=== PATIENT | male | born 1945 | race Caucasian/White ===

== ENCOUNTER 2021-09-25 10:55 | Emergency (ER) | payer MEDICARE, BC, SELFPAY ==
[2021-09-25 11:38] VITALS: BP 123/76; PULSE 94; RESP 18; TEMP 36.2; O2SAT 97; BMI 38.0
--- NOTE | 2021-09-25 12:03 | CRLHL7_ITS ---
For Patients: As a result of the Cures Act, medical imaging exams and procedure reports are released immediately into your electronic medical record. You may view this report before your referring provider. If you have questions, please contact your health care provider. INDICATION: SHORT OF BREATH, ORTHOPNEA TECHNIQUE: Chest 1 view COMPARISON: None FINDINGS: Cardiovascular and mediastinum: Aorta is tortuous. Cardiac silhouette is upper limits of normal. Lungs and pleural spaces: Lungs are clear. No sign of infiltrate or mass. No sign of pleural effusion. No pneumothorax. Bones and soft tissues: No significant findings. IMPRESSION: No acute findings. Dictated by John Ocasio MD @ 09/25/2021 12:42:49 PM (Electronically Signed)
--- NOTE | 2021-09-25 12:04 | ED_ITS ---
HPI - SOB/Dyspnea General Chief Complaint: Shortness of Breath/Dyspnea Stated Complaint: Short of breath Time Seen by Provider: 09/25/21 11:49 History of Present Illness HPI Narrative: This 76-year-old male comes in reporting increased shortness of breath over the past week or so. He states it seems to be more prevalent at night. He does uses CPAP machine. He is taking a water pill 3 times a week. He does have bilateral pedal edema. He also has a history of pulmonary embolism 5 years ago and is currently taking Xarelto 10 mg daily. He had been taking 20 mg daily up until a month ago when his doctor said he should be taking 10 mg. He is concerned about blood clot. He denies having any cough or fever. He does not report any chest pain. Related Data Home Medications Medication Instructions Recorded Confirmed chlorthalidone 25 mg tablet mg 09/25/21 dapagliflozin 10 mg tablet mg 09/25/21 (Farxiga) finasteride 5 mg tablet mg 09/25/21 insulin aspart U-100 100 unit/mL subcut 09/25/21 (3 mL) subcutaneous pen (Novolog Flexpen U-100 Insulin aspart) insulin detemir U-100 100 unit/mL unit subcut 09/25/21 (3 mL) subcutaneous pen (Levemir FlexTouch U-100 Insulin) lisinopril 10 mg tablet mg 09/25/21 potassium chloride 8 mEq meq 09/25/21 capsule,extended release rivaroxaban 10 mg tablet (Xarelto) mg 09/25/21 rosuvastatin 20 mg tablet mg 09/25/21 sitagliptin 50 mg-metformin ER 500 tab PO 09/25/21 mg tablet,extended release 24h mp (Janumet XR) Previous Rx's Medication Instructions Recorded furosemide 20 mg tablet (Lasix) 20 mg PO DAILY #10 tabs 09/25/21 Allergies Allergy/AdvReac Type Severity Reaction Status Date / Time No Known Drug Allergies Allergy Verified 09/25/21 11:47 Review of Systems Status of ROS: Reports: 10 or more systems reviewed and unremarkable except as noted in History and below Narrative: Constitutional: No fevers, no weight gain or loss. Eyes: No discharge. No vision changes. HENT: No congestion, no sore throat, no ear pain. Cardiovascular: No chest pain, no palpitations. Respiratory: No wheezes, no cough. Shortness of breath with orthopnea as described above. Gastrointestinal: No abdominal pain, no vomiting, no diarrhea. Genitourinary: No dysuria, no hematuria. Musculoskeletal: Normal range of motion. Skin: No rashes, no pruritis. Neurological: No dizziness, weakness, sensory change, speech change. Endo/Heme/Allergies: No bruising or bleeding. No polydipsia. Pysch: no suicidality, no anxiety, no insomnia. All other systems reviewed and are negative. [facility] Medical History (Updated 09/25/21 @ 14:09 by Aditya Davis MD) Anxiety Asthma Foot drop Pulmonary emboli Spinal stenosis Social History Smoking Status: Smoker, status unknown Do you use any of these nicotine containing products: None Second hand tobacco smoke exposure: No How often do you have a drink containing alcohol: monthly or less How many standard drinks containing alcohol do you have on a typical day: 1 or 2 How often do you have six or more drinks on one occasion: Never AUDIT-C Alcohol total score: 1 Non-prescribed substance use: denies use Exam Narrative: Exam Narrative: Constitutional: Well-developed, well-nourished, no acute distress. HEENT: Normocephalic, atraumatic. Neck: Normal range of motion. Nontender. Supple. Heart: Regular. No murmurs. Normal rate. Intact distal pulses. Lungs: No chest discomfort. No wheezes or rhonchi. Rales are auscultated bilaterally in the posterior lungs. Abdomen: Normal bowel sounds. Nontender. No rebound tenderness. Genitalia: Deferred. Back: No midline tenderness. Normal range of motion. Extremities: Normal range of motion. No injury. Bilateral pedal edema. Skin: Intact. No rash. Warm. No erythema or pallor. Neurologic: No altered sensation. No weakness. Alert and oriented. Psychiatric: No suicidality. No anxiety or depression. No insomnia. Nursing notes and vitals signs are reviewed. Const: Vital Signs, click to edit/add: Vital Signs - 24 hr 09/25/21 11:38 09/25/21 13:30 Temperature 97.1 F L Pulse Rate [Left P ulse Oximeter] 94 81 Respiratory Rate 18 13 Blood Pressure [Le ft Upper Arm] 123/76 121/69 Pulse Oximetry 97 94 Oxygen Delivery Me thod Room Air Room Air Course Vital Signs Vital signs: Initial Vital Signs Temperature 97.1 F L 09/25/21 11:38 Temperature Source Temporal Artery Scan 09/25/21 11:38 Pulse Rate 94 09/25/21 11:38 Pulse Rhythm 09/25/21 11:38 Respiratory Rate 18 09/25/21 11:38 Blood Pressure 123/76 09/25/21 11:38 Blood Pressure Mean 91 09/25/21 11:38 Blood Pressure Position Sitting 09/25/21 11:38 Pulse Oximetry 97 09/25/21 11:38 Oxygen Delivery Method 09/25/21 11:38 Vital Signs Temperature 97.1 F L 09/25/21 11:38 Pulse Rate 94 09/25/21 11:38 Respiratory Rate 18 09/25/21 11:38 Blood Pressure 123/76 09/25/21 11:38 Pulse Oximetry 97 09/25/21 11:38 Oxygen Delivery Method 09/25/21 11:38 Temperature 97.1 F L 09/25/21 11:38 Pulse Rate 81 09/25/21 13:30 Respiratory Rate 13 09/25/21 13:30 Blood Pressure 121/69 09/25/21 13:30 Pulse Oximetry 94 09/25/21 13:30 Oxygen Delivery Method 09/25/21 13:30 MDM - SOB/Dyspnea MDM Narrative Medical decision making narrative: This patient comes in reporting shortness of breath especially at night. He does not have any abnormal vital signs. He states that his symptoms improve if he gets up at night and walks around. I did hear bilateral rales in the dependent areas of his lungs on exam. His BNP level is in normal range. His D- dimer is 0.78 which is real close to borderline normal. He is taking Xarelto and has coverage in that regard. His symptoms arm worse at night and suspicious for some fluid overload. He is taking chlorthalidone 3 times a week. I did prescribe Lasix 20 mg daily for 7-10 days. I advised him to follow-up with his primary physician. Lab Data Labs: Lab Results 09/25/21 09/25/21 09/25/21 Range/Units 13:17 13:17 13:17 WBC 10.62 (4.50-11.00) K/uL RBC 4.41 (4.30-5.90) m/uL Hgb 12.8 L (13.5-17.5) gm/dL Hct 39.5 (37.0-53.0) % MCV 90 (80-100) fL MCH 29 (26-34) pg MCHC 32 (32-36) gm/dL RDW Coeff of Christie 13.4 (11.5-15.5) % Plt Count 245 (140-440) K/uL Neut % (Auto) 74.0 H (42.0-72.0) % Lymph % (Auto) 16.7 L (20-44) % Culberson % (Auto) 7.3 (0.0-11.0) % Eos % (Auto) 1.5 (0.0-7.0) % Baso % (Auto) 0.4 (0.0-3.0) % Neut # (Auto) 7.90 H (1.7-7.0) K/uL Lymph # (Auto) 1.80 (0.90-2.90) K/uL Culberson # (Auto) 0.80 (0.00-0.90) K/UL Eos # (Auto) 0.16 (0.00-0.50) K/uL Baso # (Auto) 0.04 (0.00-0.30) K/uL Abs Immat Gran (auto) 0.01 (0.00-0.30) K/uL D-Dimer Quant (PE/DVT) 0.78 H (0.00-0.50) ug/ml Sodium 137 (135-149) mmol/L Potassium 4.5 (3.6-5.1) mmol/L Chloride 101 (96-114) mmol/L Carbon Dioxide 22 (20-32) mmol/L BUN 33 H (7-30) mg/dL Creatinine 1.3 (0.5-1.5) mg/dL Estimated Creat Clear 50.69 Estimated GFR 57 ml/min Glucose 228 H (60-115) mg/dL Calcium 9.7 (8.4-10.6) mg/dL NT-Pro-B Natriuret Pep 72 (0-450) PG/mL POC Troponin I (0.01-0.04) ng/ml 09/25/21 Range/Units 13:30 WBC (4.50-11.00) K/uL RBC (4.30-5.90) m/uL Hgb (13.5-17.5) gm/dL Hct (37.0-53.0) % MCV (80-100) fL MCH (26-34) pg MCHC (32-36) gm/dL RDW Coeff of Christie (11.5-15.5) % Plt Count (140-440) K/uL Neut % (Auto) (42.0-72.0) % Lymph % (Auto) (20-44) % Culberson % (Auto) (0.0-11.0) % Eos % (Auto) (0.0-7.0) % Baso % (Auto) (0.0-3.0) % Neut # (Auto) (1.7-7.0) K/uL Lymph # (Auto) (0.90-2.90) K/uL Culberson # (Auto) (0.00-0.90) K/UL Eos # (Auto) (0.00-0.50) K/uL Baso # (Auto) (0.00-0.30) K/uL Abs Immat Gran (auto) (0.00-0.30) K/uL D-Dimer Quant (PE/DVT) (0.00-0.50) ug/ml Sodium (135-149) mmol/L Potassium (3.6-5.1) mmol/L Chloride (96-114) mmol/L Carbon Dioxide (20-32) mmol/L BUN (7-30) mg/dL Creatinine (0.5-1.5) mg/dL Estimated Creat Clear Estimated GFR ml/min Glucose (60-115) mg/dL Calcium (8.4-10.6) mg/dL NT-Pro-B Natriuret Pep (0-450) PG/mL POC Troponin I 0.00 L (0.01-0.04) ng/ml Imaging Data Chest x-ray: Radiologist's impression: Cardiovascular and mediastinum: Aorta is tortuous. Cardiac silhouette is upper limits of normal. Lungs and pleural spaces: Lungs are clear. No sign of infiltrate or mass. No sign of pleural effusion. No pneumothorax. Bones and soft tissues: No significant findings. ECG Data Attestation: I personally reviewed and interpreted this ECG as follows: Interpretation: Normal sinus rhythm. First degree AV block. Rate 83 beats per minute. There are no ST or T-wave abnormalities. Discharge Plan Discharge Clinical Impression: Congestive heart failure Condition: Stable Additional Instructions: Take medication as prescribed. Follow up with primary physician to review medic ations. Return if persistent or recurrent worsening symptoms happen. Prescriptions: New furosemide [Lasix] 20 mg tablet 20 mg PO DAILY Qty: 10 2RF No Action potassium chloride 8 mEq capsule, extended release Label Comments: TAKE 1 CAPSULE BY MOUTH DAILY chlorthalidone 25 mg tablet Label Comments: TAKE 1 TABLET BY MOUTH 3 TIMES A WEEK lisinopril 10 mg tablet Label Comments: TAKE 1 TABLET BY MOUTH DAILY finasteride 5 mg tablet Label Comments: TAKE 1 TABLET BY MOUTH EVERY DAY insulin aspart U-100 [Novolog Flexpen U-100 Insulin] 100 unit/mL (3 mL) insulin pen SUBCUT Label Comments: INJECT 15 UNITS UNDER THE SKIN BEFORE BREAKFAST AND DINNER rosuvastatin 20 mg tablet Label Comments: TAKE 1 TABLET BY MOUTH DAILY Levemir FlexTouch U-100 Insuln 100 unit/mL (3 mL) insulin pen SUBCUT Label Comments: INJECT 57 UNITS UNDER THE SKIN EVERY DAY Xarelto 10 mg tablet Label Comments: TAKE 1 TABLET BY MOUTH DAILY Janumet XR 50-500 mg tablet, ER multiphase 24 hr PO Farxiga 10 mg tablet Label Comments: TAKE 1 TABLET BY MOUTH EVERY DAY Follow Up/Referrals: Provider,Not a Local [Primary Care Provider] - Stand Alone Forms: MyHealth Info Instructions
[2021-09-25 13:28] LABS: Basophils Absolute Auto 0.04 K/uL (0.00-0.30); Basophils Percent Auto 0.4 % (0.0-3.0); Eosinophils Absolute Auto 0.16 K/uL (0.00-0.50); Eosinophils Percent Auto 1.5 % (0.0-7.0); Hematocrit 39.5 % (37.0-53.0); Hemoglobin* 12.8 gm/dL (13.5-17.5); Immature Granulocytes Abs Auto 0.01 K/uL (0.00-0.30); Lymphocytes Percent Auto 16.7 % (20-44); Mean Corpuscular HGB Conc 32 gm/dL (32-36); Mean Corpuscular Hemoglobin 29 pg (26-34); Mean Corpuscular Volume 90 fL (80-100); Monocytes Percent Auto 7.3 % (0.0-11.0); Platelet Count* 245 K/uL (140-440); RDW Coefficient of Variation % 13.4 % (11.5-15.5); Red Blood Count 4.41 m/uL (4.30-5.90); White Blood Count* 10.62 K/uL (4.50-11.00)
[2021-09-25 13:30] VITALS: BP 121/69; PULSE 81; RESP 13; O2SAT 94
[2021-09-25 13:39] LABS: Slide Review Reflex No
[2021-09-25 13:42] LABS: Chloride* 101 mmol/L (96-114); Potassium* 4.5 mmol/L (3.6-5.1); Sodium* 137 mmol/L (135-149)
[2021-09-25 13:44] LABS: Creatinine* 1.3 mg/dL (0.5-1.5); Est. Creatinine Clearance* 50.69; Estimated Glomerular Filt Rate 57 ml/min
[2021-09-25 13:45] LABS: Blood Urea Nitrogen* 33 mg/dL (7-30); Calcium* 9.7 mg/dL (8.4-10.6); Carbon Dioxide* 22 mmol/L (20-32); Glucose* 228 mg/dL (60-115)
[2021-09-25 13:46] LABS: D Dimer Quantitative* 0.78 ug/ml (0.00-0.50)
[2021-09-25 13:54] LABS: NT Pro B Type NatriureticPept* 72 PG/mL (0-450)
== END 2021-09-25 14:54 | disposition home or self-care (01) ==
PROVIDERS: Emergency Provider Emergency Medicine Emergency Medical Services
DX: I50.9 Heart failure, unspecified (principal)
CPT/HCPCS: 36415; 71045; 80048; 83880; 84484; 85025; 85379; 93005; 99285

== ENCOUNTER 2021-09-30 08:47 | Emergency (ER) | payer MEDICARE, BC, SELFPAY ==
[2021-09-30 09:03] VITALS: BP 106/85; PULSE 92; RESP 24; TEMP 36.8; O2SAT 98; BMI 37.5
--- NOTE | 2021-09-30 09:27 | CRLHL7_ITS ---
For Patients: As a result of the Century Cures Act, medical imaging exams and procedure reports are released immediately into your electronic medical record. You may view this report before your referring provider. If you have questions, please contact your health care provider. INDICATION: Dyspnea. History of PEs in 2017 COMPARISON: There are no prior CTs for comparison TECHNIQUE: : CT examination of the chest was performed with the uneventful intravenous administration of 95 cc of Isovue 370 while thin axial sections were obtained from above the apices of the lungs to the lung bases. Please note that all CT scans at this facility use dose modulation, iterative reconstruction, and/or weight-based dosing when appropriate to reduce radiation dose to as low as reasonably achievable. FINDINGS: : HEART and MEDIASTINUM: The heart size is normal. There is no mediastinal or hilar adenopathy or mass. There is no pericardial effusion. PULMONARY ARTERIAL CIRCULATION: There is no visible intraluminal filling defect to suggest pulmonary embolus. LUNGS: Minimal atelectasis or scarring the lung bases nausea wound in the left suprahilar mass seen on axial image 51. This measures above 6 millimeters in greatest craniocaudal length. PLEURAL SPACES: There is no pleural effusion, pneumothorax or pleural based mass. VISUALIZED UPPER ABDOMEN: Hepatic steatosis. Cholelithiasis. Limited visualized upper abdominal structures appear normal. OSSEOUS STRUCTURES: Age-appropriate appearance. No acute fracture or destructive process. TUBES and LINES: None. IMPRESSION: 1. There is no finding of pulmonary embolus. 2. Patchy basilar atelectasis. 3. 6 millimeter left suprahilar nodule. A six-month follow-up noncontrast chest CT is advised. 4. Hepatic steatosis and cholelithiasis Please note that all CT scans at this facility use dose modulation, iterative reconstruction, and/or weight-based dosing when appropriate to reduce radiation dose to as low as reasonably achievable. Dictated by Brayden Palacio MD @ 09/30/2021 12:08:03 PM (Electronically Signed)
--- NOTE | 2021-09-30 09:27 | CRLHL7_ITS ---
For Patients: As a result of the Century Cures Act, medical imaging exams and procedure reports are released immediately into your electronic medical record. You may view this report before your referring provider. If you have questions, please contact your health care provider. INDICATION: Pain and swelling both lower extremities COMPARISON: None FINDINGS: Ultrasound of the venous drainage of both lower extremities shows no evidence of deep venous thrombosis. There is normal antegrade flow from the posterior tibial and popliteal veins superiorly through the common femoral vein in both legs. There is normal augmentation and compressibility of these veins. IMPRESSION: No evidence of deep venous thrombosis in either lower extremity by ultrasound. Dictated by Brayden Palacio MD @ 09/30/2021 10:54:47 AM (Electronically Signed)
--- NOTE | 2021-09-30 09:29 | ED.NURSE ---
7979 ekg done, #20 sl placed R ac, blood drawn off iv start
--- NOTE | 2021-09-30 09:32 | ED_ITS ---
HPI - General Adult General Time Seen by Provider: 09:32 Date Seen: 09/30/21 Chief complaint: Shortness of Breath/Dyspnea Stated complaint: Shortness of breath Time Seen by Provider: 09/30/21 08:49 Source: patient Mode of arrival: ambulatory Limitations: no limitations History of Present Illness HPI narrative: Patient is a 76-year-old white male who was seen for shortness of breath recently, apparently there is a history of congestive heart failure although with his Lasix increased he notices that he has less urine output since his last visit. He has had a pulmonary embolus. He has been short of breath intermittently with activity, he denies chest pain he had a reassuring EKG and troponin last visit. Also his proBNP was not markedly elevated his chest x-ray looked unremarkable. He reports less swelling in his legs, but he is really concerned about his lungs with pulmonary emboli. The patient has been on Xarelto now 10 mg daily, diminished from 20 mg daily. The patient denies fever chills cough, he has felt more short of breath over the last few days. Related Data Home Medications Medication Instructions Recorded Confirmed chlorthalidone 25 mg tablet mg 09/25/21 dapagliflozin 10 mg tablet mg 09/25/21 (Farxiga) finasteride 5 mg tablet mg 09/25/21 insulin aspart U-100 100 unit/mL subcut 09/25/21 (3 mL) subcutaneous pen (Novolog Flexpen U-100 Insulin aspart) insulin detemir U-100 100 unit/mL unit subcut 09/25/21 (3 mL) subcutaneous pen (Levemir FlexTouch U-100 Insulin) lisinopril 10 mg tablet mg 09/25/21 potassium chloride 8 mEq meq 09/25/21 capsule,extended release rivaroxaban 10 mg tablet (Xarelto) mg 09/25/21 rosuvastatin 20 mg tablet mg 09/25/21 sitagliptin 50 mg-metformin ER 500 tab PO 09/25/21 mg tablet,extended release 24h mp (Janumet XR) Previous Rx's Medication Instructions Recorded furosemide 20 mg tablet (Lasix) 20 mg PO DAILY #10 tabs 09/25/21 azithromycin 250 mg tablet See Taper PO DAILY #6 tabs 09/30/21 (Zithromax Z-Daniel) Allergies Allergy/AdvReac Type Severity Reaction Status Date / Time No Known Drug Allergies Allergy Verified 09/30/21 11:46 Review of Systems Status of ROS: Reports: 10 or more systems reviewed and unremarkable except as noted in History and below [facility] Medical History (Updated 09/30/21 @ 09:36 by Alfonso Gan MD) Anxiety Asthma Foot drop Pulmonary emboli Spinal stenosis Surgical History (Updated 09/30/21 @ 09:43 by Karina Batista RN) H/O adenoidectomy History of hip surgery History of tonsillectomy Social History Smoking Status: Never smoker Do you use any of these nicotine containing products: None Second hand tobacco smoke exposure: No How often do you have a drink containing alcohol: never How many standard drinks containing alcohol do you have on a typical day: 1 or 2 How often do you have six or more drinks on one occasion: Never AUDIT-C Alcohol total score: 0 Non-prescribed substance use: denies use Exam Narrative: Exam Narrative: Objective: Patient is alert orient x3, noncyanotic, no increased muscles of respiration used. Respiratory rate appears normal Vital signs look unremarkable O2 sat 90% on room air HEENT is unremarkable no facial asymmetry Neck is supple Chest clear Heart rate and rhythm regular with 2/6 systolic ejection murmur abdomen benign soft extremities show 1+ edema neurologic is grossly nonfocal upper lower extremities Skin is warm and dry good peripheral perfusion Const: Vital Signs, click to edit/add: Vital Signs - 24 hr 09/30/21 09:03 09/30/21 10:50 Temperature 98.2 F Pulse Rate [Pulse Oximeter] 92 86 Respiratory Rate 24 24 Blood Pressure [Le ft Upper Arm] 106/85 123/75 Pulse Oximetry 98 97 Oxygen Delivery Me thod Room Air Room Air Course Vital Signs Vital signs: Initial Vital Signs Temperature 98.2 F 09/30/21 09:03 Temperature Source Temporal Artery Scan 09/30/21 09:03 Pulse Rate 92 09/30/21 09:03 Respiratory Rate 24 09/30/21 09:03 Blood Pressure 106/85 09/30/21 09:03 Blood Pressure Mean 92 09/30/21 09:03 Blood Pressure Position Supine 09/30/21 09:03 Pulse Oximetry 98 09/30/21 09:03 Oxygen Delivery Method 09/30/21 09:03 Vital Signs Temperature 98.2 F 09/30/21 09:03 Pulse Rate 92 09/30/21 09:03 Respiratory Rate 24 09/30/21 09:03 Blood Pressure 106/85 09/30/21 09:03 Pulse Oximetry 98 09/30/21 09:03 Oxygen Delivery Method 09/30/21 09:03 Temperature 98.2 F 09/30/21 09:03 Pulse Rate 86 09/30/21 10:50 Respiratory Rate 24 09/30/21 10:50 Blood Pressure 123/75 09/30/21 10:50 Pulse Oximetry 97 09/30/21 10:50 Oxygen Delivery Method 09/30/21 10:50 Medical Decision Making MDM Narrative Medical decision making narrative: Patient was recently here for shortness of breath, and had a reassuring BNP EKG troponin. Also his chest x-ray looks unremarkable. I think at this 0.2 exclude any clotting issue I think a CT scan of his chest would be appropriate, as well as ultrasound in his legs, will repeat EKG, troponin, labs. Disposition pending findings above please see addendum Addendum: EKG by my read shows normal sinus rhythm no acute ST T wave changes, his troponin is negative, his hemodynamics have remained stable, his CRP is ne gative proBNP is normal at 75 troponin is 0 [place] [id number] hemoglobin is 13.2 ER profile is largely unremarkable other than creatinine is elevated 1.7. CRP is less than 0.5. The patient's CT scan of the chest showed no pulmonary embolus patchy bilateral atelectasis there is a 6 month 6 mm left suprahilar nodule that should have follow-up in 6 months. Patient is also report he has been coughing last couple of days I would put him on a Z-Daniel just because of the finding on CT and his presentation with breathing issue negative COVID. Follow up with primary care in the next 2 days for reassessment recommended, will make an appointment for the patient in the clinic. Lab Data Labs: Lab Results 09/30/21 09/30/21 09/30/21 Range/Units 09:25 09:25 09:25 WBC 11.52 H (4.50-11.00) K/uL RBC 4.52 (4.30-5.90) m/uL Hgb 13.2 L (13.5-17.5) gm/dL Hct 39.9 (37.0-53.0) % MCV 88 (80-100) fL MCH 29 (26-34) pg MCHC 33 (32-36) gm/dL RDW Coeff of Christie 13.2 (11.5-15.5) % Plt Count 255 (140-440) K/uL Neut % (Auto) 73.9 H (42.0-72.0) % Lymph % (Auto) 18.3 L (20-44) % Mellette % (Auto) 5.6 (0.0-11.0) % Eos % (Auto) 1.6 (0.0-7.0) % Baso % (Auto) 0.4 (0.0-3.0) % Neut # (Auto) 8.50 H (1.7-7.0) K/uL Lymph # (Auto) 2.10 (0.90-2.90) K/uL Mellette # (Auto) 0.60 (0.00-0.90) K/UL Eos # (Auto) 0.20 (0.00-0.50) K/uL Baso # (Auto) 0.00 (0.00-0.30) K/uL Abs Immat Gran (auto) 0.02 (0.00-0.30) K/uL INR 1.22 H (0.91-1.10) Sodium 134 L (135-149) mmol/L Potassium 4.6 (3.6-5.1) mmol/L Chloride 99 (96-114) mmol/L Carbon Dioxide 21 (20-32) mmol/L BUN 47 H (7-30) mg/dL Creatinine 1.7 H (0.5-1.5) mg/dL Estimated Creat Clear 38.77 Estimated GFR 42 ml/min Glucose 226 H (60-115) mg/dL Lactate (0.5-1.9) mmol/L Calcium 9.6 (8.4-10.6) mg/dL Total Bilirubin (0.1-1.5) mg/dL Direct Bilirubin (0.0-0.5) mg/dL AST (12-35) U/L ALT (4-50) U/L Alkaline Phosphatase (40-150) U/L C-Reactive Protein < 0.5 L (0.5-1.0) mg/dL NT-Pro-B Natriuret Pep (0-450) PG/mL Total Protein (6.0-8.3) g/dL Albumin (3.3-5.0) g/dL SARS-CoV-2 (PCR) (Negative) POC Troponin I (0.01-0.04) ng/ml 09/30/21 09/30/21 09/30/21 Range/Units 09:25 09:25 09:25 WBC (4.50-11.00) K/uL RBC (4.30-5.90) m/uL Hgb (13.5-17.5) gm/dL Hct (37.0-53.0) % MCV (80-100) fL MCH (26-34) pg MCHC (32-36) gm/dL RDW Coeff of Christie (11.5-15.5) % Plt Count (140-440) K/uL Neut % (Auto) (42.0-72.0) % Lymph % (Auto) (20-44) % Mellette % (Auto) (0.0-11.0) % Eos % (Auto) (0.0-7.0) % Baso % (Auto) (0.0-3.0) % Neut # (Auto) (1.7-7.0) K/uL Lymph # (Auto) (0.90-2.90) K/uL Mellette # (Auto) (0.00-0.90) K/UL Eos # (Auto) (0.00-0.50) K/uL Baso # (Auto) (0.00-0.30) K/uL Abs Immat Gran (auto) (0.00-0.30) K/uL INR (0.91-1.10) Sodium (135-149) mmol/L Potassium (3.6-5.1) mmol/L Chloride (96-114) mmol/L Carbon Dioxide (20-32) mmol/L BUN (7-30) mg/dL Creatinine (0.5-1.5) mg/dL Estimated Creat Clear Estimated GFR ml/min Glucose (60-115) mg/dL Lactate 3.0 H (0.5-1.9) mmol/L Calcium (8.4-10.6) mg/dL Total Bilirubin 0.5 (0.1-1.5) mg/dL Direct Bilirubin 0.2 (0.0-0.5) mg/dL AST 42 H (12-35) U/L ALT 40 (4-50) U/L Alkaline Phosphatase 56 (40-150) U/L C-Reactive Protein (0.5-1.0) mg/dL NT-Pro-B Natriuret Pep 75 (0-450) PG/mL Total Protein 7.5 (6.0-8.3) g/dL Albumin 4.5 (3.3-5.0) g/dL SARS-CoV-2 (PCR) (Negative) POC Troponin I 0.00 L (0.01-0.04) ng/ml 09/30/21 Range/Units 09:28 WBC (4.50-11.00) K/uL RBC (4.30-5.90) m/uL Hgb (13.5-17.5) gm/dL Hct (37.0-53.0) % MCV (80-100) fL MCH (26-34) pg MCHC (32-36) gm/dL RDW Coeff of Christie (11.5-15.5) % Plt Count (140-440) K/uL Neut % (Auto) (42.0-72.0) % Lymph % (Auto) (20-44) % Mellette % (Auto) (0.0-11.0) % Eos % (Auto) (0.0-7.0) % Baso % (Auto) (0.0-3.0) % Neut # (Auto) (1.7-7.0) K/uL Lymph # (Auto) (0.90-2.90) K/uL Mellette # (Auto) (0.00-0.90) K/UL Eos # (Auto) (0.00-0.50) K/uL Baso # (Auto) (0.00-0.30) K/uL Abs Immat Gran (auto) (0.00-0.30) K/uL INR (0.91-1.10) Sodium (135-149) mmol/L Potassium (3.6-5.1) mmol/L Chloride (96-114) mmol/L Carbon Dioxide (20-32) mmol/L BUN (7-30) mg/dL Creatinine (0.5-1.5) mg/dL Estimated Creat Clear Estimated GFR ml/min Glucose (60-115) mg/dL Lactate (0.5-1.9) mmol/L Calcium (8.4-10.6) mg/dL Total Bilirubin (0.1-1.5) mg/dL Direct Bilirubin (0.0-0.5) mg/dL AST (12-35) U/L ALT (4-50) U/L Alkaline Phosphatase (40-150) U/L C-Reactive Protein (0.5-1.0) mg/dL NT-Pro-B Natriuret Pep (0-450) PG/mL Total Protein (6.0-8.3) g/dL Albumin (3.3-5.0) g/dL SARS-CoV-2 (PCR) Negative SARS-CoV-2 (Negative) POC Troponin I (0.01-0.04) ng/ml Discharge Plan Discharge Clinical Impression: Shortness of breath Patient Disposition: Home, Self-Care Condition: Improved Additional Instructions: Patient feels improved, he has some atelectasis that certainly could be some mild infiltrate, I think be reasonable to cover him it given he has had a cough for the last couple of days with antibiotics will give a Z-Daniel, rest light activities, will make an appointment to follow-up in the clinic in a couple of days. His EKG by my read was unremarkable and his troponin is negative. Follow up sooner problems or concerns he will finish his increased dose of Lasix over the next week. Follow up with Dr. Terrazas at [facility] october 03 at 2:30 pm. Prescriptions: New azithromycin [Zithromax Z-Daniel] 250 mg tablet See Taper PO DAILY Qty: 6 0RF Taper: Z-DANIEL 500 mg Q24H for 1 Day and 0 Hour 250 mg Q24H for 4 Days and 0 Hour Rx Instructions: For 250 mg dose pack: take 500 mg today (day 1), then 250 mg for 4 days (days 2-5) orally daily; No Action potassium chloride 8 mEq capsule, extended release Label Comments: TAKE 1 CAPSULE BY MOUTH DAILY chlorthalidone 25 mg tablet Label Comments: TAKE 1 TABLET BY MOUTH 3 TIMES A WEEK lisinopril 10 mg tablet Label Comments: TAKE 1 TABLET BY MOUTH DAILY finasteride 5 mg tablet Label Comments: TAKE 1 TABLET BY MOUTH EVERY DAY insulin aspart U-100 [Novolog Flexpen U-100 Insulin] 100 unit/mL (3 mL) insulin pen SUBCUT Label Comments: INJECT 15 UNITS UNDER THE SKIN BEFORE BREAKFAST AND DINNER rosuvastatin 20 mg tablet Label Comments: TAKE 1 TABLET BY MOUTH DAILY Levemir FlexTouch U-100 Insuln 100 unit/mL (3 mL) insulin pen SUBCUT Label Comments: INJECT 57 UNITS UNDER THE SKIN EVERY DAY Xarelto 10 mg tablet Label Comments: TAKE 1 TABLET BY MOUTH DAILY Janumet XR 50-500 mg tablet, ER multiphase 24 hr PO Farxiga 10 mg tablet Label Comments: TAKE 1 TABLET BY MOUTH EVERY DAY furosemide [Lasix] 20 mg tablet 20 mg PO DAILY Qty: 10 2RF Follow Up/Referrals: Provider,Not a Local [Primary Care Provider] - Stand Alone [facility]
[2021-09-30 09:41] LABS: Basophils Percent Auto 0.4 % (0.0-3.0); Eosinophils Percent Auto 1.6 % (0.0-7.0); Hematocrit 39.9 % (37.0-53.0); Hemoglobin* 13.2 gm/dL (13.5-17.5); Immature Granulocytes Abs Auto 0.02 K/uL (0.00-0.30); Lymphocytes Percent Auto 18.3 % (20-44); Mean Corpuscular HGB Conc 33 gm/dL (32-36); Mean Corpuscular Hemoglobin 29 pg (26-34); Mean Corpuscular Volume 88 fL (80-100); Monocytes Percent Auto 5.6 % (0.0-11.0); Neutrophils Percent Auto 73.9 % (42.0-72.0); Platelet Count* 255 K/uL (140-440); RDW Coefficient of Variation % 13.2 % (11.5-15.5); Red Blood Count 4.52 m/uL (4.30-5.90); White Blood Count* 11.52 K/uL (4.50-11.00)
[2021-09-30 09:55] LABS: INR 1.22 (0.91-1.10); Prothrombin Time 15.8 Seconds
[2021-09-30 10:04] LABS: Slide Review Reflex No
[2021-09-30 10:07] LABS: Albumin* 4.5 g/dL (3.3-5.0)
[2021-09-30 10:08] LABS: Chloride* 99 mmol/L (96-114); Potassium* 4.6 mmol/L (3.6-5.1); Sodium* 134 mmol/L (135-149)
[2021-09-30 10:10] LABS: Aspartate Amino Transferase* 42 U/L (12-35); Bilirubin Direct* 0.2 mg/dL (0.0-0.5); Bilirubin Total* 0.5 mg/dL (0.1-1.5); Total Protein* 7.5 g/dL (6.0-8.3)
[2021-09-30 10:11] LABS: Alanine Aminotransferase* 40 U/L (4-50); Alkaline Phosphatase* 56 U/L (40-150); Creatinine* 1.7 mg/dL (0.5-1.5); Est. Creatinine Clearance* 38.77; Estimated Glomerular Filt Rate 42 ml/min
[2021-09-30 10:12] LABS: Blood Urea Nitrogen* 47 mg/dL (7-30); Calcium* 9.6 mg/dL (8.4-10.6); Carbon Dioxide* 21 mmol/L (20-32); Glucose* 226 mg/dL (60-115)
[2021-09-30 10:17] LABS: C Reactive Protein* < 0.5 mg/dL (0.5-1.0)
[2021-09-30 10:20] LABS: NT Pro B Type NatriureticPept* 75 PG/mL (0-450)
[2021-09-30 10:30] LABS: SARS PCR* Negative SARS-CoV-2 (Negative)
[2021-09-30 10:50] VITALS: BP 123/75; PULSE 86; RESP 24; O2SAT 97
== END 2021-09-30 12:40 | disposition home or self-care (01) ==
PROVIDERS: Emergency Provider Family Medicine
DX: R06.02 Shortness of breath (principal)
CPT/HCPCS: 36415; 71260; 80048; 80076; 83605; 83880; 84484; 85025; 85610; 86140; 87635; 93005; 93970; 99284; 99285; Q9967

== ENCOUNTER 2021-10-02 11:28 | Emergency (ER) | payer MEDICARE, BC, SELFPAY ==
--- NOTE | 2021-10-02 11:53 | ED_ITS ---
HPI - General Adult General Time Seen by Provider: 12:40 Date Seen: 10/02/21 Chief complaint: Shortness of Breath/Dyspnea Stated complaint: Short of breath Time Seen by Provider: 10/02/21 11:38 Source: patient Mode of arrival: ambulatory Limitations: no limitations History of Present Illness HPI narrative: Patient presents back again with shortness of breath, he was able to mow his friends yd without difficulty. Today felt the felt well morning and then toward mid day had some breathing difficulties he felt like he was gasping for breath. He is on antibiotics and an increased dose of Lasix for another couple of days. He has appointment see Writes her tomorrow. The patient had a negative CT scan of the chest other than some atelectatic changes 2 days ago, normal EKG, negative troponin. He denies diaphoresis leg swelling that is different than normal. He also had lower extremity Doppler scans were unremarkable. The patient also is on Xarelto, he reports he has not missed any medications. At this time his O2 sat is 96% on room air and is vital signs unremarkable, he is afebrile, no COVID exposure, and he feels back to baseline Related Data Home Medications Medication Instructions Recorded Confirmed chlorthalidone 25 mg tablet mg 09/25/21 dapagliflozin 10 mg tablet mg 09/25/21 (Farxiga) finasteride 5 mg tablet mg 09/25/21 insulin aspart U-100 100 unit/mL subcut 09/25/21 (3 mL) subcutaneous pen (Novolog Flexpen U-100 Insulin aspart) insulin detemir U-100 100 unit/mL unit subcut 09/25/21 (3 mL) subcutaneous pen (Levemir FlexTouch U-100 Insulin) lisinopril 10 mg tablet mg 09/25/21 potassium chloride 8 mEq meq 09/25/21 capsule,extended release rivaroxaban 10 mg tablet (Xarelto) mg 09/25/21 rosuvastatin 20 mg tablet mg 09/25/21 sitagliptin 50 mg-metformin ER 500 tab PO 09/25/21 mg tablet,extended release 24h mp (Janumet XR) Previous Rx's Medication Instructions Recorded furosemide 20 mg tablet (Lasix) 20 mg PO DAILY #10 tabs 09/25/21 azithromycin 250 mg tablet See Taper PO DAILY #6 tabs 09/30/21 (Zithromax Z-Alex) lorazepam 0.5 mg tablet (Ativan) 0.5 mg PO BID PRN #14 tabs 10/02/21 Allergies Allergy/AdvReac Type Severity Reaction Status Date / Time No Known Drug Allergies Allergy Verified 09/30/21 11:46 Review of Systems Status of ROS: Reports: 6 or more systems reviewed and unremarkable except as noted in History and below PFSH PFSH Medical History Anxiety Asthma Foot drop Pulmonary emboli Spinal stenosis Surgical History H/O adenoidectomy History of hip surgery History of tonsillectomy Social History Smoking Status: Never smoker Do you use any of these nicotine containing products: None Second hand tobacco smoke exposure: No How often do you have a drink containing alcohol: never How many standard drinks containing alcohol do you have on a typical day: 1 or 2 How often do you have six or more drinks on one occasion: Never AUDIT-C Alcohol total score: 0 Non-prescribed substance use: denies use Exam Narrative: Exam Narrative: Objective: In general patient apparent distress, noncyanotic, talks in even and unlabored sentences HEENT is unremarkable Neck supple Chest is clear no rales or wheezing Heart rate and rhythm regular regular with 2/6 systolic murmur Abdomen benign Extremities show 1+ edema lower extremities that is been the same for him, he does report that it is improved Const: Vital Signs, click to edit/add: Vital Signs - 24 hr 10/02/21 12:20 Temperature 97.7 F Pulse Rate [Right Pulse Oximeter] 88 Respiratory Rate 18 Blood Pressure [Ri ght Upper Arm] 114/79 Pulse Oximetry 96 Oxygen Delivery Me thod Room Air Course Vital Signs Vital signs: Initial Vital Signs Temperature 97.7 F 10/02/21 12:20 Temperature Source Temporal Artery Scan 10/02/21 12:20 Pulse Rate 88 10/02/21 12:20 Respiratory Rate 18 10/02/21 12:20 Blood Pressure 114/79 10/02/21 12:20 Blood Pressure Mean 90 10/02/21 12:20 Blood Pressure Position Sitting 10/02/21 12:20 Pulse Oximetry 96 10/02/21 12:20 Oxygen Delivery Method 10/02/21 12:20 Vital Signs Temperature 97.7 F 10/02/21 12:20 Pulse Rate 88 10/02/21 12:20 Respiratory Rate 18 10/02/21 12:20 Blood Pressure 114/79 10/02/21 12:20 Pulse Oximetry 96 10/02/21 12:20 Oxygen Delivery Method 10/02/21 12:20 Temperature 97.7 F 10/02/21 12:20 Pulse Rate 88 10/02/21 12:20 Respiratory Rate 18 10/02/21 12:20 Blood Pressure 114/79 10/02/21 12:20 Pulse Oximetry 96 10/02/21 12:20 Oxygen Delivery Method 10/02/21 12:20 Medical Decision Making MDM Narrative Medical decision making narrative: Patient has had episodes of shortness of breath, he does have a history of anxiety, I wonder if this is related to anxiety, he does have Ativan at home that works for him he took 2 last night it is he slept well. Without any breathing difficulty. No chest pain, no leg swelling this change in fact, his leg swelling is better. At this point he has had a normal CT scan of the chest for PE normal Doppler scanning and labs were reassuring. He is not interested in repeating all these tests, what I would do is give a Holter monitor, have him complete the Lasix course Dr. Knight gave him as well as finish the antibiotic medication and then follow up with Dr. Aburto tomorrow Discharge Plan Discharge Clinical Impression: Shortness of breath Patient Disposition: Home, Self-Care Condition: Stable Additional Instructions: Light activity, continue his water pill and antibiotic, will place a Holter monitor to make sure there is no rhythm issue, follow-up with Dr. Roque her schedule tomorrow, recommend Ativan 0.5 mg today, and will call in some additional Ativan for him Activity Level: Light activity Discharge Diet: Regular Prescriptions: New lorazepam [Ativan] 0.5 mg tablet 0.5 mg PO BID PRNQty: 14 0RF No Action potassium chloride 8 mEq capsule, extended release Label Comments: TAKE 1 CAPSULE BY MOUTH DAILY chlorthalidone 25 mg tablet Label Comments: TAKE 1 TABLET BY MOUTH 3 TIMES A WEEK lisinopril 10 mg tablet Label Comments: TAKE 1 TABLET BY MOUTH DAILY finasteride 5 mg tablet Label Comments: TAKE 1 TABLET BY MOUTH EVERY DAY insulin aspart U-100 [Novolog Flexpen U-100 Insulin] 100 unit/mL (3 mL) insulin pen SUBCUT Label Comments: INJECT 15 UNITS UNDER THE SKIN BEFORE BREAKFAST AND DINNER rosuvastatin 20 mg tablet Label Comments: TAKE 1 TABLET BY MOUTH DAILY Levemir FlexTouch U-100 Insuln 100 unit/mL (3 mL) insulin pen SUBCUT Label Comments: INJECT 57 UNITS UNDER THE SKIN EVERY DAY Xarelto 10 mg tablet Label Comments: TAKE 1 TABLET BY MOUTH DAILY Janumet XR 50-500 mg tablet, ER multiphase 24 hr PO Farxiga 10 mg tablet Label Comments: TAKE 1 TABLET BY MOUTH EVERY DAY furosemide [Lasix] 20 mg tablet 20 mg PO DAILY Qty: 10 2RF azithromycin [Zithromax Z-Alex] 250 mg tablet See Taper PO DAILY Qty: 6 0RF Taper: Z-ALEX 500 mg Q24H for 1 Day and 0 Hour 250 mg Q24H for 4 Days and 0 Hour Rx Instructions: For 250 mg dose pack: take 500 mg today (day 1), then 250 mg for 4 days (days 2-5) orally daily; Follow Up/Referrals: Provider,Not a Local [Primary Care Provider] - Stand Alone Forms: [facility] Info Instructions
[2021-10-02 12:20] VITALS: BP 114/79; PULSE 88; RESP 18; TEMP 36.5; O2SAT 96; BMI 38.0
== END 2021-10-02 14:00 | disposition home or self-care (01) ==
PROVIDERS: Emergency Provider Family Medicine
DX: R06.02 Shortness of breath (principal)
CPT/HCPCS: 93225; 93226; 99283; 99284

== ENCOUNTER 2021-10-03 03:16 | Emergency (ER) | payer MEDICARE, BC, SELFPAY ==
[2021-10-03 03:18] VITALS: BP 97/65; PULSE 95; RESP 22; TEMP 35.6; O2SAT 98
[2021-10-03] MEDS: LORazepam 1 MG TABLET PO (04:00)
--- NOTE | 2021-10-03 07:47 | ED_ITS ---
HPI - SOB/Dyspnea General Chief Complaint: Shortness of Breath/Dyspnea Stated Complaint: Shortness of breath, anxiety Time Seen by Provider: 10/03/21 03:36 Source: patient, RN notes reviewed and old records reviewed Mode of arrival: ambulatory Limitations: no limitations History of Present Illness HPI Narrative: 76-year-old man who presents to the emergency department. Seen earlier today with shortness of breath. I reviewed records; has had extensive evaluation. He acknowledges this too. Says he had taken his lorazepam (old script as had not filled lorazepam from earlier in the day. This was 0.5 mg.) and sleeping pill and gone to bed and subsequently suddenly woke feeling very short of breath. Pulse was elevated. Some pressure in his chest. Went for a walk and just could not relax. Heart rate was elevated. Finally managed to put himself back to bed and then symptoms returned. Worried and so came to the emergency department Related Data Home Medications Medication Instructions Recorded Confirmed chlorthalidone 25 mg tablet mg 09/25/21 dapagliflozin 10 mg tablet mg 09/25/21 (Farxiga) finasteride 5 mg tablet mg 09/25/21 insulin aspart U-100 100 unit/mL subcut 09/25/21 (3 mL) subcutaneous pen (Novolog Flexpen U-100 Insulin aspart) insulin detemir U-100 100 unit/mL unit subcut 09/25/21 (3 mL) subcutaneous pen (Levemir FlexTouch U-100 Insulin) lisinopril 10 mg tablet mg 09/25/21 potassium chloride 8 mEq meq 09/25/21 capsule,extended release rivaroxaban 10 mg tablet (Xarelto) mg 09/25/21 rosuvastatin 20 mg tablet mg 09/25/21 sitagliptin 50 mg-metformin ER 500 tab PO 09/25/21 mg tablet,extended release 24h mp (Janumet XR) Previous Rx's Medication Instructions Recorded furosemide 20 mg tablet (Lasix) 20 mg PO DAILY #10 tabs 09/25/21 azithromycin 250 mg tablet See Taper PO DAILY #6 tabs 09/30/21 (Zithromax Z-Alex) lorazepam 0.5 mg tablet (Ativan) 0.5 mg PO BID PRN #14 tabs 10/02/21 Allergies Allergy/AdvReac Type Severity Reaction Status Date / Time No Known Drug Allergies Allergy Verified 09/30/21 11:46 Review of Systems Status of ROS: Reports: 6 or more systems reviewed and unremarkable except as noted in History and below [facility] Medical History Anxiety Asthma Foot drop History of cerebrovascular accident History of pulmonary embolism Pulmonary emboli Spinal stenosis Surgical History H/O adenoidectomy History of hip surgery History of tonsillectomy Social History Smoking Status: Never smoker Do you use any of these nicotine containing products: None Second hand tobacco smoke exposure: No How often do you have a drink containing alcohol: never How many standard drinks containing alcohol do you have on a typical day: 1 or 2 How often do you have six or more drinks on one occasion: Never AUDIT-C Alcohol total score: 0 Non-prescribed substance use: denies use service: No Exam Narrative: Exam Narrative: Large man. Broad chest. Little breathless. Jovial nonetheless. Cranial nerves 2-12 intact. GCS 15. Seems generally calm actually. No reproducible pain to palpation across the chest. Lungs are clear with equal expansion excursion. Cardiovascular is elevated rate regular rhythm Dependent edema in lower extremities. No pain. Const: Vital Signs, click to edit/add: Vital Signs - 24 hr 10/03/21 03:18 Temperature 96.1 F L Pulse Rate [Right Pulse Oximeter] 95 Respiratory Rate 22 Blood Pressure [Ri ght Upper Arm] 97/65 Pulse Oximetry 98 Oxygen Delivery Me thod Room Air Documenting provider has reviewed patient's vital signs: yes Course Course Hospital Course: Given degree of workup to date, I proposed EKG and dosing again of benzodiazepine as I do think this is exacerbation of anxiety. He agreed. Reevaluation(s) Reevaluation #1: About 30 minutes after the dosing 1 mg oral lorazepam he did feel relaxed still with a little sensation of pressure. Reevaluation #2: Re-evaluation at around an hour noted he had already fallen asleep. Markedly improved. Vital Signs Vital signs: Initial Vital Signs Temperature 96.1 F L 10/03/21 03:18 Temperature Source Temporal Artery Scan 10/03/21 03:18 Pulse Rate 95 10/03/21 03:18 Respiratory Rate 22 10/03/21 03:18 Blood Pressure 97/65 10/03/21 03:18 Blood Pressure Mean 75 10/03/21 03:18 Blood Pressure Position Sitting 10/03/21 03:18 Pulse Oximetry 98 10/03/21 03:18 Oxygen Delivery Method 10/03/21 03:18 Vital Signs Temperature 96.1 F L 10/03/21 03:18 Pulse Rate 95 10/03/21 03:18 Respiratory Rate 22 10/03/21 03:18 Blood Pressure 97/65 10/03/21 03:18 Pulse Oximetry 98 10/03/21 03:18 Oxygen Delivery Method 10/03/21 03:18 Temperature 96.1 F L 10/03/21 03:18 Pulse Rate 95 10/03/21 03:18 Respiratory Rate 22 10/03/21 03:18 Blood Pressure 97/65 10/03/21 03:18 Pulse Oximetry 98 10/03/21 03:18 Oxygen Delivery Method 10/03/21 03:18 MDM - SOB/Dyspnea MDM Narrative Medical decision making narrative: Mr. Hoff and I are in agreement that anxiety is most likely explanation for his symptoms here today. Is already anticoagulated. Medical Records Attestation: I reviewed the patient's medical records. ECG Data Attestation: I personally reviewed and interpreted this ECG as follows: (Sinus rhythm rate of 87. No ST elevation or depression no Q-waves. Similar to prior) Discharge Plan Discharge Clinical Impression: Anxiety attack, Chest pressure Patient Disposition: Home, Self-Care Condition: Improved Additional Instructions: Might be time to make a healthcare appointment with a provider to discuss anxiety and/or talk with therapist. Talk with Dr. Terrazas today at your appointment about this. Prescriptions: No Action potassium chloride 8 mEq capsule, extended release Label Comments: TAKE 1 CAPSULE BY MOUTH DAILY chlorthalidone 25 mg tablet Label Comments: TAKE 1 TABLET BY MOUTH 3 TIMES A WEEK lisinopril 10 mg tablet Label Comments: TAKE 1 TABLET BY MOUTH DAILY finasteride 5 mg tablet Label Comments: TAKE 1 TABLET BY MOUTH EVERY DAY insulin aspart U-100 [Novolog Flexpen U-100 Insulin] 100 unit/mL (3 mL) insulin pen SUBCUT Label Comments: INJECT 15 UNITS UNDER THE SKIN BEFORE BREAKFAST AND DINNER rosuvastatin 20 mg tablet Label Comments: TAKE 1 TABLET BY MOUTH DAILY Levemir FlexTouch U-100 Insuln 100 unit/mL (3 mL) insulin pen SUBCUT Label Comments: INJECT 57 UNITS UNDER THE SKIN EVERY DAY Xarelto 10 mg tablet Label Comments: TAKE 1 TABLET BY MOUTH DAILY Janumet XR 50-500 mg tablet, ER multiphase 24 hr PO Farxiga 10 mg tablet Label Comments: TAKE 1 TABLET BY MOUTH EVERY DAY furosemide [Lasix] 20 mg tablet 20 mg PO DAILY Qty: 10 2RF azithromycin [Zithromax Z-Alex] 250 mg tablet See Taper PO DAILY Qty: 6 0RF Taper: Z-ALEX 500 mg Q24H for 1 Day and 0 Hour 250 mg Q24H for 4 Days and 0 Hour Rx Instructions: For 250 mg dose pack: take 500 mg today (day 1), then 250 mg for 4 days (days 2-5) orally daily; lorazepam [Ativan] 0.5 mg tablet 0.5 mg PO BID PRNQty: 14 0RF Follow Up/Referrals: Provider,Not a Local [Primary Care Provider] - Stand Alone Forms: [email or web address] Info Instructions
== END 2021-10-03 06:01 | disposition home or self-care (01) ==
PROVIDERS: Emergency Provider Family Medicine
DX: F41.9 Anxiety disorder, unspecified (principal); R07.89 Other chest pain
CPT/HCPCS: 93005; 99283; 99284; A9270

== ENCOUNTER 2022-08-30 15:39 | Emergency (ER) | payer MEDICARE, BC, SELFPAY ==
[2022-08-30 16:07] VITALS: BP 113/95; PULSE 81; RESP 18; TEMP 36.2; O2SAT 97; BMI 40.2
--- NOTE | 2022-08-30 16:34 | ED.GENADULT ---
HPI - General Adult General Date Seen: 08/30/22 Chief complaint: Abdominal Pain Stated complaint: Constipation Time Seen by Provider: 08/30/22 15:59 Source: patient Mode of arrival: ambulatory Limitations: no limitations History of Present Illness HPI narrative: Patient is a 77-year-old male here for evaluation of constipation. He says for the past week he has not been going more than a small amount each day and he feels that there is much more that he needs to evacuate. He has some crampy lower abdominal pain, no severe localized abdominal pain. No nausea or vomiting. No fevers. No urinary symptoms. He is unsure why he is having more trouble with constipation now except that he has not been out walking as much because it is been so humid. He has tried taking Metamucil the past couple of days but has not tried other measures at home. 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 He lives part-time in [place] and part-time in [place], currently here visiting friends. He does not feel that he can manage this at home. Related Data Home Medications Medication Instructions Recorded Confirmed chlorthalidone 25 mg tablet 25 mg PO DAILY 09/25/21 08/30/22 dapagliflozin propanediol 10 mg 10 mg PO DAILY 09/25/21 08/30/22 tablet (Farxiga) finasteride 5 mg tablet 5 mg PO DAILY 09/25/21 08/30/22 insulin aspart U-100 100 unit/mL 15 unit subcut 09/25/21 (3 mL) subcutaneous pen (Novolog FlexPen U-100 Insulin aspart) insulin detemir U-100 100 unit/mL 54 unit subcut DAILY 09/25/21 08/30/22 (3 mL) subcutaneous pen (Levemir FlexTouch U-100 Insulin) lisinopril 10 mg tablet 10 mg PO DAILY 09/25/21 08/30/22 potassium chloride 8 mEq 8 meq PO DAILY 09/25/21 08/30/22 capsule,extended release rivaroxaban 10 mg tablet (Xarelto) 10 mg PO Q24H 09/25/21 08/30/22 rosuvastatin 20 mg tablet 20 mg PO DAILY 09/25/21 08/30/22 sitagliptin phos 50 mg-metformin 2 tab PO DAILY 09/25/21 08/30/22 ER 500 mg tablet,extended rel 24h mp (Janumet XR) metoprolol tartrate 25 mg tablet 12.5 mg PO BID 08/30/22 08/30/22 Previous Rx's Medication Instructions Recorded lorazepam 0.5 mg tablet (Ativan) 0.5 mg PO BID PRN #14 tabs 10/02/21 furosemide 20 mg tablet (Lasix) 20 mg PO DAILY Edema #30 tabs 10/03/21 lorazepam 1 mg tablet 1 mg PO QDAY PRN anxiety #30 tabs 10/03/21 Allergies Allergy/AdvReac Type Severity Reaction Status Date / Time No Known Drug Allergies Allergy Verified 08/30/22 16:11 Review of Systems Status of ROS: Reports: 10 or more systems reviewed and unremarkable except as noted in History and below [facility] Medical History Edema ?R60.9 - Edema, unspecified (ICD-10) History of pulmonary embolism ?Z86.711 - Personal history of pulmonary embolism (ICD-10) History of cerebrovascular accident ?Z86.73 - Personal history of transient ischemic attack (TIA), and cerebral infarction without residual deficits (ICD-10) Spinal stenosis ?M48.00 - Spinal stenosis, site unspecified (ICD-10) Pulmonary emboli ?I26.99 - Other pulmonary embolism without acute cor pulmonale (ICD-10) Foot drop ?M21.379 - Foot drop, unspecified foot (ICD-10) Anxiety ?F41.9 - Anxiety disorder, unspecified (ICD-10) Asthma ?J45.909 - Unspecified asthma, uncomplicated (ICD-10) Surgical History H/O adenoidectomy ?Z90.89 - Acquired absence of other organs (ICD-10) History of tonsillectomy ?Z90.89 - Acquired absence of other organs (ICD-10) History of hip surgery ?Z98.890 - Other specified postprocedural states (ICD-10) Social History Smoking Status: Never smoker Do you use any of these nicotine containing products: None Second hand tobacco smoke exposure: No How often do you have a drink containing alcohol: never How many standard drinks containing alcohol do you have on a typical day: 1 or 2 How often do you have six or more drinks on one occasion: Never AUDIT-C Alcohol total score: 0 Non-prescribed substance use: denies use service: No Exam Narrative: Exam Narrative: Vital signs reviewed In general, an alert, well-appearing male. Abdomen, soft, nontender to palpation. Obese. Skin: Warm dry well perfused. Const: Vital Signs, click to edit/add: Vital Signs - 24 hr 08/30/22 16:07 08/30/22 18:06 Temperature 97.2 F L 97.2 F L Pulse Rate [Left P ulse Oximeter] 81 81 Respiratory Rate 18 18 Blood Pressure [Le ft Upper Arm] 113/95 H 113/95 H Pulse Oximetry 97 Oxygen Delivery Me thod Room Air Documenting provider has reviewed patient's vital signs: yes Course Course Hospital Course: Will go ahead and try an enema and milk of magnesia and see if we can produce a bowel movement here. Symptoms at this time are strongly suggestive of constipation and my suspicion for other causes of symptoms such as obstruction, colitis, diverticulitis, etcetera are low. Workup deferred pending treatment of constipation. Patient had a large bowel movement and feels significantly better. We discussed management at home including MiraLax, fiber, fluids, OTC enemas if needed. No further workup needed today. Vital Signs Vital signs: Initial Vital Signs Temperature 97.2 F L 08/30/22 16:07 Temperature Source Temporal Artery Scan 08/30/22 16:07 Pulse Rate 81 08/30/22 16:07 Respiratory Rate 18 08/30/22 16:07 Blood Pressure 113/95 H 08/30/22 16:07 Blood Pressure Mean 101 08/30/22 16:07 Blood Pressure Position Sitting 08/30/22 16:07 Pulse Oximetry 97 08/30/22 16:07 Oxygen Delivery Method Room Air 08/30/22 16:07 Vital Signs Temperature 97.2 F L 08/30/22 16:07 Pulse Rate 81 08/30/22 16:07 Respiratory Rate 18 08/30/22 16:07 Blood Pressure 113/95 H 08/30/22 16:07 Pulse Oximetry 97 08/30/22 16:07 Oxygen Delivery Method Room Air 08/30/22 16:07 Temperature 97.2 F L 08/30/22 18:06 Pulse Rate 81 08/30/22 18:06 Respiratory Rate 18 08/30/22 18:06 Blood Pressure 113/95 H 08/30/22 18:06 Pulse Oximetry 97 08/30/22 16:07 Oxygen Delivery Method Room Air 08/30/22 16:07 Discharge Plan Discharge Clinical Impression: Constipation Patient Disposition: Home, Self-Care Condition: Improved Instructions: Constipation (DC) Additional Instructions: I would recommend addition of MiraLax, 1 capful daily. You can continue the Metamucil. Make sure you are getting plenty of dietary fiber and plenty of fluids. As you mentioned, getting out and walking is also helpful. Prescriptions: No Action furosemide [Lasix] 20 mg tablet 20 mg PO DAILY Qty: 30 2RF lorazepam 1 mg tablet 1 mg PO QDAY PRN (Reason: anxiety) Qty: 30 0RF metoprolol tartrate 25 mg tablet 12.5 mg PO BID potassium chloride 8 mEq capsule, extended release 8 meq PO DAILY Patient Comments: TAKE 1 CAPSULE BY MOUTH DAILY chlorthalidone 25 mg tablet 25 mg PO DAILY Patient Comments: TAKE 1 TABLET BY MOUTH 3 TIMES A WEEK lisinopril 10 mg tablet 10 mg PO DAILY Patient Comments: TAKE 1 TABLET BY MOUTH DAILY finasteride 5 mg tablet 5 mg PO DAILY Patient Comments: TAKE 1 TABLET BY MOUTH EVERY DAY insulin aspart U-100 [Novolog FlexPen U-100 Insulin] 100 unit/mL (3 mL) insulin pen 15 unit SUBCUT Patient Comments: INJECT 15 UNITS UNDER THE SKIN BEFORE BREAKFAST AND DINNER rosuvastatin 20 mg tablet 20 mg PO DAILY Patient Comments: TAKE 1 TABLET BY MOUTH DAILY Levemir FlexTouch U100 Insulin 100 unit/mL (3 mL) insulin pen 54 unit SUBCUT DAILY Patient Comments: INJECT 57 UNITS UNDER THE SKIN EVERY DAY Xarelto 10 mg tablet 10 mg PO Q24H Patient Comments: TAKE 1 TABLET BY MOUTH DAILY Janumet XR 50-500 mg tablet, ER multiphase 24 hr 2 tab PO DAILY Farxiga 10 mg tablet 10 mg PO DAILY Patient Comments: TAKE 1 TABLET BY MOUTH EVERY DAY lorazepam [Ativan] 0.5 mg tablet 0.5 mg PO BID PRNQty: 14 0RF Follow Up/Referrals: Provider,Not a Local [Primary Care Provider] - Stand Alone Forms: [employer] Info Instructions
--- OUTSIDE RECORDS SUMMARY | 2022-08-30 16:41 | XMS_ITS | Patient Health Record ---
Author Name Unknown Organization [facility], Address [address] [place] [address] Care Team Providers Care Clothing Presser Name Role Phone Lorenza Daughertyn Unavailable [phone] Brayden Taveras MD Unavailable Unavailable REASON FOR REFERRAL No Information MEDICATIONS Medication SIG (Take, Route, Frequency, Duration) Notes Start Date End Date Status Multi-Vitamin HP/Minerals (multivitamin,tx-minerals) 03/21/2019 A ctive Lisinopril 03/21/2019 Active Farxiga (dapagliflozin) 03/21/2019 Active Ciprodex (ciprofloxacin-dexamethason e) Apply 4 drop otic twice a day 7 otic twice a day for 7 03/21/2019 Active Fish Oil (docosahexaenoic acid-epa) 03/21/2019 Active Xarelto (rivaroxaban) 03/21/2019 Active Finasteride 5 MG Oral 03/21/2019 Ac tive Potassium Chloride 20 MEQ/15ML (10%) Oral 03/21/2019 Active Metformin 03/21/2019 Active glipiZIDE 5 MG Oral 03/21/2019 Acti ve Simvastatin 40 MG Oral 03/21/2019 A ctive SOCIAL HISTORY Sex Assigned At : Social History Observation Description Sex Assigned At Unknown PROBLEMS Problem Type ICD Code Onset Dates Problem Status W/U Status Risk SNOMED Code Notes Problem H90.J62-Chhduxboh ural hearing loss, unilateral, right ear, with restricted hearing on the contralateral side (H90.A21) 0 Active confirmed Problem H69.82-Eustachian tube dysfunction, left ear (H69.82) 0 Active confirmed Problem H66.002-Acute suppurative otitis media without spontaneous rupture of ear drum, left ear (H66.002) 0 Active confirmed Acute suppurative otitis media without spontaneous rupture of ear drum ([id number]) Problem H90.S99-Jwdvw conductive and sensorineural hearing loss, unilateral, 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 side (H90.A32) 0 Active confirmed PLAN OF TREATMENT No Information Insurance Providers Payer Name Payer Address Payer Phone Subscriber Number Group Number Insured Name Patient Relationship to Insured Coverage Start Date Coverage End Date Medicare Part B [employer] [address] [place] [address] [phone] [id number] Parvin Hoff Self - patient is the insured [facility] [address] [place] [address] [phone] [id number] Parvin Hoff Self - patient is the insured MEDICAL (GENERAL) HISTORY Surgical History Surgery Date(Month/Year) BMT Tonsillectomy and adenoidectomy
--- OUTSIDE RECORDS SUMMARY | 2022-08-30 16:41 | XMS_ITS | Continuity of Care Document ---
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) - Acute cholecystitis(Discharge Diagnosis) - 04/23/22 Calculus of gallbladder with acute cholecystitis without obstruction(Final) - Other specified diseases of gallbladder(Final) - Hypertensive chronic kidney disease with stage 1 through stage 4 chronic kidney disease, or unspecified chronic kidney disease(Final) - Chronic kidney disease, unspecified(Final) - 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) - Unspecified asthma, uncomplicated(Final) - Benign prostatic hyperplasia without lower urinary tract symptoms(Final) - Chest pain, unspecified(Final) - Atrioventricular block, first degree(Final) - Pure hypercholesterolemia, unspecified(Final) - Presence of artificial hip joint, bilateral(Final) - Diverticulosis of large intestine without perforation or abscess without bleeding(Final) - Problems related to living alone(Final) - Sleep apnea, unspecified(Final) - Obesity, unspecified(Final) - intermediate (current) use of anticoagulants(Final) - Body mass index [BMI] 39.0-39.9, adult(Final) - Personal history of pulmonary embolism(Final) - Discharge Disposition: Home or Self Care Attending Physician: Sana Cameron MD Admitting Physician: Marybel Truong Allergies, Adverse Reactions, Alerts No Known Medication Allergies Assessment and Plan Extracted from: Title:Discharge Summary Note Author:Stephane Cameron MD Date:04/25/22 1. metoprolol(metoprolol tar trate 25 mg oral tablet) 12.5 mg= 0.5 Tab By mouth Tab twice daily?? New Prescriptions ?? 2. metroNIDAZOLE(Flagyl 500 mg oral tablet) 500 mg= 1 Tab By mouth Tab every 8 hours 10 Day?? 3. ciprofloxacin(ciprofloxacin 500 mg oral tablet) 500 mg= 1 Tab By mouth Tab every 12 hours 10 Day Target Dose: ciprofloxacin 500 mg oral tablet 20 mg/kg ??06/25/18 10:03:19?? 4. lisinopril(lisinopril 2.5 mg oral tablet) 2.5 mg= 1 Tab By mouth Tab once daily?Medications to Continue?? 5. rivaroxaban(Xarelto 10 mg oral tablet) 10 mg= 1 Tab By mouth every bedtime?? 6. glipiZIDE(glipiZIDE 5 mg oral tablet, extended release) 5 mg= 1 Tab By mouth twice daily?? 7. SITagliptin(Januvia 100 mg oral tablet) 100 mg= 1 Tab By mouth once daily?? 8. cholecalciferol(Vitamin D3 25 mcg (1,000 unit) oral tablet, chewable) 25 mcg= 1 Tab Chew Tab, Chew twice daily?? 9. finasteride(finasteride 5 mg oral tablet) 5 mg= 1 Tab By mouth Tab every bedtime?? 10. dapagliflozin(Farxiga 10 mg oral tablet) 10 mg= 1 Tab By mouth Tab once daily?? 11. rosuvastatin(rosuvastatin 20 mg oral tablet) 20 mg= 1 Tab By mouth Tab every bedtime?? 12. chlorthalidone(chlorthalidone 25 mg oral tablet) 25 mg= 1 Tab By mouth Tab every Thursday, Thursday, and Thursday?? 13. omega-3 polyunsaturated fatty acids(Fish Oil 1000 mg oral capsule) 2,000 mg= 2 Cap By mouth Cap twice daily?? 14. cyanocobalamin(Vitamin B12 1000 mcg oral tablet) 1,000 mcg= 1 Tab By mouth Tab twice daily?? 15. albuterol(albuterol HFA (90 mcg/dose) MDI) 1 Puff Inhaled Aerosol four times daily as needed for wheezing?? 16. ferrous gluconate(iron gluconate) 27 mg By mouth every Thursday, Thursday, and Thursday Special Instructions: takes 3 x per week?Discontinued Meds ?? metoprolol (metoprolol succinate 25 mg oral capsule, extended release) 0.5 Tab By mouth twice daily?? insulin aspart (NovoLOG) subcutaneously three times daily before meals?? insulin detemir (Levemir 100 units/mL subcutaneous solution) subcutaneously once daily?? potassium chloride (potassium chloride 8 mEq oral tablet, extended release) 1 Tab By mouth Tab, ER once daily?? loratadine (Claritin) By mouth once daily?? Discharge ? Order Details: ?04/25/22 12:25:00 MST, Today, Home or self care?? Discharge Activity ? Order Details: ?04/25/22 12:25:00 MST, As tolerated?? Discharge Diet ? Order Details: ?04/25/22 12:25:00 MST, Consistent Carbohydrate?? Discharge Diet ? Order Details: ?04/25/22 12:25:00 MST, Heart Healthy Diet (Cardiac)?? PSO Place in Observation ? Order Details: ?Observation, Medicine, Truong, Marybel ACNP, Yes, ACUTE CHOLCYSTITIS WITH CHOLELITHIASIS, HARP REGULATOR:DR PACHECO LAMAS, 04/23/22 5:15:00 MST, 04/23/22 5:15:00 MST, 04/23/22 5:15:00 MST, pm_pso_link_preprocessing?? Discharge Diet ? Order Details: ?04/25/22 12:25:00 MST, Consistent Carbohydrate ?? Discharge Diet ? Order Details: ?04/25/22 12:25:00 MST, Heart Healthy Diet (Cardiac) ?? Discharge Activity ? Order Details: ?04/25/22 12:25:00 MST, As tolerated ?? Follow-Up Details: ?? Provider/Org Name: ??Tyler Post MD ?? Within: ??2 to 3 weeks?? Address: ?;[id number]; ? Provider/Org Name: ??Glenys Oakes MD ?? Within: ??1 week?? Address: ?[address] [facility] [address]; ; ?? Comments: ??Call for follow up appointment ? Extracted from: Title:Consult Note Author:Carole Azevedo MD ate:04/23/22 Preop evaluation History of pulmonary embolism currently on Xarelto Obesity Diabetes mellitus Hypertension Renal sufficiency Plan Preop evaluation Patient has been??seen in the emergency room for abdominal pain and it was felt that patient may have??contribution from??gallbladder therefore patient was felt to be??candidate for??cholecystectomy. ??Patient was??asked to be evaluated. ??Patient has no chest pain or shortness of breath??ejection fraction within normal limits. ??His EKG is unremarkable therefore patient is at moderate risk for surgery.?? Patient is on Xarelto therefore patient will be??advised to hold Xarelto for 72 hours??because of his??GFR??being between 30 and 59. ?? Obesity Patient has obesity and needs to lose weight Diabetes mellitus Patient followed by internal medicine Hypertension Patient is on antihypertensive medication Renal sufficiency??patient is followed by internal medicine?? history of pulmonary hypertension patient has mild pulmonary hypertension by echo Patient is advised to stop taking Xarelto for at least??3 days till decision to??proceed surgery is confirmed.?? We will see the patient ? 1.??Acute cholecystitis??K81.0 2.??Cholelithiasis??K80.20 Extracted from: Title:Gen Surg Consult Note Author:Tyler Post MD Date:04/23/22 1.??Acute cholecystitis??K81.0 possible early vs other diagnosis Ordered: ?? 2.??Cholelithiasis??K80.20 Ordered: ?? Plan- ?? Long discussion but not clearly gall bladder related though possible.?? Would be first episode. Pt. reluctant to have surgery. Will get HIDA.?? If negative can d/c home. Pt. can f/u for OPT surgery for repeat pain episodes. Pt. only wants surgery if cannot be avoided. ? Extracted from: Title:Admission H & P Author:Sana Cameron MD Date:04/23/22 #Acute??calculus cholecystit is #Elevated lipase??with no hyperbilirubinemia??and normal pancreas on CT? likely secondary to above #Abdominal pain secondary to above #Chest pain??described as elephant sitting on the chest -this may be secondary to above but in light of typical description, ACS??still has to be ruled out #Hypertension #Diabetes type 2 #CKD??with possible??NEHEMIAS #Obesity #Hypercholesterolemia #Asthma #BPH ?? - Abx:??Ceftriaxone, Flagyl - CV: VS per protocol ? *Echocardiogram ?? *Cardiology consult ?? *Medications: Metoprolol - Electrolytes: Monitor - Endocrinology: ISS - GI: Bowel care, Pepcid? *General surgeon consult - : Finasteride - MSK: Ambulate & OOB as tolerated - Pain: Meds per MAR - Renal:??Maintenance IVF, Avoid nephrotoxins (NSAIDs, ACEi/ARBs, Contrast, Fleets enema),??Pharmacy to renally dose medications, Strict I/O ?? Supportive Care # VTE PPx: SCD, heparin # GI PPx:??Pepcid ?? Disposition #??Outpatient status for Observation??requiring <2 midnight of medical management as above # Total time with patient??evaluation, counseling and coordinating care >60 ??mins # Discussed plan with pt & nurse in depth # Thank you for allowing me to participate in your care ? Sana Cameron MD Internal Medicine [facility] ? Medications albuterol HFA (90 mcg/dose) MDI 1 Puff Aerosol, INH, QID, PRN, as needed for wheezing, Qty: 18 gm, Refills: 0, Maintenance Start Date: 05/22/21 Status: Ordered chlorthalidone 25 mg oral tablet 1 Tab Tab, PO, qMWF, Qty: 30 Tab, Refills: 0, Maintenance Start Date: 05/22/21 Status: Ordered ciprofloxacin 500 mg oral tablet 1 Tab, PO, every 12 hours, 10 Day, Qty: 20 Tab, Refills: 0, 05/05/22 12:27:00 MST, Acute, Route to Pharmacy Electronically, [facility] #[id number], Tab Start Date: 04/25/22 Stop Date: 05/05/22 Status: Ordered Farxiga 10 mg oral tablet 1 Tab Tab, PO, qDay, Refills: 0, Maintenance Start Date: 05/22/21 Status: Ordered finasteride 5 mg oral tablet 1 Tab Tab, PO, qHS - at bedtime, Refills: 0, Maintenance Start Date: 05/22/21 Status: Ordered Fish Oil 1000 mg oral capsule 2 Cap Cap, PO, BID, Qty: 60 Cap, Refills: 0, Maintenance Start Date: 05/22/21 Status: Ordered Flagyl 500 mg oral tablet 1 Tab Tab, PO, every 8 hours, 10 Day, Qty: 30 Tab, Refills: 0, 05/05/22 12:27:00 [facility], Acute, Route to Pharmacy Electronically, [facility] #[id number] Start Date: 04/25/22 Stop Date: 05/05/22 Status: Ordered glipiZIDE 5 mg oral tablet, extended release 1 Tab, PO, BID, Refills: 0, Maintenance Start Date: 04/23/22 Status: Ordered HumaLOG correctional 0-8 units, SUBCUT, INJ, SENSITIVE, Start: 04/25/22 7:30:00 [facility] Start Date: 04/25/22 Stop Date: 04/25/22 Status: Completed HumaLOG correctional 0 - 8 Unit, SUBCUT, INJ, SENSITIVE, Start: 04/23/22 22:00:00 [facility] Start Date: 04/23/22 Stop Date: 04/23/22 Status: Completed HumaLOG correctional 0 - 8 Unit, SUBCUT, INJ, SENSITIVE, Start: 04/24/22 14:00:00 [facility] Start Date: 04/24/22 Stop Date: 04/24/22 Status: Completed iron gluconate 27 mg, PO, qMWF, Refills: 0, takes 3 x per week, Maintenance Start Date: 05/22/21 Status: Ordered Januvia 100 mg oral tablet 1 Tab, PO, Daily, Refills: 0, Maintenance Start Date: 04/23/22 Status: Ordered lisinopril 2.5 mg oral tablet 1 Tab Tab, PO, qDay, Qty: 30 Tab, Refills: 0, Maintenance, Route to Pharmacy Electronically, [facility] #[id number] Start Date: 04/25/22 Status: Ordered metoprolol 12.5 mg, PO, Tab, hold for HR <50 or SBP <110, Start: 04/23/22 21:00:00 [facility] Start Date: 04/23/22 Stop Date: 04/23/22 Status: Completed metoprolol tartrate 25 mg oral tablet 0.5 Tab Tab, PO, BID, Qty: 30 Tab, Refills: 0, Maintenance, Route to Pharmacy Electronically, [facility] #[id number] Start Date: 04/25/22 Status: Ordered OxyIR 5 mg, PO, Tab, IR, q4hr Priority: Routine PRN Pain Moderate (4-6), for 30 Day, Start: 04/23/22 8:52:00 [facility], Stop: 05/23/22 8:51:00 [facility] Notes: C: Narcotic Pain Medication; I: Pain; SE: constipation; dizziness, drowsiness, nausea Start Date: 04/23/22 Stop Date: 04/26/22 Status: Discontinued rosuvastatin 20 mg oral tablet 1 Tab Tab, PO, qHS - at bedtime, Refills: 0, Maintenance Start Date: 05/22/21 Status: Ordered Vitamin B12 1000 mcg oral tablet 1 Tab Tab, PO, BID, Qty: 30 Tab, Refills: 0, Maintenance Start Date: 05/22/21 Status: Ordered Vitamin D3 25 mcg (1,000 unit) oral tablet, chewable 1 Tab Tab, Chew, Chew, BID, Qty: 50 Tab, Refills: 0, Maintenance Start Date: 05/22/21 Status: Ordered Xarelto 10 mg oral tablet 1 Tab, PO, qHS - at bedtime, Refills: 0, Maintenance Start Date: 04/23/22 Status: Ordered Problem List Condition Confirmation Course Effective Dates Status H ealth Status Informant Anemia Confirmed Active Asthma Confirmed Active Diabetes mellitus Confirmed Active Foot drop, left Confirmed Active Hypercholesterolemia Confirmed Active Hypertension Confirmed Active Pulmonary embolism Confirmed Active Sleep apnea Confirmed Active Spinal stenosis Confirmed Active Procedures Procedure Date Related Diagnosis Body Site Status Cataract surgery 2021 Comple birdie Adenoidectomy Completed Hydrocele Completed THR - Total prosthetic repla cement of hip joint using cement 2 Completed Tonsillectomy Completed 1with lenses 2bilateral Results Laboratory List Name Date Amylase Level 04/25/22 CBC w/o Diff 04/25/22 Comprehensive Metabolic Pane l (CMP (BMP + ALB, Tot Prot, Bili, CA, Alk Phos, ALT, AST)) 04/25/22 Lipase Level 04/25/22 Magnesium (Mg) Level 04/25/22 Amylase Level 04/24/22 CBC w/o Diff 04/24/22 Comprehensive Metabolic Pane l (CMP (BMP + ALB, Tot Prot, Bili, CA, Alk Phos, ALT, AST)) 04/24/22 Hemoglobin A1c (HgbA1c) 04/24/22 Lipase Level 04/24/22 Magnesium (Mg) Level 04/24/22 Troponin-I (Trop-I) 04/23/22 BNP (B-Type Natriuretic Peptide) 04/23/22 Ethanol Level (Alcohol Level) 04/23/22 Thyroid Stimulating Hormone (TSH) 04/23/22 Troponin-I (Trop-I) 04/23/22 Blood Glucose Monitoring POC 04/23/22 CBC w/Diff* (man diff if indicated) Comprehensive Metabolic Pane l (CMP (BMP + ALB, Tot Prot, Bili, CA, Alk Phos, ALT, AST)) 04/23/22 Lactic Acid 04/23/22 Lipase Level 04/23/22 Troponin-I (Trop-I) 04/23/22 Most recent to oldest [Reference Range]: 1 2 3 4 B-Natriuretic Peptide [<=100.0 pg/mL] 20.6 pg/mL (04/23/22 8:38 AM) CBC Scan Auto Diff (04/23/22 2:19 AM) Lymphs [10.0-55.0 %] 19.8 % (04/23/22 2:19 AM) Monos. [0.0-15.0 %] 6.1 % (04/23/22 2:19 AM) Baso. [0.0-3.0 %] 0.6 % (04/23/22 2:19 AM) Neuts [35.0-80.0 %] 70.9 % (04/23/22 2:19 AM) Eos. [0.0-9.0 %] 2.6 % (04/23/22 2:19 AM) Glucose Level [83-110 mg/dL] 199 mg/dL *H* (04/25/22 3:45 AM) 211 mg/dL *H* (04/24/22 4:33 AM) 177 mg/dL *H* (04/23/22 2:19 AM) Estimated Average Glucose 166 *NA* (04/24/22 4:33 AM) AST [5-34 Units/L] 78 Units/L *H* (04/25/22 3:45 AM) 291 Units/L *H* (04/24/22 4:33 AM) 69 Units/L *H* (04/23/22 2:19 AM) ABS Neut [1.7-8.6 thousand/uL] 7.9 thousand/uL (04/23/22 2:19 AM) nRBC Auto 0 *NA* (04/23/22 2:19 AM) TSH [0.35-4.94 mcIU/mL] 1.00 mcIU/mL (04/23/22 8:38 AM) Corrected Calcium [8.4-10.5 mg/dL] 9.4 mg/dL (04/25/22 3:45 AM) 9.0 mg/dL (04/24/22 4:33 AM) 9.4 mg/dL (04/23/22 2:19 AM) eGFRcr [>=90 mL/min/1.73m2] 79 mL/min/1.73m2 *L* (04/25/22 3:45 AM) 67 mL/min/1.73m2 *L* (04/24/22 4:33 AM) 41 mL/min/1.73m2 *L* (04/23/22 2:19 AM) A/G Ratio 1 *NA* (04/25/22 3:45 AM) 2 *NA* (04/24/22 4:33 AM) 1 *NA* (04/23/22 2:19 AM) ABS Baso [0.0-0.3 thousand/uL] 0.1 thousand/uL (04/23/22 2:19 AM) ABS Eos [0.0-1.2 thousand/uL] 0.3 thousand/uL (04/23/22 2:19 AM) ABS Lymph [0.5-5.9 thousand/uL] 2.2 thousand/uL (04/23/22 2:19 AM) ABS [place] [0.0-2.0 thousand/uL] 0.7 thousand/uL (04/23/22 2:19 AM) Albumin [3.5-5.0 gm/dL] 3.5 gm/dL (04/25/22 3:45 AM) 3.5 gm/dL (04/24/22 4:33 AM) 4.2 gm/dL (04/23/22 2:19 AM) Alkphos [40-150 Units/L] 82 Units/L (04/25/22 3:45 AM) 89 Units/L (04/24/22 4:33 AM) 51 Units/L (04/23/22 2:19 AM) ALT [6-55 Units/L] 217 Units/L *H* (04/25/22 3:45 AM) 337 Units/L *H* (04/24/22 4:33 AM) 42 Units/L (04/23/22 2:19 AM) Amylase [20-160 Units/L] 40 Units/L (04/25/22 3:45 AM) 133 Units/L (04/24/22 4:33 AM) Anion Gap [6-17 mmol/L] 8 mmol/L (04/25/22 3:45 AM) 8 mmol/L (04/24/22 4:33 AM) 12 mmol/L (04/23/22 2:19 AM) Bili Total [0.2-1.2 mg/dL] 0.5 mg/dL (04/25/22 3:45 AM) 0.6 mg/dL (04/24/22 4:33 AM) 0.8 mg/dL (04/23/22 2:19 AM) BUN [8-26 mg/dL] 13 mg/dL (04/25/22 3:45 AM) 20 mg/dL (04/24/22 4:33 AM) 27 mg/dL *H* (04/23/22 2:19 AM) BUN/Convalescent Sitter Ratio [8.0-24.0] 13.1 (04/25/22 3:45 AM) 17.5 (04/24/22 4:33 AM) 15.8 (04/23/22 2:19 AM) Chloride [98-107 mmol/L] 111 mmol/L *H* (04/25/22 3:45 AM) 109 mmol/L *H* (04/24/22 4:33 AM) 104 mmol/L (04/23/22 2:19 AM) CO2 [23-31 mmol/L] 18 mmol/L *L* (04/25/22 3:45 AM) 18 mmol/L *L* (04/24/22 4:33 AM) 20 mmol/L *L* (04/23/22 2:19 AM) Creatinine [0.57-1.25 mg/dL] 0.99 mg/dL (04/25/22 3:45 AM) 1.14 mg/dL (04/24/22 4:33 AM) 1.71 mg/dL *H* (04/23/22 2:19 AM) Ethanol [<=5 mg/dL] <10 mg/dL *H* (04/23/22 8:38 AM) Globulin 3 gm/dL *NA* (04/25/22 3:45 AM) 2 gm/dL *NA* (04/24/22 4:33 AM) 3 gm/dL *NA* (04/23/22 2:19 AM) Hct [40.0-52.0 %] 36.5 % *L* (04/25/22 3:45 AM) 36.4 % *L* (04/24/22 4:33 AM) 38.9 % *L* (04/23/22 2:19 AM) Hgb [13.5-18.0 gm/dL] 12.1 gm/dL *L* (04/25/22 3:45 AM) 12.2 gm/dL *L* (04/24/22 4:33 AM) 12.8 gm/dL *L* (04/23/22 2:19 AM) HgbA1C [<=5.6 %] 7.4 % *H* (04/24/22 4:33 AM) Lactic Acid [0.5-1.9 mmol/L] 1.2 mmol/L (04/23/22 2:19 AM) Lipase [8.0-78.0 Units/L] 53.0 Units/L (04/25/22 3:45 AM) 473.0 Units/L *H* (04/24/22 4:33 AM) 108.0 Units/L *H* (04/23/22 2:19 AM) MCH [27.0-34.0 pg] 28.6 pg (04/25/22 3:45 AM) 28.9 pg (04/24/22 4:33 AM) 28.4 pg (04/23/22 2:19 AM) MCHC [32.0-37.0 gm/dL] 33.3 gm/dL (04/25/22 3:45 AM) 33.4 gm/dL (04/24/22 4:33 AM) 33.0 gm/dL (04/23/22 2:19 AM) MCV [80.0-100.0 fL] 86.1 fL (04/25/22 3:45 AM) 86.7 fL (04/24/22 4:33 AM) 86.0 fL (04/23/22 2:19 AM) Mg [1.6-2.6 mg/dL] 1.5 mg/dL *L* (04/25/22 3:45 AM) 1.6 mg/dL (04/24/22 4:33 AM) MPV 8 fL *NA* (04/25/22 3:45 AM) 8 fL *NA* (04/24/22 4:33 AM) 8 fL *NA* (04/23/22 2:19 AM) Plt [130-400 thousand/uL] 243 thousand/uL (04/25/22 3:45 AM) 230 thousand/uL (04/24/22 4:33 AM) 267 thousand/uL (04/23/22 2:19 AM) Protein, Total [6.0-8.3 gm/dL] 6.2 gm/dL (04/25/22 3:45 AM) 6.0 gm/dL (04/24/22 4:33 AM) 7.3 gm/dL (04/23/22 2:19 AM) RBC [4.70-6.10 million/uL] 4.24 million/uL *L* (04/25/22 3:45 AM) 4.20 million/uL *L* (04/24/22 4:33 AM) 4.52 million/uL *L* (04/23/22 2:19 AM) RDW [11.5-16.0 %] 15.0 % (04/25/22 3:45 AM) 14.9 % (04/24/22 4:33 AM) 15.2 % (04/23/22 2:19 AM) Sodium [136-145 mmol/L] 137 mmol/L (04/25/22 3:45 AM) 135 mmol/L *L* (04/24/22 4:33 AM) 136 mmol/L (04/23/22 2:19 AM) Troponin I [<=0.30 ng/mL] 0.01 ng/mL (04/23/22 2:00 PM) <0.01 ng/mL (04/23/22 8:38 AM) <0.01 ng/mL (04/23/22 2:19 AM) WBC [4.8-10.8 thousand/uL] 8.4 thousand/uL (04/25/22 3:45 AM) 6.9 thousand/uL (04/24/22 4:33 AM) 11.2 thousand/uL *H* (04/23/22 2:19 AM) Blood Glucose, Point of Care [70-130 mg/dL] 190 mg/dL *H* (04/25/22 8:17 AM) 175 mg/dL *H* (04/24/22 2:06 PM) 193 mg/dL *H* (04/24/22 5:00 AM) 161 mg/dL *H* (04/23/22 10:33 PM) Potassium [3.5-5.1 mmol/L] 4.2 mmol/L (04/25/22 3:45 AM) 4.2 mmol/L (04/24/22 4:33 AM) 4.3 mmol/L (04/23/22 2:19 AM) Calcium [8.4-10.2 mg/dL] 9.0 mg/dL (04/25/22 3:45 AM) 8.6 mg/dL (04/24/22 4:33 AM) 9.6 mg/dL (04/23/22 2:19 AM) Radiology Reports * Exam Date Time Procedure Performing Provider Status 04/24/22 1:15 PM MR MRCP wo Con Contributor_system, AZGR AD; Auth (Verified) Notes: (MR MRCP wo Con) Reason For Exam: GB stones, elevates lipase, gallstone pancreatitis RADRPT PROCEDURE INFORMATION: Exam: MR Abdomen Without Contrast Exam date and time: 04/24/2022 12:43 PM Age: 76 years old Clinical indication: Gb stones, elevates lipase, gallstone pancreatitis TECHNIQUE: Imaging protocol: Magnetic resonance imaging of the abdomen without contrast. COMPARISON: CT Abdomen+Pelvis wo IV Con 04/23/2022 2:48 AM FINDINGS: Liver: No mass. Gallbladder and bile ducts: Gallbladder shows dependent sludge or small cholelithiasis. No ductal dilation. Common bile duct shows normal caliber up to 5.5 mm diameter without appreciable filling defect. Nonspecific mid common bile duct minimal signal loss may represent crossing hepatic artery artifact. Pancreas: Unremarkable. Peripancreatic fat planes do not show appreciable stranding. No ductal dilation. Spleen: Unremarkable. No splenomegaly. Adrenal glands: Unremarkable. No mass. Kidneys and ureters: Normal right kidney. Left kidney T2 hyperintense cortical lesions are incompletely characterized without intravenous contrast. No hydronephrosis. Stomach and bowel: Visualized stomach and intestines are unremarkable. Intraperitoneal space: No free fluid. Vasculature: No abdominal aortic aneurysm. Bones/joints: Bilateral hip arthroplasties cause susceptibility artifact. Soft tissues: Unremarkable. IMPRESSION: Dependent gallbladder sludge or small cholelithiasis. Normal caliber common bile duct without appreciable filling defect to suggest choledocholithiasis * * * F I N A L * * * Dictated by: Avel Muir MD Electronically signed by: Avel Muir MD Transcribed by:AV , , , S: 04/24/2022 14:13 * * * F I N A L * * * * Exam Date Time Procedure Performing Provider Status 04/23/22 2:[address] Abdomen+Pelvis wo IV Con Contributor _system, AZGRAD; Auth (Verified) Notes: (CT Abdomen+Pelvis wo IV Con) Reason For Exam: abdominal pain RADRPT Radiation Dose CTDIVOL = 0 (mGy): DLP = 832.19 (mGy-cm) PROCEDURE INFORMATION: Exam: CT Abdomen And Pelvis Without Contrast Exam date and time: 04/23/2022 2:48 AM Age: 76 years old Clinical indication: Pain and abdominal pain; Localized; Upper; Prior surgery; Surgery date: 6+ months; Surgery type: Left hip replacement, right hip replacement; Patient HX: None TECHNIQUE: Imaging protocol: Computed tomography of the abdomen and pelvis without contrast. Radiation optimization: All CT scans at this facility use at least one of these dose optimization techniques: automated exposure control; mA and/or kV adjustment per patient size (includes targeted exams where dose is matched to clinical indication); or iterative reconstruction. REPORTING DATA: Count of CT and Cardiac NM exams in prior 12 months: This patient has received 0 known CTs and 0 known cardiac nuclear medicine studies in the 12 months prior to the current study. COMPARISON: SC XR CHEST 1 VIEW 04/28/2021 5:33 AM RADIATION DOSE METRICS: Total DLP (mGy-cm): 832.19 FINDINGS: Liver: Normal. No mass. Gallbladder and bile ducts: Multiple calcified gallstones are present. Pancreas: Normal. No ductal dilation. Spleen: Normal. No splenomegaly. Adrenal glands: Normal. No mass. Kidneys and ureters: There is no evidence of renal or ureteral calcifications. Stomach and bowel: Mild diverticulosis is present in the distal colon. There is no evidence of intestinal perforation or obstruction. Appendix: No evidence of appendicitis. Intraperitoneal space: Unremarkable. No free air. No significant fluid collection. Vasculature: Unremarkable. No abdominal aortic aneurysm. Lymph nodes: Unremarkable. No enlarged lymph nodes. Urinary bladder: Unremarkable as visualized. Reproductive: Unremarkable as visualized. 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 Osteopenia. Marked multilevel lumbar spondylosis. Soft tissues: Soft tissue contusions in the anterior abdominal wall likely related to injection medications. There is a small fat containing paraumbilical hernia. IMPRESSION: 1. Cholelithiasis. No radiographic evidence of acute cholecystitis. [place] distended gallbladder consistent with hydrops. 2. Mild diverticulosis of the distal colon. No bowel perferation or obstruction. 3. No renal, ureteral, or bladder calculi. No hydroureteronephrosis. * * * F I N A L * * * Dictated by: Reinaldo Zavaleta MD Electronically signed by: Reinaldo Zavaleta MD Transcribed by:LEO , , , S: 04/23/2022 03:10 * * * F I N A L * * * * Exam Date Time Procedure Performing Provider Status 04/23/22 4:30 AM US Abdomen Limited Contributor_system, AZGRAD; Auth (Verified) Notes: (US Abdomen Limited) Reason For Exam: Abdomen Pain RUQ RADRPT PROCEDURE INFORMATION: Exam: US Abdomen, Limited; Right Upper Quadrant Exam date and time: 04/23/2022 1:41 AM Age: 76 years old Clinical indication: Abdomen pain ruq TECHNIQUE: Imaging protocol: Real time ultrasound of the abdomen with image documentation. Limited exam focused on the right upper quadrant. COMPARISON: No relevant prior studies available. FINDINGS: Liver: Normal. No masses. Gallbladder: [employer] notes positive Youngblood's sign. The gallbladder demonstrates layering density consistent with noncalcified stones or sludge. No gallbladder wall thickening. Biliary ducts: Normal. No stones. No dilation. Pancreas: Visualized pancreas is unremarkable. Right kidney: Normal. No mass. No hydronephrosis. Other findings: [employer] notes technically difficult exam secondary to patient body habitus and overlying bowel gas. IMPRESSION: Cholelithiasis. Positive automobile brake bonder's Youngblood's sign consistent with acute cholecystitis. * * * F I N A L * * * Dictated by: Reinaldo Zavaleta MD Electronically signed by: Reinaldo Zavaleta MD Transcribed by:AV , , , S: 04/23/2022 04:36 * * * F I N A L * * * Vital Signs Most recent to oldest [Reference Range]: 1 2 3 4 5 6 7 8 9 10 Temperature PO [36-37.5 deg C] 36.5 deg C (04/25/22 7:08 AM) 36.5 deg C (04/25/22 7:08 AM) 36.5 deg C ( 3 3:46 AM) 36.5 deg C ( 3:46 AM) 36.7 deg C ( 3 4:59 PM) 36.8 deg C (04/24/22 7:59 AM) 36.4 deg C (04/23/22 11:14 PM) 36.7 deg C (04/23/22 8:55 PM) 37.1 deg C ( 3 9:03 AM) Temperature Axillary [36.2-38.1 deg C] 36.8 deg C (04/24/22 8:05 PM) 36.5 deg C (04/24/22 3:47 AM) Temperature Temporal Artery [36.4-37.5 deg C] 36.7 deg C (04/23/22 7:00 PM) 36.4 deg C (04/23/22 1:40 AM) Heart Rate [51-119 bpm] 84 bpm (04/25/22 7:09 AM) 84 bpm (04/25/22 7:09 AM) 100 bpm ( 3:46 AM) 100 bpm ( 3:46 AM) 67 bpm ( 8:05 PM) 72 bpm (04/24/22 4:59 PM) 66 bpm (04/24/22 7:59 AM) 74 bpm (04/24/22 3:48 AM) 133 bpm *H* ( 11:25 PM) 74 bpm ( 11:22 PM) Blood Pressure [91-139/51-89 mm Hg] 127/77mm Hg (04/25/22 7:08 AM) 127/77mm Hg (04/25/22 7:08 AM) 128/81m m Hg ( 3:45 AM) 128/81 mm Hg ( 3:45 AM) 135/81 mm Hg ( 8:05 PM) 132/77m m Hg (04/24/22 4:59 PM) 112/67m m Hg (04/24/22 7:59 AM) 96/57mm Hg (04/24/22 3:47 AM) 115/67 mm Hg ( 11:22 PM) 115/67 mm Hg ( 11:14 PM) NIBP Mean 94 mm Hg (04/25/22 7:08 AM) 94 mm Hg (04/25/22 7:08 AM) 97 mm Hg ( 3:45 AM) 97 mm Hg ( 3:45 AM) 99 mm Hg ( 8:05 PM) 95 mm Hg (04/24/22 4:59 PM) 82 mm Hg (04/24/22 7:59 AM) 70 mm Hg (04/24/22 3:47 AM) 82 mm Hg ( 4:00 PM) Resp Rate (Monitor) [13-20 Breaths/Min] 18 Breaths/M in (04/25/22 7:08 AM) 18 Breaths/M in (04/25/22 7:08 AM) 20 Breaths /Min ( 3:46 AM) 20 Breath s/Min ( 3:46 AM) 15 Breath s/Min ( 11:15 PM) 18 Breaths /Min (04/24/22 8:05 PM) 18 Breaths /Min (04/24/22 4:00 PM) 18 Breaths /Min (04/24/22 7:00 AM) 18 Breath s/Min ( 6:56 AM) 18 Breath s/Min ( 3:47 AM) SPO2 [92 %] 97 % (04/25/22 7:09 AM) 97 % (04/25/22 7:09 AM) 97 % ( 3:46 AM) 97 % ( 3:46 AM) 98 % ( 11:15 PM) 99 % (04/24/22 8:05 PM) 98 % (04/24/22 4:59 PM) 98 % (04/24/22 7:59 AM) 95 % ( 6:56 AM) 97 % ( 3:48 AM) Oxygen Method Room air (04/25/22 7:00 AM) Room air (04/25/22 6:00 AM) Room air ( 3:46 AM) CPAP/B IPAP/S iPAP ( 3:00 AM) CPAP/B IPAP/S iPAP ( 11:15 PM) Room air (04/24/22 8:00 PM) Room air (04/24/22 4:00 PM) Room air (04/24/22 7:00 AM) Room air ( 6:56 AM) Room air ( 11:14 PM) FIO2 - pt care 21 % (04/24/22 11:15 PM) Blood Glucose, Point of Care [70-130 mg/dL] 190 mg/dL *H* (04/25/22 8:17 AM) 175 mg/dL *H* (04/24/22 2:06 PM) 193 mg/dL *H* (04/24/22 5:00 AM) 161 mg/dL *H* ( 3 10:33 PM) Glucose Level [83-110 mg/dL] 199 mg/dL *H* (04/25/22 3:45 AM) 211 mg/dL *H* (04/24/22 4:33 AM) 177 mg/dL *H* (04/23/22 2:19 AM) Glucose (POCT) Automated [70-99 mg/dL] 223 mg/dL *H* (04/25/22 11:04 AM) 190 mg/dL *H* (04/25/22 7:10 AM) 152 mg/dL *H* (04/24/22 8:07 PM) 154 mg/dL *H* ( 4:58 PM) 175 mg/dL *H* ( 2:01 PM) 189 mg/dL *H* (04/24/22 11:08 AM) 193 mg/dL *H* (04/24/22 5:52 AM) 224 mg/dL *H* (04/24/22 2:10 AM) 161 mg/dL *H* ( 3 9:05 PM) 194 mg/dL *H* ( 7:04 PM) Height 177.8 cm (04/23/22 9:10 PM) 177.8 cm (04/23/22 1:40 AM) Drug Calc Weight (kg) 130.8 kg (04/23/22 9:10 PM) 124.717 kg (04/23/22 1:40 AM) Weight Method Actual (04/23/22 9:10 PM) Stated (04/23/22 1:40 AM) BMI 41.38 kg/m2 (04/23/22 9:10 PM) 39.45 kg/m2 (04/23/22 1:40 AM) Living Situation Lives alone (04/23/22 9:10 PM) Lives alone (04/23/22 1:40 AM) Sensory Deficits None (04/23/22 9:10 PM) None (04/23/22 1:40 AM) Eating Self (04/23/22 9:10 PM) Bathing Self (04/23/22 9:10 PM) Dressing Self (04/23/22 9:10 PM) Transferring Self (04/23/22 9:10 PM) Toileting Self (04/23/22 9:10 PM) Walking With 1 person assist/as sistive device (04/23/22 9:10 PM) Balancing Self (04/23/22 9:10 PM) Bed alarm on No (04/25/22 8:00 AM) No (04/24/22 8:00 PM) No (04/24/22 4:00 PM) Social History Social History Type Response Smoking Status Never (less than 100 in lifetime) entered on: 04/23/22 Sex Male Hospital Discharge Instructions Patient Education 04/25/2022 08:47:04 Gallbladder Eating Plan Gallbladder Eating Plan If you have a gallbladder condition, you may have trouble digesting fats. Eating a low-fat diet canhelp reduce your symptoms, and may be helpful before and after having surgery to remove your gallbladder (cholecystectomy). Your health care provider may recommend that you work with a diet and medication specialist (dietitian) to help you reduce the amount of fat in your diet. What are tips for following this plan? General guidelines ??? Limit your fat intake to less than 30% of your total daily calories. If you eat around 1,800 calories each day, this is less than 60 grams (g) of fat per day. ??? Fat is an important part of a healthy diet. Eating a low-fat diet can make it hard to maintain a healthy body weight. Ask your dietitian how much fat, calories, and other nutrients you need each day. ??? Eat small, frequent meals throughout the day instead of three large meals. ??? Drink at least 8???10 cups of fluid a day. Drink enough fluid to keep your urine clear or pale yellow. ??? Limit alcohol intake to no more than 1 drink a day for non women and 2 drinks a day formen. One drink equals 12 oz of beer, 5 oz of wine, or 1?? oz of hard liquor. Reading food labels ??? Check Nutrition Facts on food labels for the amount of fat per serving. Choose foods with less than 3 grams of fat per serving. Shopping ??? Choose nonfat and low-fat healthy foods. Look for the words nonfat, low fat, or fat free. ??? Avoid buying processed or prepackaged foods. Cooking ??? Cook using low-fat methods, such as baking, broiling, grilling, or boiling. ??? Cook with small amounts of healthy fats, such as olive oil, grapeseed oil, canola oil, or sunflower oil. What foods are recommended? All fresh, frozen, or canned fruits and vegetables. ??? Whole grains. ??? Low-fat or non-fat (skim) milk and yogurt. ??? Lean meat, skinless poultry, fish, eggs, and beans. ??? Low-fat protein supplement powders or drinks. ??? Spices and herbs. What foods are not recommended? High-fat foods. These include baked goods, fast food, fatty cuts of meat, ice cream, macedonian toast, sweet rolls, pizza, cheese bread, foods covered with butter, creamy sauces, or cheese. ??? Fried foods. These include macedonian fries, tempura, battered fish, breaded chicken, fried breads,and sweets. ??? Foods with strong odors. ??? Foods that cause bloating and gas. Summary ??? A low-fat diet can be helpful if you have a gallbladder condition, or before and after gallbladder surgery. ??? Limit your fat intake to less than 30% of your total daily calories. This is about 60 g of fat if you eat 1,800 calories each day. ??? Eat small, frequent meals throughout the day instead of three large meals. This information is not intended to replace advice given to you by your health care provider. Make sure you discuss any questions you have with your health care provider. Document Revised: 09/14/2020 Document Reviewed: 09/20/2020 [employer] Patient Education ?? 2021 [employer] 04/24/2022 01:27:21 Cholecystitis, Taun-do-Pwyj Cholecystitis Cholecystitis is irritation and swelling (inflammation) of the gallbladder. The gallbladder: ??? Is an organ that is shaped like a pear. ??? Is under the liver on the right side of the body. ??? Stores bile. Bile helps the body break down (digest) the fats in food. This condition can occur all of a sudden. It needs to be treated. What are the causes? This condition may be caused by stones or lumps that form in the gallbladder (gallstones). Gallstones can block the tube (duct) that carries bile out of your gallbladder. Other causes include: ??? Damage to the gallbladder due to less blood flow. ??? Germs in the bile ducts. ??? Scars, kinks, or adhesions in the bile ducts. ??? Abnormal growths (tumors) in the liver, pancreas, or gallbladder. What increases the risk? You are more likely to develop this condition if: ??? You are female and between the ages of 55???62. ??? You take control pills. ??? You use estrogen. ??? You take certain medicines that make you more likely to develop gallstones. ??? You are overweight (obese). ??? You have a very bad reaction to an infection (sepsis). ??? You have been hospitalized due to a serious condition, such as a burn or illness. ??? You have not eaten or drank for a long time. What are the signs or symptoms? Symptoms of this condition include: ??? Pain in the upper right part of the belly (abdomen). ??? A lump over the gallbladder. ??? Bloating in the belly. ??? Feeling sick to your stomach (nauseous). ??? Vomiting. ??? Fever. ??? Chills. How is this treated? This condition may be treated with: ??? Medicines to treat pain. ??? Giving fluids through an IV tube. ??? Not eating or drinking (fasting). ??? Antibiotic medicines. ??? Surgery to take out your gallbladder. ??? Gallbladder drainage. Follow these instructions at home: Medicines ??? Take [id number] and prescription medicines only as told by your doctor. ??? If you were prescribed an antibiotic medicine, take it as told by your doctor. Do not stop taking it even if you start to feel better. General instructions ??? Follow instructions from your doctor about what to eat or drink. Do not eat or drink anything that makes you sick again. ??? Do not smoke or use any products that contain nicotine or tobacco. If you need help quitting, ask your doctor. ??? Keep all follow-up visits. Contact a doctor if: ??? You have pain and your medicine does not help. ??? You have a fever. Get help right away if: ??? Your pain moves to: ??? Another part of your belly. ??? Your back. ??? Your symptoms do not go away. ??? You have new symptoms. These symptoms may be an emergency. Get help right away. Call 911. ??? Do not wait to see if the symptoms will go away. ??? Do not drive yourself to the hospital. Summary ??? This condition may be caused by stones or lumps that form in the gallbladder (gallstones). ??? A common symptom is pain in your belly. ??? This condition may be treated with surgery to take out your gallbladder. ??? Follow instructions from your doctor about what to eat or drink. This information is not intended to replace advice given to you by your health care provider. Make sure you discuss any questions you have with your health care provider. Document Revised: 08/06/2021 Document Reviewed: 08/06/2021 [employer] Patient Education ?? 2021 [employer] Follow Up Care 04/23/2022 01:18:04 With:Glenys Oakes MD Address: [address] [address]- When:1 week Comments:Call for follow up appointment With:Tyler Post MD Address: [id number] When:2 to 3 weeks only if needed Consult note * Carole Azevedo MD: PERFORM Event Display: Consultation Authored Date: Patient: ??APOLINARJOSE ANTONIOEN ? Age: ??76 years ?Sex: ??M ?: ??1945 ?Active Insurance: ??MEDICARE A Admitting MD: ??Marybel Truong ?Location: ??[facility] 3A: 311: 01 ?PCP: ??Glenys Oakes MD Author: ??Carole Azevedo MD Reason for Consultation Preop evaluation?? Chief Complaint c/o pressure in the abdomen since last night. History of Present Illness ? Patient denies any chest pain PND orthopnea or ankle edema.This is a??76-year-old gentleman who??lives in [place]. ??Patient??has been wintering in??[place]. ??Patient??was seen in the emergency roomfor abdominal??pressure. ??Patient stated that he noted that there is a huge amount of pressure in his abdomen. ??Patient was seen by??surgery and it was felt that patient may benefit from cholecystectomy.?? Therefore cardiology consultation was obtained. ?? His past medical history patient has a significant past medical history of diabetes mellitus hypertension??renal sufficiency??and history of??pulmonary embolism??in 2017??and history of??hip surgery. ??Patient stated that he has seen a fertilizer loader and has undergone a stress test??to 3 years ago. ??Patient walks about 3-4000??steps every day. ??Patient??uses a cane to move around. ??Patient williams Xarelto 10 mg chronically??after his pulmonary embolism. Objective Vitals & Measurements T:??36.4?C ??(Oral)?? TMIN:??36.4?C ??(Oral)?? TMAX:??37.1?C ??(Oral)?? HR:??74?? RR:??18?? BP:??115/67?? SpO2:??98%?? Oxygen Method:??Room air?? WT:??130.8??kg?? Physical Exam GEN: No acute distress, alert and oriented x 3 HEENT: oropharynx clear, mucous membranes moist NECK: supple, no jugular venous distention CV: regular rate and rhythm, no rubs or gallops PULM: clear to auscultation bilaterally, normal respiratory excursion ABD: soft, nontender, nondistended, normoactive bowel sounds, no guarding or rebound. EXTR: no cyanosis, clubbing or edema NEURO: Non-focal, moves all extremities Lab Results Common Labs - This Encounter, Most Recent, Lab 24 hrs Last 24 Hours?Hematology-CBC ?04/23/22 General Chemistry ?04/23/22 POC Glucose ?04/23/22 WBC:11.2 (H) ?? Sodium:??136 Glucose (POCT) Automated:161 (H) ?RBC:4.52 (L) ?? Potassium:??4.3 ?Hgb:12.8 (L) ?? Chloride:??104 ?Hct:38.9 (L) ?? CO2:20 (L) ?MCV:??86.0 Anion Gap:??12 ?MCH:??28.4 Glucose Level:177 (H) ?MCHC:??33.0 BUN:27 (H) ?RDW:??15.2 Creatinine:1.71 (H) ?Plt:??267 BUN/Convalescent Sitter Ratio:??15.8 ?MPV:??8 eGFRcr:41 (L) ?Neuts:??70.9 Calcium:??9.6 ?Lymphs:??19.8 Corrected Calcium:??9.4 ?Monos.:??6.1 Protein, Total:??7.3 ?Eos.:??2.6 Albumin:??4.2 ?Baso.:??0.6 Globulin:??3 ?ABS Neut:??7.9 A/G Ratio:??1 ?ABS Lymph:??2.2 Bili Total:??0.8 ?ABS [place]:??0.7 ALT:??42 ?ABS Eos:??0.3 AST:69 (H) ?ABS Baso:??0.1 Alkphos:??51 ?CBC Scan:??Auto Diff Lipase:108.0 (H) ?nRBC Auto:??0 Lactic Acid:??1.2 ? Blood Glucose, Point of Care:161 mg/dL (H) ?Cardiac ?04/23/22 Lipid Tests ?04/23/22 Special Chemistry ?04/23/22 B-Natriuretic Peptide:??20.6 Cholesterol:??137 TSH:??1.00 ??Troponin I:??0.01 Triglycerides:362 (H) ? HDL:18 (L) ? LDL Direct:??68 ? VLDL:??72 ? LDL/HDL:??3 ? Chol/Trig:??0 ? %HDL:??13 ? Cholesterol/HDL:8 (L) ?Toxicology ?04/23/22 ? Ethanol:<10 (H) ? Additional? Antibiotics Ordered ? cefTRIAXone: ?2,000 mg, ??IV Push, ??q24hr ??04/23/22 08:22 - Active ? ( 2 ?days )? metroNIDAZOLE: ?500 mg, ?IV, ??q8hr ?04/23/22 08:22 - Active ? ( 2 ?days )? Completed ? ampicillin-sulbactam: ?3 gm, ?IV, ??x1 ?04/23/22 04:40 - Active ? ( 1 ?days )? Diagnostic Results Twelve-lead EKG shows right bundle branch block Assessment/Plan Preop evaluation History of pulmonary embolism currently on Xarelto Obesity Diabetes mellitus Hypertension Renal sufficiency Plan Preop evaluation Patient has been??seen in the emergency room for abdominal pain and it was felt that patient may have??contribution from??gallbladder therefore patient was felt to be??candidate for??cholecystectomy.??Patient was??asked to be evaluated. ??Patient has no chest pain or shortness of breath??ejection fraction within normal limits. ??His EKG is unremarkable therefore patient is at moderate risk for surgery.?? Patient is on Xarelto therefore patient will be??advised to hold Xarelto for 72 hours??because of his??GFR??being between 30 and 59. ?? Obesity Patient has obesity and needs to lose weight Diabetes mellitus Patient followed by internal medicine Hypertension Patient is on antihypertensive medication Renal sufficiency??patient is followed by internal medicine?? history of pulmonary hypertension patient has mild pulmonary hypertension by echo Patient is advised to stop taking Xarelto for at least??3 days till decision to??proceed surgery isconfirmed.?? 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???Tonsillectomy Medications Inpatient cefTRIAXone (Rocephin) for IV Push, 2000 mg, IV Push, q24hr dextrose 50% (25gm) syringe, 25 gm= 50 mL, IV Push, q15min, PRN dextrose 50% (25gm) syringe, 12.5 gm= 25 mL, IV Push, q15min, PRN docusate sodium, 100 mg= 1 Cap, PO, BID Dulcolax, 10 mg= 1 Supp, TX, Daily, PRN DuoNeb, 3 mL, NEB - inhalation, q2hr(interval), PRN famotidine, 20 mg= 1 Tab, PO, Daily finasteride, 5 mg= 1 Tab, PO, qDay Flagyl I.V., 500 mg= 100 mL, IV, q8hr glucagon, 1 mg, IM, Per Parameter, PRN glucose oral tablet, chewable, 16 gm= 4 Tab, PO, q15min, PRN heparin, 5000 Unit= 1 mL, SUBCUT, q8hr HumaLOG correctional, 0 - 8 Unit, SUBCUT, q4hr hydrALAZINE, 5 mg= 0.25 mL, IV Push, q4hr, PRN labetalol, 5 mg= 1 mL, IV Push, q4hr(interval), PRN melatonin, 3 mg= 1 Tab, PO, qHS - at bedtime, PRN metoprolol, 12.5 mg= 0.5 Tab, PO, BID MiraLax, 17 gm= 1 Pkt, PO, Daily, PRN morphine INJ, 2 mg= 1 mL, IV Push, q4hr(interval), PRN morphine INJ, 2 mg= 1 mL, IV Push, q4hr(interval), PRN Mylanta, 30 mL, PO, q4hr, PRN nalOXone, 0.2 mg= 0.5 mL, IV Push, q2min, PRN NS 1,000 mL, 1000 mL, IV ondansetron INJ, 4 mg= 2 mL, IV Push, q4hr, PRN OxyIR, 10 mg= 2 Tab, PO, q4hr, PRN OxyIR, 5 mg= 1 Tab, PO, q4hr, PRN Reglan, 5 mg= 1 mL, IV Push, q6hr, PRN Renal dosing adjustment, 1 Each, N/A, oncall, PRN senna, 17.2 mg= 2 Tab, PO, qDay Senokot, 8.6 mg= 1 Tab, PO, qHS - at bedtime, PRN Senokot S (50/8.6), 2 Tab, PO, BID, PRN Tylenol oral TABLET, 650 mg= 2 Tab, PO, q4hr, PRN Home albuterol HFA (90 mcg/dose) MDI, 1 Puff, INH, QID, PRN chlorthalidone 25 mg oral tablet, 25 mg= 1 Tab, PO, qMWF Claritin, 10 mg, PO, Daily,?Still taking, not as prescribed: OTC Farxiga 10 mg oral tablet, 10 mg= 1 Tab, PO, qDay finasteride 5 mg oral tablet, 5 mg= 1 Tab, PO, qHS - at bedtime Fish Oil 1000 mg oral capsule, 2000 mg= 2 Cap, PO, BID glipiZIDE 5 mg oral tablet, extended release, 5 mg= 1 Tab, PO, BID iron gluconate, 27 mg, PO, qMWF, takes 3 x per week Januvia 100 mg oral tablet, 100 mg= 1 Tab, PO, Daily Levemir 100 units/mL subcutaneous solution, 60 units, SUBCUT, Daily lisinopril, 10 mg, PO, qDay metoprolol succinate 25 mg oral capsule, extended release, 0.5 Tab, PO, BID,?Not taking: 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 NovoLOG, 10 Unit, SUBCUT, TID before meals potassium chloride 8 mEq oral tablet, extended release, 8 mEq= 1 Tab, PO, qDay rosuvastatin 20 mg oral tablet, 20 mg= 1 Tab, PO, qHS - at bedtime Vitamin B12 1000 mcg oral tablet, 1000 mcg= 1 Tab, PO, BID Vitamin D3 25 mcg (1,000 unit) oral tablet, chewable, 25 mcg= 1 Tab, Chew, BID Xarelto 10 mg oral tablet, 10 mg= 1 Tab, PO, qHS - at bedtime Xarelto 20 mg oral tablet, 20 mg= 1 Tab, PO, qPM Allergies No Known Medication Allergies ?Reaction: None Documented Social History Alcohol Denies, 04/23/2022 Denies, 04/23/2022 Home/Environment Amish restrictions/concerns: None. Lives with Alone. Living situation: Home/Independent. Home equipment: CPAP/BiPAP, Monitoring. Alcohol abuse in household: No. Substance abuse in household: No. Smoker in household: No. Injuries/Abuse/Neglect in household: No. Feels unsafe at home: No. Safe place to go: Yes. Family/Friends available for support: Yes. Concern for family members at home: No. Major illness in household: No. Financial concerns: No. TV/Computer concerns: No., 04/23/2022 Amish restrictions/concerns: None., 04/23/2022 Nutrition/Health Diet: Diabetic., 04/23/2022 Substance Abuse Denies, 04/23/2022 Denies, 04/23/2022 Tobacco Never (less than 100 in lifetime), 04/23/2022 Never (less than 100 in lifetime), 04/23/2022 Electronically Signed By: Carole Azevedo MD On 03/09/23 00:02 Co Signature By: Modify Signature By: * Tyler Post MD: PERFORM, MODIFY, MODIFY Event Display: Consultation Authored Date: Patient: ??JUAN JIANG ? Age: ??76 years ?Sex: ??M ?: ??1945 ?Active Insurance: ??MEDICARE A Admitting MD: ??Marybel Truong ACNJuan ?Location: ??[facility] EDIP: ED08: 01 ?PCP: ??Glenys Oakes MD Author: ??Tyler Post MD Referring Physician Fili Cameron MD Reason for Consultation acute cholecystitis Chief Complaint RUQ pain History of Present Illness 76-year-old gentleman with past medical history of diabetes, asthma,??hypertension, PE??who came toED due to??upper abdominal pressure. ?? Per patient,??patient was ambulating at night??with some chest pressure??as if an elephant was sitting on his upper abdomen.. Pain was mostly in the lower sternum and epigastrium area.?? He denies chest pain to me but described more typical chest pain to Dr. Cameron.?? He denied any fever or chills or any shortness of breath.?? He denied any radiating pain into the left side of his chest or jaw orback.?? He denied any nausea or vomiting.?? Pain is not associated to food intake.?? Pain persistedwas prompted ED visit.?? Vital signs in ED showed elevated blood pressure but otherwise no fever and was breathing fine in room air.?? Labs showed elevated WBC at 11.2 and creatinine at 1.71.?? AST slightly elevated at 69 and lipase at 108.?? CT abdomen and pelvis was done which showed cholelithiasis with no radiologic evidence of acute cholecystitis but showed overly distended gallbladder consistent with hydrops.?? Ultrasound of the abdomen was done which showed cholelithiasis and positive Youngblood sign consistent with acute cholecystitis.?? EKG was done which showed sinus rhythm with first-degree AV block.?? Empiric IV antibiotics started.?? Cardiology consult for preop clearance.?? Surgeryconsulted for possible acute cholecystitis.?? Patient admitted for further evaluation and management. ?? At the time of my consult patient is up in chair and denies any abdominal pain.?? He denies any prior hx of biliary colic.?? He does not want surgery unless mandatory. Review of Systems 14 point ROS completed and negative except as noted in HPI above. Objective Vitals & Measurements T:??37.1?C ??(Oral)?? TMIN:??36.4?C ??(Temporal Artery)?? TMAX:??37.1?C ??(Oral)?? HR:??77?? RR:??18?? BP:??129/70?? SpO2:??98%?? Oxygen Method:??Room air?? WT:??124.717??kg?? WT:??275??lbs?? Physical Exam GENERAL: Nontoxic, no acute distress, alert, oriented x 3 HEENT: Normocephalic, atraumatic, no scleral icterus or conjunctival injection, MMM OP clear w/o erythema or exudate NECK: supple, no rigidity. No lymphadenopathy, bruits, or thyromegaly LUNGS: Clear to auscultation bilaterally. No crackles or wheezes. CV: RRR, normal S1/S2, no gallops. PMI not displaced. No jugular venous distention. ?? GI: obese, soft, normoactive bowel sounds, no rebound, guarding or masses, no hepatomegaly or splenomegaly, no pulsatile mass or bruit. NO tenderness in epigastric region and RUQ.? : no suprapubic or flank tenderness. BACK: no spinal or paraspinal tenderness. EXT: No cyanosis, clubbing or distal pitting edema, well perfused. SKIN: warm and dry, no ulcerations. NEURO: Cranial nerves 2-12 grossly intact, no gross motor deficits, strength 5/5 bilateral upper and lower extremity large muscle groups, sensation grossly intact throughout to light touch. DTRs 2+ symmetric at biceps/triceps/knee/ankle. Toes downgoing bilaterally. Cerebellar: no dysmetria, gait not tested. Lab Results Common Labs - This Encounter, Most Recent, Lab 24 hrs Last 24 Hours?Hematology-CBC ?04/23/22 General Chemistry ?04/23/22 POC Glucose ?04/23/22 WBC:11.2 (H) ?? Sodium:??136 Glucose (POCT) Automated:161 (H) ?RBC:4.52 (L) ?? Potassium:??4.3 ??Hgb:12.8 (L) ?? Chloride:??104 ??Hct:38.9 (L) ?? CO2:20 (L) ?MCV:??86.0 Anion Gap:??12 ??MCH:??28.4 Glucose Level:177 (H) ?MCHC:??33.0 BUN:27 (H) ?RDW:??15.2 Creatinine:1.71 (H) ?Plt:??267 BUN/Convalescent Sitter Ratio:??15.8 ??MPV:??8 eGFRcr:41 (L) ?Neuts:??70.9 Calcium:??9.6 ??Lymphs:??19.8 Corrected Calcium:??9.4 ??Monos.:??6.1 Protein, Total:??7.3 ??Eos.:??2.6 Albumin:??4.2 ??Baso.:??0.6 Globulin:??3 ??ABS Neut:??7.9 A/G Ratio:??1 ??ABS Lymph:??2.2 Bili Total:??0.8 ??ABS [place]:??0.7 ALT:??42 ??ABS Eos:??0.3 AST:69 (H) ?ABS Baso:??0.1 Alkphos:??51 ??CBC Scan:??Auto Diff Lipase:108.0 (H) ?nRBC Auto:??0 Lactic Acid:??1.2 ??Cardiac ?04/23/22 Lipid Tests ?04/23/22 Special Chemistry ?04/23/22 B-Natriuretic Peptide:??20.6 Cholesterol:??137 TSH:??1.00 ??Troponin I:??<0.01 Triglycerides:362 (H) ?? HDL:18 (L) ?? LDL Direct:??68 VLDL:??72 LDL/HDL:??3 Chol/Trig:??0 %HDL:??13 Cholesterol/HDL:8 (L) ?Toxicology ?04/23/22 ? Ethanol:<10 (H) ?? Additional? Antibiotics Ordered ? cefTRIAXone: ?2,000 mg, ??IV Push, ??q24hr ??04/23/22 08:22 - Active ? ( 1 ?days )? metroNIDAZOLE: ?500 mg, ?IV, ??q8hr ?04/23/22 08:22 - Active ? ( 1 ?days )? Completed ? ampicillin-sulbactam: ?3 gm, ?IV, ??x1 ?04/23/22 04:40 - Active ? ( 1 ?days )? Diagnostic Results Ultrasound - All Encounters, Most Recent, Last 2 weeks US Abdomen Limited ?? 04/23/22 01:41:14 PROCEDURE INFORMATION: Exam: US Abdomen, Limited; Right Upper Quadrant Exam date and time: 04/23/2022 1:41 AM Age: 76 years old Clinical indication: Abdomen pain ruq ?? TECHNIQUE: Imaging protocol: Real time ultrasound of the abdomen with image documentation. Limited exam focused on the right upper quadrant. ?? COMPARISON: No relevant prior studies available. ?? FINDINGS: Liver: Normal. No masses. Gallbladder: Tungsten Refiner notes positive Youngblood???s sign. The gallbladder demonstrates layering density consistent with noncalcified stones or sludge. No gallbladder wall thickening. Biliary ducts: Normal. No stones. No dilation. Pancreas: Visualized pancreas is unremarkable. Right kidney: Normal. No mass. No hydronephrosis. ?? Other findings: Tung[employer] Refiner notes technically difficult exam secondary to patient body habitus and overlying bowel gas. ?? IMPRESSION: Cholelithiasis. Positive automobile brake bonder???s Youngblood???s sign consistent with acute cholecystitis. ?? Signed By: Reinaldo Zavaltea MD Assessment/Plan 1.??Acute cholecystitis??K81.0 possible early vs other diagnosis Ordered: ?? 2.??Cholelithiasis??K80.20 Ordered: ?? Plan- Long discussion but not clearly gall bladder related though possible.?? Would be first episode. Pt. reluctant to have surgery. Will get HIDA.?? If negative can d/c home. Pt. can f/u for OPT surgery for repeat pain episodes. Pt. only wants surgery if cannot be avoided. Problem List/Past Medical History Ongoing Anemia Asthma Diabetes mellitus Foot drop, left Hypercholesterolemia Hypertension Pulmonary embolism Spinal stenosis Historical No qualifying data Procedure/Surgical History ???Adenoidectomy???Hydrocele???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???Tonsillectomy Medications Inpatient cefTRIAXone (Rocephin) for IV Push, 2000 mg, IV Push, q24hr dextrose 50% (25gm) syringe, 25 gm= 50 mL, IV Push, q15min, PRN dextrose 50% (25gm) syringe, 12.5 gm= 25 mL, IV Push, q15min, PRN Dulcolax, 10 mg= 1 Supp, TX, Daily, PRN DuoNeb, 3 mL, NEB - inhalation, q2hr(interval), PRN famotidine, 20 mg= 1 Tab, PO, Daily finasteride, 5 mg= 1 Tab, PO, qDay Flagyl I.V., 500 mg= 100 mL, IV, q8hr glucagon, 1 mg, IM, Per Parameter, PRN glucose oral tablet, chewable, 16 gm= 4 Tab, PO, q15min, PRN HumaLOG correctional, 0 - 8 Unit, SUBCUT, q4hr hydrALAZINE, 5 mg= 0.25 mL, IV Push, q4hr, PRN labetalol, 5 mg= 1 mL, IV Push, q4hr(interval), PRN metoprolol, 12.5 mg= 0.5 Tab, PO, BID MiraLax, 17 gm= 1 Pkt, PO, Daily, PRN morphine INJ, 2 mg= 1 mL, IV Push, q4hr(interval), PRN morphine INJ, 2 mg= 1 mL, IV Push, q4hr(interval), PRN NS 1,000 mL, 1000 mL, IV OxyIR, 10 mg= 2 Tab, PO, q4hr, PRN OxyIR, 5 mg= 1 Tab, PO, q4hr, PRN Reglan, 5 mg= 1 mL, IV Push, q6hr, PRN Renal dosing adjustment, 1 Each, N/A, oncall, PRN See comments, 1 Each, N/A, oncall, PRN See comments, 1 Each, N/A, oncall, PRN senna, 17.2 mg= 2 Tab, PO, qDay Senokot S (50/8.6), 2 Tab, PO, BID, PRN Zofran INJ, 4 mg= 2 mL, IV Push, q4hr, PRN Home albuterol HFA (90 mcg/dose) MDI, 1 Puff, INH, QID, PRN chlorthalidone 25 mg oral tablet, 25 mg= 1 Tab, PO, qDay Claritin 10 mg oral tablet, 10 mg= 1 Tab, PO, qDay Farxiga 10 mg oral tablet, 10 mg= 1 Tab, PO, qDay finasteride 5 mg oral tablet, 5 mg= 1 Tab, PO, qDay Fish Oil 1000 mg oral capsule, 1000 mg= 1 Cap, PO, BID iron gluconate, 27 mg, PO, Daily, takes 3 x per week Janumet XR 50 mg-500 mg oral tablet, extended release, 2 Tab, PO, qPM Levemir 100 units/mL subcutaneous solution, 57 units, SUBCUT, Daily lisinopril 20 mg oral tablet, 20 mg= 1 Tab, PO, qDay metoprolol succinate 25 mg oral capsule, extended release, 0.5 Tab, PO, BID NovoLOG, 10 Unit, SUBCUT, TID before meals potassium chloride 8 mEq oral tablet, extended release, 8 mEq= 1 Tab, PO, qDay rosuvastatin 20 mg oral tablet, 20 mg= 1 Tab, PO, qDay Vitamin B12 1000 mcg oral tablet, 1000 mcg= 1 Tab, PO, qDay Vitamin D3 25 mcg (1,000 unit) oral tablet, chewable, 25 mcg= 1 Tab, Chew, qDay Xarelto 20 mg oral tablet, 20 mg= 1 Tab, PO, qPM Allergies No Known Medication Allergies ?Reaction: None Documented Social History Alcohol Denies, 04/23/2022 Denies, 05/22/2021 Home/Environment Amish restrictions/concerns: None., 04/23/2022 Amish restrictions/concerns: None., 05/22/2021 Substance Abuse Denies, 04/23/2022 Denies, 05/22/2021 Tobacco Never (less than 100 in lifetime), 04/23/2022 Never (less than 100 in lifetime), 05/22/2021 Family History Reviewed and noncontributory. Electronically Signed By: Tyler Post MD On 04/24/22 13:31 Co Signature By: Modify Signature By: Tyler Post MD On 04/23/22 16:51 Physician Note * Carole Azevedo MD: PERFORM Event Display: Physician Note Authored Date: Patient: ??JUAN JIANG ? Age: ??76 years ?Sex: ??M ?: ??1945 ?Active Insurance: ??MEDICARE A Admitting MD: ??Marybel Truong ?Location: ??[facility] 3A: 311: 01 ?PCP: ??Glenys Oakes MD Author: ??Carole Azevedo MD Objective Vitals & Measurements T:??36.8?C ??(Axillary)?? TMIN:??36.4?C ??(Oral)?? TMAX:??36.8?C ??(Oral)?? HR:??67?? RR:??18?? BP:??135/81?? SpO2:??99%?? Oxygen Method:??Room air?? Physical Exam GEN: No acute distress, alert and oriented x 3 HEENT: oropharynx clear, mucous membranes moist NECK: supple, no jugular venous distention CV: regular rate and rhythm, no rubs or gallops PULM: clear to auscultation bilaterally, normal respiratory excursion ABD: soft, nontender, nondistended, normoactive bowel sounds, no guarding or rebound. EXTR: no Common Labs - This Encounter, Most Recent, Lab 24 hrs Last 24 Hours?Hematology-CBC ?04/24/22 General Chemistry ?04/24/22 POC Glucose ?04/24/22 WBC:??6.9 Sodium:135 (L) ?? Glucose (POCT) Automated:152 (H) ?RBC:4.20 (L) ?? Potassium:??4.2 ?Hgb:12.2 (L) ?? Chloride:109 (H) ?Hct:36.4 (L) ?? CO2:18 (L) ?MCV:??86.7 Anion Gap:??8 ?MCH:??28.9 Glucose Level:211 (H) ?MCHC:??33.4 BUN:??20 ?RDW:??14.9 Creatinine:??1.14 ?Plt:??230 BUN/Convalescent Sitter Ratio:??17.5 ?MPV:??8 eGFRcr:67 (L) ? Calcium:??8.6 ? Corrected Calcium:??9.0 ? Mg:??1.6 ? Protein, Total:??6.0 ? Albumin:??3.5 ? Globulin:??2 ? A/G Ratio:??2 ? Bili Total:??0.6 ? ALT:337 (H) ? AST:291 (H) ? Alkphos:??89 ? Amylase:??133 ? Lipase:473.0 (H) ? Blood Glucose, Point of Care:175 mg/dL (H) ?Special Chemistry ?04/24/22 ? HgbA1C:7.4 (H) ?Estimated Average Glucose:??166 ? Additional? , clubbing or edema NEURO: Non-focal, moves all extremities Lab Results .la Antibiotics Ordered ? cefTRIAXone: ?2,000 mg, ??IV Push, ??q24hr ??04/23/22 08:22 - Active ? ( 3 ?days )? metroNIDAZOLE: ?500 mg, ?IV, ??q8hr ?04/23/22 08:22 - Active ? ( 3 ?days )? Completed ? ampicillin-sulbactam: ?3 gm, ?IV, ??x1 ?04/23/22 04:40 - Active ? ( 1 ?days )? Diagnostic Results NSR Assessment/Plan Preop evaluation History of pulmonary embolism currently on Xarelto Obesity Diabetes mellitus Hypertension Renal sufficiency Plan Preop evaluation Patient has been??seen in the emergency room for abdominal pain and it was felt that patient may have??contribution from??gallbladder therefore patient was felt to be??candidate for??cholecystectomy.??Patient was??asked to be evaluated. ??Patient has no chest pain or shortness of breath??ejection fraction within normal limits. ??His EKG is unremarkable therefore patient is at moderate risk for surgery.?? Patient is on Xarelto therefore patient will be??advised to hold Xarelto for 72 hours??because of his??GFR??being between 30 and 59. ?? Pulmonary embolism Patient history of pulmonary embolism??and has been on Xarelto 10 mg once a day ?? Obesity Patient is to lose weight Diabetes mellitus Patient had elevated hemoglobin A1c of 7.2??patient advised to follow internal medicine Hypertension Patient advised to follow-up with??internal medicine Electronically Signed By: Carole Azevedo MD On 04/24/22 21:56 Co Signature By: Modify Signature By: * Tyler Post MD: PERFORM, MODIFY, MODIFY Event Display: Physician Note Authored Date: Patient: ??JUAN JIANG ? Age: ??76 years ?Sex: ??M ?: ??1945 ?Active Insurance: ??MEDICARE A Admitting MD: ??Marybel Truong ACNP ?Location: ??[facility] 3A: 311: 01 ?PCP: ??Glenys Oakes MD Author: ??Tyler Post MD Subjective Pt states he has no pain.?? Wants to go home. Objective Vitals & Measurements T:??36.8?C ??(Oral)?? TMIN:??36.4?C ??(Oral)?? TMAX:??36.8?C ??(Oral)?? HR:??66?? RR:??18?? BP:??112/67?? SpO2:??98%?? Oxygen Method:??Room air?? WT:??130.8??kg?? Physical Exam GEN: No acute distress, alert and oriented x 3 HEENT: oropharynx clear, mucous membranes moist NECK: supple, no jugular venous distention CV: regular rate and rhythm, no rubs or gallops PULM: clear to auscultation bilaterally, normal respiratory excursion ABD: soft, nontender, nondistended, normoactive bowel sounds, no guarding or rebound. EXTR: no cyanosis, clubbing or edema NEURO: Non-focal, moves all extremities Lab Results Common Labs - This Encounter, Most Recent, Lab 24 hrs Last 24 Hours?Hematology-CBC ?04/24/22 General Chemistry ?04/24/22 POC Glucose ?04/24/22 WBC:??6.9 Sodium:135 (L) ?? Glucose (POCT) Automated:189 (H) ?RBC:4.20 (L) ?? Potassium:??4.2 ??Hgb:12.2 (L) ?? Chloride:109 (H) ?Hct:36.4 (L) ?? CO2:18 (L) ?MCV:??86.7 Anion Gap:??8 ??MCH:??28.9 Glucose Level:211 (H) ?MCHC:??33.4 BUN:??20 ??RDW:??14.9 Creatinine:??1.14 ??Plt:??230 BUN/Convalescent Sitter Ratio:??17.5 ??MPV:??8 eGFRcr:67 (L) ?? Calcium:??8.6 Corrected Calcium:??9.0 Mg:??1.6 Protein, Total:??6.0 Albumin:??3.5 Globulin:??2 A/G Ratio:??2 Bili Total:??0.6 ALT:337 (H) ?? AST:291 (H) ?? Alkphos:??89 Lipase:473.0 (H) ?? Blood Glucose, Point of Care:193 mg/dL (H) ?Cardiac ?04/24/22 Special Chemistry ?04/24/22 ?? Troponin I:??0.01 HgbA1C:7.4 (H) ?? Estimated Average Glucose:??166 Additional? Antibiotics Ordered ? cefTRIAXone: ?2,000 mg, ??IV Push, ??q24hr ??04/23/22 08:22 - Active ? ( 2 ?days )? metroNIDAZOLE: ?500 mg, ?IV, ??q8hr ?04/23/22 08:22 - Active ? ( 2 ?days )? Completed ? ampicillin-sulbactam: ?3 gm, ?IV, ??x1 ?04/23/22 04:40 - Active ? ( 1 ?days )? Diagnostic Results MRI - All Encounters, Most Recent, Last 24 hrs MR MRCP wo Con ?? 04/24/22 12:43:38 IMPRESSION: Dependent gallbladder sludge or small cholelithiasis. Normal caliber common bile duct without appreciable filling defect to suggest choledocholithiasis ?? Signed By: Avel Muir MD Assessment/Plan 1.??Acute cholecystitis??K81.0 unlikely as per MRCP.?? no inflammation noted, nontender Ordered: NM Hepatobiliary System - XFR ?? 2.??Cholelithiasis??K80.20 Ordered: NM Hepatobiliary System - XFR ?? Long discussion again with patient about the options.?? This could definitely be gall bladder related Would be first episode. Could be very mild pancreatitis, possibly gallstone related but never had elevated bili and no CBD stones on MRCP.?? Pt. reluctant to have surgery. Will cancel HIDA Pt. can f/u for OPT surgery for repeat pain episodes. Pt. only wants surgery if cannot be avoided. Trend lipase and LFTs If improved can d/c home on 04/25.?? He can f/u in my office for OPT lap emilia anytime if he has pain. Electronically Signed By: Tyler Post MD On 04/24/22 15:31 Co Signature By: Tyler Psot MD On 04/24/22 15:32 Modify Signature By: Tyler Post MD On 04/24/22 15:31 * Sana Cameron MD: PERFORM, MODIFY, MODIFY Event Display: Physician Note Authored Date: Patient: ??JUAN JIANG ? Age: ??76 years ?Sex: ??M ?: ??1945 ?Active Insurance: ??MEDICARE A Admitting MD: ??Marybel Truong ?Location: ??[facility] 3A: 311: 01 ?PCP: ??Glenys Oakes MD Author: ??Sana Cameron MD ?? [facility] ?? Assessment/Plan #Acute??calculus cholecystitis #Elevated lipase??with no hyperbilirubinemia??and normal pancreas on CT???likely secondary to above #Abdominal pain secondary to above #Chest pain??described as elephant sitting on the chest -this may be secondary to above but in light of typical description, ACS??still has to be ruled out #Hypertension #Diabetes type 2 #CKD??with possible??NEHEMIAS #Obesity #Hypercholesterolemia #Asthma #BPH ?? - Abx:??Ceftriaxone, Flagyl - CV: VS per protocol ?? *Echocardiogram ?? *Cardiology consulted & discussed moderate risk for surgery ?? *Medications: Metoprolol??12.5 mg twice daily - Electrolytes: Monitor - Endocrinology: ISS - GI: Bowel care, Pepcid? *General surgeon consult ?? *MRCP due to uptrending??lipase and??LFTs ?? *Surgeon also wants to do HIDA??to evaluate gallbladder - : Finasteride - HEENT: Latanoprost - MSK: Ambulate & OOB as tolerated - Pain: Meds per MAR - Renal:??Maintenance IVF, Avoid nephrotoxins (NSAIDs, ACEi/ARBs, Contrast, Fleets enema),??Pharmacy to renally dose medications, Strict I/O ?? Supportive Care # VTE PPx: SCD, heparin # GI PPx:??Pepcid ?? Disposition #?? # Discussed plan with pt & nurse in depth # Thank you for allowing me to participate in your care ? Sana Cameron MD Internal Medicine [facility] ?? Subjective On 04/24/2022.?? Patient overall feeling well and??denied any pain.?? Patient??does not want to pursue surgery??if possible??depending on??imaging report. ??MRCP and HIDA scan ordered.?? MRCP ordered due to uptrending lipase??and LFTs.?HIDA scan??will have to be done??at outside facility??which schedule is pending.?? Troponin trends were overall negative. Per cardiology patient is at moderate risk for surgery.? Review of??Systems Constitutional: No fevers, chills, sweats Eye: No recent visual problems ENMT: No ear pain, nasal congestion, sore throat Respiratory: No shortness of breath, cough Cardiovascular: No Chest pain, palpitations Gastrointestinal: No nausea, vomiting, diarrhea, abdominal pain Genitourinary: No hematuria Musculoskeletal: No back pain, neck pain, joint pain Integumentary: No rash, pruritus, abrasions Neurologic: No headache Psychiatric: No anxiety, depression ?? Physical Examination General: No acute distress. Eye: Extraocular movements are intact, Normal conjunctiva. HENT: Normocephalic, Normal hearing, Oral mucosa is moist. Neck: No jugular venous distention. Respiratory: Lungs are clear to auscultation, Respirations are non-labored. Cardiovascular: Normal rate, Regular rhythm, Good pulses. Gastrointestinal: Soft, Non-tender, Non-distended, Normal bowel sounds. Musculoskeletal: No tenderness, No swelling. Integumentary: Warm, Dry, Normal turgor texture. Neurologic: Alert, No focal defects Psychiatric: Cooperative, Appropriate mood & affect. ?? Vital Signs ?? Vitals Signs (Most Recent) ?? Non Invasive BP: ??96 / 57 ?? Heart Rate: ??74 ?? Respiratory Rate: ??18 Breaths/Min?? Temperature ??PO: ??36.4 ?? Temperature Temporal Artery: ??36.7 ? Laboratory & Diagnostic Tests Results ?? Last 24 Hours?Hematology-CBC ?04/24/22 General Chemistry ?04/24/22 POC Glucose ?04/24/22 WBC:??6.9 Sodium:135 (L) ?? Glucose (POCT) Automated:224 (H) ?RBC:4.20 (L) ?? Potassium:??4.2 ??Hgb:12.2 (L) ?? Chloride:109 (H) ?Hct:36.4 (L) ?? CO2:18 (L) ?MCV:??86.7 Anion Gap:??8 ??MCH:??28.9 Glucose Level:211 (H) ?MCHC:??33.4 BUN:??20 ??RDW:??14.9 Creatinine:??1.14 ??Plt:??230 BUN/Convalescent Sitter Ratio:??17.5 ??MPV:??8 eGFRcr:67 (L) ?? Calcium:??8.6 Corrected Calcium:??9.0 Mg:??1.6 Protein, Total:??6.0 Albumin:??3.5 Globulin:??2 A/G Ratio:??2 Bili Total:??0.6 ALT:337 (H) ?? AST:291 (H) ?? Alkphos:??89 Lipase:473.0 (H) ?? Blood Glucose, Point of Care:161 mg/dL (H) ?Cardiac ?04/24/22 Lipid Tests ?04/24/22 Special Chemistry ?04/24/22 B-Natriuretic Peptide:??20.6 Cholesterol:??137 TSH:??1.00 ??Troponin I:??0.01 Triglycerides:362 (H) ?? HDL:18 (L) ?? LDL Direct:??68 VLDL:??72 LDL/HDL:??3 Chol/Trig:??0 %HDL:??13 Cholesterol/HDL:8 (L) ?Toxicology ?04/24/22 ? Ethanol:<10 (H) ?? Additional?Microbiology Studies Recently Resulted ? CT Abdomen+Pelvis wo IV Con ?? 04/23/22 02:48:15 Radiation Dose CTDIVOL = 0 (mGy): DLP = 832.19 (mGy-cm) ?? PROCEDURE INFORMATION: Exam: CT Abdomen And Pelvis Without Contrast Exam date and time: 04/23/2022 2:48 AM Age: 76 years old Clinical indication: Pain and abdominal pain; Localized; Upper; Prior surgery; Surgery date: 6+ months; Surgery type: Left hip replacement, right hip replacement; Patient HX: None ?? TECHNIQUE: Imaging protocol: Computed tomography of the abdomen and pelvis without contrast. Radiation optimization: All CT scans at this facility use at least one of these dose optimization techniques: automated exposure control; mA and/or kV adjustment per patient size (includes targeted exams where dose is matched to clinical indication); or iterative reconstruction. ?? REPORTING DATA: Count of CT and Cardiac NM exams in prior 12 months: This patient has received 0 known CTs and 0 known cardiac nuclear medicine studies in the 12 months prior to the current study. ?? COMPARISON: SC XR CHEST 1 VIEW 04/28/2021 5:33 AM ?? RADIATION DOSE METRICS: Total DLP (mGy-cm): 832.19 ?? FINDINGS: Liver: Normal. No mass. Gallbladder and bile ducts: Multiple calcified gallstones are present. Pancreas: Normal. No ductal dilation. Spleen: Normal. No splenomegaly. Adrenal glands: Normal. No mass. Kidneys and ureters: There is no evidence of renal or ureteral calcifications. Stomach and bowel: Mild diverticulosis is present in the distal colon. There is no evidence of intestinal perforation or obstruction. Appendix: No evidence of appendicitis. ?? Intraperitoneal space: Unremarkable. No free air. No significant fluid collection. Vasculature: Unremarkable. No abdominal aortic aneurysm. Lymph nodes: Unremarkable. No enlarged lymph nodes. Urinary bladder: Unremarkable as visualized. Reproductive: Unremarkable as visualized. 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 Osteopenia. Marked multilevel lumbar spondylosis. Soft tissues: Soft tissue contusions in the anterior abdominal wall likely related to injection medications. There is a small fat containing paraumbilical hernia. ?? IMPRESSION: 1. Cholelithiasis. No radiographic evidence of acute cholecystitis. [place] distended gallbladder consistent with hydrops. 2. Mild diverticulosis of the distal colon. No bowel perferation or obstruction. 3. No renal, ureteral, or bladder calculi. No hydroureteronephrosis. ?? US Abdomen Limited ?? 04/23/22 01:41:14 PROCEDURE INFORMATION: Exam: US Abdomen, Limited; Right Upper Quadrant Exam date and time: 04/23/2022 1:41 AM Age: 76 years old Clinical indication: Abdomen pain ruq ?? TECHNIQUE: Imaging protocol: Real time ultrasound of the abdomen with image documentation. Limited exam focused on the right upper quadrant. ?? COMPARISON: No relevant prior studies available. ?? FINDINGS: Liver: Normal. No masses. Gallbladder: Tungsten Refiner notes positive Youngblood???s sign. The gallbladder demonstrates layering density consistent with noncalcified stones or sludge. No gallbladder wall thickening. Biliary ducts: Normal. No stones. No dilation. Pancreas: Visualized pancreas is unremarkable. Right kidney: Normal. No mass. No hydronephrosis. ?? Other findings: Tungsten Refiner notes technically difficult exam secondary to patient body habitus and overlying bowel gas. ?? IMPRESSION: Cholelithiasis. Positive automobile brake bonder???s Youngblood???s sign consistent with acute cholecystitis. ?? Medications ?? Scheduled ?? cefTRIAXone 2,000 mg Inj: 2,000 mg, IV Push, q24hr ?? docusate sodium 100 mg Cap: 100 mg, PO, BID ?? famotidine 20 mg Tab: 20 mg, PO, Daily ?? finasteride 5 mg Tab: 5 mg, PO, qDay ?? heparin 5,000 Unit/mL Inj; 1mL 5,000 Unit, Subcut, q8hr ?? insulin LISPRO syringe (10 Uni 0 - 8 Unit, SUBCUT, q4hr ?? metoprolol 25 mg IMMediate Rel 12.5 mg, PO, BID ?? metroNIDAZOLE: 500 mg, 100 mL, 100 mL/hr, IV, q8hr ?? senna 8.6 mg Tab: 17.2 mg, PO, qDay ?IV ?? NaCl 0.9%: 125 mL/hr, IV, Stop: 05/23/22 8:51:00 MST ?? DVT prophylaxis ?Pharmacological Prophylaxis?? heparin 5,000 Unit/mL Inj; 1mL ??5,000 Unit, Subcut, q8hr ? Mechanical Prophylaxis?SCD Order: ??, Compression devices to be worn while in bed. SCD???s to be removed?? a minimum of 30 minutes every shift and while ambulating.?? Electronically Signed By: Sana Cameron MD On 04/24/22 19:25 Co Signature By: Modify Signature By: Sana Cameron MD On 04/24/22 15:18 Physician Emergency department Note * Eliza Dasilva MD: PERFORM Event Display: ED Physician Notes Authored Date: Patient: ??JUAN JIANG ? Age: ??76 years ?Sex: ??M ?: ??1945 ?Active Insurance: ??MEDICARE A Admitting MD: ??Marybel Truong ?Location: ??[facility] EDIP: ED08: 01 ?PCP: ??Glenys Oakes MD Author: ??Eliza Dasilva MD Date/Time ??Admit Date: ?? 04/23/22 01:17 Provider Contact Time: 04/23/2022 01:39 Mode of Arrival Mode of Arrival: ??Ambulatory ?? Chief Complaint Chief Complaint ED:??Abdominal heaviness started at 2345 last night at home. ? 04/23/22 01:40 No results found. History of Present Illness 76-year-old female who presented emergency room complaining of waking up tonight with severe heaviness in the epigastrium and periumbilical region.?? No nausea no vomiting.?? No fever no chills.?? Pain persisted hence patient decided to come to the ER Review of Systems Constitutional: No fevers, chills, sweats Eye: No recent visual problems ENMT: No ear pain, nasal congestion, sore throat Respiratory: No shortness of breath, cough Cardiovascular: No Chest pain, palpitations, syncope Gastrointestinal: Abdominal pain but no diarrhea no nausea vomiting Genitourinary: No hematuria Alex/Lymph: Negative for bruising tendency, swollen lymph glands Endocrine: Negative for excessive thirst, excessive hunger Musculoskeletal: No back pain, neck pain, joint pain, muscle pain, decreased range of motion Integumentary: No rash, pruritus, abrasions Neurologic: Alert & oriented X 4 Psychiatric: No anxiety, depression Physical Exam GENERAL: Nontoxic, no acute distress, alert, oriented x 3 HEENT: Normocephalic, atraumatic, no scleral icterus or conjunctival injection, MMM OP clear w/o erythema or exudate NECK: supple, no rigidity. No lymphadenopathy, bruits, or thyromegaly LUNGS: Clear to auscultation bilaterally. No crackles or wheezes. CV: RRR, normal S1/S2, no gallops. PMI not displaced. No jugular venous distention. GI: soft, nontender, normoactive bowel sounds, no rebound, guarding or masses, no hepatomegaly or splenomegaly, no pulsatile mass or bruit. : no suprapubic or flank tenderness. BACK: no spinal or paraspinal tenderness. EXT: No cyanosis, pedal edema, well perfused. SKIN: warm and dry, no ulcerations. NEURO: Cranial nerves 2-12 grossly intact, no gross motor deficits, strength 5/5 bilateral upper and lower extremity large muscle groups, sensation grossly intact throughout to light touch. DTRs 2+ symmetric at biceps/triceps/knee/ankle. Toes downgoing bilaterally. Cerebellar: no dysmetria, gait not tested. Most Recent Vitals T:??36.4?C ??(Temporal Artery)?? HR:??77?? RR:??17?? BP:??151/70?? SpO2:??100%?? Oxygen Method:??Room air?? WT:??124.717??kg?? WT:??275??lbs?? Emergency Department Orders ?Laboratory & Blood:?Troponin-I (Trop-I)?CBC w/Diff* (man diff if indicated) (CBC w/Diff* (man diff if indicated))?Comprehensive Metabolic Panel (CMP (BMP + ALB, Tot Prot, Bili, CA, Alk Phos, ALT, AST))?Lipase Level (Lipase Level)?Lactic Acid (Lactic Acid)?Medications & IV's:?Sodium Chloride 0.9% (Sodium Chloride 0.9% (Bolus)) 1,000 mL, 923.08 mL/hr, IV, x1 ?ampicillin-sulbactam (Unasyn) 3 gm, 200 mL/hr, IV, x1 ?Radiology:?CT Abdomen+Pelvis wo IV Con (CT Abdomen+Pelvis wo IV Con)?US Abdomen Limited (US Abdomen Limited)?Diagnostic Tests:?Electrocardiogram (EKG)?? Laboratory Results ED Labs ??(last two resulted values within 24 hours) ?? Hematology WBC: ??11.2 (H) Hemoglobin: ??12.8 (L) Hematocrit: ??38.9 (L) Platelets: ?267 Neutrophils: ?70.9 MCV: ?86.0 Lymph%: ?19.8 ?? Chemistry Sodium: ?136 Potassium: ?4.3 Chloride: ?104 CO2: ??20 (L) Anion Gap: ?12 Glucose: ??177 (H) BUN: ??27 (H) Creatinine: ??1.71 (H) Calcium: ?9.6 Total Bilirubin: ?0.8 ALT: ?42 AST: ??69 (H) Alk Phos: ?51 Lipase Level: ??108.0 (H) Lactic Acid: ?1.2 ?? Cardiac Troponin I: ?<0.01 ?? Diagnostic Results/Interpretation Radiology Result Date: ??04/23/22 04:30 ?? Verified By: ??Reinaldo Zavaleta MD at 04/23/22 04:36 ? Report : ??US Abdomen Limited?? IMPRESSION: Cholelithiasis. Positive automobile brake bonder's Youngblood's sign consistent with acute cholecystitis. 04/23/22 01:41 ?? +++++++++++++++++++++++++++++++++++++++++++++++++++++++? Result Date: ??04/23/22 02:57 ?? Verified By: ??Reinaldo Zavaleta MD at 04/23/22 03:10 ? Report : ??CT Abdomen+Pelvis wo IV Con?? IMPRESSION: 1. ?? Cholelithiasis. No radiographic evidence of acute cholecystitis. [place] distendedgallbladder consistent with hydrops. 2. ?? Mild diverticulosis of the distal colon. No bowel perferation or obstruction. 3. ?? No renal, ureteral, or bladder calculi. No hydroureteronephrosis. 04/23/22 02:48 ?? +++++++++++++++++++++++++++++++++++++++++++++++++++++++? Medical Decision Making Differential Diagnoses (considered and possible or likely): [Acute gastritis, peptic ulcer disease,pancreatitis,??acute coronary syndrome] ?? Differential Diagnoses (considered and unlikely, not requiring evaluation currently): Aortic dissection,??aneurysm??bowel obstruction ?? Stable Chronic Conditions: Pulmonary embolism??and diabetes mellitus ?? Unstable Chronic Conditions: [N/A] ?? Comorbid Condition Impacting Present Evaluation/Treatment: [N/A] ?? ECG/Rhythm Strip/Patrol Lady Rhythm Interpretation by Provider (rhythm, rate, axis, QRS/T waves, acute/chronic changes, comparisons, clinical findings/diagnosis): [Twelve-lead EKG??seen and reviewed by me done at 18??has a rate of 76 sinus with first-degree AV block??interventricular conducti on delay otherwise no acute ST-T wave changes] ?? Imaging Studies: CT scan abdomen and pelvis??[] ?? Tests Ordered: CBC, CMP,??lipase??uric acid ?? Tests Considered: [] ?? Independent Historian: [none] ?? External Records Review: [N/A] ?? Shared Decision Making: [N/A] ?? ED Treatments and Course: [CT scan??as well as a??gallbladder ultrasound??suggest??cholelithiasis with cholecystitis.?? We will restart??him on empiric antibiotic??and obtain a surgical consult??as well as admit to medicine.] ?? Social Determinants of Health: [N/A] ?? Consideration for Hospitalization: [YES] ?? Peanut Sheller Discussion(s): [] ?? Need to Initiate or Forego Further Testing: [N/A] ?? Need to Monitor for Drug Toxicities: [N/A] ?? Out-Patient Prescriptions Affecting Other Chronic Conditions: [] Final Diagnosis Diagnosis this visit:?? Acute cholecystitis (K81.0) 04/23/2022 04:49 ?Discharge ? Cholelithiasis (K80.20) 04/23/2022 04:49 ?Discharge ? Disposition [facility] Place in Observation ? Order Details: ?Observation, Medicine, Marybel Truong ACNP, Yes, ACUTE CHOLCYSTITIS WITH CHOLELITHIASIS, HARP REGULATOR:DR PACHECO LAMAS, 04/23/22 5:15:00 [facility], 04/23/22 5:15:00 [facility], 04/23/22 5:15:00 [facility], [email or web address]?? 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???Tonsillectomy Allergies No Known Medication Allergies Social History Alcohol Denies, 04/23/2022 Denies, 05/22/2021 Home/Environment Amish restrictions/concerns: None., 04/23/2022 Amish restrictions/concerns: None., 05/22/2021 Substance Abuse Denies, 04/23/2022 Denies, 05/22/2021 Tobacco Never (less than 100 in lifetime), 04/23/2022 Never (less than 100 in lifetime), 05/22/2021 Home Medications albuterol HFA (90 mcg/dose) MDI, 1 Puff, INH, QID, PRN chlorthalidone 25 mg oral tablet, 25 mg= 1 Tab, PO, qDay Claritin 10 mg oral tablet, 10 mg= 1 Tab, PO, qDay Farxiga 10 mg oral tablet, 10 mg= 1 Tab, PO, qDay finasteride 5 mg oral tablet, 5 mg= 1 Tab, PO, qDay Fish Oil 1000 mg oral capsule, 1000 mg= 1 Cap, PO, BID iron gluconate, 27 mg, PO, Daily, takes 3 x per week Janumet XR 50 mg-500 mg oral tablet, extended release, 2 Tab, PO, qPM Levemir 100 units/mL subcutaneous solution, 57 units, SUBCUT, Daily lisinopril 20 mg oral tablet, 20 mg= 1 Tab, PO, qDay metoprolol succinate 25 mg oral capsule, extended release, 0.5 Tab, PO, BID NovoLOG, 10 Unit, SUBCUT, TID before meals potassium chloride 8 mEq oral tablet, extended release, 8 mEq= 1 Tab, PO, qDay rosuvastatin 20 mg oral tablet, 20 mg= 1 Tab, PO, qDay Vitamin B12 1000 mcg oral tablet, 1000 mcg= 1 Tab, PO, qDay Vitamin D3 25 mcg (1,000 unit) oral tablet, chewable, 25 mcg= 1 Tab, Chew, qDay Xarelto 20 mg oral tablet, 20 mg= 1 Tab, PO, qPM Electronically Signed By: Eliza Dasilva MD On 04/23/22 05:18 Co Signature By: Modify Signature By: History and physical note * Sana Cameron MD: PERFORM, MODIFY Event Display: History and Physical Authored Date: Patient: ??JUAN JIANG ? Age: ??76 years ?Sex: ??M ?: ??1945 ?Active Insurance: ??MEDICARE A Admitting MD: ??Marybel Truong ?Location: ??[facility] EDIP: ED08: 01 ?PCP: ??Glenys Oakes MD Author: ??Sana Cameron MD ?? [facility] Chief Complaint Elephant sitting on my chest History of Present Illness Mr Jiang is a 76-year-old gentleman with past medical history of diabetes, asthma,??hypertension,PE??who came to ED due to??chest pain ?? Per patient,??patient was ambulating at night??with some chest pressure??as if an elephant was sitting on his chest. Pain was mostly in the lower sternum and epigastrium area.?? But most pressure-like in character as if an elephant was sitting on his chest.?? He denied any fever or chills or anyshortness of breath.?? He denied any radiating pain into the left side of his chest or jaw or back.?? He denied any nausea or vomiting.?? Pain is not associated to food intake.?? Pain persisted was prompted ED visit.?? Vital signs in ED showed elevated blood pressure but otherwise no fever and was breathing fine in room air.?? Labs showed elevated WBC at 11.2 and creatinine at 1.71.?? AST slightly elevated at 69 and lipase at 108.?? CT abdomen and pelvis was done which showed cholelithiasis with no radiologic evidence of acute cholecystitis but showed overly distended gallbladder consistent with hydrops.?? Ultrasound of the abdomen was done which showed cholelithiasis and positive Youngblood sign consistent with acute cholecystitis.?? EKG was done which showed sinus rhythm with first- degree AV block.?? Empiric IV antibiotics started.?? Cardiology consult for preop clearance.?? Surgery consulted for acute cholecystitis.?? Patient admitted for further evaluation and management. Review of Systems Constitutional: No fevers, chills, sweats Eye: No recent visual problems ENMT: No ear pain, nasal congestion, sore throat Respiratory: No shortness of breath, cough Cardiovascular:??(+) Chest pain, palpitations Gastrointestinal: No nausea, vomiting, diarrhea, abdominal pain Genitourinary: No hematuria Musculoskeletal: No back pain, neck pain, joint pain Integumentary: No rash, pruritus, abrasions Neurologic: Alert & oriented X 4 Psychiatric: No anxiety, depression Objective Vitals & Measurements T:??36.4?C ??(Temporal Artery)?? HR:??77?? RR:??17?? BP:??151/70?? SpO2:??100%?? Oxygen Method:??Room air?? WT:??124.717??kg?? WT:??275??lbs?? Physical Exam General: No acute distress. Eye: Extraocular movements are intact, Normal conjunctiva. HENT: Normocephalic, Normal hearing, Oral mucosa is moist. Neck: No jugular venous distention. Respiratory: Lungs are clear to auscultation, Respirations are non-labored. Cardiovascular: Normal rate, Regular rhythm, Good pulses. Gastrointestinal: Soft, Non-tender, Non-distended, Normal bowel sounds. Musculoskeletal: No tenderness, No swelling. Integumentary: Warm, Dry, Normal turgor texture. Neurologic: Alert, No focal defects, Cranial Nerves. Psychiatric: Cooperative, Appropriate mood & affect. Lab Results Common Labs - This Encounter, Most Recent, Lab 24 hrs Last 24 Hours?Hematology-CBC ?04/23/22 General Chemistry ?04/23/22 Cardiac ?04/23/22 WBC:11.2 (H) ?? Sodium:??136 Troponin I:??<0.01 ??RBC:4.52 (L) ?? Potassium:??4.3 ??Hgb:12.8 (L) ?? Chloride:??104 ??Hct:38.9 (L) ?? CO2:20 (L) ?MCV:??86.0 Anion Gap:??12 ??MCH:??28.4 Glucose Level:177 (H) ?MCHC:??33.0 BUN:27 (H) ?RDW:??15.2 Creatinine:1.71 (H) ?Plt:??267 BUN/Convalescent Sitter Ratio:??15.8 ??MPV:??8 eGFRcr:41 (L) ?Neuts:??70.9 Calcium:??9.6 ??Lymphs:??19.8 Corrected Calcium:??9.4 ??Monos.:??6.1 Protein, Total:??7.3 ??Eos.:??2.6 Albumin:??4.2 ??Baso.:??0.6 Globulin:??3 ??ABS Neut:??7.9 A/G Ratio:??1 ??ABS Lymph:??2.2 Bili Total:??0.8 ??ABS [place]:??0.7 ALT:??42 ??ABS Eos:??0.3 AST:69 (H) ?ABS Baso:??0.1 Alkphos:??51 ??CBC Scan:??Auto Diff Lipase:108.0 (H) ?nRBC Auto:??0 Lactic Acid:??1.2 Additional? Diagnostic Results Radiology - Full Interpretation, This Encounter Name:??JUAN JIANG?? Account:??[id number]?? :??1945 ? Result Date:??04/23/22 04:30?? Verified By:??Reinaldo Zavaleta MD at 04/23/22 04:36? Report :??US Abdomen Limited?? PROCEDURE INFORMATION: ?? Exam: US Abdomen, Limited; Right Upper Quadrant ?? Exam date and time: 04/23/2022 1:41 AM ?? Age: 76 years old ?? Clinical indication: Abdomen pain ruq ? TECHNIQUE: ?? Imaging protocol: Real time ultrasound of the abdomen with image documentation. ?? Limited exam focused on the right upper quadrant. ? COMPARISON: ?? No relevant prior studies available. ? FINDINGS: ?? Liver: Normal. No masses. ?? Gallbladder: Tungsten Refiner notes positive Youngblood's sign. The gallbladder ?? demonstrates layering density consistent with noncalcified stones or sludge. No ?? gallbladder wall thickening. ?? Biliary ducts: Normal. No stones. No dilation. ?? Pancreas: Visualized pancreas is unremarkable. ?? Right kidney: Normal. No mass. No hydronephrosis. ? Other findings: Tungsten Refiner notes technically difficult exam secondary to ?? patient body habitus and overlying bowel gas. ? IMPRESSION: ?? Cholelithiasis. Positive automobile brake bonder's Youngblood's sign consistent with acute ?? cholecystitis. 04/23/22 01:41?? +++++++++++++++++++++++++++++++++++++++++++++++++++++++? Result Date:??04/23/22 02:57?? Verified By:??Reinaldo Zavaleta MD at 04/23/22 03:10? Report :??CT Abdomen+Pelvis wo IV Con?? Radiation Dose CTDIVOL = 0 (mGy): DLP = 832.19 (mGy-cm)? PROCEDURE INFORMATION: ?? Exam: CT Abdomen And Pelvis Without Contrast ?? Exam date and time: 04/23/2022 2:48 AM ?? Age: 76 years old ?? Clinical indication: Pain and abdominal pain; Localized; Upper; Prior surgery; ?? Surgery date: 6+ months; Surgery type: Left hip replacement, right hip ?? replacement; Patient HX: None ? TECHNIQUE: ?? Imaging protocol: Computed tomography of the abdomen and pelvis without ?? contrast. ?? Radiation optimization: All CT scans at this facility use at least one of these ?? dose optimization techniques: automated exposure control; mA and/or kV ?? adjustment per patient size (includes targeted exams where dose is matched to ?? clinical indication); or iterative reconstruction. ? REPORTING DATA: ?? Count of CT and Cardiac NM exams in prior 12 months: This patient has received ?? 0 known CTs and 0 known cardiac nuclear medicine studies in the 12 months prior ?? to the current study. ? COMPARISON: ?? SC XR CHEST 1 VIEW 04/28/2021 5:33 AM ? RADIATION DOSE METRICS: ?? Total DLP (mGy-cm): 832.19 ? FINDINGS: ?? Liver: Normal. No mass. ?? Gallbladder and bile ducts: Multiple calcified gallstones are present. ?? Pancreas: Normal. No ductal dilation. ?? Spleen: Normal. No splenomegaly. ?? Adrenal glands: Normal. No mass. ?? Kidneys and ureters: There is no evidence of renal or ureteral calcifications. ?? Stomach and bowel: Mild diverticulosis is present in the distal colon. There is ?? no evidence of intestinal perforation or obstruction. ?? Appendix: No evidence of appendicitis. ? Intraperitoneal space: Unremarkable. No free air. No significant fluid ?? collection. ?? Vasculature: Unremarkable. No abdominal aortic aneurysm. ?? Lymph nodes: Unremarkable. No enlarged lymph nodes. ?? Urinary bladder: Unremarkable as visualized. ?? Reproductive: Unremarkable as visualized. ?? 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 ?? Osteopenia. Marked multilevel lumbar spondylosis. ?? Soft tissues: Soft tissue contusions in the anterior abdominal wall likely ?? related to injection medications. There is a small fat containing paraumbilical ?? hernia. ? IMPRESSION: ?? 1. ?? Cholelithiasis. No radiographic evidence of acute cholecystitis. [place] ?? distended gallbladder consistent with hydrops. ?? 2. ?? Mild diverticulosis of the distal colon. No bowel perferation or ?? obstruction. ?? 3. ?? No renal, ureteral, or bladder calculi. No hydroureteronephrosis. 04/23/22 02:48?? +++++++++++++++++++++++++++++++++++++++++++++++++++++++? Medications - This Encounter, All Results, Last 6 months Scheduled ?? cefTRIAXone 2,000 mg Inj: 2,000 mg, IV Push, q24hr ?? famotidine 20 mg Tab: 20 mg, PO, Daily ?? finasteride 5 mg Tab: 5 mg, PO, qDay ?? insulin LISPRO syringe (10 Uni 0-8 units, SUBCUT, With meals & HS ?? metoprolol 25 mg IMMediate Rel 12.5 mg, PO, BID ?? metroNIDAZOLE: 500 mg, 100 mL, 100 mL/hr, IV, q8hr ?? senna 8.6 mg Tab: 17.2 mg, PO, qDay ?PRN ?? albuterol/iprat (2.5-0.5mg/3mL 3 mL, NEB - inhalation, q2hr, PRN: Shortness of breath or wheezing ?? bisacodyl 10 mg Supp: 10 mg, TX, Daily, PRN: Constipation ?? Dextrose 50% (25gm) PF 50 mL S 25 gm, IV Push, q15min, PRN: Hypoglycemia ?? Dextrose 50% (25gm) PF 50 mL S 12.5 gm, IV Push, q15min, PRN: Hypoglycemia ?? docusate/senna (50/8.6) mg Tab 2 Tab, PO, BID, PRN: Constipation ?? glucagon: 1 mg, IM, Per Parameter, PRN: Hypoglycemia ?? glucose 4gm Chew Tab: 16 gm, PO, q15min, PRN: Hypoglycemia ?? hydrALAZINE 20 mg/mL 1mL Inj: 5 mg, IV Push, q4hr, PRN: Other (see Comments) ?? labetalol 5 mg/mL 4mL Inj: 5 mg, IV Push, q4hr(interval), PRN: Hypertension ?? metoclopramide 5 mg/mL 2mL Inj 5 mg, IV Push, q6hr, PRN: Nausea / Vomiting 2nd Choice ?? morphine 2 mg/mL 1mL Inj: 2 mg, IV Push, q4hr(interval), PRN: Pain Moderate (4- 6) ?? morphine 2 mg/mL 1mL Inj: 2 mg, IV Push, q4hr(interval), PRN: Pain Severe (7-10) ?? ondansetron 2 mg/mL Inj 2mL: 4 mg, IV Push, q4hr, PRN: Nausea / Vomiting 1st Choice ?? oxyCODONE 5 mg Tab Immediate R 10 mg, PO, q4hr, PRN: Pain ?? oxyCODONE 5 mg Tab Immediate R 5 mg, PO, q4hr, PRN: Pain ?? Pharmacy Communication: 1 Each, N/A, oncall, PRN: Other (see Comments) ?? Pharmacy Communication: 1 Each, N/A, oncall, PRN: Other (see Comments) ?? Pharmacy Communication: 1 Each, N/A, oncall, PRN: Other (see Comments) ?? polyethylene glycol 3350 17gm 17 gm, PO, Daily, PRN: Constipation ?IV ?? NaCl 0.9%: 125 mL/hr, IV, Stop: 05/23/22 8:51:00 MST? Assessment/Plan #Acute??calculus cholecystitis #Elevated lipase??with no hyperbilirubinemia??and normal pancreas on CT???likely secondary to above #Abdominal pain secondary to above #Chest pain??described as elephant sitting on the chest -this may be secondary to above but in light of typical description, ACS??still has to be ruled out #Hypertension #Diabetes type 2 #CKD??with possible??NEHEMIAS #Obesity #Hypercholesterolemia #Asthma #BPH ?? - Abx:??Ceftriaxone, Flagyl - CV: VS per protocol ?? *Echocardiogram ?? *Cardiology consult ?? *Medications: Metoprolol - Electrolytes: Monitor - Endocrinology: ISS - GI: Bowel care, Pepcid? *General surgeon consult - : Finasteride - MSK: Ambulate & OOB as tolerated - Pain: Meds per MAR - Renal:??Maintenance IVF, Avoid nephrotoxins (NSAIDs, ACEi/ARBs, Contrast, Fleets enema),??Pharmacy to renally dose medications, Strict I/O ?? Supportive Care # VTE PPx: SCD, heparin # GI PPx:??Pepcid ?? Disposition #??Outpatient status for Observation??requiring <2 midnight of medical management as above # Total time with patient??evaluation, counseling and coordinating care >60 ??mins # Discussed plan with pt & nurse in depth # Thank you for allowing me to participate in your care ?? Sana Cameron MD Internal Medicine [facility] Problem List/Past Medical History Ongoing Anemia Asthma Diabetes mellitus Foot drop, left Hypercholesterolemia Hypertension Pulmonary embolism Spinal stenosis Historical No qualifying data Procedure/Surgical History ???Adenoidectomy???Hydrocele???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???Tonsillectomy Home Medications albuterol HFA (90 mcg/dose) MDI, 1 Puff, INH, QID, PRN chlorthalidone 25 mg oral tablet, 25 mg= 1 Tab, PO, qDay Claritin 10 mg oral tablet, 10 mg= 1 Tab, PO, qDay Farxiga 10 mg oral tablet, 10 mg= 1 Tab, PO, qDay finasteride 5 mg oral tablet, 5 mg= 1 Tab, PO, qDay Fish Oil 1000 mg oral capsule, 1000 mg= 1 Cap, PO, BID iron gluconate, 27 mg, PO, Daily, takes 3 x per week Janumet XR 50 mg-500 mg oral tablet, extended release, 2 Tab, PO, qPM Levemir 100 units/mL subcutaneous solution, 57 units, SUBCUT, Daily lisinopril 20 mg oral tablet, 20 mg= 1 Tab, PO, qDay metoprolol succinate 25 mg oral capsule, extended release, 0.5 Tab, PO, BID NovoLOG, 10 Unit, SUBCUT, TID before meals potassium chloride 8 mEq oral tablet, extended release, 8 mEq= 1 Tab, PO, qDay rosuvastatin 20 mg oral tablet, 20 mg= 1 Tab, PO, qDay Vitamin B12 1000 mcg oral tablet, 1000 mcg= 1 Tab, PO, qDay Vitamin D3 25 mcg (1,000 unit) oral tablet, chewable, 25 mcg= 1 Tab, Chew, qDay Xarelto 20 mg oral tablet, 20 mg= 1 Tab, PO, qPM Allergies No Known Medication Allergies ?Reaction: None Documented Social History Alcohol Denies, 04/23/2022 Denies, 05/22/2021 Home/Environment Amish restrictions/concerns: None., 04/23/2022 Amish restrictions/concerns: None., 05/22/2021 Substance Abuse Denies, 04/23/2022 Denies, 05/22/2021 Tobacco Never (less than 100 in lifetime), 04/23/2022 Never (less than 100 in lifetime), 05/22/2021 Family History Family history of diabetes Electronically Signed By: Sana Cameron MD On 04/23/22 20:51 Co Signature By: Modify Signature By: Sana Cameron MD On 04/23/22 20:51 Discharge summary * Sana Cameron MD: PERFORM, MODIFY Event Display: Discharge Summary Authored Date: Patient: ??JUAN JIANG ? Age: ??76 years ?Sex: ??M ?: ??1945 ?Active Insurance: ??MEDICARE A Admitting MD: ??Marybel Truong ?Location: ??[facility]: 311: 01 ?PCP: ??Glenys Oakes MD Author: ??Sana Cameron MD ?? [facility] Admission Information ??Admit Date: ?? 04/23/22 01:17 ??Discharge/Transfer Date: ?? 04/25/22 14:10 Discharge Diagnosis Diagnosis this visit:?? Acute cholecystitis (K81.0) 04/23/2022 04:49 ?Discharge ? Cholelithiasis (K80.20) 04/23/2022 04:49 ?Discharge ? Diabetes mellitus (E11.9) 04/25/2022 12:25 ?Discharge ? Hypertension (I10) 04/25/2022 12:25 ?Discharge ? Hypercholesterolemia (E78.00) 04/25/2022 12:25 ?Discharge ? Sleep apnea (G47.30) 04/25/2022 12:25 ?Discharge ? #Acute??calculus cholecystitis #Elevated lipase??with no hyperbilirubinemia??and normal pancreas on CT???likely secondary to above #Abdominal pain secondary to above #Chest pain??described as elephant sitting on the chest -this may be secondary to above but in light of typical description, ACS??still has to be ruled out #Hypertension #Diabetes type 2 #CKD??with possible??NEHEMIAS #Obesity #Hypercholesterolemia #Asthma #[facility] GEN surgery Reason for Admission Abdominal pain Hospital Course Mr Jiang is a 76-year-old gentleman with past medical history of diabetes, asthma,??hypertension,PE??who came to ED due to??chest pain ?? Per patient,??patient was ambulating at night??with some chest pressure??as if an elephant was sitting on his chest. Pain was mostly in the lower sternum and epigastrium area.?? But most pressure-like in character as if an elephant was sitting on his chest.?? He denied any fever or chills or any shortness of breath.?? He denied any radiating pain into the left side of his chest or jaw or back.?? He denied any nausea or vomiting.?? Pain is not associated to food intake.?? Pain persisted was prompted ED visit.?? Vital signs in ED showed elevated blood pressure but otherwise no fever and was breathing fine in room air.?? Labs showed elevated WBC at 11.2 and creatinine at 1.71.?? AST slightly elevated at 69 and lipase at 108.?? CT abdomen and pelvis was done which showed cholelithiasis with no radiologic evidence of acute cholecystitis but showed overly distended gallbladder consistent withhydrops.?? Ultrasound of the abdomen was done which showed cholelithiasis and positive Youngblood sign consistent with acute cholecystitis.?? EKG was done which showed sinus rhythm with first-degree AV block.?? Empiric IV antibiotics started.?? Cardiology consult for preop clearance.?? Surgery consulted for acute cholecystitis.?? Patient admitted for further evaluation and management. ?? On 04/24/2022.?? Patient overall feeling well and??denied any pain.?? Patient??does not want to pursue surgery??if possible??depending on??imaging report. ??MRCP and HIDA scan ordered.?? MRCP ordered due to uptrending lipase??and LFTs.?HIDA scan??will have to be done??at outside facility??which schedule is pending.?? Troponin trends were overall negative. Per cardiology patient is at moderate risk for surgery.? On 04/25/2022. MRCP reviewed which showed dependent gallbladder sludge or small cholelithiasis.?? Normal caliber common bile duct without appreciable filling defect to suggest choledocholithiasis.?? Surgeon reviewed imaging and no longer requested HIDA scan.?? Surgeon did not recommend urgent surgical intervention at this time since patient would prefer no surgical intervention as well.?? Patient advised to follow-up with surgeon on the event that he becomes symptomatic.?? Patient is otherwise asymptomatic now and doing well.?? He is tolerating diet and overall responded well with antibiotics.?? Patient stabilized and cleared for discharge. Plan was discussed in depth with strong emphasis onmedication compliance & close follow up with his primary doctor & surgeon. All questions were answered to the best of my knowledge. Pt verbalized understanding & was agreeable to plan. ?? Objective Vitals & Measurements T:??36.5?C ??(Oral)?? TMIN:??36.5?C ??(Oral)?? TMAX:??36.8?C ??(Axillary)?? HR:??84?? RR:??18?? BP:??127/77?? SpO2:??97%?? Oxygen Method:??Room air?? Physical Exam General: No acute distress. Eye: Extraocular movements are intact, Normal conjunctiva. HENT: Normocephalic, Normal hearing, Oral mucosa is moist. Neck: No jugular venous distention. Respiratory: Lungs are clear to auscultation, Respirations are non-labored. Cardiovascular: Normal rate, Regular rhythm, Good pulses. Gastrointestinal: Soft, Non-tender, Non-distended, Normal bowel sounds. Musculoskeletal: No tenderness, No swelling. Integumentary: Warm, Dry, Normal turgor texture. Neurologic: Alert, No focal defects Psychiatric: Cooperative, Appropriate mood & affect. Lab Results Common Labs - All Encounters, All Results, Last 1 month Last Month?Hematology-CBC General Chemistry POC Glucose ?04/25/22 ?04/25/22 ?04/25/22 ??WBC:??8.4 thousand/uL Blood Glucose, Point of Care:190 mg/dL (H) ?? Glucose (POCT) Automated:223 mg/dL (H) ?RBC:4.24 million/uL (L) ?04/25/22 ?Hgb:12.1 gm/dL (L) ?? Sodium:??137 mmol/L ?Hct:36.5 % (L) ?? Potassium:??4.2 mmol/L ?MCV:??86.1 fL Chloride:111 mmol/L (H) ?MCH:??28.6 pg CO2:18 mmol/L (L) ?MCHC:??33.3 gm/dL Anion Gap:??8 mmol/L ?RDW:??15.0 % Glucose Level:199 mg/dL (H) ?Plt:??243 thousand/uL BUN:??13 mg/dL ?MPV:??8 fL Creatinine:??0.99 mg/dL ?04/23/22 BUN/Convalescent Sitter Ratio:??13.1 ?Neuts:??70.9 % eGFRcr:79 mL/min/1.73m2 (L) ?Lymphs:??19.8 % Calcium:??9.0 mg/dL ?Monos.:??6.1 % Corrected Calcium:??9.4 mg/dL ?Eos.:??2.6 % M.5 mg/dL (L) ?Baso.:??0.6 % Protein, Total:??6.2 gm/dL ?ABS Neut:??7.9 thousand/uL Albumin:??3.5 gm/dL ?ABS Lymph:??2.2 thousand/uL Globulin:??3 gm/dL ?ABS [place]:??0.7 thousand/uL A/G Ratio:??1 ?ABS Eos:??0.3 thousand/uL Bili Total:??0.5 mg/dL ?ABS Baso:??0.1 thousand/uL ALT:217 Units/L (H) ?CBC Scan:??Auto Diff AST:78 Units/L (H) ?nRBC Auto:??0 Alkphos:??82 Units/L ? Amylase:??40 Units/L ? Lipase:??53.0 Units/L ?04/23/22 ? Lactic Acid:??1.2 mmol/L ?Cardiac Lipid Tests Special Chemistry ?04/23/22 ?04/23/22 ?04/24/22 ??Troponin I:??0.01 ng/mL Cholesterol:??137 mg/dL HgbA1C:7.4 % (H) ?04/23/22 Triglycerides:362 mg/dL (H) ?? Estimated Average Glucose:??166 ??B-Natriuretic Peptide:??20.6 pg/mL HDL:18 mg/dL (L) ?04/23/22 ?? LDL Direct:??68 mg/dL TSH:??1.00 mcIU/mL ?? VLDL:??72 mg/dL ? LDL/HDL:??3 ratio ? Chol/Trig:??0 ? %HDL:??13 % ? Cholesterol/HDL:8 mg/dL (L) ?Toxicology ?04/23/22 ?Ethanol:<10 mg/dL (H) ? Additional?04/25/22 ?Heme Index:??Negative ?Icteric Index:??Negative ?Lab Add On*:??Yes ?Lipemia Index:??Negative ? Diagnostic Results Radiology - Full Interpretation, This Encounter Name:??JUAN JIANG?? Account:??[id number]?? :??1945 ? Result Date:??04/24/22 13:15?? Verified By:??Avel Muir MD at 04/24/22 14:13? Report :??MR MRCP wo Con?? PROCEDURE INFORMATION: ?? Exam: MR Abdomen Without Contrast ?? Exam date and time: 04/24/2022 12:43 PM ?? Age: 76 years old ?? Clinical indication: Gb stones, elevates lipase, gallstone pancreatitis ? TECHNIQUE: ?? Imaging protocol: Magnetic resonance imaging of the abdomen without contrast. ? COMPARISON: ?? CT Abdomen+Pelvis wo IV Con 04/23/2022 2:48 AM ? FINDINGS: ?? Liver: No mass. ?? Gallbladder and bile ducts: ??Gallbladder shows dependent sludge or small ?? cholelithiasis. No ductal dilation. ??Common bile duct shows normal caliber up ?? to 5.5 mm diameter without appreciable filling defect. Nonspecific mid common ?? bile duct minimal signal loss may represent crossing hepatic artery artifact.?? Pancreas: Unremarkable. ??Peripancreatic fat planes do not show appreciable ?? stranding. ??No ductal dilation. ?? Spleen: Unremarkable. No splenomegaly. ?? Adrenal glands: Unremarkable. No mass. ?? Kidneys and ureters: ??Normal right kidney. ??Left kidney T2 hyperintense ?? cortical lesions are incompletely characterized without intravenous contrast. ?? No hydronephrosis. ?? Stomach and bowel: Visualized stomach and intestines are unremarkable. ?? Intraperitoneal space: No free fluid. ?? Vasculature: No abdominal aortic aneurysm. ?? Bones/joints: ??Bilateral hip arthroplasties cause susceptibility artifact. ? Soft tissues: Unremarkable. ? IMPRESSION: ?? Dependent gallbladder sludge or small cholelithiasis. ?? Normal caliber common bile duct without appreciable filling defect to suggest ?? choledocholithiasis 04/24/22 12:43?? +++++++++++++++++++++++++++++++++++++++++++++++++++++++? Result Date:??04/23/22 04:30?? Verified By:??Reinaldo Zavaleta MD at 04/23/22 04:36? Report :??US Abdomen Limited?? PROCEDURE INFORMATION: ?? Exam: US Abdomen, Limited; Right Upper Quadrant ?? Exam date and time: 04/23/2022 1:41 AM ?? Age: 76 years old ?? Clinical indication: Abdomen pain ruq ? TECHNIQUE: ?? Imaging protocol: Real time ultrasound of the abdomen with image documentation. ?? Limited exam focused on the right upper quadrant. ? COMPARISON: ?? No relevant prior studies available. ? FINDINGS: ?? Liver: Normal. No masses. ?? Gallbladder: Tungsten [employer]iner notes positive Youngblood's sign. The gallbladder ?? demonstrates layering density consistent with noncalcified stones or sludge. No ?? gallbladder wall thickening. ?? Biliary ducts: Normal. No stones. No dilation. ?? Pancreas: Visualized pancreas is unremarkable. ?? Right kidney: Normal. No mass. No hydronephrosis. ? Other findings: Tungsten [employer]iner notes technically difficult exam secondary to ?? patient body habitus and overlying bowel gas. ? IMPRESSION: ?? Cholelithiasis. Positive automobile brake bonder's Youngblood's sign consistent with acute ?? cholecystitis. 04/23/22 01:41?? +++++++++++++++++++++++++++++++++++++++++++++++++++++++? Result Date:??04/23/22 02:57?? Verified By:??Reinaldo Zavaleta MD at 04/23/22 03:10? Report :??CT Abdomen+Pelvis wo IV Con?? Radiation Dose CTDIVOL = 0 (mGy): DLP = 832.19 (mGy-cm)? PROCEDURE INFORMATION: ?? Exam: CT Abdomen And Pelvis Without Contrast ?? Exam date and time: 04/23/2022 2:48 AM ?? Age: 76 years old ?? Clinical indication: Pain and abdominal pain; Localized; Upper; Prior surgery; ?? Surgery date: 6+ months; Surgery type: Left hip replacement, right hip ?? replacement; Patient HX: None ? TECHNIQUE: ?? Imaging protocol: Computed tomography of the abdomen and pelvis without ?? contrast. ?? Radiation optimization: All CT scans at this facility use at least one of these ?? dose optimization techniques: automated exposure control; mA and/or kV ?? adjustment per patient size (includes targeted exams where dose is matched to ?? clinical indication); or iterative reconstruction. ? REPORTING DATA: ?? Count of CT and Cardiac NM exams in prior 12 months: This patient has received ?? 0 known CTs and 0 known cardiac nuclear medicine studies in the 12 months prior ?? to the current study. ? COMPARISON: ?? SC XR CHEST 1 VIEW 04/28/2021 5:33 AM ? RADIATION DOSE METRICS: ?? Total DLP (mGy-cm): 832.19 ? FINDINGS: ?? Liver: Normal. No mass. ?? Gallbladder and bile ducts: Multiple calcified gallstones are present. ?? Pancreas: Normal. No ductal dilation. ?? Spleen: Normal. No splenomegaly. ?? Adrenal glands: Normal. No mass. ?? Kidneys and ureters: There is no evidence of renal or ureteral calcifications. ?? Stomach and bowel: Mild diverticulosis is present in the distal colon. There is ?? no evidence of intestinal perforation or obstruction. ?? Appendix: No evidence of appendicitis. ? Intraperitoneal space: Unremarkable. No free air. No significant fluid ?? collection. ?? Vasculature: Unremarkable. No abdominal aortic aneurysm. ?? Lymph nodes: Unremarkable. No enlarged lymph nodes. ?? Urinary bladder: Unremarkable as visualized. ?? Reproductive: Unremarkable as visualized. ?? 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 ?? Osteopenia. Marked multilevel lumbar spondylosis. ?? Soft tissues: Soft tissue contusions in the anterior abdominal wall likely ?? related to injection medications. There is a small fat containing paraumbilical ?? hernia. ? IMPRESSION: ?? 1. ?? Cholelithiasis. No radiographic evidence of acute cholecystitis. [place] ?? distended gallbladder consistent with hydrops. ?? 2. ?? Mild diverticulosis of the distal colon. No bowel perferation or ?? obstruction. ?? 3. ?? No renal, ureteral, or bladder calculi. No hydroureteronephrosis. 04/23/22 02:48?? +++++++++++++++++++++++++++++++++++++++++++++++++++++++? ECHO Admission - Current Encounter, Most Recent Echocardiogram Transthoracic ?? 04/23/22 10:26:01 Conclusions ?? 1. Left ventricle: The cavity size is normal. Systolic function was normal. The estimated ejection fraction was in the range of 50% to 55%. 2. Aortic valve: Sclerosis without stenosis. 3. Mitral valve: There is mild regurgitation. 4. Left atrium: The atrium is normal in size. 5. Right ventricle: The cavity size is normal. 6. Right atrium: The atrium is normal in size. 7. Atrial septum: The septum was normal. 8. Tricuspid valve: There is moderate regurgitation. 9. Pulmonary arteries: Systolic pressure is estimated to be 45mm Hg. 10. Inferior vena cava: The vessel was normal in size. The respirophasic diameter changes were in the normal range (>= 50%), consistent with normal central venous pressure. 11. Pericardium, extracardiac: There is no pericardial effusion. No evidence of pleural fluid accumulation. _ Indications: Presyncope. Screening pre operative. _ Study data: Study status: Routine. Patient status: Inpatient. Location: Bedside. Procedure: Transthoracic echocardiography. Image quality was poor. The study was technically limited due to poor acoustic window availability, restricted patient mobility, and body habitus. Study completion: The patient tolerated the procedure well. There were no complications. Body surface area: BSA: 2.39m^2. Body mass index: BMI: 39.5kg/m^2. _ Cardiac Anatomy ?? Left ventricle: The cavity size is normal. Systolic function was normal. The estimated ejection fraction was in the range of 50% to 55%. Right ventricle: The cavity size is normal. Left atrium: The atrium is normal in size. Right atrium: The atrium is normal in size. Atrial septum: The septum was normal. Mitral valve: Doppler: There is mild regurgitation. Tricuspid valve: Doppler: There is moderate regurgitation. Aortic valve: Sclerosis without stenosis. Pulmonary arteries: Systolic pressure is estimated to be 45mm Hg. Systemic veins: Inferior vena cava: The vessel was normal in size. The respirophasic diameter changes were in the normal range (>= 50%), consistent with normal central venous pressure. Pericardium: There is no pericardial effusion. Pleura: No evidence of pleural fluid accumulation. _ Measurements ?? Left ventricle Value Ref LV ID, ED, PLAX 5.3 cm 4.2 - 5.8 LV ID, ES, PLAX 3.7 cm 2.5 - 4.0 LV ID/bsa, ED, PLAX 2.2 cm/m^2 2.2 - 3.0 LV ID/bsa, ES, PLAX 1.5 cm/m^2 1.3 - 2.1 LV fx shortening, PLAX 30 % 25 - 43 LV PW thickness, ED (H) 1.1 cm 0.6 - 1.0 IVS/LV PW ratio, ED 0.64 --------- LV ejection fraction 57 % 52 - 72 LV end-diastolic 135 ml 67 - 155 volume, Teichholz MM LV end-diastolic 56 ml/m^2 35 - 75 volume/bsa, Teichholz MM LV e? , lateral (L) 8.9 cm/sec >=10.0 LV E/e???, lateral 7 --------- LV e? , medial (L) 6.0 cm/sec >=7.0 LV E/e???, medial 10 --------- LV e???, average 7.5 cm/sec --------- LV E/e? , average 8 <=14 ?? LVOT Value Ref LVOT ID, S 2.2 cm --------- LVOT area 3.8 cm^2 --------- LVOT peak velocity, S 0.98 m/sec --------- LVOT mean velocity, S 0.56 m/sec --------- LVOT VTI, S 15.8 cm --------- LVOT peak gradient, S 4 mm Hg --------- LVOT mean gradient, S 1 mm Hg --------- ?? Ventricular septum Value Ref IVS thickness, ED, PLAX 0.7 cm 0.6 - 1.0 IVS thickness, ED 0.7 cm 0.6 - 1.0 ?? Right ventricle Value Ref RV ID, ED, PLAX 4.3 cm --------- RV ID, ED 4.3 cm --------- TAPSE, 2D 2.1 cm 1.7 - 3.1 TAPSE, MM 2.1 cm 1.7 - 3.1 ?? Left atrium Value Ref LA ID, A-P, ES 3.5 cm 3.0 - 4.0 LA ID/bsa, A-P 1.5 cm/m^2 1.5 - 2.3 LA area, ES, A4C (H) 24 cm^2 <=20 LA volume, ES, 1-p A4C (H) 66 ml 18 - 58 LA volume/bsa, ES, 1-p 28 ml/m^2 12 - 37 A4C LA/aortic root ratio 1.17 --------- ?? Right atrium Value Ref RA ID, M-L, ES 3.6 cm 2.6 - 4.4 RA ID/bsa, M-L, ES 1.5 cm/m^2 1.3 - 2.5 RA ID, S-I, ES 3.6 cm 3.4 - 5.3 RA ID/bsa, S-I, ES (L) 1.5 cm/m^2 1.8 - 3.0 RA ID, M-L, ES, A4C 3.6 cm 2.6 - 4.4 RA ID/bsa, M-L, ES, A4C 1.5 cm/m^2 1.3 - 2.5 RA ID, S-I, ES, A4C 3.6 cm 3.4 - 5.3 RA ID/bsa, S-I, ES, A4C (L) 1.5 cm/m^2 1.8 - 3.0 ?? Aortic valve Value Ref Aortic valve peak 1 m/sec --------- velocity, S Aortic valve mean 0.7 m/sec --------- velocity, S Aortic valve VTI, S 21.0 cm --------- Aortic mean gradient, S 2 mm Hg --------- Aortic peak gradient, S 4 mm Hg --------- VTI ratio, LVOT/AV 0.75 --------- Aortic valve area, VTI 2.9 cm^2 --------- Aortic valve area/bsa, 1.2 cm^2/m^2 --------- VTI Velocity ratio, peak, 0.95 --------- LVOT/AV Aortic valve area, peak 3.6 cm^2 --------- velocity Aortic valve area/bsa, 1.51 cm^2/m^2 --------- peak velocity Velocity ratio, mean, 0.8 --------- LVOT/AV Aortic valve area, mean 3.0 cm^2 --------- velocity Aortic valve area/bsa, 1.27 cm^2/m^2 --------- mean velocity ?? Mitral valve Value Ref Mitral E-wave peak 0.61 m/sec --------- velocity Mitral A-wave peak 0.92 m/sec --------- velocity Mitral mean velocity, D 0.49 m/sec --------- Mitral deceleration 287 cm/s^2 --------- slope Mitral deceleration 211 ms --------- time Mitral pressure 105 ms --------- half-time Mitral mean gradient, D 1 mm Hg --------- Mitral peak gradient, D 2 mm Hg --------- Mitral E/A ratio, peak 0.7 --------- Mitral valve area, PHT, 2.1 cm^2 --------- DP Mitral valve area/bsa, 0.88 cm^2/m^2 --------- PHT, DP Mitral valve area, LVOT 2.7 cm^2 --------- continuity Mitral valve area/bsa, 1.11 cm^2/m^2 --------- LVOT continuity ?? Pulmonic valve Value Ref Pulmonic valve peak 0.8 m/sec --------- velocity, S Pulmonic peak gradient, 2 mm Hg --------- S Pulmonic regurg 0.35 m/sec --------- velocity, ED ?? Tricuspid valve Value Ref Tricuspid regurg peak (H) 3.3 m/sec <=2.8 velocity Tricuspid peak RV-RA 43 mm Hg --------- gradient ?? Aortic root Value Ref Aortic root ID 3.0 cm <4.4 ?? Ascending aorta Value Ref Ascending aorta ID, 3.0 cm --------- A-P, S Ascending aorta ID/bsa, 1.3 cm/m^2 --------- A-P, S ?? Pulmonary artery Value Ref PA pressure, S, DP 45 mm Hg --------- ?? Pulmonary veins Value Ref Pulmonary vein peak 0.39 m/sec --------- velocity, S Pulmonary vein peak 0.24 m/sec --------- velocity, D Pulmonary vein velocity 1.6 --------- ratio, peak, S/D Pulmonary vein A-wave 0.35 m/sec --------- reversal peak velocity Legend: (L) and (H) bianka values outside specified reference range. ?? Carole Azevedo MD [id number] Condition on Discharge Stable Discharge Plan Discharge Medications 1. metoprolol(metoprolol tartrate 25 mg oral tablet) 12.5 mg= 0.5 Tab By mouth Tab twice daily?? New Prescriptions ?? 2. metroNIDAZOLE(Flagyl 500 mg oral tablet) 500 mg= 1 Tab By mouth Tab every 8 hours 10 Day?? 3. ciprofloxacin(ciprofloxacin 500 mg oral tablet) 500 mg= 1 Tab By mouth Tab every 12 hours 10 DayTarget Dose: ciprofloxacin 500 mg oral tablet 20 mg/kg ??06/25/18 10:03:19?? 4. lisinopril(lisinopril 2.5 mg oral tablet) 2.5 mg= 1 Tab By mouth Tab once daily?Medications to Continue?? 5. rivaroxaban(Xarelto 10 mg oral tablet) 10 mg= 1 Tab By mouth every bedtime?? 6. glipiZIDE(glipiZIDE 5 mg oral tablet, extended release) 5 mg= 1 Tab By mouth twice daily?? 7. SITagliptin(Januvia 100 mg oral tablet) 100 mg= 1 Tab By mouth once daily?? 8. cholecalciferol(Vitamin D3 25 mcg (1,000 unit) oral tablet, chewable) 25 mcg= 1 Tab Chew Tab, Chew twice daily?? 9. finasteride(finasteride 5 mg oral tablet) 5 mg= 1 Tab By mouth Tab every bedtime?? 10. dapagliflozin(Farxiga 10 mg oral tablet) 10 mg= 1 Tab By mouth Tab once daily?? 11. rosuvastatin(rosuvastatin 20 mg oral tablet) 20 mg= 1 Tab By mouth Tab every bedtime?? 12. chlorthalidone(chlorthalidone 25 mg oral tablet) 25 mg= 1 Tab By mouth Tab every Thursday, Thursday, and Thursday?? 13. omega-3 polyunsaturated fatty acids(Fish Oil 1000 mg oral capsule) 2,000 mg= 2 Cap By mouth Captwice daily?? 14. cyanocobalamin(Vitamin B12 1000 mcg oral tablet) 1,000 mcg= 1 Tab By mouth Tab twice daily?? 15. albuterol(albuterol HFA (90 mcg/dose) MDI) 1 Puff Inhaled Aerosol four times daily as needed for wheezing?? 16. ferrous gluconate(iron gluconate) 27 mg By mouth every Thursday, Thursday, and Thursday Special Instructions: takes 3 x per week?Discontinued Meds ?? metoprolol (metoprolol succinate 25 mg oral capsule, extended release) 0.5 Tab By mouth twice daily?? insulin aspart (NovoLOG) subcutaneously three times daily before meals?? insulin detemir (Levemir 100 units/mL subcutaneous solution) subcutaneously once daily?? potassium chloride (potassium chloride 8 mEq oral tablet, extended release) 1 Tab By mouth Tab, ER once daily?? loratadine (Claritin) By mouth once daily?? Discharge Disposition Discharge ? Order Details: ?04/25/22 12:25:00 MST, Today, Home or self care?? Discharge Activity ? Order Details: ?04/25/22 12:25:00 MST, As tolerated?? Discharge Diet ? Order Details: ?04/25/22 12:25:00 MST, Consistent Carbohydrate?? Discharge Diet ? Order Details: ?04/25/22 12:25:00 MST, Heart Healthy Diet (Cardiac)?? PSO Place in Observation ? Order Details: ?Observation, Medicine, Marybel Truong, Yes, ACUTE CHOLCYSTITIS WITH CHOLELITHIASIS, HARP REGULATOR:DR PACHECO LAMAS, 04/23/22 5:15:00 MST, 04/23/22 5:15:00 MST, 04/23/22 5:15:00 MST, [email or web address]?? Discharge Diet Discharge Diet ? Order Details: ?04/25/22 12:25:00 MST, Consistent Carbohydrate ?? Discharge Diet ? Order Details: ?04/25/22 12:25:00 MST, Heart Healthy Diet (Cardiac) ?? Discharge Activity Discharge Activity ? Order Details: ?04/25/22 12:25:00 MST, As tolerated ?? Discharge Follow-up Instructions Follow-Up Details: ?? Provider/Org Name: ??Tyler Post MD ?? Within: ??2 to 3 weeks?? Address: ?;[id number]; ? Provider/Org Name: ??Glenys Oakes MD ?? Within: ??1 week?? Address: ?[address] [facility] [address] [facility] [address]; ; ?? Comments: ??Call for follow up appointment ? Time spent with Patient - Total face to face time with patient ??>30 ??mins, ??Greater than 50% face to face time spent counseling/coordinating care. - Thank you for allowing me to participate in your care. Electronically Signed By: Sana Cameron MD On 04/25/22 20:50 Co Signature By: Modify Signature By: Sana Cameron MD On 04/25/22 20:50 Note * Avel Muir MD: PERFORM, VERIFY, VERIFY VRad, AZG: TRANSCRIBE Event Display: Report Authored Date: [id number] PROCEDURE INFORMATION: Exam: MR Abdomen Without Contrast Exam date and time: 04/24/2022 12:43 PM Age: 76 years old Clinical indication: Gb stones, elevates lipase, gallstone pancreatitis TECHNIQUE: Imaging protocol: Magnetic resonance imaging of the abdomen without contrast. COMPARISON: CT Abdomen+Pelvis wo IV Con 04/23/2022 2:48 AM FINDINGS: Liver: No mass. Gallbladder and bile ducts: Gallbladder shows dependent sludge or small cholelithiasis. No ductal dilation. Common bile duct shows normal caliber up to 5.5 mm diameter without appreciable filling defect. Nonspecific mid common bile duct minimal signal loss may represent crossing hepatic artery artifact. Pancreas: Unremarkable. Peripancreatic fat planes do not show appreciable stranding. No ductal dilation. Spleen: Unremarkable. No splenomegaly. Adrenal glands: Unremarkable. No mass. Kidneys and ureters: Normal right kidney. Left kidney T2 hyperintense cortical lesions are incompletely characterized without intravenous contrast. No hydronephrosis. Stomach and bowel: Visualized stomach and intestines are unremarkable. Intraperitoneal space: No free fluid. Vasculature: No abdominal aortic aneurysm. Bones/joints: Bilateral hip arthroplasties cause susceptibility artifact. Soft tissues: Unremarkable. IMPRESSION: Dependent gallbladder sludge or small cholelithiasis. Normal caliber common bile duct without appreciable filling defect to suggest choledocholithiasis * * * F I N A L * * * Dictated by: Avel Muir MD Electronically signed by: Avel Muir MD Transcribed by:AV , , , S: 04/24/2022 14:13 * * * F I N A L * * * CT Abdomen and Pelvis WO contrast * Reinaldo Zavaleta MD: VERIFY, PERFORM, VERIFY Reinaldo Zavaleta MD: VERIFY VRad, AZG: TRANSCRIBE Event Display: Report Authored Date: [id number] Radiation Dose CTDIVOL = 0 (mGy): DLP = 832.19 (mGy-cm) PROCEDURE INFORMATION: Exam: CT Abdomen And Pelvis Without Contrast Exam date and time: 04/23/2022 2:48 AM Age: 76 years old Clinical indication: Pain and abdominal pain; Localized; Upper; Prior surgery; Surgery date: 6+ months; Surgery type: Left hip replacement, right hip replacement; Patient HX: None TECHNIQUE: Imaging protocol: Computed tomography of the abdomen and pelvis without contrast. Radiation optimization: All CT scans at this facility use at least one of these dose optimization techniques: automated exposure control; mA and/or kV adjustment per patient size (includes targeted exams where dose is matched to clinical indication); or iterative reconstruction. REPORTING DATA: Count of CT and Cardiac NM exams in prior 12 months: This patient has received 0 known CTs and 0 known cardiac nuclear medicine studies in the 12 months prior to the current study. COMPARISON: SC XR CHEST 1 VIEW 04/28/2021 5:33 AM RADIATION DOSE METRICS: Total DLP (mGy-cm): 832.19 FINDINGS: Liver: Normal. No mass. Gallbladder and bile ducts: Multiple calcified gallstones are present. Pancreas: Normal. No ductal dilation. Spleen: Normal. No splenomegaly. Adrenal glands: Normal. No mass. Kidneys and ureters: There is no evidence of renal or ureteral calcifications. Stomach and bowel: Mild diverticulosis is present in the distal colon. There is no evidence of intestinal perforation or obstruction. Appendix: No evidence of appendicitis. Intraperitoneal space: Unremarkable. No free air. No significant fluid collection. Vasculature: Unremarkable. No abdominal aortic aneurysm. Lymph nodes: Unremarkable. No enlarged lymph nodes. Urinary bladder: Unremarkable as visualized. Reproductive: Unremarkable as visualized. 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 Osteopenia. Marked multilevel lumbar spondylosis. Soft tissues: Soft tissue contusions in the anterior abdominal wall likely related to injection medications. There is a small fat containing paraumbilical hernia. IMPRESSION: 1. Cholelithiasis. No radiographic evidence of acute cholecystitis. [place] distended gallbladder consistent with hydrops. 2. Mild diverticulosis of the distal colon. No bowel perferation or obstruction. 3. No renal, ureteral, or bladder calculi. No hydroureteronephrosis. * * * F I N A L * * * Dictated by: Reinaldo Zavaleta MD Electronically signed by: Reinaldo Zavaleta MD Transcribed by:AV , , , S: 04/23/2022 03:10 * * * F I N A L * * * US Abdomen limited * Reinaldo Zavaleta MD: PERFORM, VERIFY Reinaldo Zavaleta MD: VERIFY, VERIFY Reinaldo Zavaleta MD: VERIFY VRad, AZG: TRANSCRIBE Event Display: Report Authored Date: [id number] PROCEDURE INFORMATION: Exam: US Abdomen, Limited; Right Upper Quadrant Exam date and time: 04/23/2022 1:41 AM Age: 76 years old Clinical indication: Abdomen pain ruq TECHNIQUE: Imaging protocol: Real time ultrasound of the abdomen with image documentation. Limited exam focused on the right upper quadrant. COMPARISON: No relevant prior studies available. FINDINGS: Liver: Normal. No masses. Gallbladder: Tungsten Refiner notes positive Youngblood's sign. The gallbladder demonstrates layering density consistent with noncalcified stones or sludge. No gallbladder wall thickening. Biliary ducts: Normal. No stones. No dilation. Pancreas: Visualized pancreas is unremarkable. Right kidney: Normal. No mass. No hydronephrosis. Other findings: Tungsten Refiner notes technically difficult exam secondary to patient body habitus and overlying bowel gas. IMPRESSION: Cholelithiasis. Positive automobile brake bonder's Youngblood's sign consistent with acute cholecystitis. * * * F I N A L * * * Dictated by: Reinaldo Zavaleta MD Electronically signed by: Reinaldo Zavaleta MD Transcribed by:LEO , , , S: 04/23/2022 04:36 * * * F I N A L * * * Patient Care team information Care Team Personnel Name: Glenys Oakes MD Position: Physician - Family Medicine Member Role: Lifetime Physician(PCP) Address: Address: [address] [place] [address]- Name: Eliza Dasilva MD Position: Physician - Emergency Medicine Member Role: ER Physician Address: Address: [address] [place] [address]- Name: Nida Richards RN Position: NURSE: ED Member Role: ED Nurse Care Team Related Persons Name: KIRIT ARNOLD Address: [place] [address]
--- OUTSIDE RECORDS SUMMARY | 2022-08-30 16:41 | XMS_ITS | Continuity of Care Document ---
Author Name Unknown Organization [facility] Address [address] [place] [address] [place] [address]- Care Team Providers Care Field Radio Operator Name Role Phone Glenys Oakes MD Primary Care Physician Encounter [facility]SA_FIN [phone] Date(s): 04/25/22 - 07/24/22 [facility] [address] [facility] [address] [place], [place] [address] Discharge Disposition: [employer] Discharge Attending Physician: Tyler Post MD Allergies, Adverse Reactions, Alerts No Known Medication Allergies Medications albuterol HFA (90 mcg/dose) MDI 1 Puff Aerosol, INH, QID, PRN, as needed for wheezing, Qty: 18 gm, Refills: 0, Maintenance Start Date: 05/22/21 Status: Ordered chlorthalidone 25 mg oral tablet 1 Tab Tab, PO, qMWF, Qty: 30 Tab, Refills: 0, Maintenance Start Date: 05/22/21 Status: Ordered Farxiga 10 mg oral tablet 1 Tab Tab, PO, qDay, Refills: 0, Maintenance Start Date: 05/22/21 Status: Ordered finasteride 5 mg oral tablet 1 Tab Tab, PO, qHS - at bedtime, Refills: 0, Maintenance Start Date: 05/22/21 Status: Ordered Fish Oil 1000 mg oral capsule 2 Cap Cap, PO, BID, Qty: 60 Cap, Refills: 0, Maintenance Start Date: 05/22/21 Status: Ordered glipiZIDE 5 mg oral tablet, extended release 1 Tab, PO, BID, Refills: 0, Maintenance Start Date: 04/23/22 Status: Ordered iron gluconate 27 mg, PO, qMWF, Refills: 0, takes 3 x per week, Maintenance Start Date: 05/22/21 Status: Ordered Januvia 100 mg oral tablet 1 Tab, PO, Daily, Refills: 0, Maintenance Start Date: 04/23/22 Status: Ordered lisinopril 2.5 mg oral tablet 1 Tab Tab, PO, qDay, Qty: 30 Tab, Refills: 0, Maintenance, Route to Pharmacy Electronically, [facility] #[id number] Start Date: 04/25/22 Status: Ordered metoprolol tartrate 25 mg oral tablet 0.5 Tab Tab, PO, BID, Qty: 30 Tab, Refills: 0, Maintenance, Route to Pharmacy Electronically, [facility] #[id number] Start Date: 04/25/22 Status: Ordered rosuvastatin 20 mg oral tablet 1 Tab [...] 2 Completed Tonsillectomy Completed 1with lenses 2bilateral Social History Social History Type Response Smoking Status Never (less than 100 in lifetime) entered on: 04/23/22 Sex Male Patient Care team information Care Team Personnel Name: Glenys Oakes MD Position: Physician - Family Medicine Member Role: Lifetime Physician(PCP) Address: Address: [address] [place] [id number]- Care Team Related Persons Name: KIRIT ARNOLD Address: [place] [address]
--- OUTSIDE RECORDS SUMMARY | 2022-08-30 16:41 | XMS_ITS | Continuity of Care Document ---
Author Name Unknown Organization [facility] Address [address] [place] [address] [place] [address]- Care Team Providers Care Financial Institution Branch Manager Name Role Phone Glenys Oakes MD Primary Care Physician Encounter EVSA_FIN [phone] Date(s): 04/25/22 - 07/24/22 [facility] [address] [facility] [address] [place], [place] [address] Discharge Disposition: [employer] Discharge Attending Physician: [...] Refills: 0, Maintenance, Route to Pharmacy Electronically, [facility] #[id number] Start Date: 04/25/22 Status: Ordered metoprolol tartrate 25 mg oral tablet 0.5 Tab Tab, PO, BID, Qty: 30 Tab, Refills: 0, Maintenance, Route to Pharmacy Electronically, [facility] #[id number] Start Date: 04/25/22 Status: Ordered rosuvastatin 20 [...] Medicine Member Role: Lifetime Physician(PCP) Address: Address: [address] [place] [id number]- Care Team Related Persons Name: KIRIT ARNOLD Address: [place] [address]
--- OUTSIDE RECORDS SUMMARY | 2022-08-30 16:42 | XMS_ITS | Continuity of Care Document ---
Author Name The [facility] The [facility] Care Team Providers Care Paint Stripper Name Role Phone [facility] Unavailable Unavailable Problems Problem Status Onset Date Classification Date Reported Comments Source Anemia (disorder) Active 08/01/2022 [facility] [facility] Asthma (disorder) Active 08/01/2022 [facility] [facility] Diabetes mellitus (disorder) Active 08/01/2022 [facility] [facility] Foot-drop (finding) Active 08/01/2022 [facility] [facility] Hypercholesterolemia (disorder) Active 08/01/2022 [facility] [facility] Hypertensive disorder, systemic arterial (disorder) Active 08/01/2022 [facility] [facility] [facility] Pulmonary embolism (disorder) Active 08/01/2022 [facility] [facility] Sleep apnea (finding) Active 08/01/2022 [facility] Spinal stenosis (disorder) Active 08/01/2022 [facility] [facility] Disorder of ear (disorder) 05/23/2021 [facility] Eustachian tube disorder (disorder) 05/23/2021 [facility] Acute upper respiratory infection (disorder) 05/23/2021 [facility] Type II diabetes mellitus without complication (disorder) 05/03/2022 A [facility] Essential hypertension (disorder) 05/03/2022 [facility] Pure hypercholesterolemia (disorder) 05/03/2022 [facility] Cholelithiasis without obstruction (disorder) 05/03/2022 [facility] Long-term current use of insulin (situation) 05/03/2022 [facility] Acute cholecystitis (disorder) 05/03/2022 [facility] Gallbladder calculus with acute cholecystitis and no obstruction (disorder) 05/03/2022 [facility] Disease of gallbladder (disorder) 05/03/2022 [facility] Chronic kidney disease due to hypertension (disorder) 05/03/2022 [facility] Chronic kidney disease (disorder) 05/03/2022 [facility] Chronic renal impairment associated with type II diabetes mellitus (disorder) 05/03/2022 [facility] Benign prostatic hypertroph without outflow obstruction (disorder) 05/03/2022 [facility] Chest pain (finding) 05/03/2022 [facility] First degree atrioventricular block (disorder) 05/03/2022 [facility] History of prosthetic arthroplasty of bilateral hips (situation) 05/03/2022 [facility] Diverticula of intestine (disorder) 05/03/2022 [facility] Problems related to living alone 05/03/2022 [facility] Obesity (disorder) 05/03/2022 [facility] Long-term current use of anticoagulant (situation) 05/03/2022 [facility] Obese class II (finding) 05/03/2022 [facility] History of - pulmonary embolus (context-dependent category) 05/03/2022 [facility] Medications Medication Details Route Status Patient Instructions Ordering Provider Order Date Source Flagyl 500 mg oral tablet 1 Tab Tab, PO, every 8 hours, 10 Day, Qty: 30 Tab, Refills: 0, 05/05/22 12:27:00 [facility], Acute, Route to Pharmacy [email or web address][id number] Inactive 023 [facility] ciprofloxacin 500 mg oral tablet 1 Tab, PO, every 12 hours, 10 Day, Qty: 20 Tab, Refills: 0, 05/05/22 12:27:00 [facility], Acute, Route to Pharmacy [email or web address][id number], Tab Inactive 023 [facility] metoprolol tartrate 25 mg oral tablet 0.5 Tab Tab, PO, BID, Qty: 30 Tab, Refills: 0, Maintenance, Route to Pharmacy [facility] #[id number] Active 023 [facility] lisinopril 2.5 mg oral tablet 1 Tab Tab, PO, qDay, Qty: 30 Tab, Refills: 0, Maintenance, Route to Pharmacy [facility] #[id number] Active 023 [facility] Huma[employer] correctional 0-8 units, SUBCUT, INJ, SENSITIVE , Start: 04/25/22 7:30:00 MST Inactive 023 [facility] [employer] correctional 0 - 8 Unit, SUBCUT, INJ, SENSITIVE , Start: 04/24/22 14:00:00 MST Inactive 023 [facility] Xarelto 10 mg oral tablet 1 Tab, PO, qHS - at bedtime, Refills: 0, Maintenance Active 023 [facility] Januvia 100 mg oral tablet 1 Tab, PO, Daily, Refills: 0, Maintenance Active 023 [facility] glipiZIDE 5 mg oral tablet, extended release 1 Tab, PO, BID, Refills: 0, Maintenance Active 023 [facility] [employer] correctional 0 - 8 Unit, SUBCUT, INJ, SENSITIVE , Start: 04/23/22 22:00:00 MST Inactive 023 [facility] metoprolol 12.5 mg, PO, Tab, hold for HR <50 or SBP <110, Start: 04/23/22 21:00:00 MST Inactive 023 [facility] OxyIR 5 mg, PO, Tab, IR, q4hr Priority: Routine PRN Pain Moderate (4-6), for 30 Day, Start: 04/23/22 8:52:00 MST, Stop: 05/23/22 8:51:00 MSTNotes: C: Narcotic Pain Medication; I: Pain; SE: constipation; dizziness, drowsiness, nausea Inactive [facility] iron gluconate 27 mg, PO, qMWF, Refills: 0, takes 3 x per week, Maintenance Active [facility] albuterol HFA (90 mcg/dose) MDI 1 Puff Aerosol, INH, QID, PRN, as needed for wheezing, Qty: 18 gm, Refills: 0, Maintenance Active [facility] Albuterol 1 Puff Aerosol, INH, QID, PRN, as needed for wheezing, Qty: 18 gm, Refills: 0, Maintenance Active [facility] Vitamin D3 25 mcg (1,000 unit) oral tablet, chewable 1 Tab Tab, Chew, Chew, BID, Qty: 50 Tab, Refills: 0, Maintenance Active [facility] 24 HR Metformin hydrochloride 500 MG / sitagliptin 50 MG Extended Release Tablet [Janumet 50/500] 2 Tab Tab, ER, PO, qPM, Qty: 60 Tab, Refills: 0, Maintenance Active [facility] Fish Oil 1000 mg oral capsule 2 Cap Cap, PO, BID, Qty: 60 Cap, Refills: 0, Maintenance Active [facility] Vitamin B12 1000 mcg oral tablet 1 Tab Tab, PO, BID, Qty: 30 Tab, Refills: 0, Maintenance Active [facility] Vitamin B12 1000 mcg oral tablet 1 Tab Tab, PO, qDay, Qty: 30 Tab, Refills: 0, Maintenance Active [facility] rivaroxaban 20 MG Oral Tablet [Xarelto] 1 Tab Tab, PO, qPM, Qty: 30 Tab, Refills: 0, Maintenance Active [facility] chlorthalidone 25 mg oral tablet 1 Tab Tab, PO, qMWF, Qty: 30 Tab, Refills: 0, Maintenance Active [facility] potassium chloride 8 mEq oral tablet, extended release 1 Tab Tab, ER, PO, qDay, Qty: 270 Tab, Refills: 0, Maintenance Active [facility] insulin detemir 100 UNT/ML Injectable Solution [Levemir] 57 units, SUBCUT, Daily, Refills: 0, Maintenance Active [facility] Loratadine 10 MG Oral Tablet [Claritin] 1 Tab Tab, PO, qDay, Qty: 10 Tab, Refills: 0, Maintenance Inactive [facility] NovoLog 10 Unit, SUBCUT, TID before meals, Refills: 0, Maintenance Active [facility] finasteride 5 mg oral tablet 1 Tab Tab, PO, qHS - at bedtime, Refills: 0, Maintenance Active [facility] 24 HR metoprolol succinate 25 MG Extended Release Oral Capsule 0.5 Tab, PO, BID, Refills: 0, Maintenance Active [facility] lisinopril 20 mg oral tablet 1 Tab Tab, PO, qDay, Qty: 30 Tab, Refills: 0, Maintenance Active [facility] Farxiga 10 mg oral tablet 1 Tab Tab, PO, qDay, Refills: 0, Maintenance Active [facility] rosuvastatin 20 mg oral tablet 1 Tab Tab, PO, qHS - at bedtime, Refills: 0, Maintenance Active [facility] dapagliflozin propanediol 10 MG Oral Tablet [Farxiga] 1 Tab Tab, PO, qDay, Qty: 30 Tab, Refills: 0, Maintenance Active [facility] Allergies, Adverse Reactions, Alerts Substance Category Reaction Severity Reaction type Status Date Reported Comments Source No Known Drug Allergies MA Moderate Active 04/28/2021 [facility] No Known Medication Allergies Drug Allergy Active 04/25/2022 [facility] Results Order Name Results Value Reference Range Date Interpretation Comments Source Gluc (POCT) Glucose (POCT) Automated 223 70 - 99 04/25 H [facility] Gluc (POCT) Glucose (POCT) Automated 190 70 - 99 04/25 H [facility] General Chemistry Blood Glucose, Point of Care 190 70 - 130 04/25 [facility] Lipase Lipase 53.0 8.0 - 78.0 04/25 [facility] Lipase Icteric Index Negative 04/25 [facility] Lab Add On* Add on Test serum lipase 04/25 [facility] Lab Add On* Lab Add On* Yes 04/25 [facility] Amylase Amylase 40 20 - 160 04/25 [facility] Amylase Heme Index Negative 04/25 [facility] Amylase Icteric Index Negative 04/25 [facility] CMP Sodium 137 136 - 145 04/25 [facility] CMP Potassium 4.2 3.5 - 5.1 04/25 [facility] CMP Chloride 111 98 - 107 04/25 H [facility] CMP CO2 18 23 - 31 04/25 L [facility] CMP Glucose Level 199 83 - 110 04/25 H [facility] CMP BUN 13 8 - 26 04/25 [facility] CMP Creatinine 0.99 0.57 - 1.25 04/25 [facility] BUN/Ripsaw Operator Ratio 13.1 8.0 - 24.0 04/25 [facility] CMP Anion Gap 8 6 - 17 04/25 [facility] CMP Calcium 9.0 8.4 - 10.2 04/25 [facility] CMP Corrected Calcium 9.4 8.4 - 10.5 04/25 [facility] CMP Protein, Total 6.2 6.0 - 8.3 04/25 [facility] CMP Albumin 3.5 3.5 - 5.0 04/25 [facility] CMP Alkphos 82 40 - 150 04/25 [facility] CMP ALT 217 6 - 55 04/25 H [facility] CMP AST 78 5 - 34 04/25 H [facility] CMP Bili Total 0.5 0.2 - 1.2 04/25 [facility] eGFRcr 79 >=90 04/25 L As of 09-10-2021, reported eGFR is based on the CKD-EPI 2020 equation that does not use a race coefficient. For eGFR of 45-59 mL/min/1.73m2 NKF, KDOQI, and KDIGO guidelines recommend confirming current results with new values based on eGFR calculated using both creatinine and cystatin C. Cystatin C is recommended in the outpatient patient setting for purposes of confirming chronic kidney disease, rather than in the acute setting for acute kidney injury or failure. The eGFRcr equation has not been validated on patients <18 years and will not be performed. [facility] CMP Globulin 3 04/25 [facility] CMP A/G Ratio 1 04/25 [facility] CMP Heme Index Negative 04/25 [facility] CMP Icteric Index Negative 04/25 [facility] CMP Lipemia Index Negative 04/25 [facility] Mg Mg 1.5 1.6 - 2.6 04/25 L [facility] Mg Heme Index Negative 04/25 [facility] Hemogram WBC 8.4 4.8 - 10.8 04/25 [facility] Hemogram RBC 4.24 4.70 - 6.10 04/25 L [facility] Hemogram Hgb 12.1 13.5 - 18.0 04/25 L [facility] Hemogram Hct 36.5 40.0 - 52.0 04/25 L [facility] Hemogram MCV 86.1 80.0 - 100.0 04/25 [facility] Hemogram MCH 28.6 27.0 - 34.0 04/25 [facility] Hemogram MCHC 33.3 32.0 - 37.0 04/25 [facility] Hemogram RDW 15.0 11.5 - 16.0 04/25 [facility] Hemogram Plt 243 130 - 400 04/25 [facility] Hemogram MPV 8 04/25 [facility] CBC WBC 8.4 4.8 - 10.8 04/25 [facility] CBC RBC 4.24 4.70 - 6.10 04/25 [facility] CBC Hgb 12.1 13.5 - 18.0 04/25 [facility] CBC Hct 36.5 40.0 - 52.0 04/25 [facility] CBC MCV 86.1 80.0 - 100.0 04/25 [facility] CBC MCH 28.6 27.0 - 34.0 04/25 [facility] CBC MCHC 33.3 32.0 - 37.0 04/25 [facility] CBC RDW 15.0 11.5 - 16.0 04/25 [facility] CBC Plt 243 130 - 400 04/25 [facility] CBC MPV 8 04/25 [facility] General Chemistry Lipase Level 53.0 8.0 - 78.0 04/25 [facility] General Chemistry Amylase Level 40 20 - 160 04/25 [facility] General Chemistry Sodium 137 136 - 145 04/25 [facility] General Chemistry Potassium 4.2 3.5 - 5.1 04/25 [facility] General Chemistry Chloride 111 98 - 107 04/25 [facility] General Chemistry CO2 18 23 - 31 04/25 [facility] General Chemistry Anion Gap 8 6 - 17 04/25 [facility] General Chemistry Glucose Level 199 83 - 110 04/25 [facility] General Chemistry BUN 13 8 - 26 04/25 [facility] General Chemistry Creatinine 0.99 0.57 - 1.25 04/25 [facility] General Chemistry Protein, Total 6.2 6.0 - 8.3 04/25 [facility] General Chemistry Albumin 3.5 3.5 - 5.0 04/25 [facility] General Chemistry Calcium 9.0 8.4 - 10.2 04/25 [facility] General Chemistry Bili Total 0.5 0.2 - 1.2 04/25 [facility] General Chemistry Alkphos 82 40 - 150 04/25 [facility] General Chemistry AST 78 5 - 34 04/25 [facility] General Chemistry ALT 217 6 - 55 04/25 [facility] General Chemistry BUN/Ripsaw Operator Ratio 13.1 8.0 - 24.0 04/25 [facility] General Chemistry Corrected Calcium 9.4 8.4 - 10.5 04/25 [facility] General Chemistry Globulin 3 04/25 [facility] General Chemistry A/G Ratio 1 04/25 [facility] General Chemistry eGFRcr 79 04/25 [facility] General Chemistry Mg 1.5 1.6 - 2.6 04/25 [facility] Gluc (POCT) Glucose (POCT) Automated 152 70 - 99 04/25 H [facility] Gluc (POCT) Glucose (POCT) Automated 154 70 - 99 04/25 H [facility] Gluc (POCT) Glucose (POCT) Automated 175 70 - 99 04/25 H [facility] Amylase Amylase 133 20 - 160 04/24 [facility] Amylase Heme Index Negative 04/24 [facility] Amylase Icteric Index Negative 04/24 [facility] General Chemistry Blood Glucose, Point of Care 175 70 - 130 04/24 [facility] Gluc (POCT) Glucose (POCT) Automated 189 70 - 99 04/24 H [facility] HgbA1C HgbA1C 7.4 - <=5.6 04/24 H The [place] [employer] (ADA) recommendatio ns are summarized in the following table. Value Glycemic Goal < 8% HbA1c Less stringent <7% HbA1c General (non- adults) <6.5% HbA1c More stringent As recommended by the ADA, patients in the range of 5.7 to 6.4% HbA1c would be in the category of increased risk for diabetes and result > or = 6.5% HbA1c may aid in the diagnosis of diabetes. [facility] HgbA1C Estimated Average Glucose 166 04/24 [facility] Gluc (POCT) Glucose (POCT) Automated 193 70 - 99 04/24 H [facility] Lipase Lipase 473.0 8.0 - 78.0 04/24 H [facility] Lipase Icteric Index Negative 04/24 [facility] Mg Mg 1.6 1.6 - 2.6 04/24 [facility] Mg Heme Index Negative 04/24 [facility] CMP Sodium 135 136 - 145 04/24 L [facility] CMP Potassium 4.2 3.5 - 5.1 04/24 [facility] CMP Chloride 109 98 - 107 04/24 H [facility] CMP CO2 18 23 - 31 04/24 L [facility] CMP Glucose Level 211 83 - 110 04/24 H [facility] CMP BUN 20 8 - 26 04/24 [facility] CMP Creatinine 1.14 0.57 - 1.25 04/24 [facility] CMP BUN/Ripsaw Operator Ratio 17.5 8.0 - 24.0 04/24 [facility] CMP Anion Gap 8 6 - 17 04/24 [facility] CMP Calcium 8.6 8.4 - 10.2 04/24 [facility] CMP Corrected Calcium 9.0 8.4 - 10.5 04/24 [facility] CMP Protein, Total 6.0 6.0 - 8.3 04/24 [facility] CMP Albumin 3.5 3.5 - 5.0 04/24 [facility] CMP Alkphos 89 40 - 150 04/24 [facility] CMP ALT 337 6 - 55 04/24 H [facility] CMP AST 291 5 - 34 04/24 H [facility] CMP Bili Total 0.6 0.2 - 1.2 04/24 [facility] CMP eGFRcr 67 >=90 04/24 L As of 09-10-2021, reported eGFR is based on the CKD-EPI 2020 equation that does not use a race coefficient. For eGFR of 45-59 mL/min/1.73m2 NKF, KDOQI, and KDIGO guidelines recommend confirming current results with new values based on eGFR calculated using both creatinine and cystatin C. Cystatin C is recommended in the outpatient patient setting for purposes of confirming chronic kidney disease, rather than in the acute setting for acute kidney injury or failure. The eGFRcr equation has not been validated on patients <18 years and will not be performed. [facility] CMP Globulin 2 04/24 [facility] CMP A/G Ratio 2 04/24 [facility] CMP Heme Index Negative 04/24 [facility] CMP Icteric Index Negative 04/24 [facility] CMP Lipemia Index Negative 04/24 [facility] Hemogram WBC 6.9 4.8 - 10.8 04/24 [facility] Hemogram RBC 4.20 4.70 - 6.10 04/24 L [facility] Hemogram Hgb 12.2 13.5 - 18.0 04/24 L [facility] Hemogram Hct 36.4 40.0 - 52.0 04/24 L [facility] Hemogram MCV 86.7 80.0 - 100.0 04/24 [facility] Hemogram MCH 28.9 27.0 - 34.0 04/24 [facility] Hemogram MCHC 33.4 32.0 - 37.0 04/24 [facility] Hemogram RDW 14.9 11.5 - 16.0 04/24 [facility] Hemogram Plt 230 130 - 400 04/24 [facility] Hemogram MPV 8 04/24 [facility] General Chemistry Blood Glucose, Point of Care 193 70 - 130 04/24 [facility] CBC WBC 6.9 4.8 - 10.8 04/24 [facility] CBC RBC 4.20 4.70 - 6.10 04/24 [facility] CBC Hgb 12.2 13.5 - 18.0 04/24 [facility] CBC Hct 36.4 40.0 - 52.0 04/24 [facility] CBC MCV 86.7 80.0 - 100.0 04/24 [facility] CBC MCH 28.9 27.0 - 34.0 04/24 [facility] CBC MCHC 33.4 32.0 - 37.0 04/24 [facility] CBC RDW 14.9 11.5 - 16.0 04/24 [facility] CBC Plt 230 130 - 400 04/24 [facility] CBC MPV 8 04/24 [facility] General Chemistry Amylase Level 133 20 - 160 04/24 [facility] General Chemistry Lipase Level 473.0 8.0 - 78.0 04/24 [facility] General Chemistry eGFRcr 67 04/24 [facility] General Chemistry Sodium 135 136 - 145 04/24 [facility] General Chemistry Potassium 4.2 3.5 - 5.1 04/24 [facility] General Chemistry Chloride 109 98 - 107 04/24 [facility] General Chemistry CO2 18 23 - 31 04/24 [facility] General Chemistry Anion Gap 8 6 - 17 04/24 [facility] General Chemistry Glucose Level 211 83 - 110 04/24 [facility] General Chemistry BUN 20 8 - 26 04/24 [facility] General Chemistry Creatinine 1.14 0.57 - 1.25 04/24 [facility] General Chemistry Protein, Total 6.0 6.0 - 8.3 04/24 [facility] General Chemistry Albumin 3.5 3.5 - 5.0 04/24 [facility] General Chemistry Calcium 8.6 8.4 - 10.2 04/24 [facility] General Chemistry Bili Total 0.6 0.2 - 1.2 04/24 [facility] General Chemistry Alkphos 89 40 - 150 04/24 [facility] General Chemistry AST 291 5 - 34 04/24 [facility] General Chemistry ALT 337 6 - 55 04/24 [facility] General Chemistry BUN/Ripsaw Operator Ratio 17.5 8.0 - 24.0 04/24 [facility] General Chemistry Corrected Calcium 9.0 8.4 - 10.5 04/24 [facility] General Chemistry Globulin 2 04/24 [facility] General Chemistry A/G Ratio 2 04/24 [facility] General Chemistry Mg 1.6 1.6 - 2.6 04/24 [facility] Special Chemistry HgbA1C 7.4 04/24 [facility] Special Chemistry Estimated Average Glucose 166 04/24 [facility] Gluc (POCT) Glucose (POCT) Automated 224 70 - 99 04/24 H [facility] General Chemistry Blood Glucose, Point of Care 161 70 - 130 04/24 [facility] Gluc (POCT) Glucose (POCT) Automated 161 70 - 99 04/24 H [facility] Gluc (POCT) Glucose (POCT) Automated 194 70 - 99 04/24 H [facility] Troponin-I Troponin I 0.01 - <=0.30 04/23 [facility] Gluc (POCT) Glucose (POCT) Automated 144 70 - 99 04/23 H [facility] Cardiac Troponin I 0.01 04/23 [facility] BNP B-Natriureti c Peptide 20.6 - <=100.0 04/23 [facility] Ethanol Ethanol <10 - <=5 04/23 H [facility] Lipid Panel w[employer] LDL Cholesterol 137 100 - 200 04/23 [facility] Lipid Panel [employer] LDL Triglyceride s 362 0 - 150 04/23 H [facility] Lipid Panel [employer] LDL HDL 18 >=40 04/23 L HDL levels are inversely related to the incidence of Coronary Heart Disease (CHD). HDL <35 mg/dL Major risk factor for CHD HDL > 60 mg/dL Negative risk for CHD. [facility] Lipid Panel [employer] LDL LDL Direct 68 04/23 [facility] Lipid Panel [employer] LDL VLDL 72 04/23 [facility] Lipid Panel [employer] LDL LDL/HDL 3 04/23 [facility] Lipid Panel [employer] LDL Chol/Trig 0 04/23 [facility] Lipid Panel [employer] LDL Cholesterol/ HDL 8 >=40 04/23 L [facility] Panel [employer] LDL %HDL 13 04/23 [facility] [employer] LDL Heme Index Negative 04/23 [facility] [employer] LDL Icteric Index Negative 04/23 [facility] Lipid Panel [employer] LDL Lipemia Index Negative 04/23 [facility] Troponin-I Troponin I <0.01 - <=0.30 04/23 [facility] TSH TSH 1.00 0.35 - 4.94 04/23 [facility] Gluc (POCT) Glucose (POCT) Automated 161 70 - 99 04/23 H [facility] Cardiac B-Natriureti c Peptide 20.6 04/23 [facility] [facility] Cardiac Troponin I <0.01 04/23 [facility] Special Chemistry TSH 1.00 0.35 - 4.94 04/23 [facility] Toxicology Ethanol Level <10 04/23 [facility] Lactic Acid Lactic Acid 1.2 0.5 - 1.9 04/23 [facility] Lactic Acid Heme Index Negative 04/23 [facility] Lactic Acid Icteric Index Negative 04/23 [facility] Lactic Acid Lipemia Index Negative 04/23 [facility] Troponin-I Troponin I <0.01 - <=0.30 04/23 [facility] Sodium 136 136 - 145 04/23 [facility] Potassium 4.3 3.5 - 5.1 04/23 [facility] Chloride 104 98 - 107 04/23 [facility] CO2 20 23 - 31 04/23 L [facility] Glucose Level 177 83 - 110 04/23 H [facility] BUN 27 8 - 26 04/23 H [facility] Creatinine 1.71 0.57 - 1.25 04/23 H [facility] BUN/Ripsaw Operator Ratio 15.8 8.0 - 24.0 04/23 [facility] Anion Gap 12 6 - 17 04/23 [facility] Calcium 9.6 8.4 - 10.2 04/23 [facility] Corrected Calcium 9.4 8.4 - 10.5 04/23 [facility] Protein, Total 7.3 6.0 - 8.3 04/23 [facility] Albumin 4.2 3.5 - 5.0 04/23 [facility] Alkphos 51 40 - 150 04/23 [facility] ALT 42 6 - 55 04/23 [facility] AST 69 5 - 34 04/23 H [facility] Bili Total 0.8 0.2 - 1.2 04/23 [facility] eGFRcr 41 >=90 04/23 L As of 09-10-2021, reported eGFR is based on the CKD-EPI 2020 equation that does not use a race coefficient. For eGFR of 45-59 mL/min/1.73m2 NKF, KDOQI, and KDIGO guidelines recommend confirming current results with new values based on eGFR calculated using both creatinine and cystatin C. Cystatin C is recommended in the outpatient patient setting for purposes of confirming chronic kidney disease, rather than in the acute setting for acute kidney injury or failure. The eGFRcr equation has not been validated on patients <18 years and will not be performed. [facility] CMP Globulin 3 04/23 [facility] CMP A/G Ratio 1 04/23 [facility] CMP Heme Index Negative 04/23 [facility] CMP Icteric Index Negative 04/23 [facility] CMP Lipemia Index Negative 04/23 [facility] Lipase Lipase 108.0 8.0 - 78.0 04/23 H [facility] Lipase Icteric Index Negative 04/23 [facility] CBC w/Diff WBC 11.2 4.8 - 10.8 04/23 H [facility] CBC w/Diff RBC 4.52 4.70 - 6.10 04/23 L [facility] CBC w/Diff Hgb 12.8 13.5 - 18.0 04/23 L [facility] CBC w/Diff Hct 38.9 40.0 - 52.0 04/23 L [facility] CBC w/Diff MCV 86.0 80.0 - 100.0 04/23 [facility] CBC w/Diff MCH 28.4 27.0 - 34.0 04/23 [facility] CBC w/Diff MCHC 33.0 32.0 - 37.0 04/23 [facility] CBC w/Diff RDW 15.2 11.5 - 16.0 04/23 [facility] CBC w/Diff Plt 267 130 - 400 04/23 [facility] CBC w/Diff Neuts 70.9 35.0 - 80.0 04/23 [facility] CBC w/Diff Lymphs 19.8 10.0 - 55.0 04/23 [facility] CBC w/Diff Monos. 6.1 0.0 - 15.0 04/23 [facility] CBC w/Diff Eos. 2.6 0.0 - 9.0 04/23 [facility]Diff Baso. 0.6 0.0 - 3.0 04/23 [facility]Diff ABS Neut 7.9 1.7 - 8.6 04/23 [facility] CBC w/Diff ABS Lymph 2.2 0.5 - 5.9 04/23 [facility]/Diff ABS [place] 0.7 0.0 - 2.0 04/23 [facility] CBC w/Diff ABS Eos 0.3 0.0 - 1.2 04/23 [facility] CBC w/Diff ABS Baso 0.1 0.0 - 0.3 04/23 [facility] CBC w/Diff CBC Scan Auto Diff 04/23 [facility] CBC w/Diff nRBC Auto 0 04/23 [facility] CBC w/Diff MPV 8 04/23 [facility] Cardiac Troponin I <0.01 04/23 [facility] CBC CBC Scan Auto Diff (04/23/22 2:19 AM) 04/23 [facility] CBC WBC 11.2 4.8 - 10.8 04/23 [facility] CBC RBC 4.52 4.70 - 6.10 04/23 [facility] CBC Hgb 12.8 13.5 - 18.0 04/23 [facility] CBC Hct 38.9 40.0 - 52.0 04/23 [facility] MCV 86.0 80.0 - 100.0 04/23 [facility] CBC MCH 28.4 27.0 - 34.0 04/23 [facility] CBC MCHC 33.0 32.0 - 37.0 04/23 [facility] CBC RDW 15.2 11.5 - 16.0 04/23 [facility] CBC Plt 267 130 - 400 04/23 [facility] CBC MPV 8 04/23 [facility] CBC Neuts 70.9 35.0 - 80.0 04/23 [facility] CBC Lymphs 19.8 10.0 - 55.0 04/23 [facility] CBC Monos. 6.1 0.0 - 15.0 04/23 [facility] CBC Eos. 2.6 0.0 - 9.0 04/23 [facility] CBC Baso. 0.6 0.0 - 3.0 04/23 [facility] CBC ABS Neut 7.9 1.7 - 8.6 04/23 [facility] CBC ABS Lymph 2.2 0.5 - 5.9 04/23 [facility] CBC ABS [place] 0.7 0.0 - 2.0 04/23 [facility] CBC ABS Eos 0.3 0.0 - 1.2 04/23 [facility] CBC ABS Baso 0.1 0.0 - 0.3 04/23 [facility] CBC nRBC Auto 0 04/23 [facility] General Chemistry eGFRcr 41 04/23 [facility] General Chemistry Sodium 136 136 - 145 04/23 [facility] General Chemistry Potassium 4.3 3.5 - 5.1 04/23 [facility] General Chemistry Chloride 104 98 - 107 04/23 [facility] General Chemistry CO2 20 23 - 31 04/23 [facility] General Chemistry Anion Gap 12 6 - 17 04/23 [facility] General Chemistry Glucose Level 177 83 - 110 04/23 [facility] General Chemistry BUN 27 8 - 26 04/23 [facility] General Chemistry Creatinine 1.71 0.57 - 1.25 04/23 [facility] General Chemistry Protein, Total 7.3 6.0 - 8.3 04/23 [facility] General Chemistry Albumin 4.2 3.5 - 5.0 04/23 [facility] General Chemistry Calcium 9.6 8.4 - 10.2 04/23 [facility] General Chemistry Bili Total 0.8 0.2 - 1.2 04/23 [facility] General Chemistry Alkphos 51 40 - 150 04/23 [facility] General Chemistry AST 69 5 - 34 04/23 [facility] General Chemistry ALT 42 6 - 55 04/23 [facility] General Chemistry BUN/Ripsaw Operator Ratio 15.8 8.0 - 24.0 04/23 [facility] General Chemistry Corrected Calcium 9.4 8.4 - 10.5 04/23 [facility] General Chemistry Globulin 3 04/23 [facility] General Chemistry A/G Ratio 1 04/23 [facility] General Chemistry Lipase Level 108.0 8.0 - 78.0 04/23 [facility] General Chemistry Lactic Acid 1.2 0.5 - 1.9 04/23 [facility] NATRIURETIC PEPTIDE BNP BNP 20 0 - 100 04/28 B-TYPE NATRIURETIC PEPTIDE INTERPRETATIO N The BNP test is used as an aid in the diagnosis and assessment of severity of congestive heart failure. The test is also used for the risk stratificatio n of patients with acute coronary syndromes. [facility] D-DIMER D-DIMER QUANT 0.91 0.00 - 0.59 04/28 H \BLDo\D-DIMER INTERPRETATIO N\BLDx\\ Negative Cutoff Value: <0.59 mg/L FEU Reference Interval: </=0.59 mg/L FEU [facility] COMPREHENSI VE METABOLIC PANEL COMPREHENSIV E METABOLIC PANEL LAB 04/28 COMPREHENSIVE METABOLIC PANEL [facility] COMPREHENSI VE METABOLIC PANEL SODIUM 139 134 - 144 04/28 [facility] COMPREHENSI VE METABOLIC PANEL POTASSIUM 4.1 3.5 - 5.1 04/28 [facility] COMPREHENSI VE METABOLIC PANEL CHLORIDE 105 98 - 107 04/28 [facility] COMPREHENSI VE METABOLIC PANEL CO2 19 23 - 31 04/28 L [facility] COMPREHENSI VE METABOLIC PANEL ANION GAP 19 10 - 20 04/28 [facility] COMPREHENSI VE METABOLIC PANEL GLUCOSE 190 70 - 99 04/28 H [facility] COMPREHENSI VE METABOLIC PANEL BUN 38 8 - 26 04/28 H [facility] COMPREHENSI VE METABOLIC PANEL CREATININE 1.86 0.72 - 1.25 04/28 H [facility] COMPREHENSI VE METABOLIC PANEL TOTAL PROTEIN 7.2 6.4 - 8.3 04/28 [facility] COMPREHENSI VE METABOLIC PANEL ALBUMIN 4.2 3.2 - 4.6 04/28 [facility] COMPREHENSI VE METABOLIC PANEL CALCIUM 9.5 8.4 - 10.2 04/28 [facility] COMPREHENSI VE METABOLIC PANEL TOTAL BILI 0.5 0.2 - 1.2 04/28 [facility] COMPREHENSI VE METABOLIC PANEL ALKALINE PHOS 35 40 - 150 04/28 L [facility] COMPREHENSI VE METABOLIC PANEL SGOT/AST 20 5 - 34 04/28 [facility] COMPREHENSI VE METABOLIC PANEL SGPT/ALT 25 0 - 55 04/28 [facility] COMPREHENSI VE METABOLIC PANEL AGE 75 04/28 [facility] COMPREHENSI VE METABOLIC PANEL NON-AA GFR 38 04/28 [facility] COMPREHENSI VE METABOLIC PANEL AFR AMER GFR 46 04/28 [facility] TROPONIN QT TROPONIN I 0.01 0.00 - 0.30 04/28 [facility] CBC W/DIFF CBC W/DIFF LAB 04/28 CBC W/DIFF [facility] CBC W/DIFF WBC 12.1 4.8 - 10.8 04/28 H [facility] CBC W/DIFF RBC 4.09 4.70 - 6.10 04/28 L [facility] CBC W/DIFF HEMOGLOBIN 12.1 13.5 - 18.0 04/28 L [facility] CBC W/DIFF HEMATOCRIT 36.2 40.0 - 52.0 04/28 L [facility] CBC W/DIFF MCV 88 80 - 100 04/28 [facility] CBC W/DIFF MCH 29.5 27.0 - 34.0 04/28 [facility] CBC W/DIFF MCHC 33 32 - 37 04/28 [facility] CBC W/DIFF RDW 14.6 11.5 - 16.0 04/28 [facility] CBC W/DIFF PLATELETS 252 130 - 400 04/28 [facility] CBC W/DIFF MPV 7.5 6.8 - 10.2 04/28 [facility] CBC W/DIFF %NEUT 72 04/28 [facility] CBC W/DIFF %LYMPH 20 04/28 [facility] CBC W/DIFF %MONO 6 04/28 [facility] CBC W/DIFF %EOS 2 04/28 [facility] CBC W/DIFF %BASO 0 04/28 [facility] CBC W/DIFF #NEUT 8.7 1.7 - 8.6 04/28 H [facility] CBC W/DIFF #LYMPH 2.5 0.5 - 5.9 04/28 [facility] CBC W/DIFF #MONO 0.7 0.0 - 1.6 04/28 [facility] CBC W/DIFF #EOS 0.2 0.0 - 1.0 04/28 [facility] CBC W/DIFF #BASO 0.0 0.0 - 0.3 04/28 [facility] CBC W/DIFF MANUAL DIFF NOT INDICATED 04/28 [facility] CBC W/DIFF RBC MORPH NOT INDICATED 04/28 [facility] FINGERSTICK GLUCOSE GLUCOMETER 153 70 - 100 01/25 H [facility] LEGIONELLA PNEUMOPHILI A AG, URINE LEGIONELLA PNEUMOPHILIA AG, URINE LAB 01/24 _MLT LEGION AG URINE QL/SQ_ SEE SEPARATE REFERENCE LAB REPORT [facility] STREP PNEUMO ANTIGEN- URINE STREP PNEUMO ANTIGEN- URINE LAB 01/24 _STREP PNEUMO ANTIGEN- URINE_ SEE SEPARATE REFERENCE LAB REPORT [facility] COCCI ANTIBODY SCREEN (IGG/IGM) COCCI ANTIBODY SCREEN (IGG/IGM) LAB 01/24 _COCCIDIOIDES ANTIBODY SCREEN_ SEE SEPARATE REFERENCE LAB REPORT [facility] Cocci IgM/IgG w/rflx Cocci IgG Neg Negative 01/23 [facility] Cocci IgM/IgG w/rflx Cocci IgM Neg Negative 01/23 [facility] HEMOGLOBIN GLYCOSYLATE D (A1C) HGB A1C 10.2 4.5 - 6.2 01/23 H [employer] [place] [employer] (ADA) recommendatio ns are summarized in the following table. Value Glycemic Goal <8% HbA1c Less stringent <7% HbA1c General (non- adults) <6.5% HbA1c More stringent As recommended by the ADA, patients in the range of 5.7 to 6.4% HbA1c would be in the category of increased risk for diabetes and result > or = 6.5% HbA1c may aid in the diagnosis of diabetes. [facility] C-REACTIVE PROTEIN CRP 4.13 0.10 - 0.90 01/23 H CRP INTERPRETATIO N: Healthy : 0.01 - 0.6 mg/dL Septic : 0.1 - 7.7 mg/dL CRP HS C-reactive protein values should be interpreted in the context of serial measurements. CORONARY RISK INTERPRETATIO N QUINTILE I : Lowest Risk < 0.07 mg/dL This result is associated with the lowest risk of coronary heart disease. QUINTILE II : Low Risk Range 0.07 - 0.11 mg/dL This result is associated with a low risk of coronary heart disease. QUINTILE III: Moderate Risk Range 0.12 - 0.19 mg/dL This result is associated with moderate risk of coronary heart disease. QUINTILE IV : High Risk Range 0.20 - 0.38 mg/dL This result is associated with a high risk of coronary heart disease. QUINTILE V : Highest Risk Range 0.39 - 1.50 mg/dL This result is associated with the highest risk of coronary heart disease. Coronary Risk: When the CRP-High Sensitivity result is greater than 1.50 mg/ risk analysis may be confounded by recent or acute inflammatory disease. Therefore, the risk for coronary heart disease cannot be provided for this patient. A repeat specimen taken 2 weeks after resolution of any acute inflammatory condition may allow provision of coronary risk information. CRP Inflammatory INFLAMMATION / INFECTION INTERPRETATIO N: >28 days of age: 0.10 - 0.90 mg/dL C-reactive protein values should be interpreted in the context of serial measurements. [facility] COMPREHENSI VE METABOLIC PANEL COMPREHENSIV E METABOLIC PANEL LAB 01/23 COMPREHENSIVE METABOLIC PANEL [facility] COMPREHENSI VE METABOLIC PANEL SODIUM 136 134 - 144 01/23 [facility] COMPREHENSI VE METABOLIC PANEL POTASSIUM 3.5 3.5 - 5.1 01/23 [facility] COMPREHENSI VE METABOLIC PANEL CHLORIDE 103 98 - 107 01/23 [facility] COMPREHENSI VE METABOLIC PANEL CO2 19 23 - 31 01/23 L [facility] COMPREHENSI VE METABOLIC PANEL ANION GAP 18 10 - 20 01/23 [facility] COMPREHENSI VE METABOLIC PANEL GLUCOSE 99 70 - 99 01/23 [facility] COMPREHENSI VE METABOLIC PANEL BUN 32 8 - 26 01/23 H [facility] COMPREHENSI VE METABOLIC PANEL CREATININE 1.18 0.72 - 1.25 01/23 [facility] COMPREHENSI VE METABOLIC PANEL TOTAL PROTEIN 5.7 6.4 - 8.3 01/23 L [facility] COMPREHENSI VE METABOLIC PANEL ALBUMIN 3.2 3.2 - 4.6 01/23 [facility] COMPREHENSI VE METABOLIC PANEL CALCIUM 8.0 8.4 - 10.2 01/23 L [facility] COMPREHENSI VE METABOLIC PANEL TOTAL BILI 0.6 0.2 - 1.2 01/23 [facility] COMPREHENSI VE METABOLIC PANEL ALKALINE PHOS 36 40 - 150 01/23 L [facility] COMPREHENSI VE METABOLIC PANEL SGOT/AST 22 5 - 34 01/23 [facility] COMPREHENSI VE METABOLIC PANEL SGPT/ALT 21 0 - 55 01/23 [facility] COMPREHENSI VE METABOLIC PANEL AGE 75 01/23 [facility] COMPREHENSI VE METABOLIC PANEL NON-AA GFR 64 01/23 [facility] COMPREHENSI VE METABOLIC PANEL AFR AMER GFR 78 01/23 [facility] FERRITIN FERRITIN 491.06 10.00 - 204 01/23 H [facility] CBC W/DIFF CBC W/DIFF LAB 01/23 CBC W/DIFF [facility] CBC W/DIFF WBC 9.5 4.8 - 10.8 01/23 [facility] CBC W/DIFF RBC 3.84 4.70 - 6.10 01/23 L [facility] CBC W/DIFF HEMOGLOBIN 11.0 13.5 - 18.0 01/23 L [facility] CBC W/DIFF HEMATOCRIT 33.3 40.0 - 52.0 01/23 L [facility] CBC W/DIFF MCV 87 80 - 100 01/23 [facility] CBC W/DIFF MCH 28.6 27.0 - 34.0 01/23 [facility] CBC W/DIFF MCHC 33 32 - 37 01/23 [facility] CBC W/DIFF RDW 14.8 11.5 - 16.0 01/23 [facility] CBC W/DIFF PLATELETS 298 130 - 400 01/23 [facility] CBC W/DIFF MPV 7.5 6.8 - 10.2 01/23 [facility] CBC W/DIFF %NEUT 79 01/23 [facility] CBC W/DIFF %LYMPH 12 01/23 [facility] CBC W/DIFF %MONO 8 01/23 [facility] CBC W/DIFF %EOS 0 01/23 [facility] CBC W/DIFF %BASO 0 01/23 [facility] CBC W/DIFF #NEUT 7.6 1.7 - 8.6 01/23 [facility] CBC W/DIFF #LYMPH 1.1 0.5 - 5.9 01/23 [facility] CBC W/DIFF #MONO 0.8 0.0 - 1.6 01/23 [facility] CBC W/DIFF #EOS 0.0 0.0 - 1.0 01/23 [facility] CBC W/DIFF #BASO 0.0 0.0 - 0.3 01/23 {CD] [facility] CBC W/DIFF MANUAL DIFF NOT INDICATED 01/23 [facility] CBC W/DIFF RBC MORPH NOT INDICATED 01/23 [facility] U Strep/Legio n Ag Strep pnemoniae Ag Ur Negative Negative 01/22 A negative result does not exclude the possibility of a Legionella or S. pneumoniae infection. Results should be interpreted in conjunction with the patient's clinical evaluation. [facility] U Strep/Legio n Ag Legionella pneumophila Ag Ur Negative Negative 01/22 [facility] FINGERSTICK GLUCOSE GLUCOMETER 394 70 - 100 01/22 H [facility] COMPREHENSI VE METABOLIC PANEL COMPREHENSIV E METABOLIC PANEL LAB 01/22 COMPREHENSIVE METABOLIC PANEL [facility] COMPREHENSI VE METABOLIC PANEL SODIUM 134 134 - 144 01/22 [facility] COMPREHENSI VE METABOLIC PANEL POTASSIUM 4.4 3.5 - 5.1 01/22 [facility] COMPREHENSI VE METABOLIC PANEL CHLORIDE 104 98 - 107 01/22 [facility] COMPREHENSI VE METABOLIC PANEL CO2 13 23 - 31 01/22 L [facility] COMPREHENSI VE METABOLIC PANEL ANION GAP 21 10 - 20 01/22 H [facility] COMPREHENSI VE METABOLIC PANEL GLUCOSE 443 70 - 99 01/22 H [facility] COMPREHENSI VE METABOLIC PANEL BUN 24 8 - 26 01/22 [facility] COMPREHENSI VE METABOLIC PANEL CREATININE 1.32 0.72 - 1.25 01/22 H [facility] COMPREHENSI VE METABOLIC PANEL TOTAL PROTEIN 6.5 6.4 - 8.3 01/22 [facility] COMPREHENSI VE METABOLIC PANEL ALBUMIN 3.7 3.2 - 4.6 01/22 [facility] COMPREHENSI VE METABOLIC PANEL CALCIUM 8.3 8.4 - 10.2 01/22 L [facility] COMPREHENSI VE METABOLIC PANEL TOTAL BILI 0.6 0.2 - 1.2 01/22 [facility] COMPREHENSI VE METABOLIC PANEL ALKALINE PHOS 44 40 - 150 01/22 [facility] COMPREHENSI VE METABOLIC PANEL SGOT/AST 20 5 - 34 01/22 [facility] COMPREHENSI VE METABOLIC PANEL SGPT/ALT 23 0 - 55 01/22 [facility] COMPREHENSI VE METABOLIC PANEL AGE 75 01/22 [facility] COMPREHENSI VE METABOLIC PANEL NON-AA GFR 56 01/22 [facility] COMPREHENSI VE METABOLIC PANEL AFR AMER GFR 68 01/22 [facility] FERRITIN FERRITIN 636.27 10.00 - 204 01/22 H [facility] CBC W/DIFF CBC W/DIFF LAB 01/22 CBC W/DIFF [facility] CBC W/DIFF WBC 4.5 4.8 - 10.8 01/22 L [facility] CBC W/DIFF RBC 4.15 4.70 - 6.10 01/22 L [facility] CBC W/DIFF HEMOGLOBIN 12.0 13.5 - 18.0 01/22 L [facility] CBC W/DIFF HEMATOCRIT 36.7 40.0 - 52.0 01/22 L [facility] CBC W/DIFF MCV 88 80 - 100 01/22 [facility] CBC W/DIFF MCH 29.0 27.0 - 34.0 01/22 [facility] CBC W/DIFF MCHC 33 32 - 37 01/22 [facility] CBC W/DIFF RDW 14.7 11.5 - 16.0 01/22 [facility] CBC W/DIFF PLATELETS 240 130 - 400 01/22 [facility] CBC W/DIFF MPV 8.2 6.8 - 10.2 01/22 [facility] CBC W/DIFF %NEUT 75 01/22 [facility] CBC W/DIFF %LYMPH 17 01/22 [facility] CBC W/DIFF %MONO 9 01/22 [facility] CBC W/DIFF %EOS 0 01/22 [facility] CBC W/DIFF %BASO 0 01/22 [facility] CBC W/DIFF #NEUT 3.4 1.7 - 8.6 01/22 [facility] CBC W/DIFF #LYMPH 0.7 0.5 - 5.9 01/22 [facility] CBC W/DIFF #MONO 0.4 0.0 - 1.6 01/22 [facility] CBC W/DIFF #EOS 0.0 0.0 - 1.0 01/22 [facility] CBC W/DIFF #BASO 0.0 0.0 - 0.3 01/22 {CD] [facility] CBC W/DIFF MANUAL DIFF NOT INDICATED 01/22 [facility] CBC W/DIFF RBC MORPH NOT INDICATED 01/22 [facility] COVID19 PUI, FLU A/B, RSV RAPID PANEL COVID POSITIVE NORMAL: NEGATIVE 01/21 [facility] COVID19 PUI, FLU A/B, RSV RAPID PANEL CALLED TO: JD Nguyen RN [phone] 01/21 { DATE: 01.21.21 { TIME: 1152 [facility] COVID19 PUI, FLU A/B, RSV RAPID PANEL READ BACK: YES 01/21 [facility] COVID19 PUI, FLU A/B, RSV RAPID PANEL INFLUENZA A NEGATIVE NORMAL: NEGATIVE 01/21 [facility] COVID19 PUI, FLU A/B, RSV RAPID PANEL INFLUENZA B NEGATIVE NORMAL: NEGATIVE 01/21 [facility] COVID19 PUI, FLU A/B, RSV RAPID PANEL RSV NEGATIVE NORMAL: NEGATIVE 01/21 The Xpert Xpress SARS-CoV-2/Fl u/RSV test is a rapid, multiplexed real-time RT-PCR test intended for the simultaneous qualitative detection and differentiati on of SARS-CoV-2, influenza A, influenza B, and respiratory syncytial virus (RSV) viral RNA in upper respiratory specimens collected from individuals suspected of respiratory viral infection consistent with COVID-19 by their healthcare provider. Approved for use under an Emergency Use Authorization (EUA) only. SARS-CoV-2, influenza A, influenza B and RSV RNA identified by this test are generally detectable in upper respiratory specimens during the acute phase of infection. Positive results are indicative of the presence of the identified virus, but do not rule out bacterial infection or co-infection with other pathogens not detected by the test. Clinical correlation with patient history and other diagnostic information is necessary to determine patient infection status. Negative results do not preclude SARS-CoV-2, influenza A virus, influenza B virus and/or RSV infection and should not be used as the sole basis for treatment or other patient management decisions. Negative results must be combined with clinical observations, patient history, and/or epidemiologic al information. [facility] NATRIURETIC PEPTIDE BNP BNP 61 0 - 100 01/21 B-TYPE NATRIURETIC PEPTIDE INTERPRETATIO N The BNP test is used as an aid in the diagnosis and assessment of severity of congestive heart failure. The test is also used for the risk stratificatio n of patients with acute coronary syndromes. [facility] COMPREHENS VE METABOLIC PANEL COMPREHENSIV E METABOLIC PANEL LAB 01/21 COMPREHENSIVE METABOLIC PANEL [facility] COMPREHENSI VE METABOLIC PANEL SODIUM 132 134 - 144 01/21 L [facility] COMPREHENSI VE METABOLIC PANEL POTASSIUM 4.7 3.5 - 5.1 01/21 [facility] COMPREHENS VE METABOLIC PANEL CHLORIDE 99 98 - 107 01/21 [facility] COMPREHENSI VE METABOLIC PANEL CO2 15 23 - 31 01/21 L [facility] COMPREHENSI VE METABOLIC PANEL ANION GAP 23 10 - 20 01/21 H [facility] COMPREHENSI VE METABOLIC PANEL GLUCOSE 434 70 - 99 01/21 H [facility] COMPREHENSI VE METABOLIC PANEL BUN 23 8 - 26 01/21 [facility] COMPREHENSI VE METABOLIC PANEL CREATININE 1.52 0.72 - 1.25 01/21 H [facility] COMPREHENSI VE METABOLIC PANEL TOTAL PROTEIN 7.1 6.4 - 8.3 01/21 [facility] COMPREHENSI VE METABOLIC PANEL ALBUMIN 4.1 3.2 - 4.6 01/21 [facility] COMPREHENSI VE METABOLIC PANEL CALCIUM 8.7 8.4 - 10.2 01/21 [facility] COMPREHENSI VE METABOLIC PANEL TOTAL BILI 0.8 0.2 - 1.2 01/21 [facility] COMPREHENSI VE METABOLIC PANEL ALKALINE PHOS 48 40 - 150 01/21 [facility] COMPREHENSI VE METABOLIC PANEL SGOT/AST 24 5 - 34 01/21 [facility] COMPREHENSI VE METABOLIC PANEL SGPT/ALT 25 0 - 55 01/21 [facility] [place] COMPREHENSI VE METABOLIC PANEL AGE 75 01/21 [facility] [place] COMPREHENSI VE METABOLIC PANEL NON-AA GFR 48 01/21 [facility] [place] COMPREHENSI VE METABOLIC PANEL AFR AMER GFR 58 01/21 [facility] [place] TROPONIN QT TROPONIN I 0.01 0.00 - 0.30 01/21 [facility] [place] D-DIMER D-DIMER QUANT <0.19 0.00 - 0.59 01/21 \BLDo\D-DIMER INTERPRETATIO N\BLDx\\ Negative Cutoff Value: <0.59 mg/L FEU Reference Interval: </=0.59 mg/L FEU [facility] [place] CBC W/DIFF CBC W/DIFF LAB 01/21 CBC W/DIFF [facility] [place] CBC W/DIFF WBC 6.0 4.8 - 10.8 01/21 [facility] [place] CBC W/DIFF RBC 4.42 4.70 - 6.10 01/21 L [facility] [place] CBC W/DIFF HEMOGLOBIN 12.8 13.5 - 18.0 01/21 L [facility] [place] CBC W/DIFF HEMATOCRIT 39.0 40.0 - 52.0 01/21 L [facility] [place] CBC W/DIFF MCV 88 80 - 100 01/21 [facility] [place] CBC W/DIFF MCH 29.0 27.0 - 34.0 01/21 [facility] [place] CBC W/DIFF MCHC 33 32 - 37 01/21 [facility] [place] CBC W/DIFF RDW 14.8 11.5 - 16.0 01/21 [facility] [place] CBC W/DIFF PLATELETS 223 130 - 400 01/21 [facility] [place] CBC W/DIFF MPV 7.9 6.8 - 10.2 01/21 [facility] [place] CBC W/DIFF %NEUT 83 01/21 [facility] [place] CBC W/DIFF %LYMPH 10 01/21 [facility] [place] CBC W/DIFF %MONO 7 01/21 [facility] [place] CBC W/DIFF %EOS 0 01/21 [facility] [place] CBC W/DIFF %BASO 0 01/21 [facility] [place] CBC W/DIFF #NEUT 4.9 1.7 - 8.6 01/21 [facility] [place] CBC W/DIFF #LYMPH 0.6 0.5 - 5.9 01/21 [facility] [place] CBC W/DIFF #MONO 0.4 0.0 - 1.6 01/21 [facility] [place] CBC W/DIFF #EOS 0.0 0.0 - 1.0 01/21 [facility] [place] CBC W/DIFF #BASO 0.0 0.0 - 0.3 01/21 {CD] [facility] [place] CBC W/DIFF MANUAL DIFF NOT INDICATED 01/21 [facility] [place] CBC W/DIFF RBC MORPH NOT INDICATED 01/21 [facility] [place] Blood Cult Blood Cult Final: No growth at 5 days. 01/21 When performed, RACHNA values are reported in mcg/ml. [facility] Diagnostic Reports Report Value Date Source MR MRCP wo Con Reason For Exam GB stones, elevates lipase, gallstone pancreatitis 04/24/2022 09:49:34 MST pt couldn't tolerate scan due to claustrophobia, does not want medication. AMADEO Win . PROCEDURE INFORMATION: Exam: MR Abdomen Without Contrast [...] I N A L * * * 04/24/2022 [facility] RADRPT
PROCEDURE INFORM ATION: Exam: MR Abdomen Without Contrast Exam date [...] without appreciable filling defect to suggest choledocholithiasis
Exam Date Time Procedure Performing Provider Status 04/24/22 1:15 PM MR MRCP wo Con Contributor_system, [place]GRAD; Auth (Verified) Notes:(MR MRCP wo Con) Reason For Exam: GB stones, elevates lipase, gallstone pancreatitisRADRPT PROCEDURE INFORMATION: Exam: MR Abdomen Without Contrast [...] I N A L * * *
04/24/2022 [facility] RADRPT
PROCEDURE INFORM ATION: Exam: MR Abdomen Without Contrast Exam date [...] without appreciable filling defect to suggest choledocholithiasis
Exam Date Time Procedure Performing Provider Status 04/24/22 1:15 PM MR MRCP wo Con Contributor_system, [employer]GRAD; Auth (Verified) Notes:(MR MRCP wo Con) Reason For Exam: GB stones, elevates lipase, gallstone pancreatitisRADRPT PROCEDURE INFORMATION: Exam: MR Abdomen Without Contrast [...] I N A L * * *
04/24/2022 [facility] US Abdomen Limited Reason For Exam Abdomen Pain RUQ PROCEDURE INFORMATION: Exam: US Abdomen, Limited; Right Upper Quadrant Exam date and time: 04/23/2022 1:41 AM Age: 76 years old Clinical indication: Abdomen pain ruq TECHNIQUE: Imaging protocol: Real time ultrasound of the abdomen with image documentation. Limited exam focused on the right upper quadrant. COMPARISON: No relevant prior studies available. FINDINGS: Liver: Normal. No masses. Gallbladder: Tank Inspector notes positive Youngblood's sign. The gallbladder demonstrates layering density consistent with noncalcified stones or sludge. No gallbladder wall thickening. Biliary ducts: Normal. No stones. No dilation. Pancreas: Visualized pancreas is unremarkable. Right kidney: Normal. No mass. No hydronephrosis. Other findings: Tank Inspector notes technically difficult exam secondary to patient body habitus and overlying bowel gas. IMPRESSION: Cholelithiasis. 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 * * * F I N A L * * * Dictated by: Reinaldo Zavaleta MD Electronically signed by: Reinaldo Zavaleta MD Transcribed by:LEO , , , S: 04/23/2022 04:36 * * * F I N A L * * * 04/23/2022 [facility] US Abdomen limited PROCEDURE INFORMATIO N: Exam: US Abdomen, Limited; Right Upper Quadrant Exam date and time: 04/23/2022 1:41 AM Age: 76 years old Clinical indication: Abdomen pain ruq TECHNIQUE: Imaging protocol: Real time ultrasound of the abdomen with image documentation. Limited exam focused on the right upper quadrant. COMPARISON: No relevant prior studies available. FINDINGS: Liver: Normal. No masses. Gallbladder: Tank Inspector notes positive Youngblood's sign. The gallbladder demonstrates layering density consistent with noncalcified stones or sludge. No gallbladder wall thickening. Biliary ducts: Normal. No stones. No dilation. Pancreas: Visualized pancreas is unremarkable. Right kidney: Normal. No mass. No hydronephrosis. Other findings: Tank Inspector notes technically difficult exam secondary to patient body habitus and overlying bowel gas. IMPRESSION: Cholelithiasis. 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 * * * F I N A L * * * Dictated by: Reinaldo Zavaleta MD Electronically signed by: Reinaldo Zavaleta MD Transcribed by:LEO , , , S: 04/23/2022 04:36 * * * F I N A L * * * 04/23/2022 [facility] CT Abdomen+Pelvis wo IV Con Reason For E xam abdominal pain Radiation Dose CTDIVOL = 0 (mGy): DLP [...] Cholelithiasis. No radiographic evidence of acute cholecystitis. [place] distended gallbladder consistent with hydrops. 2. Mild [...] I N A L * * * 04/23/2022 [facility] Electrocardiogram Stationary ECG Study [facility] [address] 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 CT Abdomen and Pelvis WO contrast Radiation Dose CTDIVOL = 0 (mGy): DLP [...] Cholelithiasis. No radiographic evidence of acute cholecystitis. [place] distended gallbladder consistent with hydrops. 2. Mild [...] I N A L * * * 04/23/2022 [facility] RADRPT
Radiation Dose C TDIVOL = 0 (mGy): DLP = 832.19 (mGy-cm) [...] Cholelithiasis. No radiographic evidence of acute cholecystitis. [place] distended gallbladder consistent with hydrops. 2. Mild diverticulosis of the distal colon. No bowel perferation or obstruction. 3. No renal, ureteral, or bladder calculi. No hydroureteronephrosis.
Ex am Date Time Procedure Performing Provider Status 04/23/22 2:[address] Abdomen+Pelvis wo IV Con Contributor_system, [employer]GRAD; Auth (Verified) Notes:(CT Abdomen+Pelvis wo IV Con) Reason For Exam: abdominal painRADRPT Radiation Dose CTDIVOL = 0 (mGy): DLP [...] Cholelithiasis. No radiographic evidence of acute cholecystitis. [place] distended gallbladder consistent with hydrops. 2. Mild diverticulosis of the distal colon. No bowel perferation or obstruction. 3. No renal, ureteral, or bladder calculi. No hydroureteronephrosis. * * * F I N A L * * * Dictated by: Reinaldo Zavaleta MD Electronically signed by: Reinaldo Zavaleta MD Transcribed by:LEO , , S: 04/23/2022 03:10 * * * F I N A L * * *
04/23/2022 [facility] RADRPT
Radiation Dose C TDIVOL = 0 (mGy): DLP = 832.19 (mGy-cm) [...] Cholelithiasis. No radiographic evidence of acute cholecystitis. [place] distended gallbladder consistent with hydrops. 2. Mild diverticulosis of the distal colon. No bowel perferation or obstruction. 3. No renal, ureteral, or bladder calculi. No hydroureteronephrosis.
Ex am Date Time Procedure Performing Provider Status 04/23/22 2:[address] Abdomen+Pelvis wo IV Con Contributor_system, [employer]GRAD; Auth (Verified) Notes:(CT Abdomen+Pelvis wo IV Con) Reason For Exam: abdominal painRADRPT Radiation Dose CTDIVOL = 0 (mGy): DLP [...] Cholelithiasis. No radiographic evidence of acute cholecystitis. [place] distended gallbladder consistent with hydrops. 2. Mild [...] I N A L * * *
04/23/2022 [facility] RAD[facility]
PROCEDURE INFORM ATION: Exam: US Abdomen, Limited; Right Upper Quadrant Exam date and time: 04/23/2022 1:41 AM Age: 76 years old Clinical indication: Abdomen pain ruq TECHNIQUE: Imaging protocol: Real time ultrasound of the abdomen with image documentation. Limited exam focused on the right upper quadrant. COMPARISON: No relevant prior studies available. FINDINGS: Liver: Normal. No masses. Gallbladder: Tank Inspector notes positive Youngblood's sign. The gallbladder demonstrates layering density consistent with noncalcified stones or sludge. No gallbladder wall thickening. Biliary ducts: Normal. No stones. No dilation. Pancreas: Visualized pancreas is unremarkable. Right kidney: Normal. No mass. No hydronephrosis. Other findings: Tank Inspector notes technically difficult exam secondary to patient body habitus and overlying bowel gas. IMPRESSION: Cholelithiasis. 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
Exam Date Time Procedure Performing Provider Status 04/23/22 4:30 AM US Abdomen Limited Contributor_system, [facility]GRAD; Auth (Verified) Notes:(US Abdomen Limited) Reason For Exam: Abdomen Pain RUQRADRPT PROCEDURE INFORMATION: Exam: US Abdomen, Limited; Right Upper Quadrant Exam date and time: 04/23/2022 1:41 AM Age: 76 years old Clinical indication: Abdomen pain ruq TECHNIQUE: Imaging protocol: Real time ultrasound of the abdomen with image documentation. Limited exam focused on the right upper quadrant. COMPARISON: No relevant prior studies available. FINDINGS: Liver: Normal. No masses. Gallbladder: Tank Inspector notes positive Youngblood's sign. The gallbladder demonstrates layering density consistent with noncalcified stones or sludge. No gallbladder wall thickening. Biliary ducts: Normal. No stones. No dilation. Pancreas: Visualized pancreas is unremarkable. Right kidney: Normal. No mass. No hydronephrosis. Other findings: Tank Inspector notes technically difficult exam secondary to patient body habitus and overlying bowel gas. IMPRESSION: Cholelithiasis. 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 * * * F I N A L * * * Dictated by: Reinaldo Zavaleta MD Electronically signed by: Reinaldo Zavaleta MD Transcribed by:AV , , , S: 04/23/2022 04:36 * * * F I N A L * * *
04/23/2022 [facility] RAD[facility]
PROCEDURE INFORM ATION: Exam: US Abdomen, Limited; Right Upper Quadrant Exam date and time: 04/23/2022 1:41 AM Age: 76 years old Clinical indication: Abdomen pain ruq TECHNIQUE: Imaging protocol: Real time ultrasound of the abdomen with image documentation. Limited exam focused on the right upper quadrant. COMPARISON: No relevant prior studies available. FINDINGS: Liver: Normal. No masses. Gallbladder: Tank Inspector notes positive Youngblood's sign. The gallbladder demonstrates layering density consistent with noncalcified stones or sludge. No gallbladder wall thickening. Biliary ducts: Normal. No stones. No dilation. Pancreas: Visualized pancreas is unremarkable. Right kidney: Normal. No mass. No hydronephrosis. Other findings: Tank Inspector notes technically difficult exam secondary to patient body habitus and overlying bowel gas. IMPRESSION: Cholelithiasis. 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
Exam Date Time Procedure Performing Provider Status 04/23/22 4:30 AM US Abdomen Limited Contributor_system, [employer]GRAD; Auth (Verified) Notes:(US Abdomen Limited) Reason For Exam: Abdomen Pain RUQRADRPT PROCEDURE INFORMATION: Exam: US Abdomen, Limited; Right Upper Quadrant Exam date and time: 04/23/2022 1:41 AM Age: 76 years old Clinical indication: Abdomen pain ruq TECHNIQUE: Imaging protocol: Real time ultrasound of the abdomen with image documentation. Limited exam focused on the right upper quadrant. COMPARISON: No relevant prior studies available. FINDINGS: Liver: Normal. No masses. Gallbladder: Tank Inspector notes positive Youngblood's sign. The gallbladder demonstrates layering density consistent with noncalcified stones or sludge. No gallbladder wall thickening. Biliary ducts: Normal. No stones. No dilation. Pancreas: Visualized pancreas is unremarkable. Right kidney: Normal. No mass. No hydronephrosis. Other findings: Tank Inspector notes technically difficult exam secondary to patient body habitus and overlying bowel gas. IMPRESSION: Cholelithiasis. 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 * * * F I N A L * * * Dictated by: Reinaldo Zavaleta MD Electronically signed by: Reinaldo Zavaleta MD Transcribed by:AV , , , S: 04/23/2022 04:36 * * * F I N A L * * *
04/23/2022 [facility] XR CHEST 1V [facility] [address] [place] [address] ---------NAME--------- NUMBER SEX AGE ADMIT DISC. XRAY# F/C TYPE APOLINAR [place] [id number] M 75 04/28/21 [id number] E/R DATE OF : 1945 M/R# [id number] #: [id number] LOCATION: TRANSCRIBED: 04/28/21 5:57 XR CHEST 1V [place] [id number] COMPLETED:04/28/21 5:56 [place] [address] Shortness of Breath PHYSICIAN: YANDY VALADEZ RADIOLOGY REPORT ORDER DATE and TIME: 04/28/2021 0527 PROCEDURE INFORMATION: Exam: XR Chest Exam date and time: 04/28/2021 5:33 AM Age: 75 years old Clinical indication: Shortness of breath TECHNIQUE: Imaging protocol: XR of the chest. Views: 1 view. COMPARISON: SC XR CHEST 1V PORT 01/21/2021 9:21 AM FINDINGS: Lungs: No consolidation. Pleural spaces: Unremarkable. No pleural effusion. No pneumothorax. Heart/Mediastinum: Heart size is within normal limits. Vasculature is unremarkable. Bones/joints: No acute osseous findings. IMPRESSION: No acute cardiopulmonary findings. THIS DOCUMENT HAS BEEN ELECTRONICALLY SIGNED BY DANNI IBANEZ MD on 04/28/2021 05:57:18; [id number] Electronically Signed By: NASRA GARCIA Date/Time: SIGNDATE 04/28/2021 [facility] [place] XR CHEST 1V PORT [facility] [address] [place] [address] ---------NAME--------- NUMBER SEX AGE ADMIT DISC. XRAY# F/C TYPE APOLINAR MARTINEZ L[place] [id number] M 75 01/21/21 [id number] E/R DATE OF : 1945 M/R# [id number] PH#: [id number] LOCATION: TRANSCRIBED: 01/21/21 9:58 XR CHEST 1V PORT [id number] COMPLETED: [id number] Cough PHYSICIAN: KELLY MOREJON RADIOLOGY REPORT ORDER DATE and TIME: 01/21/2021 0930 PROCEDURE INFORMATION: Exam: XR Chest Exam date and time: 01/21/2021 9:21 AM Age: 75 years old Clinical indication: Cough TECHNIQUE: Imaging protocol: XR of the chest. Views: 1 view. COMPARISON: No relevant prior studies available. FINDINGS: Lungs: Mild coalescent reticular and ground-glass opacities in both lungs concerning for interstitial pneumonia. Lung volumes are mildly diminished. Pleural spaces: No pleural effusion. No pneumothorax. Heart/Mediastinum: Within normal limits. Bones/joints: Unremarkable as visualized. IMPRESSION: Mild coalescent reticular and ground-glass opacities in both lungs concerning for interstitial pneumonia. Findings would be consistent with Covid-19 pneumonia. THIS DOCUMENT HAS BEEN ELECTRONICALLY SIGNED BY NARA SUNG DO on 01/21/2021 09:57:43; [id number] Electronically Signed By: DCTNAME, RADCRED Date/Time: SIGNDATE 01/21/2021 [facility] [place] Consultation Notes Results Value Date Source Discharge Phone Call - Text Discharge Phone Call Entered On: 04/29/2022 10:33 MST Performed On: 04/29/2022 10:33 MST by Karina Bill RN Patient Information DPC Diagnosis Only : Diagnosis this visit: Acute cholecystitis (K81.0) 04/23/2022 04:49 Discharge Cholelithiasis (K80.20) 04/23/2022 04:49 Discharge Diabetes mellitus (E11.9) 04/25/2022 12:25 Discharge Hypertension (I10) 04/25/2022 12:25 Discharge Hypercholesterolemia (E78.00) 04/25/2022 12:25 Discharge Sleep apnea (G47.30) 04/25/2022 12:25 Discharge DPC Physician/Surgeon : Physicians: Admitting Physician Marybel Truong Attending Physician Sana Cameron MD Consulting Physician Tyler Post MD Proxy: Alyson Lorenz MA to: 03/29 Physician Call Center Dispatcher Shreya Prince Nurse Practitioner Tyler Parker Disposition : Home/Self care Equipment : None DPC Date/Time Pt Called 1 : 04/28/2022 12:53 MST DPC Phone Call Result 1 : No answer, Patient unavailable DPC Date/Time Pt Called 2 : 04/29/2022 10:33 MST DPC Phone Call Result 2 : No answer, Patient unavailable Karina Bill RN - 04/29/2022 10:33 MST 04/29/2022 [facility] Discharge Phone Call - Text Discharge Phone Call Entered On: 04/28/2022 12:53 MST Performed On: 04/28/2022 12:53 MST by Shannan Fox RN Patient Information DPC Diagnosis Only : Diagnosis this visit: Acute cholecystitis (K81.0) 04/23/2022 04:49 Discharge Cholelithiasis (K80.20) 04/23/2022 04:49 Discharge Diabetes mellitus (E11.9) 04/25/2022 12:25 Discharge Hypertension (I10) 04/25/2022 12:25 Discharge Hypercholesterolemia (E78.00) 04/25/2022 12:25 Discharge Sleep apnea (G47.30) 04/25/2022 12:25 Discharge DPC Physician/Surgeon : Physicians: Admitting Physician Marybel Truong Attending Physician Sana Cameron MD Consulting Physician Tyler Post MD Proxy: Alyson Lorenz MA to: 03/29 Physician Call Center Dispatcher Shreya Prince Nurse Practitioner Tyler Parker Disposition : Home/Self care Equipment : None DPC Date/Time Pt Called 1 : 04/28/2022 12:53 MST DPC Phone Call Result 1 : No answer, Patient unavailable Shannan Fox RN - 04/28/2022 12:53 MST 04/28/2022 [facility] Consultation Note Carole Azevedo MD : PERFORMEvent Display: ConsultationAuthored Date: Patient: ?JUAN JIANG ? ? ?MRN: ?[id number] ? ? ?FIN: ?[id number] Age: ?76 years ? ? ?Sex: ?M ? ? ?: ?1945 ? ? ?Active Insurance: ?MEDICARE A Admitting MD: ?Truong, Marybel ACNP ? ? ?Location: ?[facility] 3A: 311: 01 ? ? ?PCP: ?Glenys Oakes MD Author: ?Carole Azevedo MD Reason for Consultation Preop evaluation? Chief Complaint c/o pressure in the abdomen since last night. History of Present Illness ? ? Patient denies any chest pain PND orthopnea or ankle edema.This is a?76-year-old gentleman who?lives in [place]. ?Patient?has been wintering in?[place]. ?Patient?was seen in the emergency room for abdominal?pressure. ?Patient stated that he noted that there is a huge amount of pressure in his abdomen. ?Patient was seen by?surgery and it was felt that patient may benefit from cholecystectomy.? Therefore cardiology consultation was obtained. ? His past medical history patient has a significant past medical history of diabetes mellitus hypertension?renal sufficiency?and history of?pulmonary embolism?in 2017?and history of hip surgery. ?Patient stated that he has seen a inventory transcriber and has undergone a stress test?to 3 years ago. ?Patient walks about 3-4000?steps every day. ?Patient?uses a cane to move around. ?Patient is on Xarelto 10 mg chronically?after his pulmonary embolism. Objective Vitals and Measurements T:?36.4? ?C ?(Oral)? TMIN:?36.4? ?C ?(Oral)? TMAX:?37.1? ?C ?(Oral)? HR:?74 RR:?18? BP:?115/67? SpO2:?98%? Oxygen Method:?Room air? WT:?130.8?kg? Physical Exam GEN: No acute distress, alert [...] Most Recent, Lab 24 hrs Last 24 Hours? ?Hematology-CBC ? ?04/23/22General Chemistry ? ?04/23/22POC Glucose ? ?04/23/22WBC:11.2 (H) ? Sodium:?136Glucose (POCT) Automated:161 (H) ??RBC:4.52 (L) ? Potassium:?4.3 ??Hgb:12.8 (L) ? Chloride:?104 ??Hct:38.9 (L) ?CO2:20 (L) ? ??MCV:?86.0 Anion Gap:?12 ??MCH:?28.4Glucose Level:177 (H) ? ??MCHC:?33.0BUN:27 (H) ? ??RDW:?15.2Creatinine:1.71 (H) ? ??Plt:?267 BUN/Ripsaw Operator Ratio:?15.8 ??MPV:?8eGFRcr:41 (L) ? ??Neuts:?70.9 Calcium:?9.6 ??Lymphs:?19.8 Corrected Calcium:?9.4 ??Monos.:?6.1 Protein, Total:?7.3 ??Eos.:?2.6 Albumin:?4.2 ??Baso.: 0.6 Globulin:?3 ??ABS Neut:?7.9 A/G Ratio:?1 ??ABS Lymph:?2.2 Bili Total:?0.8 ??ABS [place]:?0.7 ALT:?42 ??ABS Eos:?0.3AST:69 (H) ? ??ABS Baso:?0.1 Alkphos:?51 ??CBC Scan:?Auto DiffLipase:108.0 (H) ? ??nRBC Auto:?0 Lactic Acid:?1.2 ??Blood Glucose, Point of Care:161 mg/dL (H) ?Cardiac ? ?04/23/22Lipid Tests ? ?04/23/22Special Chemistry ? ?04/23/22B-Natriuretic Peptide:?20.6 Cholesterol:?137 TSH:?1.00?Troponin I:?0.01Triglycerides:362 (H) ? ? HDL:18 (L) ? ?? LDL Direct:?68 ?? VLDL:?72 ?? LDL/HDL:?3 ?? Chol/Trig:?0 ?? %HDL:?13 ??Cholesterol/HDL:8 (L) ?Toxicology ? ?04/23/22??Ethanol: ? ?Additional? Antibiotics Ordered ? cefTRIAXone: ? ?2,000 mg, ?IV Push, ?q24hr ?04/23/22 08:22 - Active ? ( 2 ? ?days )? metroNIDAZOLE: ? ?500 mg, ? ?IV, ?q8hr ?04/23/22 08:22 - Active ? ( 2 ? ?days )? ? Completed ? ampicillin-sulbactam: ? ?3 gm, ? ? ?IV, ?x1 ?04/23/22 04:40 - Active ? ( 1 ? ?days )? ? Diagnostic Results Twelve-lead EKG shows right bundle branch block Assessment/Plan Preop evaluation History of pulmonary embolism currently on Xarelto Obesity Diabetes mellitus Hypertension Renal sufficiency Plan Preop evaluation Patient has been?seen in the emergency room for abdominal pain and it was felt that patient may have?contribution from?gallbladder therefore patient was felt to be?candidate for?cholecystectomy. ?Patient was?asked to be evaluated. ?Patient has no chest pain or shortness of breath?ejection fraction within normal limits. ?His EKG is unremarkable therefore patient is at moderate risk for surgery.? Patient is on Xarelto therefore patient will be?advised to hold Xarelto for 72 hours?because of his?GFR?being between 30 and 59. ? Obesity Patient has obesity and needs to lose weight Diabetes mellitus Patient followed by internal medicine Hypertension Patient is on antihypertensive medication Renal sufficiency?patient is followed by internal medicine? history of pulmonary hypertension patient has mild pulmonary hypertension by echo Patient is advised to stop taking Xarelto for at least?3 days till decision to?proceed surgery is confirmed.? We will see the patient 1.?Acute cholecystitis?K81.0 2.?Cholelithiasis?K80.20 Problem List/Past Medical History Ongoing Anemia Asthma Diabetes mellitus Foot drop, left Hypercholesterolemia Hypertension Pulmonary embolism Sleep apnea Spinal stenosis Historical No qualifying data Procedure/Surgical History A denoidectomy H ydrocele T HR - 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 T onsillectomy Medications Inpatient cefTRIAXone (Rocephin) for IV Push, 2000 mg, IV Push, q24hr dextrose 50% (25gm) syringe, 25 gm= 50 mL, IV Push, q15min, PRN dextrose 50% (25gm) syringe, 12.5 gm= 25 mL, IV Push, q15min, PRN docusate sodium, 100 mg= 1 Cap, PO, BID Dulcolax, 10 mg= 1 Supp, VT, Daily, PRN DuoNeb, 3 mL, NEB - [...] Tab, PO, qMWF Claritin, 10 mg, PO, Daily,? ?Still taking, not as prescribed: OTC Farxiga 10 [...] oral capsule, extended release, 0.5 Tab, PO, BID,? 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 last Jun, 2021. NovoLOG, 10 Unit, SUBCUT, [...] PO, qPM Allergies No Known Medication Allergies ???Reaction: None Documented Social History Alcohol Denies, 04/23/2022 Denies, 04/23/2022 Home/Environment [employer] restrictions/concerns: None. Lives with Alone. Living situation: [...] Financial concerns: No. TV/Computer concerns: No., 04/23/2022 [employer] restrictions/concerns: None., 04/23/2022 Nutrition/Health Diet: Diabetic., 04/23/2022 Substance Abuse Denies, 04/23/2022 Denies, 04/23/2022 Tobacco Never (less than 100 in lifetime), 04/23/2022 Never (less than 100 in lifetime), 04/23/2022 Electronically Signed By:Carole Azevedo 04/24/22 00:02Co Signature By: Modify Signature By: 04/25/2022 [facility] Consultation Note Tyler Post MD: PERFORM, MODIFY, MODIFYEvent Display: ConsultationAuthored Date: Patient: ?JUAN JIANG ? ? ?MRN: ?[id number] ? ? ?FIN: ?[id number] Age: ?76 years ? ? ?Sex: ?M ? ? ?: 1945 ? ? ?Active Insurance: ?MEDICARE A Admitting MD: ?Marybel Truong ? ? ?Location: ?[facility] EDIP: ED08: 01 ? ? ?PCP: ?Glenys Oakes MD Author: ?Tyler Post MD Referring Physician Fili Cameron MD Reason for Consultation acute cholecystitis Chief Complaint RUQ pain History of Present Illness 76-year-old gentleman with past medical history of diabetes, asthma,?hypertension, PE?who came to ED due to?upper abdominal pressure. ? Per patient,?patient was ambulating at night?with some chest pressure?as if an elephant was sitting on his upper abdomen.. Pain was mostly in the lower sternum and epigastrium area.? He denies chest pain to me but described more typical chest pain to Dr. Cameron.? He denied any fever or chills or any shortness of breath.? He denied any radiating pain into the left side of his chest or jaw or back.? He denied any nausea or vomiting.? Pain is not associated to food intake.? Pain persisted was prompted ED visit.? Vital signs in ED showed elevated blood pressure but otherwise no fever and was breathing fine in room air.? Labs showed elevated WBC at 11.2 and creatinine at 1.71.? AST slightly elevated at 69 and lipase at 108.? CT abdomen and pelvis was done which showed cholelithiasis with no radiologic evidence of acute cholecystitis but showed overly distended gallbladder consistent with hydrops.? Ultrasound of the abdomen was done which showed cholelithiasis and positive Youngblood sign consistent with acute cholecystitis.? EKG was done which showed sinus rhythm with first-degree AV block.? Empiric IV antibiotics started.? Cardiology consult for preop clearance.? Surgery consulted for possible acute cholecystitis.? Patient admitted for further evaluation and management. ? At the time of my consult patient is up in chair and denies any abdominal pain.? He denies any prior hx of biliary colic.? He does not want surgery unless mandatory. Review of Systems 14 point ROS completed and negative except as noted in HPI above. Objective Vitals and Measurements T:?37.1? ?C ?(Oral)? TMIN:?36.4? ?C ?(Temporal Artery)? TMAX:?37.1? ?C ?(Oral)? HR:?77? RR:?18? BP:?129/70? SpO2:?98%? Oxygen Method:?Room air? WT:?124.717?kg? WT:?275?lbs? Physical Exam GENERAL: Nontoxic, no acute distress, alert, oriented x 3 HEENT: Normocephalic, atraumatic, no scleral icterus or conjunctival injection, MMM OP clear w/o erythema or exudate NECK: supple, no rigidity. No lymphadenopathy, bruits, or thyromegaly LUNGS: Clear to auscultation bilaterally. No crackles or wheezes. CV: RRR, normal S1/S2, no gallops. PMI not displaced. No jugular venous distention. ? GI: obese, soft, normoactive bowel sounds, no rebound, guarding or masses, no hepatomegaly or splenomegaly, no pulsatile mass or bruit. NO tenderness in epigastric region and RUQ.? ? : no suprapubic or flank tenderness. BACK: [...] Most Recent, Lab 24 hrs Last 24 Hours? ?Hematology-CBC ? ?04/23/22General Chemistry ? ?04/23/22POC Glucose ? ?04/23/22WBC:11.2 (H) ? Sodium:?136Glucose (POCT) Automated:161 (H) ??RBC:4.52 (L) ? Potassium:?4.3 ?Hgb:12.8 (L) ? Chloride:?104 ?Hct:38.9 (L) ?CO2:20 (L) ? ?MCV:?86.0 Anion Gap:?12 ?MCH:?28.4Glucose Level:177 (H) ? ?MCHC:?33.0BUN:27 (H) ? ?RDW:?15.2Creatinine:1.71 (H) ? ?Plt:?267 BUN/Ripsaw Operator Ratio:?15.8 ?MPV:?8eGFRcr:41 (L) ? ?Neuts:?70.9 Calcium:?9.6 ?Lymphs:?19.8 Corrected Calcium:?9.4 ?Monos.:?6.1 Protein, Total:?7.3 ?Eos.:?2.6 Albumin:?4.2 ?Baso.:?0.6 Globulin:?3 ?ABS Neut:?7.9 A/G Ratio:?1 ?ABS Lymph: 2.2 Bili Total:?0.8 ?ABS [place]:?0.7 ALT:?42 ?ABS Eos:?0.3AST:69 (H) ? ?ABS Baso:?0.1 Alkphos:?51 ?CBC Scan:?Auto DiffLipase:108.0 (H) ? ?nRBC Auto:?0 Lactic Acid:?1.2 ?Cardiac ? ?04/23/22Lipid Tests ?04/23/22Special Chemistry ? ?04/23/22B-Natriuretic Peptide:?20.6 Cholesterol:?137 TSH:?1.00?Troponin I:?Triglycerides:362 (H) ? HDL:18 (L) ? LDL Direct:?68 VLDL:?72 LDL/HDL:?3 Chol/Trig:?0 %HDL:?13 Cholesterol/HDL:8 (L) ? ?Toxicology ? ?04/23/22??Ethanol: Additional? ? ? Antibiotics Ordered ? cefTRIAXone: ? ?2,000 mg, ?IV Push, ?q24hr ?04/23/22 08:22 - Active ? ( 1 ? ?days )? metroNIDAZOLE: ? ?500 mg, ? ?IV, ?q8hr ?04/23/22 08:22 - Active ? ( 1 ? ?days )? ? Completed ? ampicillin-sulbactam: ? ?3 gm, ? ? ?IV, ?x1 ?04/23/22 04:40 - Active ? ( 1 ? ?days )? ? Diagnostic Results Ultrasound - All Encounters, Most Recent, Last 2 weeks US Abdomen Limited ? 04/23/22 01:41:14 PROCEDURE INFORMATION: Exam: US Abdomen, Limited; Right Upper Quadrant Exam date and time: 04/23/2022 1:41 AM Age: 76 years old Clinical indication: Abdomen pain ruq ? TECHNIQUE: Imaging protocol: Real time ultrasound of the abdomen with image documentation. Limited exam focused on the right upper quadrant. ? COMPARISON: No relevant prior studies available. ? FINDINGS: Liver: Normal. No masses. Gallbladder: Tank Inspector notes positive Youngblood s sign. The gallbladder demonstrates layering density consistent with noncalcified stones or sludge. No gallbladder wall thickening. Biliary ducts: Normal. No stones. No dilation. Pancreas: Visualized pancreas is unremarkable. Right kidney: Normal. No mass. No hydronephrosis. ? Other findings: Tank Inspector notes technically difficult exam secondary to patient body habitus and overlying bowel gas. ? IMPRESSION: Cholelithiasis. Positive business computers teacher s Youngblood s sign consistent with acute cholecystitis. ? Signed By: Reinaldo Zavaleta MD Assessment/Plan 1.?Acute cholecystitis?K81.0 possible early vs other diagnosis Ordered: ? 2.?Cholelithiasis?K80.20 Ordered: ? Plan- Long discussion but not clearly gall bladder related though possible.? Would be first episode. Pt. reluctant to have surgery. Will get HIDA.? If negative can d/c home. Pt. can f/u for OPT surgery for repeat pain episodes. Pt. only wants surgery if cannot be avoided. Problem List/Past Medical History Ongoing Anemia Asthma Diabetes mellitus Foot drop, left Hypercholesterolemia Hypertension Pulmonary embolism Spinal stenosis Historical No qualifying data Procedure/Surgical History A denoidectomy H ydrocele T HR - 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 T onsillectomy Medications Inpatient cefTRIAXone (Rocephin) for IV Push, 2000 mg, IV Push, q24hr dextrose 50% (25gm) syringe, 25 gm= 50 mL, IV Push, q15min, PRN dextrose 50% (25gm) syringe, 12.5 gm= 25 mL, IV Push, q15min, PRN Dulcolax, 10 mg= 1 Supp, VT, Daily, PRN DuoNeb, 3 mL, NEB - [...] PO, qPM Allergies No Known Medication Allergies ???Reaction: None Documented Social History Alcohol Denies, 04/23/2022 Denies, 05/22/2021 Home/Environment [employer] restrictions/concerns: None., 04/23/2022 [employer] restrictions/concerns: None., 05/22/2021 Substance Abuse Denies, 04/23/2022 Denies, 05/22/2021 Tobacco Never (less than 100 in lifetime), 04/23/2022 Never (less than 100 in lifetime), 05/22/2021 Family History Reviewed and noncontributory. Electronically Signed By:Tyler Post 04/24/22 13:31Co Signature By: Modify Signature By:Tyler Post 04/23/22 16:51 04/25/2022 [facility] Discharge Instructions Document [facility] [address] [place] [address] APOLINAR JUAN :1945 (AG) Visit Date:04/23/2022 Inpatient Discharge Instructions Your Care Team Admitting Physician - Marybel Truong Attending Physician - Sana Cameron MD Consulting Physician - Tyler Post MD, Ahtisham MD Lifetime Physician(PCP) - Glenys Oakes MD Your Diagnosis Acute cholecystitis Cholelithiasis Diabetes mellitus Hypertension Hypercholesterolemia Sleep apnea Discharge Vitals Temperature 36.5 ?C (Oral) TMIN 36.5 ?C (Oral) TMAX 36.8 ?C (Axillary) Heart Rate 84 Respiratory Rate 18 Blood Pressure 127/77 What to do next You May Need to Schedule the Following Appointments Follow Up with Glenys Oakes MD When Within 1 week Why: Call for follow up appointment Where: [address] [facility] [address] [place] [address]- Follow Up with Tyler Post MD When Within 2 to 3 weeks, only if needed Where: [phone] We encourage you to sign up for My Portal, where you can easily access your medical records and test results from all [facility]. Please sign up in one of the following ways: 1. Email invitation. You may have a message in your inbox. Please click the link provided to create an account. OR 2. Request an invitation at your next clinic or hospital visit. Please ask a staff member and they will be happy to assist you. Medications What How Much When Instructions Next Dose New ciprofloxacin (ciprofloxacin 500 mg oral tablet) 1 tab(s) By mouth Every 12 hours Duration: 10 Days Pickup at [facility][id number] New metroNIDAZOLE (Flagyl 500 mg oral tablet) 1 tab(s) By mouth Every 8 hours Duration: 10 Days Pickup at [facility] #[id number] Changed chlorthalidone (chlorthalidone 25 mg oral tablet) 1 tab(s) By mouth Every Thursday, Thursday, and Thursday Changed cholecalciferol (Vitamin D3 25 mcg (1,000 unit) oral tablet, chewable) 1 tab(s) Chew Twice daily Changed cyanocobalamin (Vitamin B12 1000 mcg oral tablet) 1 tab(s) By mouth Twice daily Changed ferrous gluconate (iron gluconate) 27 Milligram By mouth Every Thursday, Thursday, and Thursday takes 3 x per week Changed finasteride (finasteride 5 mg oral tablet) 1 tab(s) By mouth Every bedtime Changed lisinopril (lisinopril 2.5 mg oral tablet) 1 tab(s) By mouth Once daily Pickup at [facility] #[id number] Changed metoprolol (metoprolol tartrate 25 mg oral tablet) 0.5 tab(s) By mouth Twice daily Pickup at [facility] #[id number] Changed omega-3 polyunsaturated fatty acids (Fish Oil 1000 mg oral capsule) 2 cap By mouth Twice daily Changed rivaroxaban (Xarelto 10 mg oral tablet) 1 tab(s) By mouth Every bedtime Changed rosuvastatin (rosuvastatin 20 mg oral tablet) 1 tab(s) By mouth Every bedtime Unchanged albuterol (albuterol HFA (90 mcg/ dose) MDI) 1 puff(s) Inhaled Four times daily as needed for as needed for wheezing Unchanged dapagliflozin (Farxiga 10 mg oral tablet) 1 tab(s) By mouth Once daily Unchanged glipiZIDE (glipiZIDE 5 mg oral tablet, extended release) 1 tab(s) By mouth Twice daily Unchanged SITagliptin (Januvia 100 mg oral tablet) 1 tab(s) By mouth Once daily Pharmacy Information [id number]: [address] [facility] [place] [phone] What How Much When Comments Stop Taking insulin aspart (NovoLOG) 10 unit(s) subcutaneously Three times daily before meals Stop Taking insulin detemir (Levemir 100 units/ mL subcutaneous solution) 60 units subcutaneously Once daily Stop Taking loratadine (Claritin) 1 tab(s) By mouth Once daily Stop Taking potassium chloride (potassium chloride 8 mEq oral tablet, extended release) 1 tab(s) By mouth Once daily Discharge Orders Discharge Orders: Discharge Today, Home or self care Discharge Activity As tolerated Discharge Diet Consistent Carbohydrate Education Materials Gallbladder Eating Plan If you have a gallbladder condition, you may have trouble digesting fats. Eating a low-fat diet can help reduce your symptoms, and may be helpful before and after having surgery to remove your gallbladder (cholecystectomy). Your health care provider may recommend that you work with a diet and livestock nutrition territory manager (dietitian) to help you reduce the amount of fat in your diet. What are tips for following this plan General guidelines Limit your fat intake to less than 30% of your total daily calories. If you eat around 1,800 calories each day, this is less than 60 grams (g) of fat per day. Fat is an important part of a healthy diet. Eating a low-fat diet can make it hard to maintain a healthy body weight. Ask your dietitian how much fat, calories, and other nutrients you need each day. Eat small, frequent meals throughout the day instead of three large meals. Drink at least 8 1 0 cups of fluid a day. Drink enough fluid to keep your urine clear or pale yellow. Limit alcohol intake to no more than 1 drink a day for non women and 2 drinks a day for men. One drink equals 12 oz of beer, 5 oz of wine, or 1 oz of hard liquor. Reading food labels Check Nutrition Facts on food labels for the amount of fat per serving. Choose foods with less than 3 grams of fat per serving. Shopping Choose nonfat and low-fat healthy foods. Look for the words 'nonfat,' 'low fat,' or 'fat free.' Avoid buying processed or prepackaged foods. Cooking Cook using low-fat methods, such as baking, broiling, grilling, or boiling. Cook with small amounts of healthy fats, such as olive oil, grapeseed oil, canola oil, or sunflower oil. What foods are recommended All fresh, frozen, or canned fruits and vegetables. Whole grains. Low-fat or non-fat (skim) milk and yogurt. Lean meat, skinless poultry, fish, eggs, and beans. Low-fat protein supplement powders or drinks. Spices and herbs. What foods are not recommended High-fat foods. These include baked goods, fast food, fatty cuts of meat, ice cream, slovenian toast, sweet rolls, pizza, cheese bread, foods covered with butter, creamy sauces, or cheese. Fried foods. These include slovenian fries, tempura, battered fish, breaded chicken, fried breads, and sweets. Foods with strong odors. Foods that cause bloating and gas. Summary A low-fat diet can be helpful if you have a gallbladder condition, or before and after gallbladder surgery. Limit your fat intake to less than 30% of your total daily calories. This is about 60 g of fat if you eat 1,800 calories each day. Eat small, frequent meals throughout the day instead of three large meals. This information is not intended to replace advice given to you by your health care provider. Make sure you discuss any questions you have with your health care provider. Document Revised: 09/14/2020 Document Reviewed: 09/20/2020 [employer] Patient Education ? 2021 [employer]. Cholecystitis Cholecystitis is irritation and swelling (inflammation) of the gallbladder. The gallbladder: Is an organ that is shaped like a pear. Is under the liver on the right side of the body. Stores bile. Bile helps the body break down (digest) the fats in food. This condition can occur all of a sudden. It needs to be treated. What are the causes This condition may be caused by stones or lumps that form in the gallbladder (gallstones). Gallstones can block the tube (duct) that carries bile out of your gallbladder. Other causes include: Damage to the gallbladder due to less blood flow. Germs in the bile ducts. Scars, kinks, or adhesions in the bile ducts. Abnormal growths (tumors) in the liver, pancreas, or gallbladder. What increases the risk You are more likely to develop this condition if: You are female and between the ages of 55 6 2. You take control pills. You use estrogen. You take certain medicines that make you more likely to develop gallstones. You are overweight (obese). You have a very bad reaction to an infection (sepsis). You have been hospitalized due to a serious condition, such as a burn or illness. You have not eaten or drank for a long time. What are the signs or symptoms Symptoms of this condition include: Pain in the upper right part of the belly (abdomen). A lump over the gallbladder. Bloating in the belly. Feeling sick to your stomach (nauseous). Vomiting. Fever. Chills. How is this treated This condition may be treated with: Medicines to treat pain. Giving fluids through an IV tube. Not eating or drinking (fasting). Antibiotic medicines. Surgery to take out your gallbladder. Gallbladder drainage. Follow these instructions at home: Medicines Take ancg-luf-sdwimxz and prescription medicines only as told by your doctor. If you were prescribed an antibiotic medicine, take it as told by your doctor. Do not stop taking it even if you start to feel better. General instructions Follow instructions from your doctor about what to eat or drink. Do not eat or drink anything that makes you sick again. Do not smoke or use any products that contain nicotine or tobacco. If you need help quitting, ask your doctor. Keep all follow-up visits. Contact a doctor if: You have pain and your medicine does not help. You have a fever. Get help right away if: Your pain moves to: Another part of your belly. Your back. Your symptoms do not go away. You have new symptoms. These symptoms may be an emergency. Get help right away. Call 911. Do not wait to see if the symptoms will go away. Do not drive yourself to the hospital. Summary This condition may be caused by stones or lumps that form in the gallbladder (gallstones). A common symptom is pain in your belly. This condition may be treated with surgery to take out your gallbladder. Follow instructions from your doctor about what to eat or drink. This information is not intended to replace advice given to you by your health care provider. Make sure you discuss any questions you have with your health care provider. Document Revised: 08/06/2021 Document Reviewed: 08/06/2021 [employer] Patient Education ? 2021 [employer] Clothes at Bedside: Pants, Shirt, Shoes Clothes Sent Home: Pants, Shirt, Shoes Electronics at Bedside: Cell phone Jewelry at Bedside: Watch Miscellaneous Items at Bedside: Other: Cane Miscellaneous Items Sent Home: Other: Cane Personal Devices at Bedside: Glasses I understand that [facility] is not responsible for any personal belongings/effects or valuables that have not been identified on the valuables and belongings list. Any personal effects brought into the facility and not recorded on the valuables and belongings form are the responsibility of the patient/family/significant other.I have received the indicated patient education materials/instructions and medication list and have verbalized understanding. Patient Name: JUAN JIANG Patient/Recovery Auditor Signature: Relationship to Patient: Witness Signature: Date/Time: 04/25/2022 [facility] Nursing Discharge Summary - Text Nursing Discharge Summary Entered On: 04/25/2022 13:05 MST Performed On: 04/25/2022 13:05 MST by Audelia Schmidt DC Information Disposition : Home/Self care Accompanied By : Patient Mode of Discharge : Crutches/cane/walker Equipment : None Community Resource Information : None Discharge / Transfer Checklist : IV / Lines / Devices discontinued, Medications / Prescriptions, Valuables / Belongings Form Reviewed and Signed Right Click on Box to View Reference Text. : No Audelia Schmidt - 04/25/2022 13:05 MST 04/25/2022 [facility] Discharge summary Patient: JUAN JIANG Age: 76 years Sex: M : 1945 Active Insurance: MEDICARE A Admitting MD: Marybel Truong Location: [facility] 3A: 311: 01 PCP: Glenys Oakes MD Author: Sana Cameron MD [facility] Admission Information Admit Date: 04/23/22 01:17 Discharge/Transfer Date: 04/25/22 14:10 Discharge Diagnosis Diagnosis this visit: Acute cholecystitis (K81.0) 04/23/2022 04:49 Discharge Cholelithiasis (K80.20) 04/23/2022 04:49 Discharge Diabetes mellitus (E11.9) 04/25/2022 12:25 Discharge Hypertension (I10) 04/25/2022 12:25 Discharge Hypercholesterolemia (E78.00) 04/25/2022 12:25 Discharge Sleep apnea (G47.30) 04/25/2022 12:25 Discharge #Acutecalculus cholecystitis #Elevated lipasewith no hyperbilirubinemiaand normal pancreas on CT l ikely secondary to above #Abdominal pain secondary to above #Chest paindescribed as elephant sitting on the chest -this may be secondary to above but in light of typical description, ACSstill has to be ruled out #Hypertension #Diabetes type 2 #CKDwith possibleAKI #Obesity #Hypercholesterolemia #Asthma #[facility] surgery Reason for Admission Abdominal pain Hospital Course Mr Jiang is a 76-year-old gentleman with past medical history of diabetes, asthma,hypertension, PEwho came to ED due tochest pain Per patient,patient was ambulating at nightwith some chest pressureas if an elephant was sitting on his chest. Pain was mostly in the lower sternum and epigastrium area. But most pressure-like in character as if an elephant was sitting on his chest. He denied any fever or chills or any shortness of breath. He denied any radiating pain into the left side of his chest or jaw or back. He denied any nausea or vomiting. Pain is not associated to food intake. Pain persisted was prompted ED visit. Vital signs in ED showed elevated blood pressure but otherwise no fever and was breathing fine in room air. Labs showed elevated WBC at 11.2 and creatinine at 1.71. AST slightly elevated at 69 and lipase at 108. CT abdomen and pelvis was done which showed cholelithiasis with no radiologic evidence of acute cholecystitis but showed overly distended gallbladder consistent with hydrops. Ultrasound of the abdomen was done which showed cholelithiasis and positive Youngblood sign consistent with acute cholecystitis. EKG was done which showed sinus rhythm with first-degree AV block. Empiric IV antibiotics started. Cardiology consult for preop clearance. Surgery consulted for acute cholecystitis. Patient admitted for further evaluation and management. On 04/24/2022. Patient overall feeling well anddenied any pain. Patientdoes not want to pursue surgeryif possibledepending onimaging report. MRCP and HIDA scan ordered. MRCP ordered due to uptrending lipaseand LFTs.HIDA scanwill have to be doneat outside facilitywhich schedule is pending. Troponin trends were overall negative. Per cardiology patient is at moderate risk for surgery. On 04/25/2022. MRCP reviewed which showed dependent gallbladder sludge or small cholelithiasis. Normal caliber common bile duct without appreciable filling defect to suggest choledocholithiasis. Surgeon reviewed imaging and no longer requested HIDA scan. Surgeon did not recommend urgent surgical intervention at this time since patient would prefer no surgical intervention as well. Patient advised to follow-up with surgeon on the event that he becomes symptomatic. Patient is otherwise asymptomatic now and doing well. He is tolerating diet and overall responded well with antibiotics. Patient stabilized and cleared for discharge. Plan was discussed in depth with strong emphasis on medication compliance and close follow up with his primary doctor and surgeon. All questions were answered to the best of my knowledge. Pt verbalized understanding and was agreeable to plan. Objective Vitals and Measurements T:36.5 ?C (Oral) TMIN:36.5 ?C (Oral) TMAX:36.8 ?C (Axillary) HR:84 RR:18 BP:127/77 SpO2:97% Oxygen Method:Room air Physical Exam General: No acute distress. Eye: [...] No focal defects Psychiatric: Cooperative, Appropriate mood and affect. Lab Results Common Labs - All Encounters, All Results, Last 1 month Last Month Hematology-CBC General Chemistry POC Glucose 04/25/22 04/25/22 04/25/22 WBC:8.4 thousand/uL Blood Glucose, Point of Care:190 mg/dL (H) Glucose (POCT) Automated:223 mg/dL (H) RBC:4.24 million/uL (L) 04/25/22 Hgb:12.1 gm/dL (L) Sodium:137 mmol/L Hct:36.5 % (L) Potassium:4.2 mmol/L MCV:86.1 fL Chloride:111 mmol/L (H) MCH:28.6 pg CO2:18 mmol/L (L) MCHC:33.3 gm/dL Anion Gap:8 mmol/L RDW:15.0 % Glucose Level:199 mg/dL (H) Plt:243 thousand/uL BUN:13 mg/dL MPV:8 fL Creatinine:0.99 mg/dL 04/23/22 BUN/Ripsaw Operator Ratio:13.1 Neuts:70.9 % eGFRcr:79 mL/min/1.73m2 (L) Lymphs:19.8 % Calcium:9.0 mg/dL Monos.:6.1 % Corrected Calcium:9.4 mg/dL Eos.:2.6 % M.5 mg/dL (L) Baso.:0.6 % Protein, Total:6.2 gm/dL ABS Neut:7.9 thousand/uL Albumin:3.5 gm/dL ABS Lymph:2.2 thousand/uL Globulin:3 gm/dL ABS [place]:0.7 thousand/uL A/G Ratio:1 ABS Eos:0.3 thousand/uL Bili Total:0.5 mg/dL ABS Baso:0.1 thousand/uL ALT:217 Units/L (H) CBC Scan:Auto Diff AST:78 Units/L (H) nRBC Auto:0 Alkphos:82 Units/L Amylase:40 Units/L Lipase:53.0 Units/L 04/23/22 Lactic Acid:1.2 mmol/L Cardiac Lipid Tests Special Chemistry 04/23/22 04/23/22 04/24/22 Troponin I:0.01 ng/mL Cholesterol:137 mg/dL HgbA1C:7.4 % (H) 04/23/22 Triglycerides:362 mg/dL (H) Estimated Average Glucose:166 B-Natriuretic Peptide:20.6 pg/mL HDL:18 mg/dL (L) 04/23/22 LDL Direct:68 mg/dL TSH:1.00 mcIU/mL VLDL:72 mg/dL LDL/HDL:3 ratio Chol/Tri %HDL:13 % Cholesterol/HDL:8 mg/dL (L) Toxicology 04/23/22 Ethanol:<10 mg/dL (H) Additional 04/25/22 Heme Index:Negative Icteric Index:Negative Lab Add On*:Yes Lipemia Index:Negative Diagnostic Results Radiology - Full Interpretation, This Encounter Name:JUAN JIANG Account:[id number] :1945 Result Date:04/24/22 13:15 Verified By:Avel Muir MD at 04/24/22 14:13 Report :MR MRCP wo Con PROCEDURE INFORMATION: Exam: MR Abdomen Without Contrast [...] without appreciable filling defect to suggest choledocholithiasis 04/24/22 12:43 ++++++++++++++++++++++++++++++++++++++ +++++++++++++++++ Result Date:04/23/22 04:30 Verified By:Reinaldo Zavaleta MD at 04/23/22 04:36 Report :US Abdomen Limited PROCEDURE INFORMATION: Exam: US Abdomen, Limited; Right Upper Quadrant Exam date and time: 04/23/2022 1:41 AM Age: 76 years old Clinical indication: Abdomen pain ruq TECHNIQUE: Imaging protocol: Real time ultrasound of the abdomen with image documentation. Limited exam focused on the right upper quadrant. COMPARISON: No relevant prior studies available. FINDINGS: Liver: Normal. No masses. Gallbladder: Tank Inspector notes positive Youngblood's sign. The gallbladder demonstrates layering density consistent with noncalcified stones or sludge. No gallbladder wall thickening. Biliary ducts: Normal. No stones. No dilation. Pancreas: Visualized pancreas is unremarkable. Right kidney: Normal. No mass. No hydronephrosis. Other findings: Tank Inspector notes technically difficult exam secondary to patient body habitus and overlying bowel gas. IMPRESSION: Cholelithiasis. 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 04/23/22 01:41 ++++++++++++++++++++++++++++++++++++++ +++++++++++++++++ Result Date:04/23/22 02:57 Verified By:Reinaldo Zavaleta MD at 04/23/22 03:10 Report :CT Abdomen+Pelvis wo IV Con Radiation Dose CTDIVOL = 0 (mGy): DLP [...] Cholelithiasis. No radiographic evidence of acute cholecystitis. [place] distended gallbladder consistent with hydrops. 2. Mild diverticulosis of the distal colon. No bowel perferation or obstruction. 3. No renal, ureteral, or bladder calculi. No hydroureteronephrosis. 04/23/22 02:48 ++++++++++++++++++++++++++++++++++++++ +++++++++++++++++ ECHO Admission - Current Encounter, Most Recent Echocardiogram Transthoracic 04/23/22 10:26:01 Conclusions 1. Left ventricle: The cavity size is [...] mass index: BMI: 39.5kg/m^2. _ Cardiac Anatomy Left ventricle: The cavity size is normal. [...] evidence of pleural fluid accumulation. _ Measurements Left ventricle Value Ref LV ID, ED, [...] 35 - 75 volume/bsa, Teichholz MM LV e , lateral (L) 8.9 cm/sec >=10.0 LV E/e , lateral 7 --------- LV e , medial (L) 6.0 cm/sec >=7.0 LV E/e , medial 10 --------- LV e , average 7.5 cm/sec --------- LV E/e , average 8 <=14 LVOT Value Ref LVOT ID, S 2.2 cm --------- LVOT area 3.8 cm^2 --------- LVOT peak velocity, S 0.98 m/sec --------- LVOT mean velocity, S 0.56 m/sec --------- LVOT VTI, S 15.8 cm --------- LVOT peak gradient, S 4 mm Hg --------- LVOT mean gradient, S 1 mm Hg --------- Ventricular septum Value Ref IVS thickness, ED, PLAX 0.7 cm 0.6 - 1.0 IVS thickness, ED 0.7 cm 0.6 - 1.0 Right ventricle Value Ref RV ID, ED, PLAX 4.3 cm --------- RV ID, ED 4.3 cm --------- TAPSE, 2D 2.1 cm 1.7 - 3.1 TAPSE, MM 2.1 cm 1.7 - 3.1 Left atrium Value Ref LA ID, A-P, ES 3.5 cm 3.0 - 4.0 LA ID/bsa, A-P 1.5 cm/m^2 1.5 - 2.3 LA area, ES, A4C (H) 24 cm^2 <=20 LA volume, ES, 1-p A4C (H) 66 ml 18 - 58 LA volume/bsa, ES, 1-p 28 ml/m^2 12 - 37 A4C LA/aortic root ratio 1.17 --------- Right atrium Value Ref RA ID, M-L, [...] A4C (L) 1.5 cm/m^2 1.8 - 3.0 Aortic valve Value Ref Aortic valve peak [...] valve area/bsa, 1.27 cm^2/m^2 --------- mean velocity Mitral valve Value Ref Mitral E-wave peak [...] valve area/bsa, 1.11 cm^2/m^2 --------- LVOT continuity Pulmonic valve Value Ref Pulmonic valve peak 0.8 m/sec --------- velocity, S Pulmonic peak gradient, 2 mm Hg --------- S Pulmonic regurg 0.35 m/sec --------- velocity, ED Tricuspid valve Value Ref Tricuspid regurg peak (H) 3.3 m/sec <=2.8 velocity Tricuspid peak RV-RA 43 mm Hg --------- gradient Aortic root Value Ref Aortic root ID 3.0 cm <4.4 Ascending aorta Value Ref Ascending aorta ID, 3.0 cm --------- A-P, S Ascending aorta ID/bsa, 1.3 cm/m^2 --------- A-P, S Pulmonary artery Value Ref PA pressure, S, DP 45 mm Hg --------- Pulmonary veins Value Ref Pulmonary vein peak 0.39 m/sec --------- velocity, S Pulmonary vein peak 0.24 m/sec --------- velocity, D Pulmonary vein velocity 1.6 --------- ratio, peak, S/D Pulmonary vein A-wave 0.35 m/sec --------- reversal peak velocity Legend: (L) and (H) bianka values outside specified reference range. Carole Azevedo MD [id number]:57 Condition on Discharge Stable Discharge Plan Discharge Medications 1. metoprolol(metoprolol tartrate 25 mg oral tablet) 12.5 mg= 0.5 Tab By mouth Tab twice daily New Prescriptions 2. metroNIDAZOLE(Flagyl 500 mg oral tablet) 500 mg= 1 Tab By mouth Tab every 8 hours 10 Day 3. ciprofloxacin(ciprofloxacin 500 mg oral tablet) 500 mg= 1 Tab By mouth Tab every 12 hours 10 Day Target Dose: ciprofloxacin 500 mg oral tablet 20 mg/kg 06/25/18 10:03:19 4. lisinopril(lisinopril 2.5 mg oral tablet) 2.5 mg= 1 Tab By mouth Tab once daily Medications to Continue 5. rivaroxaban(Xarelto 10 mg oral tablet) 10 mg= 1 Tab By mouth every bedtime 6. glipiZIDE(glipiZIDE 5 mg oral tablet, extended release) 5 mg= 1 Tab By mouth twice daily 7. SITagliptin(Januvia 100 mg oral tablet) 100 mg= 1 Tab By mouth once daily 8. cholecalciferol(Vitamin D3 25 mcg (1,000 unit) oral tablet, chewable) 25 mcg= 1 Tab Chew Tab, Chew twice daily 9. finasteride(finasteride 5 mg oral tablet) 5 mg= 1 Tab By mouth Tab every bedtime 10. dapagliflozin(Farxiga 10 mg oral tablet) 10 mg= 1 Tab By mouth Tab once daily 11. rosuvastatin(rosuvastatin 20 mg oral tablet) 20 mg= 1 Tab By mouth Tab every bedtime 12. chlorthalidone(chlorthalidone 25 mg oral tablet) 25 mg= 1 Tab By mouth Tab every Thursday, Thursday, and Thursday 13. omega-3 polyunsaturated fatty acids(Fish Oil 1000 mg oral capsule) 2,000 mg= 2 Cap By mouth Cap twice daily 14. cyanocobalamin(Vitamin B12 1000 mcg oral tablet) 1,000 mcg= 1 Tab By mouth Tab twice daily 15. albuterol(albuterol HFA (90 mcg/dose) MDI) 1 Puff Inhaled Aerosol four times daily as needed for wheezing 16. ferrous gluconate(iron gluconate) 27 mg By mouth every Thursday, Thursday, and Thursday Special Instructions: takes 3 x per week Discontinued Meds metoprolol (metoprolol succinate 25 mg oral capsule, extended release) 0.5 Tab By mouth twice daily insulin aspart (NovoLOG) subcutaneously three times daily before meals insulin detemir (Levemir 100 units/mL subcutaneous solution) subcutaneously once daily potassium chloride (potassium chloride 8 mEq oral tablet, extended release) 1 Tab By mouth Tab, ER once daily loratadine (Claritin) By mouth once daily Discharge Disposition Discharge Order Details: 04/25/22 12:25:00 MST, Today, Home or self care Discharge Activity Order Details: 04/25/22 12:25:00 MST, As tolerated Discharge Diet Order Details: 04/25/22 12:25:00 MST, Consistent Carbohydrate Discharge Diet Order Details: 04/25/22 12:25:00 MST, Heart Healthy Diet (Cardiac) PSO Place in Observation Order Details: Observation, Medicine, Truong, Marybel ACNP, Yes, ACUTE CHOLCYSTITIS WITH CHOLELITHIASIS, PATTERN FILER:DR PACHECO LAMAS, 04/23/22 5:15:00 MST, 04/23/22 5:15:00 MST, 04/23/22 5:15:00 MST, [email or web address]_[email or web address] Discharge Diet Discharge Diet Order Details: 04/25/22 12:25:00 MST, Consistent Carbohydrate Discharge Diet Order Details: 04/25/22 12:25:00 MST, Heart Healthy Diet (Cardiac) Discharge Activity Discharge Activity Order Details: 04/25/22 12:25:00 MST, As tolerated Discharge Follow-up Instructions Follow-Up Details: Provider/Org Name: Tyler Post MD Within: 2 to 3 weeks Address: ;[id number]; Provider/Org Name: Glenys Oakes MD Within: 1 week Address: [address] [place] [id number]; ; Comments: Call for follow up appointment Time spent with Patient - Total face to face time with patient >30 mins, Greater than 50% face to face time spent counseling/coordinating care. - Thank you for allowing me to participate in your care. Electronically Signed By: Sana Cameron MD On 04/25/22 20:50 Co Signature By: Modify Signature By: Sana Cameron MD On 04/25/22 20:50 04/25/2022 [facility] [place] Shift Screening - Text Shift Screening Entered On: 04/25/2022 10:04 MST Performed On: 04/25/2022 10:02 [facility] by Audelia Schmidt Adult Sepsis Screening Tool - Inpatient SIRS Infection : Antibiotic therapy Audelia Schmidt - 04/25/2022 10:02 [facility] Pablo Skin Risk Sensory Perception : (4) No impairment Moisture : (3) Occasionally moist Activity Pablo : (3) Walks occasionally Mobility : (3) Slightly limited Nutrition : (3) Adequate Friction and Shear : (3) No apparent problem Pablo Tissue Perfusion and Oxygenation : N/A Pablo Score : 19 Audelia Schmidt - 04/25/2022 10:02 [facility] Fall Risk Assessment Known Fall Risk : Assess Fall Risk Fall Risk Temp : Yes Fall Risk Calc Administrative : 2 Fall Risk Score : 7 Audelia Schmidt 04/25/2022 10:02 [facility] Fall Risk Score Calculation Fall Risk Factors-Age : 70-79 years (2 points) Fall History last 6 months () : None Fall Risk Factors-Elimination : None Fall Risk Factors-Medications : On 2 or more high fall risk drugs (5 points) Fall Risk Factors-Patient Care Equipment : None Fall Risk-Mobility, transfer, ambulation : None of the above Fall Risk Factors-Cognition : None of the above Fall Risk Score Calc : 7 Audelia Schmidt - 04/25/2022 10:02 [facility] Fall Risk Interventions Fall Safety Interventions Implemented : Yes Fall Safety Interventions : [place] patient to surroundings, Maintain safe environment, Provide fall prevention education to patient and family, Assess patients understanding of fall precautions and reinforce, Provide non-skid footwear especially when ambulating, Hourly rounding, Use ambulatory aids if appropriate Audelia Schmidt - 04/25/2022 10:02 [facility] Fall Injury Screen Injury Risk Criteria : None Audelia Schmidt 04/25/2022 10:02 [facility] Bedside Mobility Assessment Tool v2 Right Click for 'Fails Physiologic Stability Readiness' Reference Text : None of the above Trunk Strength and Seated Balance : Pass = Go to Assessment Level 2 Lower Extremity Strength and Stability : Pass = Go to Assessment Level 3 Stand (BMAT) : Stands with assistive device (Level 3) BMAT Score Calc : 3 Audelia Schmidt 04/25/2022 10:02 [facility] Interdisciplinary Education (v2) Preferences to Learning : Any/all Preferred Language for Healthcare Discussions : [place] Assistive Device for Communication : No Infection Control/Safety Education Topics : Hand hygiene POC Reviewed w Pt and or Rep : Yes Individuals Taught : Patient Readiness to Learn : Accepting Barriers to Learning : None evident Teaching Method : Explanation Response to Teaching : Needs reinforcement Teach Back : No Audelia Schmidt - 04/25/2022 10:02 [facility] 04/25/2022 [facility] [place] Shift Screening - Text Shift Screening Entered On: 04/25/2022 3:30 MST Performed On: 04/25/2022 3:28 MST by Marlee Valencia Adult Sepsis Screening Tool - Inpatient SIRS Infection : Antibiotic therapy General Variable Criteria : None SIRS Adult Organ Dysfunction S/S : None Marlee Valencia 04/25/2022 3:28 [facility] Pablo Skin Risk Sensory Perception : (3) Slightly limited Moisture : (4) Rarely moist Activity Pablo : (3) Walks occasionally Mobility : (3) Slightly limited Nutrition : (3) Adequate Friction and Shear : (3) No apparent problem Pablo Tissue Perfusion and Oxygenation : N/A Pablo Score : 19 Marlee Valencia 04/25/2022 3:28 [facility] Fall Risk Assessment Known Fall Risk : Assess Fall Risk Fall Risk Temp : Yes Fall Risk Calc Administrative : 2 Fall Risk Score : 5 Marlee Valencia 04/25/2022 3:28 [facility] Fall Risk Score Calculation Fall Risk Factors-Age : 70-79 years (2 points) Fall History last 6 months () : None Fall Risk Factors-Elimination : None Fall Risk Factors-Medications : None Fall Risk Factors-Patient Care Equipment : One present (1 point) Fall Risk-Mobility, transfer, ambulation : Requires assistance or supervision for mobility, transfer, or ambulation (2 points) Fall Risk Factors-Cognition : None of the above Fall Risk Score Calc : 5 Marlee Valencia 04/25/2022 3:28 [facility] Fall Risk Interventions Fall Safety Interventions Implemented : Yes Fall Safety Interventions : [place] patient to surroundings, Maintain safe environment, Provide fall prevention education to patient and family, Assess patients understanding of fall precautions and reinforce, Provide non-skid footwear especially when ambulating, Hourly rounding, Use ambulatory aids if appropriate Marlee Valencia 04/25/2022 3:28 [facility] Fall Injury Screen Injury Risk Criteria : None Marlee Valencia 04/25/2022 3:28 [facility] Bedside Mobility Assessment Tool v2 Right Click for 'Fails Physiologic Stability Readiness' Reference Text : None of the above Trunk Strength and Seated Balance : Pass = Go to Assessment Level 2 Lower Extremity Strength and Stability : Pass = Go to Assessment Level 3 Stand (BMAT) : Stands with assistive device (Level 3) BMAT Score Calc : 3 Marlee Valencia - 04/25/2022 3:28 [facility] Interdisciplinary Education (v2) Preferred Language for Healthcare Discussions : [place] Assistive Device for Communication : No POC Reviewed w Pt and or Rep : N/A Teaching Method : Explanation Teach Back : Yes Marlee Valencia - 04/25/2022 3:28 [facility] 04/25/2022 [facility] Physician Note Patient: JUAN JIANG Age: 76 years Sex: M : 1945 Active Insurance: MEDICARE A Admitting MD: Marybel Truong Location: [facility] 3A: 311: 01 PCP: Glenys Oakes MD Author: Carole Azevedo MD Objective Vitals and Measurements T:36.8 ?C (Axillary) TMIN:36.4 ?C (Oral) TMAX:36.8 ?C (Oral) HR:67 RR:18 BP:135/81 SpO2:99% Oxygen Method:Room air Physical Exam GEN: No acute distress, alert [...] Most Recent, Lab 24 hrs Last 24 Hours Hematology-CBC 04/24/22 General Chemistry 04/24/22 POC Glucose 04/24/22 WBC:6.9 Sodium:135 (L) Glucose (POCT) Automated:152 (H) RBC:4.20 (L) Potassium:4.2 Hgb:12.2 (L) Chloride:109 (H) Hct:36.4 (L) CO2:18 (L) MCV:86.7 Anion Gap:8 MCH:28.9 Glucose Level:211 (H) MCHC:33.4 BUN:20 RDW:14.9 Creatinine:1.14 Plt:230 BUN/Ripsaw Operator Ratio:17.5 MPV:8 eGFRcr:67 (L) Calcium:8.6 Corrected Calcium:9.0 M.6 Protein, Total:6.0 Albumin:3.5 Globulin:2 A/G Ratio:2 Bili Total:0.6 ALT:337 (H) AST:291 (H) Alkphos:89 Amylase:133 Lipase:473.0 (H) Blood Glucose, Point of Care:175 mg/dL (H) Special Chemistry 04/24/22 HgbA1C:7.4 (H) Estimated Average Glucose:166 Additional , clubbing or edema NEURO: Non-focal, moves all extremities Lab Results .la Antibiotics Ordered cefTRIAXone: 2,000 mg, IV Push, q24hr 04/23/22 08:22 - Active ( 3 days ) metroNIDAZOLE: 500 mg, IV, q8hr 04/23/22 08:22 - Active ( 3 days ) Completed ampicillin-sulbactam: 3 gm, IV, x1 04/23/22 04:40 - Active ( 1 days ) Diagnostic Results NSR Assessment/Plan Preop evaluation History of pulmonary embolism currently on Xarelto Obesity Diabetes mellitus Hypertension Renal sufficiency Plan Preop evaluation Patient has beenseen in the emergency room for abdominal pain and it was felt that patient may havecontribution fromgallbladder therefore patient was felt to becandidate forcholecystectomy. Patient wasasked to be evaluated. Patient has no chest pain or shortness of breathejection fraction within normal limits. His EKG is unremarkable therefore patient is at moderate risk for surgery. Patient is on Xarelto therefore patient will beadvised to hold Xarelto for 72 hoursbecause of hisGFRbeing between 30 and 59. Pulmonary embolism Patient history of pulmonary embolismand has been on Xarelto 10 mg once a day Obesity Patient is to lose weight Diabetes mellitus Patient had elevated hemoglobin A1c of 7.2patient advised to follow internal medicine Hypertension Patient advised to follow-up withinternal medicine Electronically Signed By: Carole Azevedo MD On 04/24/22 21:56 Co Signature By: Modify Signature By: 04/25/2022 [facility] Note PROCEDURE INFORMATIO N: Exam: MR Abdomen Without Contrast Exam date [...] I N A L * * * 04/24/2022 [facility] Physician Note Patient: JUAN JIANG Age: 76 years Sex: M : 1945 Active Insurance: MEDICARE A Admitting MD: Marybel Truong Location: [facility] 3A: 311: 01 PCP: Glensy Oakes MD Author: Tyler Post MD Subjective Pt states he has no pain. Wants to go home. Objective Vitals and Measurements T:36.8 ?C (Oral) TMIN:36.4 ?C (Oral) TMAX:36.8 ?C (Oral) HR:66 RR:18 BP:112/67 SpO2:98% Oxygen Method:Room air WT:130.8kg Physical Exam GEN: No acute distress, alert [...] Most Recent, Lab 24 hrs Last 24 Hours Hematology-CBC 04/24/22 General Chemistry 04/24/22 POC Glucose 04/24/22 WBC:6.9 Sodium:135 (L) Glucose (POCT) Automated:189 (H) RBC:4.20 (L) Potassium:4.2 Hgb:12.2 (L) Chloride:109 (H) Hct:36.4 (L) CO2:18 (L) MCV:86.7 Anion Gap:8 MCH:28.9 Glucose Level:211 (H) MCHC:33.4 BUN:20 RDW:14.9 Creatinine:1.14 Plt:230 BUN/Ripsaw Operator Ratio:17.5 MPV:8 eGFRcr:67 (L) Calcium:8.6 Corrected Calcium:9.0 M.6 Protein, Total:6.0 Albumin:3.5 Globulin:2 A/G Ratio:2 Bili Total:0.6 ALT:337 (H) AST:291 (H) Alkphos:89 Lipase:473.0 (H) Blood Glucose, Point of Care:193 mg/dL (H) Cardiac 04/24/22 Special Chemistry 04/24/22 Troponin I:0.01 HgbA1C:7.4 (H) Estimated Average Glucose:166 Additional Antibiotics Ordered cefTRIAXone: 2,000 mg, IV Push, q24hr 04/23/22 08:22 - Active ( 2 days ) metroNIDAZOLE: 500 mg, IV, q8hr 04/23/22 08:22 - Active ( 2 days ) Completed ampicillin-sulbactam: 3 gm, IV, x1 04/23/22 04:40 - Active ( 1 days ) Diagnostic Results MRI - All Encounters, Most Recent, Last 24 hrs MR MRCP wo Con 04/24/22 12:43:38 IMPRESSION: Dependent gallbladder sludge or small cholelithiasis. Normal caliber common bile duct without appreciable filling defect to suggest choledocholithiasis Signed By: Avel Muir MD Assessment/Plan 1.Acute [id number] unlikely as per MRCP. no inflammation noted, nontender Ordered: NM Hepatobiliary System - XFR [id number] Ordered: NM Hepatobiliary System - XFR Long discussion again with patient about the options. This could definitely be gall bladder related Would be first episode. Could be very mild pancreatitis, possibly gallstone related but never had elevated bili and no CBD stones on MRCP. Pt. reluctant to have surgery. Will cancel HIDA Pt. can f/u for OPT surgery for repeat pain episodes. Pt. only wants surgery if cannot be avoided. Trend lipase and LFTs If improved can d/c home on 04/25. He can f/u in my office for OPT lap emilia anytime if he has pain. Electronically Signed By: Tyler Post MD On 04/24/22 15:31 Co Signature By: Tyler Post MD On 04/24/22 15:32 Modify Signature By: Tyler Post MD On 04/24/22 15:31 04/24/2022 [facility] Physician Note Patient: JUAN JIANG Age: 76 years Sex: M : 1945 Active Insurance: MEDICARE A Admitting MD: Marybel Truong [facility] Location: [facility] 3A: 311: 01 PCP: Glenys Oakes MD Author: Sana Cameron MD [facility] Assessment/Plan #Acutecalculus cholecystitis #Elevated lipasewith no hyperbilirubinemiaand normal pancreas on CT l ikely secondary to above #Abdominal pain secondary to above #Chest paindescribed as elephant sitting on the chest -this may be secondary to above but in light of typical description, ACSstill has to be ruled out #Hypertension #Diabetes type 2 #CKDwith possibleAKI #Obesity #Hypercholesterolemia #Asthma #BPH - Abx:Ceftriaxone, Flagyl - CV: VS per protocol *Echocardiogram *Cardiology consulted and discussed moderate risk for surgery *Medications: Noikasjaxb31.5 mg twice daily - Electrolytes: Monitor - Endocrinology: ISS - GI: Bowel care, Pepcid *General surgeon consult *MRCP due to uptrendinglipase andLFTs *Surgeon also wants to do HIDAto evaluate gallbladder - : Finasteride - HEENT: Latanoprost - MSK: Ambulate and OOB as tolerated - Pain: Meds per MAR - Renal:Maintenance IVF, Avoid nephrotoxins (NSAIDs, ACEi/ARBs, Contrast, Fleets enema),Pharmacy to renally dose medications, Strict I/O Supportive Care # VTE PPx: SCD, heparin # GI PPx:Pepcid Disposition # # Discussed plan with pt and nurse in depth # Thank you for allowing me to participate in your care Sana Cameron MD [facility] Subjective On 04/24/2022. Patient overall feeling well anddenied any pain. Patientdoes not want to pursue surgeryif possibledepending onimaging report. MRCP and HIDA scan ordered. MRCP ordered due to uptrending lipaseand LFTs.HIDA scanwill have to be doneat outside facilitywhich schedule is pending. Troponin trends were overall negative. Per cardiology patient is at moderate risk for surgery. Review ofSystems Constitutional: No fevers, chills, sweats Eye: No recent visual problems ENMT: No ear pain, nasal congestion, sore throat Respiratory: No shortness of breath, cough Cardiovascular: No Chest pain, palpitations Gastrointestinal: No nausea, vomiting, diarrhea, abdominal pain Genitourinary: No hematuria Musculoskeletal: No back pain, neck pain, joint pain Integumentary: No rash, pruritus, abrasions Neurologic: No headache Psychiatric: No anxiety, depression Physical Examination General: No acute distress. Eye: [...] No focal defects Psychiatric: Cooperative, Appropriate mood and affect. Vital Signs Vitals Signs (Most Recent) Non Invasive BP: 96 / 57 Heart Rate: 74 Respiratory Rate: 18 Breaths/Min Temperature PO: 36.4 Temperature Temporal Artery: 36.7 Laboratory and Diagnostic Tests Results Last 24 Hours Hematology-CBC 04/24/22 General Chemistry 04/24/22 POC Glucose 04/24/22 WBC:6.9 Sodium:135 (L) Glucose (POCT) Automated:224 (H) RBC:4.20 (L) Potassium:4.2 Hgb:12.2 (L) Chloride:109 (H) Hct:36.4 (L) CO2:18 (L) MCV:86.7 Anion Gap:8 MCH:28.9 Glucose Level:211 (H) MCHC:33.4 BUN:20 RDW:14.9 Creatinine:1.14 Plt:230 BUN/Ripsaw Operator Ratio:17.5 MPV:8 eGFRcr:67 (L) Calcium:8.6 Corrected Calcium:9.0 M.6 Protein, Total:6.0 Albumin:3.5 Globulin:2 A/G Ratio:2 Bili Total:0.6 ALT:337 (H) AST:291 (H) Alkphos:89 Lipase:473.0 (H) Blood Glucose, Point of Care:161 mg/dL (H) Cardiac 04/24/22 Lipid Tests 04/24/22 Special Chemistry 04/24/22 B-Natriuretic Peptide:20.6 Cholesterol:137 TSH:1.00 Troponin I:0.01 Triglycerides:362 (H) HDL:18 (L) LDL Direct:68 VLDL:72 LDL/HDL:3 Chol/Tri %HDL:13 Cholesterol/HDL:8 (L) Toxicology 04/24/22 Ethanol:<10 (H) Additional Microbiology Studies Recently Resulted CT Abdomen+Pelvis wo IV Con 04/23/22 02:48:15 Radiation Dose CTDIVOL = 0 [...] Cholelithiasis. No radiographic evidence of acute cholecystitis. [place] distended gallbladder consistent with hydrops. 2. Mild diverticulosis of the distal colon. No bowel perferation or obstruction. 3. No renal, ureteral, or bladder calculi. No hydroureteronephrosis. US Abdomen Limited 04/23/22 01:41:14 PROCEDURE INFORMATION: Exam: US Abdomen, Limited; Right Upper Quadrant Exam date and time: 04/23/2022 1:41 AM Age: 76 years old Clinical indication: Abdomen pain ruq TECHNIQUE: Imaging protocol: Real time ultrasound of the abdomen with image documentation. Limited exam focused on the right upper quadrant. COMPARISON: No relevant prior studies available. FINDINGS: Liver: Normal. No masses. Gallbladder: Tank Inspector notes positive Youngblood s sign. The gallbladder demonstrates layering density consistent with noncalcified stones or sludge. No gallbladder wall thickening. Biliary ducts: Normal. No stones. No dilation. Pancreas: Visualized pancreas is unremarkable. Right kidney: Normal. No mass. No hydronephrosis. Other findings: Tank Inspector notes technically difficult exam secondary to patient body habitus and overlying bowel gas. IMPRESSION: Cholelithiasis. Positive business computers teacher s Youngblood s sign consistent with acute cholecystitis. Medications Scheduled cefTRIAXone 2,000 mg Inj: 2,000 mg, IV Push, q24hr docusate sodium 100 mg Cap: 100 mg, PO, BID famotidine 20 mg Tab: 20 mg, PO, Daily finasteride 5 mg Tab: 5 mg, PO, qDay heparin 5,000 Unit/mL Inj; 1mL 5,000 Unit, Subcut, q8hr insulin LISPRO syringe (10 Uni 0 - 8 Unit, SUBCUT, q4hr metoprolol 25 mg IMMediate Rel 12.5 mg, PO, BID metroNIDAZOLE: 500 mg, 100 mL, 100 mL/hr, IV, q8hr senna 8.6 mg Tab: 17.2 mg, PO, qDay IV NaCl 0.9%: 125 mL/hr, IV, Stop: 05/23/22 8:51:00 [facility] DVT prophylaxis Pharmacological Prophylaxis heparin 5,000 Unit/mL Inj; 1mL 5,000 Unit, Subcut, q8hr Mechanical Prophylaxis SCD Order: , Compression devices to be worn while in bed. SCD s to be removed a minimum of 30 minutes every shift and while ambulating. Electronically Signed By: Sana Cameron MD On 04/24/22 19:25 Co Signature By: Modify Signature By: Sana Cameron MD On 04/24/22 15:18 04/24/2022 [facility] Consultation Patient: SHOBHA JIANG Age: 76 years Sex: M : 1945 Active Insurance: MEDICARE A Admitting MD: Marybel Truong Location: [facility] 3A: 311: 01 PCP: Glenys Oakes MD Author: Carole Azevedo MD Reason for Consultation Preop evaluation Chief Complaint c/o pressure in the abdomen since last night. History of Present Illness Patient denies any chest pain PND orthopnea or ankle edema.This is a 76-year-old gentleman who lives in [place]. Patient has been wintering in [place]. Patient was seen in the emergency room for abdominal pressure. Patient stated that he noted that there is a huge amount of pressure in his abdomen. Patient was seen by surgery and it was felt that patient may benefit from cholecystectomy. Therefore cardiology consultation was obtained. His past medical history patient has a significant past medical history of diabetes mellitus hypertension renal sufficiency and history of pulmonary embolism in 2017 and history of hip surgery. Patient stated that he has seen a inventory transcriber and has undergone a stress test to 3 years ago. Patient walks about 3-4000 steps every day. Patient uses a cane to move around. Patient is on Xarelto 10 mg chronically after his pulmonary embolism. Objective Vitals and Measurements T: 36.4 ?C (Oral) TMIN: 36.4 ?C (Oral) TMAX: 37.1 ?C (Oral) HR: 74 RR: 18 BP: 115/67 SpO2: 98% Oxygen Method: Room air WT: 130.8 kg Physical Exam GEN: No acute distress, alert [...] Most Recent, Lab 24 hrs Last 24 Hours Hematology-CBC 04/23/22 General Chemistry 04/23/22 POC Glucose 04/23/22 WBC:11.2 (H) Sodium: 136 Glucose (POCT) Automated:161 (H) RBC:4.52 (L) Potassium: 4.3 Hgb:12.8 (L) Chloride: 104 Hct:38.9 (L) CO2:20 (L) MCV: 86.0 Anion Gap: 12 MCH: 28.4 Glucose Level:177 (H) MCHC: 33.0 BUN:27 (H) RDW: 15.2 Creatinine:1.71 (H) Plt: 267 BUN/Ripsaw Operator Ratio: 15.8 MPV: 8 eGFRcr:41 (L) Neuts: 70.9 Calcium: 9.6 Lymphs: 19.8 Corrected Calcium: 9.4 Monos.: 6.1 Protein, Total: 7.3 Eos.: 2.6 Albumin: 4.2 Baso.: 0.6 Globulin: 3 ABS Neut: 7.9 A/G Ratio: 1 ABS Lymph: 2.2 Bili Total: 0.8 ABS [place]: 0.7 ALT: 42 ABS Eos: 0.3 AST:69 (H) ABS Baso: 0.1 Alkphos: 51 CBC Scan: Auto Diff Lipase:108.0 (H) nRBC Auto: 0 Lactic Acid: 1.2 Blood Glucose, Point of Care:161 mg/dL (H) Cardiac 04/23/22 Lipid Tests 04/23/22 Special Chemistry 04/23/22 B-Natriuretic Peptide: 20.6 Cholesterol: 137 TSH: 1.00 Troponin I: 0.01 Triglycerides:362 (H) HDL:18 (L) LDL Direct: 68 VLDL: 72 LDL/HDL: 3 Chol/Tri %HDL: 13 Cholesterol/HDL:8 (L) Toxicology 04/23/22 Ethanol:<10 (H) Additional Antibiotics Ordered cefTRIAXone: 2,000 mg, IV Push, q24hr 04/23/22 08:22 - Active ( 2 days ) metroNIDAZOLE: 500 mg, IV, q8hr 04/23/22 08:22 - Active ( 2 days ) Completed ampicillin-sulbactam: 3 gm, IV, x1 04/23/22 04:40 - Active ( 1 days ) Diagnostic Results Twelve-lead EKG shows right bundle branch block Assessment/Plan Preop evaluation History of pulmonary embolism currently on Xarelto Obesity Diabetes mellitus Hypertension Renal sufficiency Plan Preop evaluation Patient has been seen in the emergency room for abdominal pain and it was felt that patient may have contribution from gallbladder therefore patient was felt to be candidate for cholecystectomy. Patient was asked to be evaluated. Patient has no chest pain or shortness of breath ejection fraction within normal limits. His EKG is unremarkable therefore patient is at moderate risk for surgery. Patient is on Xarelto therefore patient will be advised to hold Xarelto for 72 hours because of his GFR being between 30 and 59. Obesity Patient has obesity and needs to lose weight Diabetes mellitus Patient followed by internal medicine Hypertension Patient is on antihypertensive medication Renal sufficiency patient is followed by internal medicine history of pulmonary hypertension patient has mild pulmonary hypertension by echo Patient is advised to stop taking Xarelto for at least 3 days till decision to proceed surgery is confirmed. We will see the patient 1. Acute cholecystitis K81.0 2. Cholelithiasis K80.20 Problem List/Past Medical History Ongoing Anemia Asthma Diabetes mellitus Foot drop, left Hypercholesterolemia Hypertension Pulmonary embolism Sleep apnea Spinal stenosis Historical No qualifying data Procedure/Surgical History Adenoidectomy Hydrocele 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 Tonsillectomy Medications Inpatient cefTRIAXone (Rocephin) for IV Push, 2000 mg, IV Push, q24hr dextrose 50% (25gm) syringe, 25 gm= 50 mL, IV Push, q15min, PRN dextrose 50% (25gm) syringe, 12.5 gm= 25 mL, IV Push, q15min, PRN docusate sodium, 100 mg= 1 Cap, PO, BID Dulcolax, 10 mg= 1 Supp, VT, Daily, PRN DuoNeb, 3 mL, NEB - [...] Tab, PO, qMWF Claritin, 10 mg, PO, Daily, Still taking, not as prescribed: OTC Farxiga 10 [...] oral capsule, extended release, 0.5 Tab, PO, BID, Not taking: 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 last Jun, 2021. NovoLOG, 10 Unit, SUBCUT, [...] PO, qPM Allergies No Known Medication Allergies Reaction: None Documented Social History Alcohol Denies, 04/23/2022 Denies, 04/23/2022 Home/Environment Oriental Orthodox restrictions/concerns: None. Lives with Alone. Living situation: [...] Financial concerns: No. TV/Computer concerns: No., 04/23/2022 [employer] restrictions/concerns: None., 04/23/2022 Nutrition/Health Diet: Diabetic., 04/23/2022 Substance Abuse Denies, 04/23/2022 Denies, 04/23/2022 Tobacco Never (less than 100 in lifetime), 04/23/2022 Never (less than 100 in lifetime), 04/23/2022 Electronically Signed By: Carole Azevedo MD On 04/24/22 00:02 Co Signature By: Modify Signature By: 04/24/2022 [facility] Shift Screening - Text Shift Screening Entered On: 04/23/2022 22:57 MST Performed On: 04/23/2022 22:52 MST by Yenifer Amezcua RN Adult Sepsis Screening Tool - Inpatient SIRS Infection : Antibiotic therapy General Variable Criteria : None SIRS Adult Organ Dysfunction S/S : None Yenifer Amezcua RN - 04/23/2022 22:52 MST Pablo Skin Risk Sensory Perception : (4) No impairment Moisture : (4) Rarely moist Activity Pablo : (3) Walks occasionally Mobility : (3) Slightly limited Nutrition : (3) Adequate Friction and Shear : (3) No apparent problem Pablo Tissue Perfusion and Oxygenation : N/A Pablo Score : 20 Yenifer Amezcua RN - 04/23/2022 22:52 [facility] Fall Risk Assessment Known Fall Risk : Assess Fall Risk Fall Risk Temp : Yes Fall Risk Calc Administrative : 2 Fall Risk Score : 8 Yenifer Amezcua RN - 04/23/2022 22:52 [facility] Fall Risk Score Calculation Fall Risk Factors-Age : 70-79 years (2 points) Fall History last 6 months (JH) : None Fall Risk Factors-Elimination : None Fall Risk Factors-Medications : On 1 high fall risk drug (3 points) Fall Risk Factors-Patient Care Equipment : One present (1 point) Fall Risk-Mobility, transfer, ambulation : Requires assistance or supervision for mobility, transfer, or ambulation (2 points) Fall Risk Factors-Cognition : None of the above Fall Risk Score Calc : 8 Yenifer Amezcua RN - 04/23/2022 22:52 [facility] Fall Risk Interventions Fall Safety Interventions Implemented : Yes Fall Safety Interventions : [place] patient to surroundings, Maintain safe environment, Provide fall prevention education to patient and family, Assess patients understanding of fall precautions and reinforce, Provide non-skid footwear especially when ambulating, Hourly rounding, Use ambulatory aids if appropriate Yenifer Amezcua RN - 04/23/2022 22:52 [facility] Fall Injury Screen Injury Risk Criteria : Coagulopathies/risk for bleed Fall Injury Prevention : Other: call light within reach, bed in low position, bed brakes locked and siderails upx2. Yenifer Amezcua RN - 04/23/2022 22:52 [facility] Bedside Mobility Assessment Tool v2 Right Click for 'Fails Physiologic Stability Readiness' Reference Text : None of the above Trunk Strength and Seated Balance : Pass = Go to Assessment Level 2 Lower Extremity Strength and Stability : Pass = Go to Assessment Level 3 Stand (BMAT) : Stands with assistive device (Level 3) BMAT Score Calc : 3 Yenifer Amezcua RN - 04/23/2022 22:52 [facility] Interdisciplinary Education (v2) Preferences to Learning : Any/all Preferred Language for Healthcare Discussions : [place]alander Assistive Device for Communication : No Infection Control/Safety Education Topics : Hand hygiene, Respiratory hygiene, How to report safety concerns, Fall prevention, Oral Care POC Reviewed w Pt and or Rep : Yes General Education : General Individuals Taught : Patient Teaching Method : Demonstration, Explanation Response to Teaching : Communicated understanding Teach Back : Yes Yenifer Amezcua RN - 04/23/2022 22:52 MST General/Medical Education General Education Topics : Cane/Walker, Equipment use, Hygiene, Injury/Fall Prevention, Lab tests, Medications, Nutrition, Oral Care, Pain management, Turn/Cough/Deep breathing Yenifer Amezcua RN - 04/23/2022 22:52 MST 04/24/2022 [facility] Secondary Review Correspondence Please review account for medical necessity and provide recommendation. Patient Name: JUAN JIANG () Gender: M : 1945 Age: 76 Years Message Text: please review for medical necessity Day Reviewed: 04/23/2022 21:31:00 MST Review Type: Level of Service Sub Type: LOC:Acute Adult Cholecystitis Episode Day: Day1 Review Outcome: Criteria Not Met Reviewer: Sammi Britton RN System: InterQual Connect Other: Select Day, One: Episode Day 1, One: OBSERVATION, One: [X] Acute cholecystitis and, All: [X] Confirmed by imaging, One: Reviewer Comment: Sammi Britton on 04-23-2022 08:[address] and US 04/23 [X] Ultrasound (US) [X] CT [X] Antiinfective Reviewer Comment: Sammi Britton on 04-23-2022 08:35 PM PST IV rocephin Secondary Review: Reason for Referral: Does Not Meet Obs Criteria External Reviewer: Yes 04/24/2022 [facility] Orders-Status Verification Form - Text Orders-Status Verification Form Entered On: 04/23/2022 21:39 MST Performed On: 04/23/2022 21:39 MST by Sammi Britton RN Orders-Status Verification Medicare / Non-Medicare : Medicare Is the Payer Medicare : Medicare Sammi Britton RN - 04/23/2022 21:39 MST Medicare Orders What is the Current Status Order on the Chart : Observation Did Admitting [place] the Patient in the Ordered Status : Yes 3a) Is an observation status order written : Yes 3b) Does the patient meet observation criteria : No 3c) If Pt Does Not Meet Obs Does Pt Meet Inpatient : No Order/Status Verification Comments : referred to Sammi Henry RN - 04/23/2022 21:39 MST 04/24/2022 [facility] Adult Admission History (v2) - Text Adult Admission History (v2) Entered On: 04/23/2022 21:26 MST Performed On: 04/23/2022 21:10 MST by Yenifer Amezcua RN General Information New 04/04 Admitted From : ED D/C from acute care within 30 days : No Repeat hospitalizations/ED Visits : Has NOT been treated in ED/Hosp 1 or more times in last 3 months Chief Complaint : c/o pressure in the abdomen since last night. End Stage Condition : No Information Given by : Self Preferred Language for Healthcare Discussions : [place] Contact Information : Yes Health Literacy Deficit : No Sensory Deficits : None Assistive Aids for Communication Offered : No Status : N/A Status : N/A Todays Date : 04/23/2022 Yenifer Connor RN - 04/23/2022 21:10 MST Drug/Clinical Calc Ht/Wt S[place]er Height Measurement Used : centimeters Height cm (metric) : 177.8 cm Height (cm) : 177.8 cm Weight Method : Actual Weight Measurement Used : kilograms Weight kg (metric) : 130.8 kg Drug Calc Weight (kg) : 130.8 kg Scale Type : Standing scale BSA-pt care : 2.54 BMI : 41.38 kg/m2 BMI High Verify : Confirmed [place] Body Weight : 73 kg Adjusted Body Weight : 96.12 kg BMI Abnormal High Criteria : 39 BMI High Check : -2 BMI Abnormal Low Criteria : 17 BMI Low Check : 24 ABW Calc : 96.12 kg ABW Calc2 : 130.8 kg Pediatric Patient : N/A Adult Pt : Adult Pt Ped Sepsis Conditional : Adult Pt Adult Sepsis Conditional : Adult Pt Peds Skin Risk : N/A Adult Skin Risk : N/A Yenifer Amezcua RN - 04/23/2022 21:29 MST Health History (v5) New 04/04 Previous Medical History : Patient Has Medical History History of mental illness : No Yenifer Amezcua RN - 04/23/2022 21:10 MST (As Of: 04/23/2022 21:26:53 MST) Problems(Active) Anemia (SNOMED CT :848408755 ) Name of Problem: Anemia ; Recorder: Lashell Muniz RN; Confirmation: Confirmed ; Classification: Medical ; Code: [id number] ; Contributor System: PowerChart ; Last Updated: 05/22/2021 12:50 MST ; Life Cycle Date: 05/22/2021 ; Life Cycle Status: Active ; Vocabulary: SNOMED CT Asthma (SNOMED CT :219155471 ) Name of Problem: Asthma ; Recorder: Lashell Muniz RN; Confirmation: Confirmed ; Classification: Medical ; Code: [id number] ; Contributor System: PowerChart ; Last Updated: 05/22/2021 12:49 MST ; Life Cycle Date: 05/22/2021 ; Life Cycle Status: Active ; Vocabulary: SNOMED CT Diabetes mellitus (SNOMED CT :246355153 ) Name of Problem: Diabetes mellitus ; Recorder: Lashell Muniz RN; Confirmation: Confirmed ; Classification: Medical ; Code: [id number] ; Contributor System: PowerChart ; Last Updated: 05/22/2021 12:50 MST ; Life Cycle Date: 05/22/2021 ; Life Cycle Status: Active ; Vocabulary: SNOMED CT Foot drop, left (SNOMED CT :79309620 ) Name of Problem: Foot drop, left ; Recorder: Lashell Muniz RN; Confirmation: Confirmed ; Classification: Medical ; Code: [id number] ; Contributor System: PowerChart ; Last Updated: 05/22/2021 12:51 MST ; Life Cycle Date: 05/22/2021 ; Life Cycle Status: Active ; Vocabulary: SNOMED CT Hypercholesterolemia (SNOMED CT :24229483 ) Name of Problem: Hypercholesterolemia ; Recorder: Lashell Muniz RN; Confirmation: Confirmed ; Classification: Medical ; Code: 45449294 ; Contributor System: PowerChart ; Last Updated: 05/22/2021 12:50 MST ; Life Cycle Date: 05/22/2021 ; Life Cycle Status: Active ; Vocabulary: SNOMED CT Hypertension (SNOMED CT :2456689390 ) Name of Problem: Hypertension ; Recorder: Lashell Muniz RN; Confirmation: Confirmed ; Classification: Medical ; Code: [id number] ; Contributor System: PowerChart ; Last Updated: 05/22/2021 12:50 MST ; Life Cycle Date: 05/22/2021 ; Life Cycle Status: Active ; Vocabulary: SNOMED CT Pulmonary embolism (SNOMED CT :97387864 ) Name of Problem: Pulmonary embolism ; Recorder: Lashell Muniz RN; Confirmation: Confirmed ; Classification: Medical ; Code: 92092362 ; Contributor System: Siteminis ; Last Updated: 05/22/2021 12:50 MST ; Life Cycle Date: 05/22/2021 ; Life Cycle Status: Active ; Vocabulary: SNOMED CT Spinal stenosis (SNOMED CT :752154662 ) Name of Problem: Spinal stenosis ; Recorder: Lashell Muniz RN; Confirmation: Confirmed ; Classification: Medical ; Code: 688693278 ; Contributor System: PowerChart ; Last Updated: 05/22/2021 12:51 MST ; Life Cycle Date: 05/22/2021 ; Life Cycle Status: Active ; Vocabulary: SNOMED CT Diagnoses(Active) Abdominal pain Date: 04/23/2022 ; Diagnosis Type: Reason For Visit ; Confirmation: Complaint of ; Clinical Dx: Abdominal pain ; Classification: Nursing ; Clinical Service: Non-Specified ; Code: PNED ; Probability: 0 ; Diagnosis Code: [id number] Acute cholecystitis Date: 04/23/2022 ; Diagnosis Type: Discharge ; Confirmation: Confirmed ; Clinical Dx: Acute cholecystitis ; Classification: Medical ; Code: ICD-10-CM ; Probability: 0 ; Diagnosis Code: K81.0 Cholelithiasis Date: 04/23/2022 ; Diagnosis Type: Discharge ; Confirmation: Confirmed ; Clinical Dx: Cholelithiasis ; Classification: Medical ; Code: ICD-10-CM ; Probability: 0 ; Diagnosis Code: K80.20 - Procedure History (As Of: 04/23/2022 21:26:53 MST) Anesthesia Minutes: 0 ; Procedure Name: Tonsillectomy ; Procedure Minutes: 0 Anesthesia Minutes: 0 ; Procedure Name: 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 ; Procedure Minutes: 0 ; Comments: 05/22/2021 12:49 MST - Lashell Muniz RN bilateral Anesthesia Minutes: 0 ; Procedure Name: Adenoidectomy ; Procedure Minutes: 0 Anesthesia Minutes: 0 ; Procedure Name: Hydrocele ; Procedure Minutes: 0 Influenza Vaccination Screening Reasons Not to give Vaccine (Influenza) : Refused Immunization Opt Out : Allow Yenifer Amezcua RN - 04/23/2022 21:10 [facility] Infectious Disease Risk Screening Does Pt Have Symptoms of COVID 19 : No Tested for COVID19 in the past 14 days : No, Patient stated Does the Patient state known exposure to a COVID-19 positive case in the last 14 days : No Patient Vaccinated for COVID-19 : Not vaccinated Does Patient want a COVID-19 Vaccine : No Yenifer Amezcua RN - 04/23/2022 21:10 [facility] Infectious Disease Risk Screening Grid Cough < 2 wks of unknown origin : NO Cough > 2 weeks : NO Blood in Sputum : NO Fever or self-reported Fever : NO Rash of unknown origin : NO Headache : NO Stiff neck : NO Night Sweats : NO Unexplained Weight Loss : NO Diarrhea (3 episode per day) : NO Yenifer Amezcua RN - 04/23/2022 21:10 [facility] INF Disease Living Situation ST : Living Situation Living Situation: Lives alone (04/23/22 01:40:00) Travel to foreign country last 30 days : No INF Disease TB Screening Calc : 0 Yenifer Amezcua RN - 04/23/2022 21:10 [facility] Allergies and Current Meds (v2) New 04/04 Polypharmacy (greater than 7 meds) : Yes Currently Enrolled in a Clinical Trial : Yenifer Alexander RN - 04/23/2022 21:10 [facility] (As Of: 04/23/2022 21:26:53 [facility]) Allergies (Active) No Known Medication Allergies Estimated Onset Date: Unspecified ; Created By: Lashell Muniz RN; Reaction Status: Active ; Category: Drug ; Substance: No Known Medication Allergies ; Type: Allergy ; Updated By: Lashell Muniz RN; Reviewed Date: 04/23/2022 2:05 [facility] Medication List (As Of: 04/23/2022 21:26:53 [facility]) Normal Order NaCl 0.9% 1,000 mL : NaCl 0.9% 1,000 mL ; Status: Canceled ; Ordered As Mnemonic: Sodium Chloride 0.9% 1,000 mL ; Simple Display Line: 100 mL/hr, IV, Stop: 05/23/22 21:09:00 [facility] ; Ordering Provider: Sana Cameron MD; Catalog Code: Sodium Chloride 0.9% ; Order Dt/Tm: 04/23/2022 20:40:37 MST NaCl 0.9% 1,000 mL : NaCl 0.9% 1,000 mL ; Status: Ordered ; Ordered As Mnemonic: NS 1,000 mL ; Simple Display Line: 125 mL/hr, IV, Stop: 05/23/22 8:51:00 MST ; Ordering Provider: Sana Cameron MD; Catalog Code: Sodium Chloride 0.9% ; Order Dt/Tm: 04/23/2022 08:22:56 MST heparin 5,000 Unit/mL Inj; 1mL : heparin 5,000 Unit/mL Inj; 1mL ; Status: Ordered ; Ordered As Mnemonic: heparin ; Simple Display Line: 5,000 Unit, Subcut, q8hr ; Ordering Provider: Sana Cameron MD; Catalog Code: heparin ; Order Dt/Tm: 04/23/2022 20:49:23 MST acetaminophen 325 mg Tab : acetaminophen 325 mg Tab ; Status: Ordered ; Ordered As Mnemonic: Tylenol oral TABLET ; Simple Display Line: 650 mg, PO, q4hr, PRN: Temperature ; Ordering Provider: Sana Cameron MD; Catalog Code: acetaminophen ; Order Dt/Tm: 04/23/2022 20:40:40 MST Mg hydrox/Al hyd/smc (400-400-40/5mL) 30 mL : Mg hydrox/Al hyd/smc (400-400-40/5mL) 30 mL ; Status: Ordered ; Ordered As Mnemonic: Mylanta ; Simple Display Line: 30 mL, PO, q4hr, PRN: Heartburn ; Ordering Provider: Sana Cameron MD; Catalog Code: Al hydroxide/Mg hydroxide/simethicone ; Order Dt/Tm: 04/23/2022 20:40:40 MST docusate sodium 100 mg Cap : docusate sodium 100 mg Cap ; Status: Ordered ; Ordered As Mnemonic: docusate sodium ; Simple Display Line: 100 mg, PO, BID ; Ordering Provider: Sana Cameron MD; Catalog Code: docusate ; Order Dt/Tm: 04/23/2022 20:40:40 MST melatonin 3 mg Tab : melatonin 3 mg Tab ; Status: Ordered ; Ordered As Mnemonic: melatonin ; Simple Display Line: 3 mg, PO, qHS, PRN: Sleep 1st Choice ; Ordering Provider: Sana Cameron MD; Catalog Code: melatonin ; Order Dt/Tm: 04/23/2022 20:40:40 MST nalOXone 0.4 mg/mL 1mL Inj : nalOXone 0.4 mg/mL 1mL Inj ; Status: Ordered ; Ordered As Mnemonic: nalOXone ; Simple Display Line: 0.2 mg, IV Push, q2min, PRN: Respiratory depression ; Ordering Provider: Sana Cameron MD; Catalog Code: nalOXone ; Order Dt/Tm: 04/23/2022 20:40:39 MST ; Comment: IV Push over 30 seconds ondansetron 2 mg/mL Inj 2mL : ondansetron 2 mg/mL Inj 2mL ; Status: Ordered ; Ordered As Mnemonic: ondansetron INJ ; Simple Display Line: 4 mg, IV Push, q4hr, PRN: Nausea / Vomiting 1st Choice ; Ordering Provider: Sana Cameron MD; Catalog Code: ondansetron ; Order Dt/Tm: 04/23/2022 20:40:39 MST ; Comment: IV Push Rate: 2 mg/min; Max 4 mg IV Push senna 8.6 mg Tab : senna 8.6 mg Tab ; Status: Ordered ; Ordered As Mnemonic: Senokot ; Simple Display Line: 8.6 mg, PO, qHS, PRN: Constipation ; Ordering Provider: Sana Cameron MD; Catalog Code: senna ; Order Dt/Tm: 04/23/2022 20:40:40 MST insulin LISPRO syringe (10 Unit) : insulin LISPRO syringe (10 Unit) ; Status: Ordered ; Ordered As Mnemonic: HumaLOG correctional ; Simple Display Line: 0 - 8 Unit, SUBCUT, q4hr ; Ordering Provider: Sana Cameron MD; Catalog Code: insulin LISPRO ; Order Dt/Tm: 04/23/2022 09:39:40 MST ; Comment: Less than 70 mg/dL = initiate Hypoglycemia Protocol << Sliding Scale Comments >> Correctional Insulin 70 - 150 = none 151 - 200 = 1 unit 201 - 250 = 2 units 251 - 300 = 3 units 301 - 350 = 4 units 351 - 400 = 6 units greater than 400 = 8 units << Sliding Scale Comments >> If blood glucose is greater than 180 mg/dL two consecutive times or for a single result greater than 200 mg/dL, call MD for evaluation. insulin LISPRO syringe (10 Unit) : insulin LISPRO syringe (10 Unit) ; Status: Discontinued ; Ordered As Mnemonic: HumaLOG correctional ; Simple Display Line: 0-8 units, SUBCUT, With meals and HS ; Ordering Provider: Sana Cameron MD; Catalog Code: insulin LISPRO ; Order Dt/Tm: 04/23/2022 08:24:34 MST ; Comment: Less than 70 mg/dL = initiate Hypoglycemia Protocol, call MD to consider changing insulin dosing. If blood glucose is greater than 180 mg/dL two consecutive times or for a single result greater than 200 mg/dL, call MD for evaluation. << Sliding Scale Comments >> With Meals Coverage 71 - 150 = none 151 - 200 = 1 unit 201 - 250 = 2 units 251 - 300 = 3 units 301 - 350 = 4 units 351 - 400 = 6 units >400 = 8 units Bedtime Coverage 71 - 150 = none 151 - 200 = none 201 - 250 = 1 unit 251 - 300 = 2 units 301 - 350 = 3 units 351 - 400 = 4 units >400 = 5 units << Sliding Scale Comments >> cefTRIAXone 2,000 mg Inj : cefTRIAXone 2,000 mg Inj ; Status: Ordered ; Ordered As Mnemonic: cefTRIAXone (Rocephin) for IV Push ; Simple Display Line: 2,000 mg, IV Push, q24hr ; Ordering Provider: Sana Cameron MD; Catalog Code: cefTRIAXone ; Order Dt/Tm: 04/23/2022 08:22:24 MST ; Comment: Dilute 2gm ceftriaxone with 20 mL sterile water, or sodium chloride 0.9%, if sterile water NOT available. Give slow IV Push over 3 minutes. famotidine 20 mg Tab : famotidine 20 mg Tab ; Status: Ordered ; Ordered As Mnemonic: famotidine ; Simple Display Line: 20 mg, PO, Daily ; Ordering Provider: Sana Cameron MD; Catalog Code: famotidine ; Order Dt/Tm: 04/23/2022 08:23:33 MST finasteride 5 mg Tab : finasteride 5 mg Tab ; Status: Ordered ; Ordered As Mnemonic: finasteride ; Simple Display Line: 5 mg, PO, qDay ; Ordering Provider: Sana Cameron MD; Catalog Code: finasteride ; Order Dt/Tm: 04/23/2022 08:23:58 MST ; Comment: women should not handle crushed or broken tablets when they are or may potentially be because of the possibility of absorption and the subsequent potential risk to a male fetus metoprolol 25 mg IMMediate Release Tab : metoprolol 25 mg IMMediate Release Tab ; Status: Ordered ; Ordered As Mnemonic: metoprolol ; Simple Display Line: 12.5 mg, PO, BID ; Ordering Provider: Sana Cameron MD; Catalog Code: metoprolol ; Order Dt/Tm: 04/23/2022 08:24:48 MST ; Comment: hold for HR <50 or SBP <110 senna 8.6 mg Tab : senna 8.6 mg Tab ; Status: Ordered ; Ordered As Mnemonic: senna ; Simple Display Line: 17.2 mg, PO, qDay ; Ordering Provider: Sana Cameron MD; Catalog Code: senna ; Order Dt/Tm: 04/23/2022 08:23:38 MST ; Comment: 1 tab = 8.6 mg albuterol/iprat (2.5-0.5mg/3mL) Inh Soln : albuterol/iprat (2.5-0.5mg/3mL) Inh Soln ; Status: Ordered ; Ordered As Mnemonic: DuoNeb ; Simple Display Line: 3 mL, NEB - inhalation, q2hr, PRN: Shortness of breath or wheezing ; Ordering Provider: Sana Cameron MD; Catalog Code: albuterol-ipratropium ; Order Dt/Tm: 04/23/2022 08:25:16 MST glucagon 1 mg Inj : glucagon 1 mg Inj ; Status: Ordered ; Ordered As Mnemonic: glucagon ; Simple Display Line: 1 mg, IM, Per Parameter, PRN: Hypoglycemia ; Ordering Provider: Sana Cameron MD; Catalog Code: glucagon ; Order Dt/Tm: 04/23/2022 08:24:35 MST ; Comment: * Repeat point of care (POC) blood glucose within 30 minutes of first low blood glucose * Attempt to establish IV access * If blood glucose still less than 90 mg/dL, give dextrose 50% 25 gram IV push * If unable to establish IV access * If blood glucose still less than 90 mg/dL, give 2nd dose of Glucagon IM injection * Repeat point of care (POC) blood glucose within 30 minutes of second low blood glucose * Reattempt to establish IV access * If blood glcose still less than 90 mg/dL, give dextrose 50% 25 gram IV push * If unable to establish IV access * Contact Provider, additional dose of Glucagon IM is not recommended Dextrose 50% (25gm) PF 50 mL Syringe : Dextrose 50% (25gm) PF 50 mL Syringe ; Status: Ordered ; Ordered As Mnemonic: dextrose 50% (25gm) syringe ; Simple Display Line: 25 gm, IV Push, q15min, PRN: Hypoglycemia ; Ordering Provider: Sana Cameron MD; Catalog Code: glucose ; Order Dt/Tm: 04/23/2022 08:24:35 MST ; Comment: * Repeat point of care (POC) blood glucose within 30 minutes of first low blood glucose * Treat blood glucose to greater than or equal to 90 mg/dL. Repeat POC glucose is not subject to correctional insulin * If patient is not corrected (blood glucose >= 90 mg/dL) after 2 doses contact provider Dextrose 50% (25gm) PF 50 mL Syringe : Dextrose 50% (25gm) PF 50 mL Syringe ; Status: Ordered ; Ordered As Mnemonic: dextrose 50% (25gm) syringe ; Simple Display Line: 12.5 gm, IV Push, q15min, PRN: Hypoglycemia ; Ordering Provider: Sana Cameron MD; Catalog Code: glucose ; Order Dt/Tm: 04/23/2022 08:24:35 MST ; Comment: * Repeat point of care (POC) blood glucose within 30 minutes of first low blood glucose * Treat blood glucose to greater than or equal to 90 mg/dL. Repeat POC glucose is not subject to correctional insulin * If patient is not corrected (blood glucose >= 90 mg/dL) after 2 doses contact provider glucose 4gm Chew Tab : glucose 4gm Chew Tab ; Status: Ordered ; Ordered As Mnemonic: glucose oral tablet, chewable ; Simple Display Line: 16 gm, PO, q15min, PRN: Hypoglycemia ; Ordering Provider: Sana Cameron MD; Catalog Code: glucose ; Order Dt/Tm: 04/23/2022 08:24:35 MST ; Comment: * Repeat point of care (POC) blood glucose within 30 minutes of first low blood glucose * Treat blood glucose to greater than or equal to 90 mg/dL. Repeat POC glucose is not subject to correctional insulin * If patient is not corrected (blood glucose >= 90 mg/dL) after 2 doses then switch to dextrose 50% and contact provider 16 gm = 4 tablets hydrALAZINE 20 mg/mL 1mL Inj : hydrALAZINE 20 mg/mL 1mL Inj ; Status: Ordered ; Ordered As Mnemonic: hydrALAZINE ; Simple Display Line: 5 mg, IV Push, q4hr, PRN: Other (see Comments) ; Ordering Provider: Sana Cameron MD; Catalog Code: hydrALAZINE ; Order Dt/Tm: 04/23/2022 08:24:45 MST ; Comment: IV Push Rate: 5-10 mg/min HOLD if BP <100, HR >100 Administer undiluted over 1 to 2 minutes (max 5 mg/min) for systolic blood pressure greater than 170 labetalol 5 mg/mL 20 mL Inj : labetalol 5 mg/mL 20 mL Inj ; Status: Ordered ; Ordered As Mnemonic: labetalol ; Simple Display Line: 5 mg, IV Push, q4hr(interval), PRN: Hypertension ; Ordering Provider: Sana Cameron MD; Catalog Code: labetalol ; Order Dt/Tm: 04/23/2022 08:24:44 MST ; Comment: IV Push Rate: 10 mg/min Hold for HR <60 bpm Max 300 mg/24 hours for SBP>170 See comments : See comments ; Status: Ordered ; Ordered As Mnemonic: See comments ; Simple Display Line: 1 Each, N/A, oncall, PRN: Other (see Comments) ; Ordering Provider: Sana Cameron MD; Catalog Code: Pharmacy Communication ; Order Dt/Tm: 04/23/2022 08:24:34 MST ; Comment: Discontinue all anti-diabetic agents (metformin, sitagliptin, glyburide, Byetta, etc). See comments : See comments ; Status: Ordered ; Ordered As Mnemonic: See comments ; Simple Display Line: 1 Each, N/A, oncall, PRN: Other (see Comments) ; Ordering Provider: Sana Cameron MD; Catalog Code: Pharmacy Communication ; Order Dt/Tm: 04/23/2022 08:24:34 MST ; Comment: Discontinue all other insulin orders. bisacodyl 10 mg Supp : bisacodyl 10 mg Supp ; Status: Ordered ; Ordered As Mnemonic: Dulcolax ; Simple Display Line: 10 mg, VT, Daily, PRN: Constipation 3rd Choice ; Ordering Provider: Sana Cameron MD; Catalog Code: bisacodyl ; Order Dt/Tm: 04/23/2022 08:23:41 MST ; Comment: If no BM in any 72 hour period and no sign of impaction. When all oral stool softeners failed docusate/senna (50/8.6) mg Tab : docusate/senna (50/8.6) mg Tab ; Status: Ordered ; Ordered As Mnemonic: Senokot S (50/8.6) ; Simple Display Line: 2 Tab, PO, BID, PRN: Constipation ; Ordering Provider: Sana Cameron MD; Catalog Code: docusate-senna ; Order Dt/Tm: 04/23/2022 08:23:37 MST ; Comment: If no BM in any 24 hour period, increase to two tabs PO/FT Bid. Renal dosing adjustment : Renal dosing adjustment ; Status: Ordered ; Ordered As Mnemonic: Renal dosing adjustment ; Simple Display Line: 1 Each, N/A, oncall, PRN: Other (see Comments) ; Ordering Provider: Sana Cameron MD; Catalog Code: Pharmacy Communication ; Order Dt/Tm: 04/23/2022 08:23:10 MST polyethylene glycol 3350 17gm Pwd : polyethylene glycol 3350 17gm Pwd ; Status: Ordered ; Ordered As Mnemonic: MiraLax ; Simple Display Line: 17 gm, PO, Daily, PRN: Constipation 1st Choice ; Ordering Provider: Sana Cameron MD; Catalog Code: polyethylene glycol 3350 ; Order Dt/Tm: 04/23/2022 08:23:40 MST ; Comment: If no BM in any 48 hour period. Same as Miralax Note 1 Packet = 17 gm To be diluted with 8 Ounces of Water metoclopramide 5 mg/mL 2mL Inj : metoclopramide 5 mg/mL 2mL Inj ; Status: Ordered ; Ordered As Mnemonic: Reglan ; Simple Display Line: 5 mg, IV Push, q6hr, PRN: Nausea / Vomiting 2nd Choice ; Ordering Provider: Sana Cameron MD; Catalog Code: metoclopramide ; Order Dt/Tm: 04/23/2022 08:22:51 MST ; Comment: IV Push rate 10 mg/2 min metroNIDAZOLE : metroNIDAZOLE ; Status: Ordered ; Ordered As Mnemonic: Flagyl I.V. ; Simple Display Line: 500 mg, 100 mL, 100 mL/hr, IV, q8hr ; Ordering Provider: Sana Cameron MD; Catalog Code: metroNIDAZOLE ; Order Dt/Tm: 04/23/2022 08:22:30 MST morphine 2 mg/mL 1mL Inj : morphine 2 mg/mL 1mL Inj ; Status: Ordered ; Ordered As Mnemonic: morphine INJ ; Simple Display Line: 2 mg, IV Push, q4hr(interval), PRN: Pain Moderate (4-6) ; Ordering Provider: Sana Cameron MD; Catalog Code: morphine ; Order Dt/Tm: 04/23/2022 08:22:34 MST ; Comment: IV Push Rate: 2 mg/min ONLY use when oral pain meds is not effective or cannot take PO meds HOLD for sedation, low BP, RR <12 morphine 2 mg/mL 1mL Inj : morphine 2 mg/mL 1mL Inj ; Status: Ordered ; Ordered As Mnemonic: morphine INJ ; Simple Display Line: 2 mg, IV Push, q4hr(interval), PRN: Pain Severe (7-10) ; Ordering Provider: Sana Cameron MD; Catalog Code: morphine ; Order Dt/Tm: 04/23/2022 08:22:36 MST ; Comment: IV Push Rate: 2 mg/min ONLY use when oral pain meds is not effective or cannot take PO meds HOLD for sedation, low BP, RR <12 ondansetron 2 mg/mL Inj 2mL : ondansetron 2 mg/mL Inj 2mL ; Status: Discontinued ; Ordered As Mnemonic: Zofran INJ ; Simple Display Line: 4 mg, IV Push, q4hr, PRN: Nausea / Vomiting 1st Choice ; Ordering Provider: Sana Cameron MD; Catalog Code: ondansetron ; Order Dt/Tm: 04/23/2022 08:22:50 MST ; Comment: IV Push Rate: 2 mg/min, max 4 mg IV push oxyCODONE 5 mg Tab Immediate Release : oxyCODONE 5 mg Tab Immediate Release ; Status: Ordered ; Ordered As Mnemonic: OxyIR ; Simple Display Line: 10 mg, PO, q4hr, PRN: Pain Severe (7-10) ; Ordering Provider: Sana Cameron MD; Catalog Code: oxyCODONE ; Order Dt/Tm: 04/23/2022 08:22:38 MST ; Comment: Moderate to Severe Pain (7-10) HOLD if BP <100, RR <12, Sedation oxyCODONE 5 mg Tab Immediate Release : oxyCODONE 5 mg Tab Immediate Release ; Status: Ordered ; Ordered As Mnemonic: OxyIR ; Simple Display Line: 5 mg, PO, q4hr, PRN: Pain Moderate (4-6) ; Ordering Provider: Sana Cameron MD; Catalog Code: oxyCODONE ; Order Dt/Tm: 04/23/2022 08:22:39 MST ; Comment: Moderate to Severe Pain (4-10) HOLD if BP <100, RR <12, Sedation ampicillin/sulbactam : ampicillin/sulbactam ; Status: Completed ; Ordered As Mnemonic: Unasyn ; Simple Display Line: 3 gm, 200 mL/hr, IV, x1 ; Ordering Provider: Eliza Dasilva MD; Catalog Code: ampicillin-sulbactam ; Order Dt/Tm: 04/23/2022 04:40:56 MST NaCl 0.9% : NaCl 0.9% ; Status: Completed ; Ordered As Mnemonic: Sodium Chloride 0.9% (Bolus) ; Simple Display Line: 1,000 mL, 923.08 mL/hr, IV, x1 ; Ordering Provider: Eliza Dasilva MD; Catalog Code: Sodium Chloride 0.9% ; Order Dt/Tm: 04/23/2022 02:09:32 MST ; Comment: Complete bolus first before starting continuous IV fluid infusion Home Meds ferrous gluconate : ferrous gluconate ; Status: Documented ; Ordered As Mnemonic: iron gluconate ; Simple Display Line: 27 mg, PO, Daily, takes 3 x per week, 0 Refill(s) ; Catalog Code: ferrous gluconate ; Order Dt/Tm: 05/22/2021 12:45:55 MST albuterol : albuterol ; Status: Documented ; Ordered As Mnemonic: albuterol HFA (90 mcg/dose) MDI ; Simple Display Line: 1 Puff, INH, QID, PRN: as needed for wheezing, 18 gm, 0 Refill(s) ; Catalog Code: albuterol ; Order Dt/Tm: 05/22/2021 12:44:31 MST cholecalciferol : cholecalciferol ; Status: Documented ; Ordered As Mnemonic: Vitamin D3 25 mcg (1,000 unit) oral tablet, chewable ; Simple Display Line: 1 Tab, Chew, qDay, 50 Tab, 0 Refill(s) ; Catalog Code: cholecalciferol ; Order Dt/Tm: 05/22/2021 12:43:05 MST metFORMIN-sitagliptin : metFORMIN-sitagliptin ; Status: Documented ; Ordered As Mnemonic: Janumet XR 50 mg-500 mg oral tablet, extended release ; Simple Display Line: 2 Tab, PO, qPM, 60 Tab, 0 Refill(s) ; Catalog Code: metFORMIN-sitagliptin ; Order Dt/Tm: 05/22/2021 12:46:44 MST cyanocobalamin : cyanocobalamin ; Status: Documented ; Ordered As Mnemonic: Vitamin B12 1000 mcg oral tablet ; Simple Display Line: 1 Tab, PO, qDay, 30 Tab, 0 Refill(s) ; Catalog Code: cyanocobalamin ; Order Dt/Tm: 05/22/2021 12:42:32 MST omega-3 polyunsaturated fatty acids : omega-3 polyunsaturated fatty acids ; Status: Documented ; Ordered As Mnemonic: Fish Oil 1000 mg oral capsule ; Simple Display Line: 1 Cap, PO, BID, 60 Cap, 0 Refill(s) ; Catalog Code: omega-3 polyunsaturated fatty acids ; Order Dt/Tm: 05/22/2021 12:42:08 MST rivaroxaban : rivaroxaban ; Status: Documented ; Ordered As Mnemonic: Xarelto 20 mg oral tablet ; Simple Display Line: 1 Tab, PO, qPM, 30 Tab, 0 Refill(s) ; Catalog Code: rivaroxaban ; Order Dt/Tm: 05/22/2021 12:41:19 MST chlorthalidone : chlorthalidone ; Status: Documented ; Ordered As Mnemonic: chlorthalidone 25 mg oral tablet ; Simple Display Line: 1 Tab, PO, qDay, 30 Tab, 0 Refill(s) ; Catalog Code: chlorthalidone ; Order Dt/Tm: 05/22/2021 12:40:55 MST potassium chloride : potassium chloride ; Status: Documented ; Ordered As Mnemonic: potassium chloride 8 mEq oral tablet, extended release ; Simple Display Line: 1 Tab, PO, qDay, 270 Tab, 0 Refill(s) ; Catalog Code: potassium chloride ; Order Dt/Tm: 05/22/2021 12:40:11 MST insulin detemir : insulin detemir ; Status: Documented ; Ordered As Mnemonic: Levemir 100 units/mL subcutaneous solution ; Simple Display Line: 57 units, SUBCUT, Daily, 0 Refill(s) ; Catalog Code: insulin detemir ; Order Dt/Tm: 05/22/2021 12:39:16 MST loratadine : loratadine ; Status: Documented ; Ordered As Mnemonic: Claritin 10 mg oral tablet ; Simple Display Line: 1 Tab, PO, qDay, for 10 Day, 10 Tab, 0 Refill(s) ; Catalog Code: loratadine ; Order Dt/Tm: 05/22/2021 12:39:49 MST insulin aspart : insulin aspart ; Status: Documented ; Ordered As Mnemonic: NovoLOG ; Simple Display Line: 10 Unit, SUBCUT, TID before meals, 0 Refill(s) ; Catalog Code: insulin aspart ; Order Dt/Tm: 05/22/2021 12:38:34 MST finasteride : finasteride ; Status: Documented ; Ordered As Mnemonic: finasteride 5 mg oral tablet ; Simple Display Line: 1 Tab, PO, qDay, 30 Tab, 0 Refill(s) ; Catalog Code: finasteride ; Order Dt/Tm: 05/22/2021 12:37:46 MST lisinopril : lisinopril ; Status: Documented ; Ordered As Mnemonic: lisinopril 20 mg oral tablet ; Simple Display Line: 1 Tab, PO, qDay, 30 Tab, 0 Refill(s) ; Catalog Code: lisinopril ; Order Dt/Tm: 05/22/2021 12:37:25 MST metoprolol : metoprolol ; Status: Documented ; Ordered As Mnemonic: metoprolol succinate 25 mg oral capsule, extended release ; Simple Display Line: 0.5 Tab, PO, BID, 0 Refill(s) ; Catalog Code: metoprolol ; Order Dt/Tm: 05/22/2021 12:36:59 MST dapagliflozin : dapagliflozin ; Status: Documented ; Ordered As Mnemonic: Farxiga 10 mg oral tablet ; Simple Display Line: 1 Tab, PO, qDay, 30 Tab, 0 Refill(s) ; Catalog Code: dapagliflozin ; Order Dt/Tm: 05/22/2021 12:36:31 MST rosuvastatin : rosuvastatin ; Status: Documented ; Ordered As Mnemonic: rosuvastatin 20 mg oral tablet ; Simple Display Line: 1 Tab, PO, qDay, 30 Tab, 0 Refill(s) ; Catalog Code: rosuvastatin ; Order Dt/Tm: 05/22/2021 12:36:43 MST [place] Suicide Severity Rating Scale (C-SSRS) 1. In the past 30 days have you wished you were or wished you could go to sleep and not wake up : No 2. In the past 30 days, have you had any actual thoughts about killing yourself : No 6. In your lifetime, have you ever done anything, started anything, or prepared to do anything to end your life : No Suicide Severity Rating Stratification : 0 Suicide Severity Rating : No additional care required at this time Suicide Prevention Interventions : No additional care required at this time Yenifer Amezcua RN - 04/23/2022 21:10 MST Social History New 04/04 Verified Prev Data - Social History : Yes Observable Signs of Abuse/Violence : None observed Threatening Health, Safety, Well-being : Denies Abuse Calculation : 0 Abuse Interp : No Yenifer Amezcua RN - 04/23/2022 21:10 MST Social History (As Of: 04/23/2022 21:26:53 MST) Tobacco: Never (less than 100 in lifetime) (Last Updated: 04/23/2022 21:17:50 MST by Yenifer Amezcua RN) Never (less than 100 in lifetime) (Last Updated: 04/23/2022 02:08:24 MST by Yvonne Felix RN) Alcohol: Denies (Last Updated: 04/23/2022 21:17:59 MST by Yenifer Amezcua RN) Denies (Last Updated: 04/23/2022 02:08:28 MST by Yvnone Felix RN) Substance Abuse: Denies (Last Updated: 04/23/2022 21:18:05 MST by Yenifer Amezcua RN) Denies (Last Updated: 04/23/2022 02:08:32 MST by Yvonne Felix RN) Nutrition/Health: Diet: Diabetic. (Last Updated: 04/23/2022 21:18:43 MST by Yenifer Amezcua RN) Home/Environment: [employer] restrictions/concerns: None. Lives with Alone. Living situation: Home/Independent. Home equipment: CPAP/BiPAP, Monitoring. Alcohol abuse in household: No. Substance abuse in household: No. Smoker in household: No. Injuries/Abuse/Neglect in household: No. Feels unsafe at home: No. Safe place to go: Yes. Family/Friends available for support: Yes. Concern for family members at home: No. Major illness in household: No. Financial concerns: No. TV/Computer concerns: No. (Last Updated: 04/23/2022 21:20:21 MST by Yenifer Amezcua RN) [employer] restrictions/concerns: None. (Last Updated: 04/23/2022 02:08:35 MST by Yvonne Felix RN) Initial Nutritional (v2) New 04/04 Recent weight loss without trying : No Eating poorly due to decreased appetite : No Total malnutrition screening points : 0 Home Diet Initial Assess : Diabetic Feeding ability : Complete independence Eating difficulties : Other: missing teeth Cultural or [employer] Restrictions : Other: none Yenifer Amezcua RN - 04/23/2022 21:10 MST Environmental/Functional New 04/04 Living Situation : Lives alone Requires assist in mgmt of Oxygen : No Yenifer Amezcua RN - 04/23/2022 21:10 MST Functional Status Grid Eating : Self Bathing : Self Dressing : Self Transferring : Self Toileting : Self Walking : With 1 person assist/assistive device Balancing : Self Yenifer Amezcua RN - 04/23/2022 21:10 MST Assistance Needs : No Yenifer Amezcua RN - 04/23/2022 21:10 [facility] Advance Directive and POLST Tracking Contact Information : Contact Type: Emergency Contact Name: KIRIT ARNOLD Relation: Sibling [employer] Phone: Address: City: [place] State: [place] PCP: Glenys Oakes MD Patient's Language: New Zealander Last Scanned Advance Directive or POLST Documents : Advance Directive/POLST Last Scanned: No scanned documents found. Advance Directive : No Recent Documentation : Advance Directive/POLST Tracking Form No historic results found. Legacy Documentation : Advance Directive Tracking No results found. Yenifer Amezcua RN - 04/23/2022 21:10 [facility] Discharge Planning New 04/04 DC Planning Phys Access : Yes DC Planning Home : Yes DC Planning Help at home : my neighbors DC Planning Transport : Yes DC Planning Trans Followup : Yes Requires assistance with med management : No Anticipated Discharge Plan : Home without assistance needed Yenifer Amezcua RN - 04/23/2022 21:10 MST Readmission Risk Risk of Readmission Score : 4 Diagnosis of CHF/COPD/diabetes/HIV/AIDS : Diabetes Incontinent-Risk : No Decreased adherence to treatment plan : No Acute/chronic wound or pressure ulcer : Yes Fall History last 6 months : One (Comment: fell a year ago [Yenifer Amezcua RN - 04/23/2022 21:10 MST] ) Yenifer Amezcua RN - 04/23/2022 21:10 MST 04/24/2022 [facility] Respiratory Therapy Assmt & Treatment RT Treatment Entered On: 04/23/2022 17:42 MST Performed On: 04/23/2022 17:10 MST by Madisyn Dailey RT Treatment Summary Treatment Time Out (RT) : 17:18 MST Incentive Spirometry (RT) : Yes Madisyn Dailey RT - 04/23/2022 17:41 MST Incentive Spirometry IS Goal (RT) : 3,000 mL IS Patient Effort (RT) : 3,200 mL IS Instruct Complete (RT) : Yes RAL Charge (RT) : RT ASSESSMENT LIMITED Madisyn Dailey RT - 04/23/2022 17:41 MST 04/24/2022 [facility] Consultation Patient: SHOBHA JIANG Age: 76 years Sex: M : 1945 Active Insurance: MEDICARE A Admitting MD: Marybel Truong Location: [facility] EDIP: [id number]: [id number] PCP: Glenys Oakes MD Author: Tyler Post MD Referring Physician Fili Cameron MD Reason for Consultation acute cholecystitis Chief Complaint RUQ pain History of Present Illness 76-year-old gentleman with past medical history of diabetes, asthma, hypertension, PE who came to ED due to upper abdominal 'pressure'. Per patient, patient was ambulating at night with some chest pressure as if an elephant was sitting on his upper abdomen.. Pain was mostly in the lower sternum and epigastrium area. He denies chest pain to me but described more typical chest pain to Dr. Cameron. He denied any fever or chills or any shortness of breath. He denied any radiating pain into the left side of his chest or jaw or back. He denied any nausea or vomiting. Pain is not associated to food intake. Pain persisted was prompted ED visit. Vital signs in ED showed elevated blood pressure but otherwise no fever and was breathing fine in room air. Labs showed elevated WBC at 11.2 and creatinine at 1.71. AST slightly elevated at [address] lipase at 108. CT abdomen and pelvis was done which showed cholelithiasis with no radiologic evidence of acute cholecystitis but showed overly distended gallbladder consistent with hydrops. Ultrasound of the abdomen was done which showed cholelithiasis and positive Youngblood sign consistent with acute cholecystitis. EKG was done which showed sinus rhythm with first-degree AV block. Empiric IV antibiotics started. Cardiology consult for preop clearance. Surgery consulted for possible acute cholecystitis. Patient admitted for further evaluation and management. At the time of my consult patient is up in chair and denies any abdominal pain. He denies any prior hx of biliary colic. He does not want surgery unless mandatory. Review of Systems 14 point ROS completed and negative except as noted in HPI above. Objective Vitals and Measurements T: 37.1 ?C (Oral) TMIN: 36.4 ?C (Temporal Artery) TMAX: 37.1 ?C (Oral) HR: 77 RR: 18 BP: 129/70 SpO2: 98% Oxygen Method: Room air WT: 124.717 kg WT: 275 lbs Physical Exam GENERAL: Nontoxic, no acute distress, alert, oriented x 3 HEENT: Normocephalic, atraumatic, no scleral icterus or conjunctival injection, MMM OP clear w/o erythema or exudate NECK: supple, no rigidity. No lymphadenopathy, bruits, or thyromegaly LUNGS: Clear to auscultation bilaterally. No crackles or wheezes. CV: RRR, normal S1/S2, no gallops. PMI not displaced. No jugular venous distention. GI: obese, soft, normoactive bowel sounds, no rebound, guarding or masses, no hepatomegaly or splenomegaly, no pulsatile mass or bruit. NO tenderness in epigastric region and RUQ. : no suprapubic or flank tenderness. BACK: [...] Most Recent, Lab 24 hrs Last 24 Hours Hematology-CBC 04/23/22 General Chemistry 04/23/22 POC Glucose 04/23/22 WBC:11.2 (H) Sodium: 136 Glucose (POCT) Automated:161 (H) RBC:4.52 (L) Potassium: 4.3 Hgb:12.8 (L) Chloride: 104 Hct:38.9 (L) CO2:20 (L) MCV: 86.0 Anion Gap: 12 MCH: 28.4 Glucose Level:177 (H) MCHC: 33.0 BUN:27 (H) RDW: 15.2 Creatinine:1.71 (H) Plt: 267 BUN/Ripsaw Operator Ratio: 15.8 MPV: 8 eGFRcr:41 (L) Neuts: 70.9 Calcium: 9.6 Lymphs: 19.8 Corrected Calcium: 9.4 Monos.: 6.1 Protein, Total: 7.3 Eos.: 2.6 Albumin: 4.2 Baso.: 0.6 Globulin: 3 ABS Neut: 7.9 A/G Ratio: 1 ABS Lymph: 2.2 Bili Total: 0.8 ABS [place]: 0.7 ALT: 42 ABS Eos: 0.3 AST:69 (H) ABS Baso: 0.1 Alkphos: 51 CBC Scan: Auto Diff Lipase:108.0 (H) nRBC Auto: 0 Lactic Acid: 1.2 Cardiac 04/23/22 Lipid Tests 04/23/22 Special Chemistry 04/23/22 B-Natriuretic Peptide: 20.6 Cholesterol: 137 TSH: 1.00 Troponin I: <0.01 Triglycerides:362 (H) HDL:18 (L) LDL Direct: 68 VLDL: 72 LDL/HDL: 3 Chol/Tri %HDL: 13 Cholesterol/HDL:8 (L) Toxicology 04/23/22 Ethanol:<10 (H) Additional Antibiotics Ordered cefTRIAXone: 2,000 mg, IV Push, q24hr 04/23/22 08:22 - Active ( 1 days ) metroNIDAZOLE: 500 mg, IV, q8hr 04/23/22 08:22 - Active ( 1 days ) Completed ampicillin-sulbactam: 3 gm, IV, x1 04/23/22 04:40 - Active ( 1 days ) Diagnostic Results Ultrasound - All Encounters, Most Recent, Last 2 weeks US Abdomen Limited 04/23/22 01:41:14 PROCEDURE INFORMATION: Exam: US Abdomen, Limited; Right Upper Quadrant Exam date and time: 04/23/2022 1:41 AM Age: 76 years old Clinical indication: Abdomen pain ruq TECHNIQUE: Imaging protocol: Real time ultrasound of the abdomen with image documentation. Limited exam focused on the right upper quadrant. COMPARISON: No relevant prior studies available. FINDINGS: Liver: Normal. No masses. Gallbladder: Tank Inspector notes positive Youngblood's sign. The gallbladder demonstrates layering density consistent with noncalcified stones or sludge. No gallbladder wall thickening. Biliary ducts: Normal. No stones. No dilation. Pancreas: Visualized pancreas is unremarkable. Right kidney: Normal. No mass. No hydronephrosis. Other findings: Tank Inspector notes technically difficult exam secondary to patient body habitus and overlying bowel gas. IMPRESSION: Cholelithiasis. 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 Signed By: Reinaldo Zavaleta MD Assessment/Plan 1. Acute cholecystitis K81.0 possible early vs other diagnosis Ordered: 2. Cholelithiasis K80.20 Ordered: Plan- Long discussion but not clearly gall bladder related though possible. Would be first episode. Pt. reluctant to have surgery. Will get HIDA. If negative can d/c home. Pt. can f/u for OPT surgery for repeat pain episodes. Pt. only wants surgery if cannot be avoided. Problem List/Past Medical History Ongoing Anemia Asthma Diabetes mellitus Foot drop, left Hypercholesterolemia Hypertension Pulmonary embolism Spinal stenosis Historical No qualifying data Procedure/Surgical History Adenoidectomy Hydrocele 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 Tonsillectomy Medications Inpatient cefTRIAXone (Rocephin) for IV Push, 2000 mg, IV Push, q24hr dextrose 50% (25gm) syringe, 25 gm= 50 mL, IV Push, q15min, PRN dextrose 50% (25gm) syringe, 12.5 gm= 25 mL, IV Push, q15min, PRN Dulcolax, 10 mg= 1 Supp, VT, Daily, PRN DuoNeb, 3 mL, NEB - [...] PO, qPM Allergies No Known Medication Allergies Reaction: None Documented Social History Alcohol Denies, 04/23/2022 Denies, 05/22/2021 Home/Environment Oriental Orthodox restrictions/concerns: None., 04/23/2022 [employer] Orthodox restrictions/concerns: None., 05/22/2021 Substance Abuse Denies, 04/23/2022 Denies, 05/22/2021 Tobacco Never (less than 100 in lifetime), 04/23/2022 Never (less than 100 in lifetime), 05/22/2021 Family History Reviewed and noncontributory. Electronically Signed By: Tyler Post MD On 04/24/22 13:31 Co Signature By: Modify Signature By: Tyler Post MD On 04/23/22 16:51 04/23/2022 [facility] Echocardiogram Complete, Transthoracic *[facility]* [address] [place] [address] Transthoracic Echocardiogram Patient: Juan Jiang MR #: [id number] Study Date: 04/23/2022 Age: 76 : 1945 Gender: M Height: 178cm Weight: 125kg BP: 120 / 80 Tank Inspector: Emilie Carbone Study Conclusions 1. Left ventricle: The cavity size is [...] effusion. No evidence of pleural fluid accumulation. Indications: Presyncope. Screening pre operative. Study data: Study status: Routine. Patient status: Inpatient. Location: Bedside. Procedure: Transthoracic echocardiography. Image quality was poor. The study was technically limited due to poor acoustic window availability, restricted patient mobility, and body habitus. Study completion: The patient tolerated the procedure well. There were no complications. Body surface area: BSA: 2.39m^2. Body mass index: BMI: 39.5kg/m^2. Cardiac Anatomy Left ventricle: The cavity size is normal. [...] Pleura: No evidence of pleural fluid accumulation. Measurements Left ventricle Value Ref LV ID, ED, [...] 35 - 75 volume/bsa, Teichholz MM LV e', lateral (L) 8.9 cm/sec >=10.0 LV E/e', lateral 7 --------- LV e', medial (L) 6.0 cm/sec >=7.0 LV E/e', medial 10 --------- LV e', average 7.5 cm/sec --------- LV E/e', average 8 <=14 LVOT Value Ref LVOT ID, S 2.2 cm --------- LVOT area 3.8 cm^2 --------- LVOT peak velocity, S 0.98 m/sec --------- LVOT mean velocity, S 0.56 m/sec --------- LVOT VTI, S 15.8 cm --------- LVOT peak gradient, S 4 mm Hg --------- LVOT mean gradient, S 1 mm Hg --------- Ventricular septum Value Ref IVS thickness, ED, PLAX 0.7 cm 0.6 - 1.0 IVS thickness, ED 0.7 cm 0.6 - 1.0 Right ventricle Value Ref RV ID, ED, PLAX 4.3 cm --------- RV ID, ED 4.3 cm --------- TAPSE, 2D 2.1 cm 1.7 - 3.1 TAPSE, MM 2.1 cm 1.7 - 3.1 Left atrium Value Ref LA ID, A-P, ES 3.5 cm 3.0 - 4.0 LA ID/bsa, A-P 1.5 cm/m^2 1.5 - 2.3 LA area, ES, A4C (H) 24 cm^2 <=20 LA volume, ES, 1-p A4C (H) 66 ml 18 - 58 LA volume/bsa, ES, 1-p 28 ml/m^2 12 - 37 A4C LA/aortic root ratio 1.17 --------- Right atrium Value Ref RA ID, M-L, [...] A4C (L) 1.5 cm/m^2 1.8 - 3.0 Aortic valve Value Ref Aortic valve peak [...] valve area/bsa, 1.27 cm^2/m^2 --------- mean velocity Mitral valve Value Ref Mitral E-wave peak [...] valve area/bsa, 1.11 cm^2/m^2 --------- LVOT continuity Pulmonic valve Value Ref Pulmonic valve peak 0.8 m/sec --------- velocity, S Pulmonic peak gradient, 2 mm Hg --------- S Pulmonic regurg 0.35 m/sec --------- velocity, ED Tricuspid valve Value Ref Tricuspid regurg peak (H) 3.3 m/sec <=2.8 velocity Tricuspid peak RV-RA 43 mm Hg --------- gradient Aortic root Value Ref Aortic root ID 3.0 cm <4.4 Ascending aorta Value Ref Ascending aorta ID, 3.0 cm --------- A-P, S Ascending aorta ID/bsa, 1.3 cm/m^2 --------- A-P, S Pulmonary artery Value Ref PA pressure, S, DP 45 mm Hg --------- Pulmonary veins Value Ref Pulmonary vein peak 0.39 m/sec --------- velocity, S Pulmonary vein peak 0.24 m/sec --------- velocity, D Pulmonary vein velocity 1.6 --------- ratio, peak, S/D Pulmonary vein A-wave 0.35 m/sec --------- reversal peak velocity Legend: (L) and (H) bianka values outside specified reference range. Carole Azevedo MD [id number] 04/23/2022 [facility] ED Procedure and Supply Charges - Text ED Procedure and Supply Charges Entered On: 04/30/2022 8:39 MST Performed On: 04/23/2022 8:39 MST by [facility] ED Infusions, Vascular and Lab - Charges INJ TX/DX/PRO IV PUSH SEQ v2 : 1 [facility] - 04/30/2022 8:39 MST 04/23/2022 [facility] ED Physician Notes Patient: SHOBHA JIANG Age: 76 years Sex: M : 1945 Active Insurance: MEDICARE A Admitting MD: Marybel Truong Location: [facility] EDIP: [id number]: 01 PCP: Glenys Oakes MD Author: Eliza Dasilva MD Date/Time Admit Date: 04/23/22 01:17 Provider Contact Time: 04/23/2022 01:39 Mode of Arrival Mode of Arrival: Ambulatory Chief Complaint Chief Complaint ED: Abdominal 'heaviness' started at 2345 last night at home. 04/23/22 01:40 No results found. History of Present Illness 76-year-old female who presented emergency room complaining of waking up tonight with severe heaviness in the epigastrium and periumbilical region. No nausea no vomiting. No fever no chills. Pain persisted hence patient decided to come to the ER Review of Systems Constitutional: No fevers, chills, sweats Eye: No recent visual problems ENMT: No ear pain, nasal congestion, sore throat Respiratory: No shortness of breath, cough Cardiovascular: No Chest pain, palpitations, syncope Gastrointestinal: Abdominal pain but no diarrhea no nausea vomiting Genitourinary: No hematuria Alxe/Lymph: Negative for bruising tendency, swollen lymph glands Endocrine: Negative for excessive thirst, excessive hunger Musculoskeletal: No back pain, neck pain, joint pain, muscle pain, decreased range of motion Integumentary: No rash, pruritus, abrasions Neurologic: Alert and oriented X 4 Psychiatric: No anxiety, depression [...] dysmetria, gait not tested. Most Recent Vitals T: 36.4 ?C (Temporal Artery) HR: 77 RR: 17 BP: 151/70 SpO2: 100% Oxygen Method: Room air WT: 124.717 kg WT: 275 lbs Emergency Department Orders Laboratory and Blood: Troponin-I (Trop-I) CBC w/Diff* (man diff if indicated) (CBC w/Diff* (man diff if indicated)) Comprehensive Metabolic Panel (CMP (BMP + ALB, Tot Prot, Bili, CA, Alk Phos, ALT, AST)) Lipase Level (Lipase Level) Lactic Acid (Lactic Acid) Medications and IV's: Sodium Chloride 0.9% (Sodium Chloride 0.9% (Bolus)) 1,000 mL, 923.08 mL/hr, IV, x1 ampicillin-sulbactam (Unasyn) 3 gm, 200 mL/hr, IV, x1 Radiology: CT Abdomen+Pelvis wo IV Con (CT Abdomen+Pelvis wo IV Con) US Abdomen Limited (US Abdomen Limited) Diagnostic Tests: Electrocardiogram (EKG) Laboratory Results ED Labs (last two resulted values within 24 hours) Hematology WBC: 11.2 (H) Hemoglobin: 12.8 (L) Hematocrit: 38.9 (L) Platelets: 267 Neutrophils: 70.9 MCV: 86.0 Lymph%: 19.8 Chemistry Sodium: 136 Potassium: 4.3 Chloride: 104 CO2: 20 (L) Anion Gap: 12 Glucose: 177 (H) BUN: 27 (H) Creatinine: 1.71 (H) Calcium: 9.6 Total Bilirubin: 0.8 ALT: 42 AST: 69 (H) Alk Phos: 51 Lipase Level: 108.0 (H) Lactic Acid: 1.2 Cardiac Troponin I: <0.01 Diagnostic Results/Interpretation Radiology Result Date: 04/23/22 04:30 Verified By: Reinaldo Zavaleta MD at 04/23/22 04:36 Report : US Abdomen Limited IMPRESSION: Cholelithiasis. 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 04/23/22 01:41 ++++++++++++++++++++++++++++++++++++++ +++++++++++++++++ Result Date: 04/23/22 02:57 Verified By: Reinaldo Zavaleta MD at 04/23/22 03:10 Report : CT Abdomen+Pelvis wo IV Con IMPRESSION: 1. Cholelithiasis. No radiographic evidence of acute cholecystitis. [place] distended gallbladder consistent with hydrops. 2. Mild diverticulosis of the distal colon. No bowel perferation or obstruction. 3. No renal, ureteral, or bladder calculi. No hydroureteronephrosis. 04/23/22 02:48 ++++++++++++++++++++++++++++++++++++++ +++++++++++++++++ Medical Decision Making Differential Diagnoses (considered and possible or likely): [Acute gastritis, peptic ulcer disease, pancreatitis, acute coronary syndrome] Differential Diagnoses (considered and unlikely, not requiring evaluation currently): Aortic dissection, aneurysm bowel obstruction Stable Chronic Conditions: Pulmonary embolism and diabetes mellitus Unstable Chronic Conditions: [N/A] Comorbid Condition Impacting Present Evaluation/Treatment: [N/A] ECG/Rhythm Strip/Cryptoanalysis Teacher Rhythm Interpretation by Provider (rhythm, rate, axis, QRS/T waves, acute/chronic changes, comparisons, clinical findings/diagnosis): [Twelve-lead EKG seen and reviewed by me done at 02 18 has a rate of 76 sinus with first-degree AV block interventricular conduction delay otherwise no acute ST-T wave changes] Imaging Studies: CT scan abdomen and pelvis [] Tests Ordered: CBC, CMP, lipase uric acid Tests Considered: [] Independent Historian: [none] External Records Review: [N/A] Shared Decision Making: [N/A] ED Treatments and Course: [CT scan as well as a gallbladder ultrasound suggest cholelithiasis with cholecystitis. We will restart him on empiric antibiotic and obtain a surgical consult as well as admit to medicine.] Social Determinants of Health: [N/A] Consideration for Hospitalization: [YES] Cement Fittings Maker Discussion(s): [] Need to Initiate or Forego Further Testing: [N/A] Need to Monitor for Drug Toxicities: [N/A] Out-Patient Prescriptions Affecting Other Chronic Conditions: [] Final Diagnosis Diagnosis this visit: Acute cholecystitis (K81.0) 04/23/2022 04:49 Discharge Cholelithiasis (K80.20) 04/23/2022 04:[address] in Observation Order Details: Observation, Medicine, Truong, Marybel ACNP, Yes, ACUTE CHOLCYSTITIS WITH CHOLELITHIASIS, PATTERN FILER:DR PACHECO LAMAS, 04/23/22 5:15:00 MST, 04/23/22 5:15:00 MST, 04/23/22 5:15:00 MST, [email or web address]_link_preprocessing Condition STABLE Problem List/Past Medical History Ongoing Anemia Asthma Diabetes mellitus Foot drop, left Hypercholesterolemia Hypertension Pulmonary embolism Spinal stenosis Historical No qualifying data Procedure/Surgical History Adenoidectomy Hydrocele 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 Tonsillectomy Allergies No Known Medication Allergies Social History Alcohol Denies, 04/23/2022 Denies, 05/22/2021 Home/Environment Oriental Orthodox restrictions/concerns: None., 04/23/2022 Oriental Orthodox restrictions/concerns: None., 05/22/2021 Substance Abuse Denies, 04/23/2022 [...] 05:18 Co Signature By: Modify Signature By: 04/23/2022 [facility] Physician Emergency department Note Patient: JUAN JIANG Age: 76 years Sex: M : 1945 Active Insurance: MEDICARE A Admitting MD: Marybel Truong Location: [facility] EDIP: [id number]: 01 PCP: Glenys Oakes MD Author: Eliza Dasilva MD Date/Time Admit Date: 04/23/22 01:17 Provider Contact Time: 04/23/2022 01:39 Mode of Arrival Mode of Arrival: Ambulatory Chief Complaint Chief Complaint ED:Abdominal heaviness started at 2345 last night at home. 04/23/22 01:40 No results found. History of Present Illness 76-year-old female who presented emergency room complaining of waking up tonight with severe heaviness in the epigastrium and periumbilical region. No nausea no vomiting. No fever no chills. Pain persisted hence patient decided to come [...] Integumentary: No rash, pruritus, abrasions Neurologic: Alert and oriented X 4 Psychiatric: No anxiety, depression [...] dysmetria, gait not tested. Most Recent Vitals T:36.4 ?C (Temporal Artery) HR:77 RR:17 BP:151/70 SpO2:100% Oxygen Method:Room air WT:124.717kg WT:275lbs Emergency Department Orders Laboratory and Blood: Troponin-I (Trop-I) CBC w/Diff* (man diff if indicated) (CBC w/Diff* (man diff if indicated)) Comprehensive Metabolic Panel (CMP (BMP + ALB, Tot Prot, Bili, CA, Alk Phos, ALT, AST)) Lipase Level (Lipase Level) Lactic Acid (Lactic Acid) Medications and IV's: Sodium Chloride 0.9% (Sodium Chloride 0.9% (Bolus)) 1,000 mL, 923.08 mL/hr, IV, x1 ampicillin-sulbactam (Unasyn) 3 gm, 200 mL/hr, IV, x1 Radiology: CT Abdomen+Pelvis wo IV Con (CT Abdomen+Pelvis wo IV Con) US Abdomen Limited (US Abdomen Limited) Diagnostic Tests: Electrocardiogram (EKG) Laboratory Results ED Labs (last two resulted values within 24 hours) Hematology WBC: 11.2 (H) Hemoglobin: 12.8 (L) Hematocrit: 38.9 (L) Platelets: 267 Neutrophils: 70.9 MCV: 86.0 Lymph%: 19.8 Chemistry Sodium: 136 Potassium: 4.3 Chloride: 104 CO2: 20 (L) Anion Gap: 12 Glucose: 177 (H) BUN: 27 (H) Creatinine: 1.71 (H) Calcium: 9.6 Total Bilirubin: 0.8 ALT: 42 AST: 69 (H) Alk Phos: 51 Lipase Level: 108.0 (H) Lactic Acid: 1.2 Cardiac Troponin I: <0.01 Diagnostic Results/Interpretation Radiology Result Date: 04/23/22 04:30 Verified By: Reinaldo Zavaleta MD at 04/23/22 04:36 Report : US Abdomen Limited IMPRESSION: Cholelithiasis. 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 04/23/22 01:41 ++++++++++++++++++++++++++++++++++++++ +++++++++++++++++ Result Date: 04/23/22 02:57 Verified By: Reinaldo Zavaleta MD at 04/23/22 03:10 Report : CT Abdomen+Pelvis wo IV Con IMPRESSION: 1. Cholelithiasis. No radiographic evidence of acute cholecystitis. [place] distended gallbladder consistent with hydrops. 2. Mild diverticulosis of the distal colon. No bowel perferation or obstruction. 3. No renal, ureteral, or bladder calculi. No hydroureteronephrosis. 04/23/22 02:48 ++++++++++++++++++++++++++++++++++++++ +++++++++++++++++ Medical Decision Making Differential Diagnoses (considered and possible or likely): [Acute gastritis, peptic ulcer disease, pancreatitis,acute coronary syndrome] Differential Diagnoses (considered and unlikely, not requiring evaluation currently): Aortic dissection,aneurysmbowel obstruction Stable Chronic Conditions: Pulmonary embolismand diabetes mellitus Unstable Chronic Conditions: [N/A] Comorbid Condition Impacting Present Evaluation/Treatment: [N/A] ECG/Rhythm Strip/Cryptoanalysis Teacher Rhythm Interpretation by Provider (rhythm, rate, axis, QRS/T waves, acute/chronic changes, comparisons, clinical findings/diagnosis): [Twelve-lead EKGseen and reviewed by me done at 02 18has a rate of 76 sinus with first-degree AV blockinterventricular conduction delay otherwise no acute ST-T wave changes] Imaging Studies: CT scan abdomen and pelvis[] Tests Ordered: CBC, CMP,lipaseuric acid Tests Considered: [] Independent Historian: [none] External Records Review: [N/A] Shared Decision Making: [N/A] ED Treatments and Course: [CT scanas well as agallbladder ultrasoundsuggestcholelithiasis with cholecystitis. 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 Discussion(s): [] Need to Initiate or Forego Further Testing: [N/A] Need to Monitor for Drug Toxicities: [N/A] Out-Patient Prescriptions Affecting Other Chronic Conditions: [] Final Diagnosis Diagnosis this visit: Acute cholecystitis (K81.0) 04/23/2022 04:49 Discharge Cholelithiasis (K80.20) 04/23/2022 04:[address] in Observation Order Details: Observation, Medicine, Marybel Truong ACNP, Yes, ACUTE CHOLCYSTITIS WITH CHOLELITHIASIS, PATTERN FILER:DR PACHECO LAMAS, 04/23/22 5:15:00 MST, 04/23/22 5:15:00 MST, 04/23/22 5:15:00 MST, pm_pso_link_preprocessing Condition STABLE Problem List/Past Medical History Ongoing Anemia Asthma Diabetes mellitus Foot drop, left Hypercholesterolemia Hypertension Pulmonary embolism Spinal stenosis Historical No qualifying data Procedure/Surgical History A denoidectomy H ydrocele T 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 Discharge Instructions Document [facility] [address] [place] [address] JUAN JIANG :1945 (EV) Visit Date:05/22/2021 SAFE PAIN MEDICINE PRESCRIBING We care about you. Our goal is to treat your medical conditions, including pain, effectively, safely and in the right way. Pain relief treatment can be complicated. Mistakes or abuse of pain medicine can cause serious health problems and . Our emergency department will only provide pain relief options that are safe and correct. For your SAFETY, we routinely follow these rules when helping you with your pain. We look for and treat emergencies. We use our best judgement when treating pain. These recommendations follow legal and ethical advice. You should have only ONE provider and ONE pharmacy helping you with pain. We do not usually prescribe pain medication if you already receive pain medicine from another health care provider. If pain prescriptions are needed for pain, we will only give you a limited amount. We do not refill stolen or lost prescriptions for pain medication. We do not prescribe long-acting pain medicines such as: OxyContin, MSContin, Fentanyl (Duragesic), Methadone, Opana ER, Exalgo, and others. We do not provide missed doses of Methadone. We do not usually give shots for flare-ups of chronic pain. Health care laws, including HIPAA, allow us to ask for all of your medical records. These laws allow us to share information with other health providers who are treating you. We may ask you to show a photo ID when you receive a prescription for pain medicines. In [place], we use the [place] Prescription Drug Monitoring Program called CURES. In [place] and [place], we use the Prescription Monitoring Program that has oversight by the [place] and [place] state boards of pharmacy. These statewide computer systems track opioid pain medications and other controlled substance prescriptions. If you need help with substance abuse or addiction, please call [phone] ([phone]) for confidential referral and treatment. Sponsored by: [employer] EMERGENC[employer] DESIGN ENGINEER [employer] [facility] Healthcare Association [facility] [employer] [facility] Safe [facility], [facility] Emergency Department Patient Discharge Instructions If your symptoms continue or worsen, return to the emergency department or contact your physician. If you have questions about your discharge instructions, call the phone number above. Providers Attending Physician - Natalia Vanessa MD [facility] Physician(PCP) - Glenys Oakes MD Provider Role Natalia Vanessa MD Provider Reason for Visit Reason for visit diagnosis not documented Discharge Diagnosis Acute upper respiratory infection Eustachian tube dysfunction Sensation of plugged ear on left side Discharge Vitals T: 36.8 ?C (Temporal Artery) HR: 69 RR: 20 BP: 120/80 SpO2: 97% HT: 177.8 cm WT: 120.181 kg WT: 265 lbs BMI: 38.02 Time patient left the ED These instructions are intended to provide general information and guidelines to follow at home to properly care for your particular medical problem. The following diagnostic tests and/or procedures were performed during your stay. Tests Performed Most Recent Lab Results Follow-up Instructions: All referrals for follow up medical care may require approval by your insurance carrier. Any provider contact information (below) is provided to assist you in getting the follow up we recommend. However, it's important that you first check with your insurance provider to assure that the provider is in yourinsurance provider to assure that the provider is in your network and such a visit will be covered. Some plans may require a Primary Care doctor to provide a referral for specialist appointments. You May Need to Schedule the Following Appointments Follow Up with Follow up with your usual provider When Within 1 to 3 days Why: 1. Keep yourself hydrated, rest, gargle with saltwater, nasal saline flushes, use vaporizer at nighttime as directed. 2. You can use [id number] expectorant such as guaifenesin (Mucinex) as directed. The expectorants help thin out the mucus. You can continue Claritin as directed. You can take diphenhydramine (Benadryl) very cautiously at bed time to help dry up the secretions for a couple of days as discussed. Benadryl causes drowsiness and can cause blurry vision, dry mouth, difficulty with urination. Start using Flonase nasal spray as directed. Point the tip of the nasal spray to the outside and not the center of the nostril. Use your left hand to spray into the right nostril and right hand to spray into the left nostril which automatically points the tip of the nasal spray to the outside. 3. Keep a close check on your blood sugars. 4. If any new symptoms develop or worsen as discussed, call or return, otherwise follow up with your primary care physician/ENT physician in 3 days. 5. Please call us at [phone] with any questions. We encourage you to sign up for My Portal, where you can easily access your medical records and test results from all [facility]. Please sign up in one of the following ways: 1. Email invitation. You may have a message in your inbox. Please click the link provided to create an account. OR 2. Request an invitation at your next clinic or hospital visit. Please ask a staff member and they will be happy to assist you. Medications What How Much When Instructions Next Dose Unchanged albuterol (albuterol HFA (90 mcg/ dose) MDI) 1 puff(s) Inhaled Four times daily as needed for as needed for wheezing Unchanged chlorthalidone (chlorthalidone 25 mg oral tablet) 1 tab(s) By mouth Once daily Unchanged cholecalciferol (Vitamin D3 25 mcg (1,000 unit) oral tablet, chewable) 1 tab(s) Chew Once daily Unchanged cyanocobalamin (Vitamin B12 1000 mcg oral tablet) 1 tab(s) By mouth Once daily Unchanged dapagliflozin (Farxiga 10 mg oral tablet) 1 tab(s) By mouth Once daily Unchanged ferrous gluconate (iron gluconate) 27 Milligram By mouth Once daily takes 3 x per week Unchanged finasteride (finasteride 5 mg oral tablet) 1 tab(s) By mouth Once daily Unchanged insulin aspart (NovoLOG) 10 unit(s) subcutaneously Three times daily before meals Unchanged insulin detemir (Levemir 100 units/ mL subcutaneous solution) 57 units subcutaneously Once daily Unchanged lisinopril (lisinopril 20 mg oral tablet) 1 tab(s) By mouth Once daily Unchanged loratadine (Claritin 10 mg oral tablet) 1 tab(s) By mouth Once daily Duration: 10 Days Unchanged metFORMIN-sitagliptin (Janumet XR 50 mg-500 mg oral tablet, extended release) 2 tab(s) By mouth Every evening Unchanged metoprolol (metoprolol succinate 25 mg oral capsule, extended release) 0.5 tab(s) By mouth Twice daily Unchanged omega-3 polyunsaturated fatty acids (Fish Oil 1000 mg oral capsule) 1 cap By mouth Twice daily Unchanged potassium chloride (potassium chloride 8 mEq oral tablet, extended release) 1 tab(s) By mouth Once daily Unchanged rivaroxaban (Xarelto 20 mg oral tablet) 1 tab(s) By mouth Every evening Unchanged rosuvastatin (rosuvastatin 20 mg oral tablet) 1 tab(s) By mouth Once daily Discharge Orders Discharge Orders: Discharge Now, Home or self care Education Materials Eustachian Tube Dysfunction Eustachian tube dysfunction refers to a condition in which a blockage develops in the narrow passage that connects the middle ear to the back of the nose (eustachian tube). The eustachian tube regulates air pressure in the middle ear by letting air move between the ear and nose. It also helps to drain fluid from the middle ear space. Eustachian tube dysfunction can affect one or both ears. When the eustachian tube does not function properly, air pressure, fluid, or both can build up in the middle ear. What are the causes This condition occurs when the eustachian tube becomes blocked or cannot open normally. Common causes of this condition include: Ear infections. Colds and other infections that affect the nose, mouth, and throat (upper respiratory tract). Allergies. Irritation from cigarette smoke. Irritation from stomach acid coming up into the esophagus (gastroesophageal reflux). The esophagus is the tube that carries food from the mouth to the stomach. Sudden changes in air pressure, such as from descending in an airplane or scuba diving. Abnormal growths in the nose or throat, such as: Growths that line the nose (nasal polyps). Abnormal growth of cells (tumors). Enlarged tissue at the back of the throat (adenoids). What increases the risk You are more likely to develop this condition if: You smoke. You are overweight. You are a child who has: Certain defects of the mouth, such as cleft palate. Large tonsils or adenoids. What are the signs or symptoms Common symptoms of this condition include: A feeling of fullness in the ear. Ear pain. Clicking or popping noises in the ear. Ringing in the ear. Hearing loss. Loss of balance. Dizziness. Symptoms may get worse when the air pressure around you changes, such as when you travel to an area of high elevation, fly on an airplane, or go scuba diving. How is this diagnosed This condition may be diagnosed based on: Your symptoms. A physical exam of your ears, nose, and throat. Tests, such as those that measure: The movement of your eardrum (tympanogram). Your hearing (audiometry). How is this treated Treatment depends on the cause and severity of your condition. In mild cases, you may relieve your symptoms by moving air into your ears. This is called 'popping the ears.' In more severe cases, or if you have symptoms of fluid in your ears, treatment may include: Medicines to relieve congestion (decongestants). Medicines that treat allergies (antihistamines). Nasal sprays or ear drops that contain medicines that reduce swelling (steroids). A procedure to drain the fluid in your eardrum (myringotomy). In this procedure, a small tube is placed in the eardrum to: Drain the fluid. Restore the air in the middle ear space. A procedure to insert a balloon device through the nose to inflate the opening of the eustachian tube (balloon dilation). Follow these instructions at home: Lifestyle Do not do any of the following until your health care provider approves: Travel to high altitudes. Fly in airplanes. Work in a pressurized cabin or room. Scuba dive. Do not use any products that contain nicotine or tobacco, such as cigarettes and e-cigarettes. If you need help quitting, ask your health care provider. Keep your ears dry. Wear fitted earplugs during showering and bathing. Dry your ears completely after. General instructions Take vwzn-mzb-mabpinl and prescription medicines only as told by your health care provider. Use techniques to help pop your ears as recommended by your health care provider. These may include: Chewing gum. Yawning. Frequent, forceful swallowing. Closing your mouth, holding your nose closed, and gently blowing as if you are trying to blow air out of your nose. Keep all follow-up visits as told by your health care provider. This is important. Contact a health care provider if: Your symptoms do not go away after treatment. Your symptoms come back after treatment. You are unable to pop your ears. You have: A fever. Pain in your ear. Pain in your head or neck. Fluid draining from your ear. Your hearing suddenly changes. You become very dizzy. You lose your balance. Summary Eustachian tube dysfunction refers to a condition in which a blockage develops in the eustachian tube. It can be caused by ear infections, allergies, inhaled irritants, or abnormal growths in the nose or throat. Symptoms include ear pain, hearing loss, or ringing in the ears. Mild cases are treated with maneuvers to unblock the ears, such as yawning or ear popping. Severe cases are treated with medicines. Surgery may also be done (rare). This information is not intended to replace advice given to you by your health care provider. Make sure you discuss any questions you have with your health care provider. Document Revised: 05/25/2018 Document Reviewed: 05/25/2018 [employer] Patient Education ? 2020 [employer] How to Perform a Sinus Rinse A sinus rinse is a home treatment that is used to rinse your sinuses with a sterile mixture of salt and water (saline solution). Sinuses are air-filled spaces in your skull behind the bones of your face and forehead that open into your nasal cavity. A sinus rinse can help to clear mucus, dirt, dust, or pollen from your nasal cavity. You may do a sinus rinse when you have a cold, a virus, nasal allergy symptoms, a sinus infection, or stuffiness in your nose or sinuses. Talk with your health care provider about whether a sinus rinse might help you. What are the risks A sinus rinse is generally safe and effective. However, there are a few risks, which include: A burning sensation in your sinuses. This may happen if you do not make the saline solution as directed. Be sure to follow all directions when making the saline solution. Nasal irritation. Infection from contaminated water. This is rare, but possible. Do not do a sinus rinse if you have had ear or nasal surgery, ear infection, or blocked ears. Supplies needed: Saline solution or powder. Distilled or sterile water may be needed to mix with saline powder. You may use boiled and cooled tap water. Boil tap water for 5 minutes; cool until it is lukewarm. Use within 24 hours. Do not use regular tap water to mix with the saline solution. Neti pot or nasal rinse bottle. These supplies release the saline solution into your nose and through your sinuses. Neti pots and nasal rinse bottles can be purchased at your local pharmacy, a health food store, or online. How to perform a sinus rinse 1. Wash your hands with soap and water. 2. Wash your device according to the directions that came with the product and then dry it. 3. Use the solution that comes with your product or one that is sold separately in stores. Follow the mixing directions on the package if you need to mix with sterile or distilled water. 4. Fill the device with the amount of saline solution noted in the device instructions. 5. Stand over a sink and tilt your head sideways over the sink. 6. Place the spout of the device in your upper nostril (the one closer to the ceiling). 7. Gently pour or squeeze the saline solution into your nasal cavity. The liquid should drain out from the lower nostril if you are not too congested. 8. While rinsing, breathe through your open mouth. 9. Gently blow your nose to clear any mucus and rinse solution. Blowing too hard may cause ear pain. 10. Repeat in your other nostril. 11. Clean and rinse your device with clean water and then air-dry it. Talk with your health care provider or pharmacist if you have questions about how to do a sinus rinse. Summary A sinus rinse is a home treatment that is used to rinse your sinuses with a sterile mixture of salt and water (saline solution). A sinus rinse is generally safe and effective. Follow all instructions carefully. Before doing a sinus rinse, talk with your health care provider about whether it would be helpful for you. This information is not intended to replace advice given to you by your health care provider. Make sure you discuss any questions you have with your health care provider. Document Revised: 11/30/2017 Document Reviewed: 11/30/2017 [employer] Patient Education ? 2020 [employer] Allergic Rhinitis, Adult Allergic rhinitis is an allergic reaction that affects the mucous membrane inside the nose. The mucous membrane is the tissue that produces mucus. There are two types of allergic rhinitis: Seasonal. This type is also called hay fever and happens only during certain seasons. Perennial. This type can happen at any time of the year. Allergic rhinitis cannot be spread from person to person. This condition can be mild, moderate, or severe. It can develop at any age and may be outgrown. What are the causes This condition is caused by allergens. These are things that can cause an allergic reaction. Allergens may differ for seasonal allergic rhinitis and perennial allergic rhinitis. Seasonal allergic rhinitis is triggered by pollen. Pollen can come from grasses, trees, and weeds. Perennial allergic rhinitis may be triggered by: Dust mites. Proteins in a pet's urine, saliva, or dander. Dander is skin cells from a pet. Smoke, mold, or car fumes. What increases the risk You are more likely to develop this condition if you have a family history of allergies or other conditions related to allergies, including: Allergic conjunctivitis. This is inflammation of parts of the eyes and eyelids. Asthma. This condition affects the lungs and makes it hard to breathe. Atopic dermatitis or eczema. This is manager image (chronic) inflammation of the skin. Food allergies. What are the signs or symptoms Symptoms of this condition include: Sneezing or coughing. A stuffy nose (nasal congestion), itchy nose, or nasal discharge. Itchy eyes and tearing of the eyes. A feeling of mucus dripping down the back of your throat (postnasal drip). Trouble sleeping. Tiredness or fatigue. Headache. Sore throat. How is this diagnosed This condition may be diagnosed with your symptoms, medical history, and physical exam. Your health care provider may check for related conditions, such as: Asthma. [place] eye. This is eye inflammation caused by infection (conjunctivitis). Ear infection. Upper respiratory infection. This is an infection in the nose, throat, or upper airways. You may also have tests to find out which allergens trigger your symptoms. These may include skin tests or blood tests. How is this treated There is no cure for this condition, but treatment can help control symptoms. Treatment may include: Taking medicines that block allergy symptoms, such as corticosteroids and antihistamines. Medicine may be given as a shot, nasal spray, or pill. Avoiding any allergens. Being exposed again and again to tiny amounts of allergens to help you build a defense against allergens (immunotherapy). This is done if other treatments have not helped. It may include: Allergy shots. These are injected medicines that have small amounts of allergen in them. Sublingual immunotherapy. This involves taking small doses of a medicine with allergen in it under your tongue. If these treatments do not work, your health care provider may prescribe newer, stronger medicines. Follow these instructions at home: Avoiding allergens Find out what you are allergic to and avoid those allergens. These are some things you can do to help avoid allergens: If you have perennial allergies: Replace carpet with wood, tile, or vinyl mariangel. Carpet can trap dander and dust. Do not smoke. Do not allow smoking in your home. Change your heating and air conditioning filters at least once a month. If you have seasonal allergies, take these steps during allergy season: Keep windows closed as much as possible. Plan outdoor activities when pollen counts are lowest. Check pollen counts before you plan outdoor activities. When coming indoors, change clothing and shower before sitting on furniture or bedding. If you have a pet in the house that produces allergens: Keep the pet out of the bedroom. Vacuum, sweep, and dust regularly. General instructions Take czik-gre-zwtsmvf and prescription medicines only as told by your health care provider. Drink enough fluid to keep your urine pale yellow. Keep all follow-up visits as told by your health care provider. This is important. Where to find more information [employer]: www.aaaai.org Contact a health care provider if: You have a fever. You develop a cough that does not go away. You make whistling sounds when you breathe (wheeze). Your symptoms slow you down or stop you from doing your normal activities each day. Get help right away if: You have shortness of breath. This symptom may represent a serious problem that is an emergency. Do not wait to see if the symptom will go away. Get medical help right away. Call your local emergency services (911 in the [place] Do not drive yourself to the hospital. Summary Allergic rhinitis may be managed by taking medicines as directed and avoiding allergens. If you have seasonal allergies, keep windows closed as much as possible during allergy season. Contact your health care provider if you develop a fever or a cough that does not go away. This information is not intended to replace advice given to you by your health care provider. Make sure you discuss any questions you have with your health care provider. Document Revised: 03/23/2020 Document Reviewed: 01/31/2020 [employer] Patient Education ? 2020 [employer] Upper Respiratory Infection, Adult An upper respiratory infection (URI) is a common viral infection of the nose, throat, and upper air passages that lead to the lungs. The most common type of URI is the common cold. URIs usually get better on their own, without medical treatment. What are the causes A URI is caused by a virus. You may catch a virus by: Breathing in droplets from an infected person's cough or sneeze. Touching something that has been exposed to the virus (contaminated) and then touching your mouth, nose, or eyes. What increases the risk You are more likely to get a URI if: You are very young or very old. It is [place] or winter. You have close contact with others, such as at a daycare, school, or health care facility. You smoke. You have long-term (chronic) heart or lung disease. You have a weakened disease-fighting (immune) system. You have nasal allergies or asthma. You are experiencing a lot of stress. You work in an area that has poor air circulation. You have poor nutrition. What are the signs or symptoms A URI usually involves some of the following symptoms: Runny or stuffy (congested) nose. Sneezing. Cough. Sore throat. Headache. Fatigue. Fever. Loss of appetite. Pain in your forehead, behind your eyes, and over your cheekbones (sinus pain). Muscle aches. Redness or irritation of the eyes. Pressure in the ears or face. How is this diagnosed This condition may be diagnosed based on your medical history and symptoms, and a physical exam. Your health care provider may use a cotton swab to take a mucus sample from your nose (nasal swab). This sample can be tested to determine what virus is causing the illness. How is this treated URIs usually get better on their own within 7 1 0 days. You can take steps at home to relieve your symptoms. Medicines cannot cure URIs, but your health care provider may recommend certain medicines to help relieve symptoms, such as: Tooa-tal-idnpsko cold medicines. Cough suppressants. Coughing is a type of defense against infection that helps to clear the respiratory system, so take these medicines only as recommended by your health care provider. Fever-reducing medicines. Follow these instructions at home: Activity Rest as needed. If you have a fever, stay home from work or school until your fever is gone or until your health care provider says you are no longer contagious. Your health care provider may have you wear a face mask to prevent your infection from spreading. Relieving symptoms Gargle with a salt-water mixture 3 4 times a day or as needed. To make a salt-water mixture, completely dissolve 1 tsp of salt in 1 cup of warm water. Use a cool-mist humidifier to add moisture to the air. This can help you breathe more easily. Eating and drinking Drink enough fluid to keep your urine pale yellow. Eat soups and other clear broths. General instructions Take msem-tfx-spdfzxa and prescription medicines only as told by your health care provider. These include cold medicines, fever reducers, and cough suppressants. Do not use any products that contain nicotine or tobacco, such as cigarettes and e-cigarettes. If you need help quitting, ask your health care provider. Stay away from secondhand smoke. Stay up to date on all immunizations, including the yearly (annual) flu vaccine. Keep all follow-up visits as told by your health care provider. This is important. How to prevent the spread of infection to others URIs can be passed from person to person (are contagious). To prevent the infection from spreading: Wash your hands often with soap and water. If soap and water are not available, use hand director of marketing and promotions. Avoid touching your mouth, face, eyes, or nose. Cough or sneeze into a tissue or your sleeve or elbow instead of into your hand or into the air. Contact a health care provider if: You are getting worse instead of better. You have a fever or chills. Your mucus is brown or red. You have yellow or brown discharge coming from your nose. You have pain in your face, especially when you bend forward. You have swollen neck glands. You have pain while swallowing. You have white areas in the back of your throat. Get help right away if: You have shortness of breath that gets worse. You have severe or persistent: Headache. Ear pain. Sinus pain. Chest pain. You have chronic lung disease along with any of the following: Wheezing. Prolonged cough. Coughing up blood. A change in your usual mucus. You have a stiff neck. You have changes in your: Vision. Hearing. Thinking. Mood. Summary An upper respiratory infection (URI) is a common infection of the nose, throat, and upper air passages that lead to the lungs. A URI is caused by a virus. URIs usually get better on their own within 7 1 0 days. Medicines cannot cure URIs, but your health care provider may recommend certain medicines to help relieve symptoms. This information is not intended to replace advice given to you by your health care provider. Make sure you discuss any questions you have with your health care provider. Document Revised: 10/11/2020 Document Reviewed: 10/11/2020 [employer] Patient Education ? 2020 [employer] I understand that [facility] is not responsible for any personal belongings/effects or valuables that have not been identified on the valuables and belongings list. Any personal effects brought into the facility and not recorded on the valuables and belongings form are the responsibility of the patient/family/significant other. I have received the indicated patient education materials/instructions and medication list and have verbalized understanding. Patient Name: JUAN JIANG Patient/Responsible Adult Signature: Date/Time: Provider Signature: Date/Time: 05/22/2021 [facility] - [facility] ED Physician Notes Patient: JUAN JIANG (EV) Age: 75 years Sex: M : 1945 Associated Diagnoses: None Author: Natalia Vanessa MD Basic Information Time seen: Provider Initial Contact Time 05/22/2021 12:25. History source: Patient. Arrival mode: Private vehicle. History limitation: None. Additional information. History of Present Illness The patient presents with Plugged sensation in the left ear intermittently for a while but worse the last couple of days. It seems to be worse at nighttime. The patient states that he can hear some crackling in his ear. He has history of allergies but states that those seem to be under control with Claritin. He does complain of postnasal drainage at nighttime. The patient denies any trauma to the ear. There is no drainage from the ear. He denies any change in his hearing. There is no history of vertigo or dizziness. He denies headache. There is no history of nausea or vomiting. There is no history of fever or chills. There is no history of rash. The patient occasionally uses Q-tips. He had ear perforation when he was very young which finally healed. The patient states that in his teens he had tympanostomy tubes put in for recurrent ear infections. The last set of tubes was put in 5-6 years ago. The patient is scheduled to see his ENT physician soon. A month ago he had similar symptoms and was evaluated in the emergency department since he was having anxiety from the plugged feeling in his ear. The patient was prescribed steroids and lorazepam. He had a follow-up with his physician who continued low dose of lorazepam and also gave him a steroid shot. The patient states that he recovered from covid earlier in the year without any complications. He states that his blood sugars are within the normal range for him which is usually around 170s. Review of Systems Constitutional symptoms: Negative except as documented in HPI. Skin symptoms: Negative except as documented in HPI. ENMT symptoms: Negative except as documented in HPI. Respiratory symptoms: Negative except as documented in HPI. Gastrointestinal symptoms: Negative except as documented in HPI. Musculoskeletal symptoms: Negative except as documented in HPI. Neurologic symptoms: Negative except as documented in HPI. Psychiatric symptoms: Negative except as documented in HPI. Endocrine symptoms: Negative except as documented in HPI. Hematologic/Lymphatic symptoms: Negative except as documented in HPI. Health Status Allergies: Allergic Reactions (Selected) No Known Medication Allergies. Medications: Include Documented Meds (Selected) Documented Medications Documented Claritin 10 mg oral tablet: 1 Tab, PO, qDay, for 10 Day, 10 Tab, 0 Refill(s) Farxiga 10 mg oral tablet: 1 Tab, PO, qDay, 30 Tab, 0 Refill(s) Fish Oil 1000 mg oral capsule: 1 Cap, PO, BID, 60 Cap, 0 Refill(s) Janumet XR 50 mg-500 mg oral tablet, extended release: 2 Tab, PO, qPM, 60 Tab, 0 Refill(s) Levemir 100 units/mL subcutaneous solution: 57 units, SUBCUT, Daily, 0 Refill(s) NovoLO Unit, SUBCUT, TID before meals, 0 Refill(s) Vitamin B12 1000 mcg oral tablet: 1 Tab, PO, qDay, 30 Tab, 0 Refill(s) Vitamin D3 25 mcg (1,000 unit) oral tablet, chewable: 1 Tab, Chew, qDay, 50 Tab, 0 Refill(s) Xarelto 20 mg oral tablet: 1 Tab, PO, qPM, 30 Tab, 0 Refill(s) albuterol HFA (90 mcg/dose) MDI: 1 Puff, INH, QID, PRN: as needed for wheezing, 18 gm, 0 Refill(s) chlorthalidone 25 mg oral tablet: 1 Tab, PO, qDay, 30 Tab, 0 Refill(s) finasteride 5 mg oral tablet: 1 Tab, PO, qDay, 30 Tab, 0 Refill(s) iron gluconate: 27 mg, PO, Daily, takes 3 x per week, 0 Refill(s) lisinopril 20 mg oral tablet: 1 Tab, PO, qDay, 30 Tab, 0 Refill(s) metoprolol succinate 25 mg oral capsule, extended release: 0.5 Tab, PO, BID, 0 Refill(s) potassium chloride 8 mEq oral tablet, extended release: 1 Tab, PO, qDay, 270 Tab, 0 Refill(s) rosuvastatin 20 mg oral tablet: 1 Tab, PO, qDay, 30 Tab, 0 Refill(s). Immunizations: Up to date. Past Medical/ Family/ Social History Medical history: All Problems Spinal stenosis / [id number] / Confirmed Pulmonary embolism / [id number] / Confirmed Asthma / [id number] / Confirmed Hypercholesterolemia / [id number] / Confirmed Hypertension / [id number] / Confirmed Foot drop, left / [id number] / Confirmed Diabetes mellitus / [id number] / Confirmed Anemia / [id number] / Confirmed. Surgical history: Tonsillectomy (259873469). Adenoidectomy (495931885). Hydrocele (3223917412). 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 Comments: 05/22/2021 12:49 [facility] - Lashell Muniz RN bilateral. Social history: Social and Psychosocial Habits Alcohol 05/22/2021 Use: Denies Home/Environment 05/22/2021 [employer] restrictions/concerns: None Substance Abuse 05/22/2021 Use: Denies Tobacco 05/22/2021 Tobacco Use: Never (less than 100 in l . Physical Examination Vital Signs Vital-Signs 05/22/2021 12:34 [facility] SPO2 97 % Normal Heart Rate 69 bpm Normal NIBP Systolic 120 mm Hg Normal NIBP Diastolic 80 mm Hg Normal Resp Rate (Monitor) 20 Breaths/Min Normal Temperature Temporal Artery 36.8 deg C Normal Pain Intensity 1 Pain Scale Used Numeric Rating Scale . Measurements 05/22/2021 12:34 [facility] [place] Body Weight 73 kg Weight Method Stated Drug Calc Weight (kg) 120.181 kg BMI 38.02 kg/m2 Height 177.8 cm Height In 70 Inch Weight lb 265 lbs . General: Alert, no acute distress, speaks full sentences, answers questions appropriately. Skin: Warm, dry, intact, no rash, normal for ethnicity. Eye: Pupils are equal, round and reactive to light, extraocular movements are intact, normal conjunctiva. Ears, nose, mouth and throat: There is no facial swelling or tenderness. There is no swelling or tenderness over the parotids or the temporal arteries or the TM joints, Tympanic membrane: Right TM is clear. The left TM is clear with a tympanostomy tube in place, External ear: Bilateral, canal, mastoid, pinna, normal, Nose: Mild, congestion, discharge, Sinus: no swelling, no erythema, Mouth: Normal, Throat: Normal, pharynx, no palatal petechiae, no uvula shift. Neck: Supple, trachea midline, no tenderness, no JVD, No nuchal rigidity. Cardiovascular: Regular rate and rhythm, Normal peripheral perfusion, No edema. Respiratory: Lungs are clear to auscultation, respirations are non-labored, breath sounds are equal, Symmetrical chest wall expansion. Musculoskeletal: Normal ROM, normal strength, no swelling. Neurological: Alert and oriented to person, place, time, and situation, No focal neurological deficit observed, normal motor observed, normal speech observed, normal coordination observed. Lymphatics: No lymphadenopathy. Psychiatric: Cooperative, appropriate mood and affect, normal judgment. Medical Decision Making Differential Diagnosis: Upper respiratory infection, viral syndrome, sinusitis, allergic rhinitis, Pharyngitis, tonsillitis, dental pain, ceruminosis, eustachian tube dysfunction, otitis externa, otitis media, mastoiditis, shingles, parotitis, TMJ syndrome, covid. Notes: Causes and complications of colds, plugged sensation in the ears discussed with the patient at length. Ear care discussed with him. He understands the need to be seen right away if his symptoms worsen or if he develops any new symptoms. The side effects of the medications including anticholinergic side effects of the antihistamines discussed with him. Impression and Plan Impression Acute upper respiratory infection (LFP44-XP J06.9, Discharge, Medical) Eustachian tube dysfunction (BLI04-MH H69.80, Discharge, Medical) Sensation of plugged ear on left side (BHJ07-XO H93.8X2, Discharge, Medical) Plan Condition: Stable. Disposition: Discharged: to home. Patient was given the following educational materials: Upper Respiratory Infection, Adult, Allergic Rhinitis, Adult, How to Perform a Sinus Rinse, Eustachian Tube Dysfunction. Follow up with: Follow up with your usual provider Within 1 to 3 days 1. Keep yourself hydrated, rest, gargle with saltwater, nasal saline flushes, use vaporizer at nighttime as directed. 2. You can use [id number] expectorant such as guaifenesin (Mucinex) as directed. The expectorants help thin out the mucus. You can continue Claritin as directed. You can take diphenhydramine (Benadryl) very cautiously at bed time to help dry up the secretions for a couple of days as discussed. Benadryl causes drowsiness and can cause blurry vision, dry mouth, difficulty with urination. Start using Flonase nasal spray as directed. Point the tip of the nasal spray to the outside and not the center of the nostril. Use your left hand to spray into the right nostril and right hand to spray into the left nostril which automatically points the tip of the nasal spray to the outside. 3. Keep a close check on your blood sugars. 4. If any new symptoms develop or worsen as discussed, call or return, otherwise follow up with your primary care physician/ENT physician in 3 days. 5. Please call us at [phone] with any questions.. Counseled: Patient, Regarding diagnosis, Regarding diagnostic results, Regarding treatment plan, Regarding prescription, Patient indicated understanding of instructions. Orders: Launch Orders Admit/Transfer/Discharge: Discharge (Order Processing): 05/22/2021 13:17 MST, Now, Home or self care. Electronically Signed By: Natalia Vanessa MD On 05/22/21 14:44 Co Signature By: Modify Signature By: 05/22/2021 [facility] [place] [facility] Triage - Text Urgent Care Triage Entered On: 05/22/2021 12:48 MST Performed On: 05/22/2021 12:34 MST by Lashell Muniz RN UC Triage (v2) PNED Chief Complaint ED : left ear plugged Mode of Arrival : Ambulatory Arrival Time : 05/22/2021 12:18 MST Triage Assessment : left ear plugged, denies pain. denies fever. pt is A&O, NAD. gets anxiety from ears being plugged, was seen at ER several weeks ago, put on ciprodex and steroids and lorazepam, finished meds. Reason for visit : EENT Historian : Patient Accompanied By - ED : Alone Sensory Deficits : None Assistive Device for Communication : No Preferred Language for Healthcare Discussions : [place] Temperature Temporal Artery : 36.8 deg C(Converted to: 98.2 deg F) NIBP Systolic : 120 mm Hg NIBP Diastolic : 80 mm Hg LMP : na Reference Rt-Click : < 5 years Heart Rate : 69 bpm Respiratory Rate (Monitor) : 20 Breaths/Min SPO2 : 97 % Pain Intensity : 1 Pain Scale Used : Numeric Rating Scale Acceptable Intensity : 0 Status : N/A Lashell Muniz RN - 05/22/2021 12:34 MST DCP GENERIC CODE Tracking Acuity : 5 - Minor Tracking Group : [facility] [place] Lashell Muniz RN - 05/22/2021 12:34 [facility] Pediatric Patient : N/A Height (cm) : 177.8 cm Height Method : Stated Height Measurement Used : inches Height in : 70 Inch Drug Calc Weight (kg) : 120.181 kg Weight Method : Stated Weight Measurement Used : pounds Weight lb : 265 lbs BMI : 38.02 kg/m2 [place] Body Weight : 73 kg Adjusted Body Weight : 91.87 kg Additional Info - ED : poc, mask, dec tylenol or motrin ABW Calc : 91.87 kg ABW Calc2 : 120.18 kg Lashell Muniz RN - 05/22/2021 12:34 MST (As Of: 05/22/2021 12:48:53 MST) [place] Suicide Severity Rating Scale (C-SSRS) 1. In the past 30 days have you wished you were or wished you could go to sleep and not wake up : No 2. In the past 30 days, have you had any actual thoughts about killing yourself : No 6. In your lifetime, have you ever done anything, started anything, or prepared to do anything to end your life : No Suicide Severity Rating Stratification : 0 Suicide Severity Rating : No additional care required at this time Suicide Prevention Interventions : No additional care required at this time Lashell Muniz RN - 05/22/2021 12:34 [facility] Allergies and Current Meds (v2) New 04/04 Polypharmacy (greater than 7 meds) : No Lashell Muniz RN - 05/22/2021 12:34 [facility] (As Of: 05/22/2021 12:48:53 [facility]) Allergies (Active) No Known Medication Allergies Estimated Onset Date: Unspecified ; Created By: Lashell Muinz RN; Reaction Status: Active ; Category: Drug ; Substance: No Known Medication Allergies ; Type: Allergy ; Updated By: Lashell Muniz RN; Reviewed Date: 05/22/2021 12:36 [facility] Medication List (As Of: 05/22/2021 12:48:53 [facility]) Home Meds metoprolol : metoprolol ; Status: Documented ; Ordered As Mnemonic: metoprolol succinate 25 mg oral capsule, extended release ; Simple Display Line: 0.5 Tab, PO, BID, 0 Refill(s) ; Catalog Code: metoprolol ; Order Dt/Tm: 05/22/2021 12:36:59 MST omega-3 polyunsaturated fatty acids : omega-3 polyunsaturated fatty acids ; Status: Documented ; Ordered As Mnemonic: Fish Oil 1000 mg oral capsule ; Simple Display Line: 1 Cap, PO, BID, 60 Cap, 0 Refill(s) ; Catalog Code: omega-3 polyunsaturated fatty acids ; Order Dt/Tm: 05/22/2021 12:42:08 MST albuterol : albuterol ; Status: Documented ; Ordered As Mnemonic: albuterol HFA (90 mcg/dose) MDI ; Simple Display Line: 1 Puff, INH, QID, PRN: as needed for wheezing, 18 gm, 0 Refill(s) ; Catalog Code: albuterol ; Order Dt/Tm: 05/22/2021 12:44:31 MST cholecalciferol : cholecalciferol ; Status: Documented ; Ordered As Mnemonic: Vitamin D3 25 mcg (1,000 unit) oral tablet, chewable ; Simple Display Line: 1 Tab, Chew, qDay, 50 Tab, 0 Refill(s) ; Catalog Code: cholecalciferol ; Order Dt/Tm: 05/22/2021 12:43:05 MST potassium chloride : potassium chloride ; Status: Documented ; Ordered As Mnemonic: potassium chloride 8 mEq oral tablet, extended release ; Simple Display Line: 1 Tab, PO, qDay, 270 Tab, 0 Refill(s) ; Catalog Code: potassium chloride ; Order Dt/Tm: 05/22/2021 12:40:11 MST loratadine : loratadine ; Status: Documented ; Ordered As Mnemonic: Claritin 10 mg oral tablet ; Simple Display Line: 1 Tab, PO, qDay, for 10 Day, 10 Tab, 0 Refill(s) ; Catalog Code: loratadine ; Order Dt/Tm: 05/22/2021 12:39:49 MST cyanocobalamin : cyanocobalamin ; Status: Documented ; Ordered As Mnemonic: Vitamin B12 1000 mcg oral tablet ; Simple Display Line: 1 Tab, PO, qDay, 30 Tab, 0 Refill(s) ; Catalog Code: cyanocobalamin ; Order Dt/Tm: 05/22/2021 12:42:32 MST chlorthalidone : chlorthalidone ; Status: Documented ; Ordered As Mnemonic: chlorthalidone 25 mg oral tablet ; Simple Display Line: 1 Tab, PO, qDay, 30 Tab, 0 Refill(s) ; Catalog Code: chlorthalidone ; Order Dt/Tm: 05/22/2021 12:40:55 MST lisinopril : lisinopril ; Status: Documented ; Ordered As Mnemonic: lisinopril 20 mg oral tablet ; Simple Display Line: 1 Tab, PO, qDay, 30 Tab, 0 Refill(s) ; Catalog Code: lisinopril ; Order Dt/Tm: 05/22/2021 12:37:25 MST finasteride : finasteride ; Status: Documented ; Ordered As Mnemonic: finasteride 5 mg oral tablet ; Simple Display Line: 1 Tab, PO, qDay, 30 Tab, 0 Refill(s) ; Catalog Code: finasteride ; Order Dt/Tm: 05/22/2021 12:37:46 MST dapagliflozin : dapagliflozin ; Status: Documented ; Ordered As Mnemonic: Farxiga 10 mg oral tablet ; Simple Display Line: 1 Tab, PO, qDay, 30 Tab, 0 Refill(s) ; Catalog Code: dapagliflozin ; Order Dt/Tm: 05/22/2021 12:36:31 MST rosuvastatin : rosuvastatin ; Status: Documented ; Ordered As Mnemonic: rosuvastatin 20 mg oral tablet ; Simple Display Line: 1 Tab, PO, qDay, 30 Tab, 0 Refill(s) ; Catalog Code: rosuvastatin ; Order Dt/Tm: 05/22/2021 12:36:43 MST rivaroxaban : rivaroxaban ; Status: Documented ; Ordered As Mnemonic: Xarelto 20 mg oral tablet ; Simple Display Line: 1 Tab, PO, qPM, 30 Tab, 0 Refill(s) ; Catalog Code: rivaroxaban ; Order Dt/Tm: 05/22/2021 12:41:19 MST insulin aspart : insulin aspart ; Status: Documented ; Ordered As Mnemonic: NovoLOG ; Simple Display Line: 10 Unit, SUBCUT, TID before meals, 0 Refill(s) ; Catalog Code: insulin aspart ; Order Dt/Tm: 05/22/2021 12:38:34 MST metFORMIN-sitagliptin : metFORMIN-sitagliptin ; Status: Documented ; Ordered As Mnemonic: Janumet XR 50 mg-500 mg oral tablet, extended release ; Simple Display Line: 2 Tab, PO, qPM, 60 Tab, 0 Refill(s) ; Catalog Code: metFORMIN-sitagliptin ; Order Dt/Tm: 05/22/2021 12:46:44 MST ferrous gluconate : ferrous gluconate ; Status: Documented ; Ordered As Mnemonic: iron gluconate ; Simple Display Line: 27 mg, PO, Daily, takes 3 x per week, 0 Refill(s) ; Catalog Code: ferrous gluconate ; Order Dt/Tm: 05/22/2021 12:45:55 MST insulin detemir : insulin detemir ; Status: Documented ; Ordered As Mnemonic: Levemir 100 units/mL subcutaneous solution ; Simple Display Line: 57 units, SUBCUT, Daily, 0 Refill(s) ; Catalog Code: insulin detemir ; Order Dt/Tm: 05/22/2021 12:39:16 MST Social History Suicide Risk Screen : Yes Abuse Signs : Denies Red Flags of Human Trafficking : None observed Activated Human Trafficking Protocol : No Immunization Opt Out : Declined Lashell Muniz RN - 05/22/2021 12:34 MST Social History (As Of: 05/22/2021 12:48:53 MST) Tobacco: Never (less than 100 in lifetime) (Last Updated: 05/22/2021 12:35:21 MST by Lashell Muniz RN) Alcohol: Denies (Last Updated: 05/22/2021 12:35:25 MST by Lashell Muniz RN) Substance Abuse: Denies (Last Updated: 05/22/2021 12:35:30 MST by Lashell Muniz RN) Home/Environment: [employer] Orthodox restrictions/concerns: None. (Last Updated: 05/22/2021 12:35:33 MST by Lashell Muniz RN) Infectious Disease Risk Screening Does Pt Have Symptoms of COVID 19 : No Tested for COVID19 in the past 14 days : No, Patient stated Does the Patient state known exposure to a COVID-19 positive case in the last 14 days : No Patient Vaccinated for COVID-19 : Not vaccinated Does Patient want a COVID-19 Vaccine : No Lashell Muniz RN - 05/22/2021 12:34 [facility] Infectious Disease Risk Screening Grid Cough < 2 wks of unknown origin : NO Cough > 2 weeks : NO Blood in Sputum : NO Fever or self-reported Fever : NO Rash of unknown origin : NO Headache : NO Stiff neck : NO Night Sweats : NO Unexplained Weight Loss : NO Diarrhea (3 episode per day) : NO Yasmany Lashell Gregory RN - 05/22/2021 12:34 [facility] INF Disease Living Situation ST : Living Situation No qualifying data available. Travel to foreign country last 30 days : No INF Disease TB Screening Calc : 0 Yasmany Lashell Gregory RN - 05/22/2021 12:34 [facility] Urgent Care Fall Risk Mental Status ED : Alert and oriented Physical/Clinical Status : Mobility defects Current Treatments ED : None High Fall Risk Interventions : All high risk interventions implemented Yasmany Lashell Gregory RN - 05/22/2021 12:34 [facility] 05/22/2021 [facility] Discharge Summaries Results Value Date Source Discharge Summary Patient: SHOBHA JIANG Age: 76 years Sex: M : 1945 Active Insurance: MEDICARE A Admitting MD: Marybel Truong [facility] Location: [facility] 3A: 311: 01 PCP: Glenys Oakes MD Author: Sana Cameron MD [facility] Admission Information Admit Date: 04/23/22 01:17 Discharge/Transfer Date: 04/25/22 14:10 Discharge Diagnosis Diagnosis this visit: Acute cholecystitis (K81.0) 04/23/2022 04:49 Discharge Cholelithiasis (K80.20) 04/23/2022 04:49 Discharge Diabetes mellitus (E11.9) 04/25/2022 12:25 Discharge Hypertension (I10) 04/25/2022 12:25 Discharge Hypercholesterolemia (E78.00) 04/25/2022 12:25 Discharge Sleep apnea (G47.30) 04/25/2022 12:25 Discharge #Acute calculus cholecystitis #Elevated lipase with no hyperbilirubinemia and normal pancreas on CT l ikely secondary to above #Abdominal pain secondary to above #Chest pain described as elephant sitting on the chest -this may be secondary to above but in light of typical description, ACS still has to be ruled out #Hypertension #Diabetes type 2 #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 #Obesity #Hypercholesterolemia #Asthma #[facility] GEN surgery Reason for Admission Abdominal pain Hospital Course Mr Jiang is a 76-year-old gentleman with past medical history of diabetes, asthma, hypertension, PE who came to ED due to chest pain Per patient, patient was ambulating at night with some chest pressure as if an elephant was sitting on his chest. Pain was mostly in the lower sternum and epigastrium area. But most pressure-like in character as if an elephant was sitting on his chest. He denied any fever or chills or any shortness of breath. He denied any radiating pain into the left side of his chest or jaw or back. He denied any nausea or vomiting. Pain is not associated to food intake. Pain persisted was prompted ED visit. Vital signs in ED showed elevated blood pressure but otherwise no fever and was breathing fine in room air. Labs showed elevated WBC at 11.2 and creatinine at 1.71. AST slightly elevated at 69 and lipase at 108. CT abdomen and pelvis was done which showed cholelithiasis with no radiologic evidence of acute cholecystitis but showed overly distended gallbladder consistent with hydrops. Ultrasound of the abdomen was done which showed cholelithiasis and positive Youngblood sign consistent with acute cholecystitis. EKG was done which showed sinus rhythm with first-degree AV block. Empiric IV antibiotics started. Cardiology consult for preop clearance. Surgery consulted for acute cholecystitis. Patient admitted for further evaluation and management. On 04/24/2022. Patient overall feeling well and denied any pain. Patient does not want to pursue surgery if possible depending on imaging report. MRCP and HIDA scan ordered. MRCP ordered due to uptrending lipase and LFTs. HIDA scan will have to be done at outside facility which schedule is pending. Troponin trends were overall negative. Per cardiology patient is at moderate risk for surgery. On 04/25/2022. MRCP reviewed which showed dependent gallbladder sludge or small cholelithiasis. Normal caliber common bile duct without appreciable filling defect to suggest choledocholithiasis. Surgeon reviewed imaging and no longer requested HIDA scan. Surgeon did not recommend urgent surgical intervention at this time since patient would prefer no surgical intervention as well. Patient advised to follow-up with surgeon on the event that he becomes symptomatic. Patient is otherwise asymptomatic now and doing well. He is tolerating diet and overall responded well with antibiotics. Patient stabilized and cleared for discharge. Plan was discussed in depth with strong emphasis on medication compliance and close follow up with his primary doctor and surgeon. All questions were answered to the best of my knowledge. Pt verbalized understanding and was agreeable to plan. Objective Vitals and Measurements T: 36.5 ?C (Oral) TMIN: 36.5 ?C (Oral) TMAX: 36.8 ?C (Axillary) HR: 84 RR: 18 BP: 127/77 SpO2: 97% Oxygen Method: Room air Physical Exam General: No acute distress. Eye: [...] No focal defects Psychiatric: Cooperative, Appropriate mood and affect. Lab Results Common Labs - All Encounters, All Results, Last 1 month Last Month Hematology-CBC General Chemistry POC Glucose 04/25/22 04/25/22 04/25/22 WBC: 8.4 thousand/uL Blood Glucose, Point of Care:190 mg/dL (H) Glucose (POCT) Automated:223 mg/dL (H) RBC:4.24 million/uL (L) 04/25/22 Hgb:12.1 gm/dL (L) Sodium: 137 mmol/L Hct:36.5 % (L) Potassium: 4.2 mmol/L MCV: 86.1 fL Chloride:111 mmol/L (H) MCH: 28.6 pg CO2:18 mmol/L (L) MCHC: 33.3 gm/dL Anion Gap: 8 mmol/L RDW: 15.0 % Glucose Level:199 mg/dL (H) Plt: 243 thousand/uL BUN: 13 mg/dL MPV: 8 fL Creatinine: 0.99 mg/dL 04/23/22 BUN/Ripsaw Operator Ratio: 13.1 Neuts: 70.9 % eGFRcr:79 mL/min/1.73m2 (L) Lymphs: 19.8 % Calcium: 9.0 mg/dL Monos.: 6.1 % Corrected Calcium: 9.4 mg/dL Eos.: 2.6 % M.5 mg/dL (L) Baso.: 0.6 % Protein, Total: 6.2 gm/dL ABS Neut: 7.9 thousand/uL Albumin: 3.5 gm/dL ABS Lymph: 2.2 thousand/uL Globulin: 3 gm/dL ABS [place]: 0.7 thousand/uL A/G Ratio: 1 ABS Eos: 0.3 thousand/uL Bili Total: 0.5 mg/dL ABS Baso: 0.1 thousand/uL ALT:217 Units/L (H) CBC Scan: Auto Diff AST:78 Units/L (H) nRBC Auto: 0 Alkphos: 82 Units/L Amylase: 40 Units/L Lipase: 53.0 Units/L 04/23/22 Lactic Acid: 1.2 mmol/L Cardiac Lipid Tests Special Chemistry 04/23/22 04/23/22 04/24/22 Troponin I: 0.01 ng/mL Cholesterol: 137 mg/dL HgbA1C:7.4 % (H) 04/23/22 Triglycerides:362 mg/dL (H) Estimated Average Glucose: 166 B-Natriuretic Peptide: 20.6 pg/mL HDL:18 mg/dL (L) 04/23/22 LDL Direct: 68 mg/dL TSH: 1.00 mcIU/mL VLDL: 72 mg/dL LDL/HDL: 3 ratio Chol/Tri %HDL: 13 % Cholesterol/HDL:8 mg/dL (L) Toxicology 04/23/22 Ethanol:<10 mg/dL (H) Additional 04/25/22 Heme Index: Negative Icteric Index: Negative Lab Add On*: Yes Lipemia Index: Negative Diagnostic Results Radiology - Full Interpretation, This Encounter Name: JUAN JIANG Account: [id number] : 1945 Result Date: 04/24/22 13:15 Verified By: Avel Muir MD at 04/24/22 14:13 Report : MR MRCP wo Con PROCEDURE INFORMATION: Exam: MR Abdomen Without Contrast [...] without appreciable filling defect to suggest choledocholithiasis 04/24/22 12:43 +++++++++++++++++++++++++++++++++ ++++++++++++++++++++++ Result Date: 04/23/22 04:30 Verified By: Reinaldo Zavaleta MD at 04/23/22 04:36 Report : US Abdomen Limited PROCEDURE INFORMATION: Exam: US Abdomen, Limited; Right Upper Quadrant Exam date and time: 04/23/2022 1:41 AM Age: 76 years old Clinical indication: Abdomen pain ruq TECHNIQUE: Imaging protocol: Real time ultrasound of the abdomen with image documentation. Limited exam focused on the right upper quadrant. COMPARISON: No relevant prior studies available. FINDINGS: Liver: Normal. No masses. Gallbladder: Tank Inspector notes positive Youngblood's sign. The gallbladder demonstrates layering density consistent with noncalcified stones or sludge. No gallbladder wall thickening. Biliary ducts: Normal. No stones. No dilation. Pancreas: Visualized pancreas is unremarkable. Right kidney: Normal. No mass. No hydronephrosis. Other findings: Tank Inspector notes technically difficult exam secondary to patient body habitus and overlying bowel gas. IMPRESSION: Cholelithiasis. 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 04/23/22 01:41 +++++++++++++++++++++++++++++++++ ++++++++++++++++++++++ Result Date: 04/23/22 02:57 Verified By: Reinaldo Zavaleta MD at 04/23/22 03:10 Report : CT Abdomen+Pelvis wo IV Con Radiation Dose CTDIVOL = 0 (mGy): DLP [...] months prior to the current study. COMPARISON: [place] XR CHEST 1 VIEW 04/28/2021 5:33 AM [...] Cholelithiasis. No radiographic evidence of acute cholecystitis. [place] distended gallbladder consistent with hydrops. 2. Mild diverticulosis of the distal colon. No bowel perferation or obstruction. 3. No renal, ureteral, or bladder calculi. No hydroureteronephrosis. 04/23/22 02:48 +++++++++++++++++++++++++++++++++ ++++++++++++++++++++++ ECHO Admission - Current Encounter, Most Recent Echocardiogram Transthoracic 04/23/22 10:26:01 Conclusions 1. Left ventricle: The cavity size is [...] mass index: BMI: 39.5kg/m^2. _ Cardiac Anatomy Left ventricle: The cavity size is normal. [...] evidence of pleural fluid accumulation. _ Measurements Left ventricle Value Ref LV ID, ED, [...] 35 - 75 volume/bsa, Teichholz MM LV e', lateral (L) 8.9 cm/sec >=10.0 LV E/e', lateral 7 --------- LV e', medial (L) 6.0 cm/sec >=7.0 LV E/e', medial 10 --------- LV e', average 7.5 cm/sec --------- LV E/e', average 8 <=14 LVOT Value Ref LVOT ID, S 2.2 cm --------- LVOT area 3.8 cm^2 --------- LVOT peak velocity, S 0.98 m/sec --------- LVOT mean velocity, S 0.56 m/sec --------- LVOT VTI, S 15.8 cm --------- LVOT peak gradient, S 4 mm Hg --------- LVOT mean gradient, S 1 mm Hg --------- Ventricular septum Value Ref IVS thickness, ED, PLAX 0.7 cm 0.6 - 1.0 IVS thickness, ED 0.7 cm 0.6 - 1.0 Right ventricle Value Ref RV ID, ED, PLAX 4.3 cm --------- RV ID, ED 4.3 cm --------- TAPSE, 2D 2.1 cm 1.7 - 3.1 TAPSE, MM 2.1 cm 1.7 - 3.1 Left atrium Value Ref LA ID, A-P, ES 3.5 cm 3.0 - 4.0 LA ID/bsa, A-P 1.5 cm/m^2 1.5 - 2.3 LA area, ES, A4C (H) 24 cm^2 <=20 LA volume, ES, 1-p A4C (H) 66 ml 18 - 58 LA volume/bsa, ES, 1-p 28 ml/m^2 12 - 37 A4C LA/aortic root ratio 1.17 --------- Right atrium Value Ref RA ID, M-L, [...] A4C (L) 1.5 cm/m^2 1.8 - 3.0 Aortic valve Value Ref Aortic valve peak [...] valve area/bsa, 1.27 cm^2/m^2 --------- mean velocity Mitral valve Value Ref Mitral E-wave peak [...] valve area/bsa, 1.11 cm^2/m^2 --------- LVOT continuity Pulmonic valve Value Ref Pulmonic valve peak 0.8 m/sec --------- velocity, S Pulmonic peak gradient, 2 mm Hg --------- S Pulmonic regurg 0.35 m/sec --------- velocity, ED Tricuspid valve Value Ref Tricuspid regurg peak (H) 3.3 m/sec <=2.8 velocity Tricuspid peak RV-RA 43 mm Hg --------- gradient Aortic root Value Ref Aortic root ID 3.0 cm <4.4 Ascending aorta Value Ref Ascending aorta ID, 3.0 cm --------- A-P, S Ascending aorta ID/bsa, 1.3 cm/m^2 --------- A-P, S Pulmonary artery Value Ref PA pressure, S, DP 45 mm Hg --------- Pulmonary veins Value Ref Pulmonary vein peak 0.39 m/sec --------- velocity, S Pulmonary vein peak 0.24 m/sec --------- velocity, D Pulmonary vein velocity 1.6 --------- ratio, peak, S/D Pulmonary vein A-wave 0.35 m/sec --------- reversal peak velocity Legend: (L) and (H) bianka values outside specified reference range. Carole Azevedo MD [id number] Condition on Discharge Stable Discharge Plan Discharge Medications 1. metoprolol(metoprolol tartrate 25 mg oral tablet) 12.5 mg= 0.5 Tab By mouth Tab twice daily New Prescriptions 2. metroNIDAZOLE(Flagyl 500 mg oral tablet) 500 mg= 1 Tab By mouth Tab every 8 hours 10 Day 3. ciprofloxacin(ciprofloxacin 500 mg oral tablet) 500 mg= 1 Tab By mouth Tab every 12 hours 10 Day Target Dose: ciprofloxacin 500 mg oral tablet 20 mg/kg 06/25/18 10:03:19 4. lisinopril(lisinopril 2.5 mg oral tablet) 2.5 mg= 1 Tab By mouth Tab once daily Medications to Continue 5. rivaroxaban(Xarelto 10 mg oral tablet) 10 mg= 1 Tab By mouth every bedtime 6. glipiZIDE(glipiZIDE 5 mg oral tablet, extended release) 5 mg= 1 Tab By mouth twice daily 7. SITagliptin(Januvia 100 mg oral tablet) 100 mg= 1 Tab By mouth once daily 8. cholecalciferol(Vitamin D3 25 mcg (1,000 unit) oral tablet, chewable) 25 mcg= 1 Tab Chew Tab, Chew twice daily 9. finasteride(finasteride 5 mg oral tablet) 5 mg= 1 Tab By mouth Tab every bedtime 10. dapagliflozin(Farxiga 10 mg oral tablet) 10 mg= 1 Tab By mouth Tab once daily 11. rosuvastatin(rosuvastatin 20 mg oral tablet) 20 mg= 1 Tab By mouth Tab every bedtime 12. chlorthalidone(chlorthalidone 25 mg oral tablet) 25 mg= 1 Tab By mouth Tab every Thursday, Thursday, and Thursday 13. omega-3 polyunsaturated fatty acids(Fish Oil 1000 mg oral capsule) 2,000 mg= 2 Cap By mouth Cap twice daily 14. cyanocobalamin(Vitamin B12 1000 mcg oral tablet) 1,000 mcg= 1 Tab By mouth Tab twice daily 15. albuterol(albuterol HFA (90 mcg/dose) MDI) 1 Puff Inhaled Aerosol four times daily as needed for wheezing 16. ferrous gluconate(iron gluconate) 27 mg By mouth every Thursday, Thursday, and Thursday Special Instructions: takes 3 x per week Discontinued Meds metoprolol (metoprolol succinate 25 mg oral capsule, extended release) 0.5 Tab By mouth twice daily insulin aspart (NovoLOG) subcutaneously three times daily before meals insulin detemir (Levemir 100 units/mL subcutaneous solution) subcutaneously once daily potassium chloride (potassium chloride 8 mEq oral tablet, extended release) 1 Tab By mouth Tab, ER once daily loratadine (Claritin) By mouth once daily Discharge Disposition Discharge Order Details: 04/25/22 12:25:00 MST, Today, Home or self care Discharge Activity Order Details: 04/25/22 12:25:00 MST, As tolerated Discharge Diet Order Details: 04/25/22 12:25:00 MST, Consistent Carbohydrate Discharge Diet Order Details: 04/25/22 12:25:00 [facility], Heart Healthy Diet (Cardiac) PSO Place in Observation Order Details: Observation, Medicine, Truong, Marybel ACNP, Yes, ACUTE CHOLCYSTITIS WITH CHOLELITHIASIS, PATTERN FILER:DR PACHECO LAMAS, 04/23/22 5:15:00 MST, 04/23/22 5:15:00 MST, 04/23/22 5:15:00 MST, [email or web address] Discharge Diet Discharge Diet Order Details: 04/25/22 12:25:00 MST, Consistent Carbohydrate Discharge Diet Order Details: 04/25/22 12:25:00 MST, Heart Healthy Diet (Cardiac) Discharge Activity Discharge Activity Order Details: 04/25/22 12:25:00 MST, As tolerated Discharge Follow-up Instructions Follow-Up Details: Provider/Org Name: Tyler Post MD Within: 2 to 3 weeks Address: ;[phone]; Provider/Org Name: Glenys Oakes MD Within: 1 week Address: [address] [place] [id number]; ; Comments: Call for follow up appointment Time spent with Patient - Total face to face time with patient >30 mins, Greater than 50% face to face time spent counseling/coordinating care. - Thank you for allowing me to participate in your care. Electronically Signed By: Sana Cameron MD On 04/25/22 20:50 Co Signature By: Modify Signature By: Sana Cameron MD On 04/25/22 20:50 04/25/2022 [facility] History and Physicals Results Value Date Source History and Physical Patient: Karina JIANG Age: 76 years Sex: M : 1945 Active Insurance: MEDICARE A Admitting MD: Marybel Truong [facility] Location: [facility] 3A: 311: 01 PCP: Glenys Oakes MD Author: Carole Azevedo MD Objective Vitals and Measurements T: 36.8 ?C (Axillary) TMIN: 36.4 ?C (Oral) TMAX: 36.8 ?C (Oral) HR: 67 RR: 18 BP: 135/81 SpO2: 99% Oxygen Method: Room air Physical Exam GEN: No acute distress, alert [...] Most Recent, Lab 24 hrs Last 24 Hours Hematology-CBC 04/24/22 General Chemistry 04/24/22 POC Glucose 04/24/22 WBC: 6.9 Sodium:135 (L) Glucose (POCT) Automated:152 (H) RBC:4.20 (L) Potassium: 4.2 Hgb:12.2 (L) Chloride:109 (H) Hct:36.4 (L) CO2:18 (L) MCV: 86.7 Anion Gap: 8 MCH: 28.9 Glucose Level:211 (H) MCHC: 33.4 BUN: 20 RDW: 14.9 Creatinine: 1.14 Plt: 230 BUN/Ripsaw Operator Ratio: 17.5 MPV: 8 eGFRcr:67 (L) Calcium: 8.6 Corrected Calcium: 9.0 M.6 Protein, Total: 6.0 Albumin: 3.5 Globulin: 2 A/G Ratio: 2 Bili Total: 0.6 ALT:337 (H) AST:291 (H) Alkphos: 89 Amylase: 133 Lipase:473.0 (H) Blood Glucose, Point of Care:175 mg/dL (H) Special Chemistry 04/24/22 HgbA1C:7.4 (H) Estimated Average Glucose: 166 Additional , clubbing or edema NEURO: Non-focal, moves all extremities Lab Results .la Antibiotics Ordered cefTRIAXone: 2,000 mg, IV Push, q24hr 04/23/22 08:22 - Active ( 3 days ) metroNIDAZOLE: 500 mg, IV, q8hr 04/23/22 08:22 - Active ( 3 days ) Completed ampicillin-sulbactam: 3 gm, IV, x1 04/23/22 04:40 - Active ( 1 days ) Diagnostic Results NSR Assessment/Plan Preop evaluation History of pulmonary embolism currently on Xarelto Obesity Diabetes mellitus Hypertension Renal sufficiency Plan Preop evaluation Patient has been seen in the emergency room for abdominal pain and it was felt that patient may have contribution from gallbladder therefore patient was felt to be candidate for cholecystectomy. Patient was asked to be evaluated. Patient has no chest pain or shortness of breath ejection fraction within normal limits. His EKG is unremarkable therefore patient is at moderate risk for surgery. Patient is on Xarelto therefore patient will be advised to hold Xarelto for 72 hours because of his GFR being between 30 and 59. Pulmonary embolism Patient history of pulmonary embolism and has been on Xarelto 10 mg once a day Obesity Patient is to lose weight Diabetes mellitus Patient had elevated hemoglobin A1c of 7.2 patient advised to follow internal medicine Hypertension Patient advised to follow-up with internal medicine Electronically Signed By: Carole Azevedo MD On 04/24/22 21:56 Co Signature By: Modify Signature By: 04/25/2022 [facility] History and Physical Patient: Karina JIANG Age: 76 years Sex: M : 1945 Active Insurance: MEDICARE A Admitting MD: Marybel Truong [facility] Location: [facility] 3A: 311: 01 PCP: Glenys Oakes MD Author: Tyler Post MD Subjective Pt states he has no pain. Wants to go home. Objective Vitals and Measurements T: 36.8 ?C (Oral) TMIN: 36.4 ?C (Oral) TMAX: 36.8 ?C (Oral) HR: 66 RR: 18 BP: 112/67 SpO2: 98% Oxygen Method: Room air WT: 130.8 kg Physical Exam GEN: No acute distress, alert [...] Most Recent, Lab 24 hrs Last 24 Hours Hematology-CBC 04/24/22 General Chemistry 04/24/22 POC Glucose 04/24/22 WBC: 6.9 Sodium:135 (L) Glucose (POCT) Automated:189 (H) RBC:4.20 (L) Potassium: 4.2 Hgb:12.2 (L) Chloride:109 (H) Hct:36.4 (L) CO2:18 (L) MCV: 86.7 Anion Gap: 8 MCH: 28.9 Glucose Level:211 (H) MCHC: 33.4 BUN: 20 RDW: 14.9 Creatinine: 1.14 Plt: 230 BUN/Ripsaw Operator Ratio: 17.5 MPV: 8 eGFRcr:67 (L) Calcium: 8.6 Corrected Calcium: 9.0 M.6 Protein, Total: 6.0 Albumin: 3.5 Globulin: 2 A/G Ratio: 2 Bili Total: 0.6 ALT:337 (H) AST:291 (H) Alkphos: 89 Lipase:473.0 (H) Blood Glucose, Point of Care:193 mg/dL (H) Cardiac 04/24/22 Special Chemistry 04/24/22 Troponin I: 0.01 HgbA1C:7.4 (H) Estimated Average Glucose: 166 Additional Antibiotics Ordered cefTRIAXone: 2,000 mg, IV Push, q24hr 04/23/22 08:22 - Active ( 2 days ) metroNIDAZOLE: 500 mg, IV, q8hr 04/23/22 08:22 - Active ( 2 days ) Completed ampicillin-sulbactam: 3 gm, IV, x1 04/23/22 04:40 - Active ( 1 days ) Diagnostic Results MRI - All Encounters, Most Recent, Last 24 hrs MR MRCP wo Con 04/24/22 12:43:38 IMPRESSION: Dependent gallbladder sludge or small cholelithiasis. Normal caliber common bile duct without appreciable filling defect to suggest choledocholithiasis Signed By: Avel Muir MD Assessment/Plan 1. Acute cholecystitis K81.0 unlikely as per MRCP. no inflammation noted, nontender Ordered: NM Hepatobiliary System - XFR 2. Cholelithiasis K80.20 Ordered: NM Hepatobiliary System - XFR Long discussion again with patient about the options. This could definitely be gall bladder related Would be first episode. Could be very mild pancreatitis, possibly gallstone related but never had elevated bili and no CBD stones on MRCP. Pt. reluctant to have surgery. Will cancel HIDA Pt. can f/u for OPT surgery for repeat pain episodes. Pt. only wants surgery if cannot be avoided. Trend lipase and LFTs If improved can d/c home on 04/25. He can f/u in my office for OPT lap emilia anytime if he has pain. Electronically Signed By: Tyler Post MD On 04/24/22 15:31 Co Signature By: Tyler Post MD On 04/24/22 15:32 Modify Signature By: Tyler Post MD On 04/24/22 15:31 04/24/2022 [facility] History and Physical Patient: Karina JIANG Age: 76 years Sex: M : 1945 Active Insurance: MEDICARE A Admitting MD: Marybel Truong ACNP Location: [facility] 3A: 311: 01 PCP: Glenys Oakes MD Author: Sana Cameron MD [facility] Assessment/Plan #Acute calculus cholecystitis #Elevated lipase with no hyperbilirubinemia and normal pancreas on CT l ikely secondary to above #Abdominal pain secondary to above #Chest pain described as elephant sitting on the chest -this may be secondary to above but in light of typical description, ACS still has to be ruled out #Hypertension #Diabetes type 2 #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 #Obesity #Hypercholesterolemia #Asthma #BPH - Abx: Ceftriaxone, Flagyl - CV: VS per protocol *Echocardiogram *Cardiology consulted and discussed moderate risk for surgery *Medications: Metoprolol 12.5 mg twice daily - Electrolytes: Monitor - Endocrinology: ISS - GI: Bowel care, Pepcid *General surgeon consult *MRCP due to uptrending lipase and LFTs *Surgeon also wants to do HIDA to evaluate gallbladder - : Finasteride - HEENT: Latanoprost - MSK: Ambulate and OOB as tolerated - Pain: Meds per MAR - Renal: Maintenance IVF, Avoid nephrotoxins (NSAIDs, ACEi/ARBs, Contrast, Fleets enema), Pharmacy to renally dose medications, Strict I/O Supportive Care # VTE PPx: SCD, heparin # GI PPx: Pepcid Disposition # # Discussed plan with pt and nurse in depth # Thank you for allowing me to participate in your care Sana Cameron MD Internal Medicine [facility] Subjective On 04/24/2022. Patient overall feeling well and denied any pain. Patient does not want to pursue surgery if possible depending on imaging report. MRCP and HIDA scan ordered. MRCP ordered due to uptrending lipase and LFTs. HIDA scan will have to be done at outside facility which schedule is pending. Troponin trends were overall negative. Per cardiology patient is at moderate risk for surgery. Review of Systems Constitutional: No fevers, chills, sweats Eye: No recent visual problems ENMT: No ear pain, nasal congestion, sore throat Respiratory: No shortness of breath, cough Cardiovascular: No Chest pain, palpitations Gastrointestinal: No nausea, vomiting, diarrhea, abdominal pain Genitourinary: No hematuria Musculoskeletal: No back pain, neck pain, joint pain Integumentary: No rash, pruritus, abrasions Neurologic: No headache Psychiatric: No anxiety, depression Physical Examination General: No acute distress. Eye: [...] No focal defects Psychiatric: Cooperative, Appropriate mood and affect. Vital Signs Vitals Signs (Most Recent) Non Invasive BP: 96 / 57 Heart Rate: 74 Respiratory Rate: 18 Breaths/Min Temperature PO: 36.4 Temperature Temporal Artery: 36.7 Laboratory and Diagnostic Tests Results Last 24 Hours Hematology-CBC 04/24/22 General Chemistry 04/24/22 POC Glucose 04/24/22 WBC: 6.9 Sodium:135 (L) Glucose (POCT) Automated:224 (H) RBC:4.20 (L) Potassium: 4.2 Hgb:12.2 (L) Chloride:109 (H) Hct:36.4 (L) CO2:18 (L) MCV: 86.7 Anion Gap: 8 MCH: 28.9 Glucose Level:211 (H) MCHC: 33.4 BUN: 20 RDW: 14.9 Creatinine: 1.14 Plt: 230 BUN/Ripsaw Operator Ratio: 17.5 MPV: 8 eGFRcr:67 (L) Calcium: 8.6 Corrected Calcium: 9.0 M.6 Protein, Total: 6.0 Albumin: 3.5 Globulin: 2 A/G Ratio: 2 Bili Total: 0.6 ALT:337 (H) AST:291 (H) Alkphos: 89 Lipase:473.0 (H) Blood Glucose, Point of Care:161 mg/dL (H) Cardiac 04/24/22 Lipid Tests 04/24/22 Special Chemistry 04/24/22 B-Natriuretic Peptide: 20.6 Cholesterol: 137 TSH: 1.00 Troponin I: 0.01 Triglycerides:362 (H) HDL:18 (L) LDL Direct: 68 VLDL: 72 LDL/HDL: 3 Chol/Tri %HDL: 13 Cholesterol/HDL:8 (L) Toxicology 04/24/22 Ethanol:<10 (H) Additional Microbiology Studies Recently Resulted CT Abdomen+Pelvis wo IV Con 04/23/22 02:48:15 Radiation Dose CTDIVOL = 0 [...] Cholelithiasis. No radiographic evidence of acute cholecystitis. [place] distended gallbladder consistent with hydrops. 2. Mild diverticulosis of the distal colon. No bowel perferation or obstruction. 3. No renal, ureteral, or bladder calculi. No hydroureteronephrosis. US Abdomen Limited 04/23/22 01:41:14 PROCEDURE INFORMATION: Exam: US Abdomen, Limited; Right Upper Quadrant Exam date and time: 04/23/2022 1:41 AM Age: 76 years old Clinical indication: Abdomen pain ruq TECHNIQUE: Imaging protocol: Real time ultrasound of the abdomen with image documentation. Limited exam focused on the right upper quadrant. COMPARISON: No relevant prior studies available. FINDINGS: Liver: Normal. No masses. Gallbladder: Tank Inspector notes positive Youngblood's sign. The gallbladder demonstrates layering density consistent with noncalcified stones or sludge. No gallbladder wall thickening. Biliary ducts: Normal. No stones. No dilation. Pancreas: Visualized pancreas is unremarkable. Right kidney: Normal. No mass. No hydronephrosis. Other findings: Tank Inspector notes technically difficult exam secondary to patient body habitus and overlying bowel gas. IMPRESSION: Cholelithiasis. 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 Medications Scheduled cefTRIAXone 2,000 mg Inj: 2,000 mg, IV Push, q24hr docusate sodium 100 mg Cap: 100 mg, PO, BID famotidine 20 mg Tab: 20 mg, PO, Daily finasteride 5 mg Tab: 5 mg, PO, qDay heparin 5,000 Unit/mL Inj; 1mL 5,000 Unit, Subcut, q8hr insulin LISPRO syringe (10 Uni 0 - 8 Unit, SUBCUT, q4hr metoprolol 25 mg IMMediate Rel 12.5 mg, PO, BID metroNIDAZOLE: 500 mg, 100 mL, 100 mL/hr, IV, q8hr senna 8.6 mg Tab: 17.2 mg, PO, qDay IV NaCl 0.9%: 125 mL/hr, IV, Stop: 05/23/22 8:51:00 MST DVT prophylaxis Pharmacological Prophylaxis heparin 5,000 Unit/mL Inj; 1mL 5,000 Unit, Subcut, q8hr Mechanical Prophylaxis SCD Order: , Compression devices to be worn while in bed. SCD's to be removed a minimum of 30 minutes every shift and while ambulating. Electronically Signed By: Sana Cameron MD On 04/24/22 19:25 Co Signature By: Modify Signature By: Sana Cameron MD On 04/24/22 15:18 04/24/2022 [facility] History and Physical Patient: Karina JIANG Age: 76 years Sex: M : 1945 Active Insurance: MEDICARE A Admitting MD: Marybel Truong [facility] Location: [facility] EDIP: ED08: 01 PCP: Glenys Oakes MD Author: Sana Cameron MD [facility] Chief Complaint Elephant sitting on my chest History of Present Illness Mr Jiang is a 76-year-old gentleman with past medical history of diabetes, asthma, hypertension, PE who came to ED due to chest pain Per patient, patient was ambulating at night with some chest pressure as if an elephant was sitting on his chest. Pain was mostly in the lower sternum and epigastrium area. But most pressure-like in character as if an elephant was sitting on his chest. He denied any fever or chills or any shortness of breath. He denied any radiating pain into the left side of his chest or jaw or back. He denied any nausea or vomiting. Pain is not associated to food intake. Pain persisted was prompted ED visit. Vital signs in ED showed elevated blood pressure but otherwise no fever and was breathing fine in room air. Labs showed elevated WBC at 11.2 and creatinine at 1.71. AST slightly elevated at 69 and lipase at 108. CT abdomen and pelvis was done which showed cholelithiasis with no radiologic evidence of acute cholecystitis but showed overly distended gallbladder consistent with hydrops. Ultrasound of the abdomen was done which showed cholelithiasis and positive Youngblood sign consistent with acute cholecystitis. EKG was done which showed sinus rhythm with first-degree AV block. Empiric IV antibiotics started. Cardiology consult for preop clearance. Surgery consulted for acute cholecystitis. Patient admitted for further evaluation and management. Review of Systems Constitutional: No fevers, chills, sweats Eye: No recent visual problems ENMT: No ear pain, nasal congestion, sore throat Respiratory: No shortness of breath, cough Cardiovascular: (+) Chest pain, palpitations Gastrointestinal: No nausea, vomiting, diarrhea, abdominal pain Genitourinary: No hematuria Musculoskeletal: No back pain, neck pain, joint pain Integumentary: No rash, pruritus, abrasions Neurologic: Alert and oriented X 4 Psychiatric: No anxiety, depression Objective Vitals and Measurements T: 36.4 ?C (Temporal Artery) HR: 77 RR: 17 BP: 151/70 SpO2: 100% Oxygen Method: Room air WT: 124.717 kg WT: 275 lbs Physical Exam General: No acute distress. Eye: [...] defects, Cranial Nerves. Psychiatric: Cooperative, Appropriate mood and affect. Lab Results Common Labs - This Encounter, Most Recent, Lab 24 hrs Last 24 Hours Hematology-CBC 04/23/22 General Chemistry 04/23/22 Cardiac 04/23/22 WBC:11.2 (H) Sodium: 136 Troponin I: <0.01 RBC:4.52 (L) Potassium: 4.3 Hgb:12.8 (L) Chloride: 104 Hct:38.9 (L) CO2:20 (L) MCV: 86.0 Anion Gap: 12 MCH: 28.4 Glucose Level:177 (H) MCHC: 33.0 BUN:27 (H) RDW: 15.2 Creatinine:1.71 (H) Plt: 267 BUN/Ripsaw Operator Ratio: 15.8 MPV: 8 eGFRcr:41 (L) Neuts: 70.9 Calcium: 9.6 Lymphs: 19.8 Corrected Calcium: 9.4 Monos.: 6.1 Protein, Total: 7.3 Eos.: 2.6 Albumin: 4.2 Baso.: 0.6 Globulin: 3 ABS Neut: 7.9 A/G Ratio: 1 ABS Lymph: 2.2 Bili Total: 0.8 ABS [place]: 0.7 ALT: 42 ABS Eos: 0.3 AST:69 (H) ABS Baso: 0.1 Alkphos: 51 CBC Scan: Auto Diff Lipase:108.0 (H) nRBC Auto: 0 Lactic Acid: 1.2 Additional Diagnostic Results Radiology - Full Interpretation, This Encounter Name: JUAN JIANG Account: [id number] : 1945 Result Date: 04/23/22 04:30 Verified By: Reinaldo Zavaleta MD at 04/23/22 04:36 Report : US Abdomen Limited PROCEDURE INFORMATION: Exam: US Abdomen, Limited; Right Upper Quadrant Exam date and time: 04/23/2022 1:41 AM Age: 76 years old Clinical indication: Abdomen pain ruq TECHNIQUE: Imaging protocol: Real time ultrasound of the abdomen with image documentation. Limited exam focused on the right upper quadrant. COMPARISON: No relevant prior studies available. FINDINGS: Liver: Normal. No masses. Gallbladder: Tank Inspector notes positive Youngblood's sign. The gallbladder demonstrates layering density consistent with noncalcified stones or sludge. No gallbladder wall thickening. Biliary ducts: Normal. No stones. No dilation. Pancreas: Visualized pancreas is unremarkable. Right kidney: Normal. No mass. No hydronephrosis. Other findings: Tank Inspector notes technically difficult exam secondary to patient body habitus and overlying bowel gas. IMPRESSION: Cholelithiasis. 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 04/23/22 01:41 +++++++++++++++++++++++++++++++++ ++++++++++++++++++++++ Result Date: 04/23/22 02:57 Verified By: Reinaldo Zavaleta MD at 04/23/22 03:10 Report : CT Abdomen+Pelvis wo IV Con Radiation Dose CTDIVOL = 0 (mGy): DLP [...] Cholelithiasis. No radiographic evidence of acute cholecystitis. [place] distended gallbladder consistent with hydrops. 2. Mild diverticulosis of the distal colon. No bowel perferation or obstruction. 3. No renal, ureteral, or bladder calculi. No hydroureteronephrosis. 04/23/22 02:48 +++++++++++++++++++++++++++++++++ ++++++++++++++++++++++ Medications - This Encounter, All Results, Last 6 months Scheduled cefTRIAXone 2,000 mg Inj: 2,000 mg, IV Push, q24hr famotidine 20 mg Tab: 20 mg, PO, Daily finasteride 5 mg Tab: 5 mg, PO, qDay insulin LISPRO syringe (10 Uni 0-8 units, SUBCUT, With meals and HS metoprolol 25 mg IMMediate Rel 12.5 mg, PO, BID metroNIDAZOLE: 500 mg, 100 mL, 100 mL/hr, IV, q8hr senna 8.6 mg Tab: 17.2 mg, PO, qDay PRN albuterol/iprat (2.5-0.5mg/3mL 3 mL, NEB - inhalation, q2hr, PRN: Shortness of breath or wheezing bisacodyl 10 mg Supp: 10 mg, VT, Daily, PRN: Constipation Dextrose 50% (25gm) PF 50 mL S 25 gm, IV Push, q15min, PRN: Hypoglycemia Dextrose 50% (25gm) PF 50 mL S 12.5 gm, IV Push, q15min, PRN: Hypoglycemia docusate/senna (50/8.6) mg Tab 2 Tab, PO, BID, PRN: Constipation glucagon: 1 mg, IM, Per Parameter, PRN: Hypoglycemia glucose 4gm Chew Tab: 16 gm, PO, q15min, PRN: Hypoglycemia hydrALAZINE 20 mg/mL 1mL Inj: 5 mg, IV Push, q4hr, PRN: Other (see Comments) labetalol 5 mg/mL 4mL Inj: 5 mg, IV Push, q4hr(interval), PRN: Hypertension metoclopramide 5 mg/mL 2mL Inj 5 mg, IV Push, q6hr, PRN: Nausea / Vomiting 2nd Choice morphine 2 mg/mL 1mL Inj: 2 mg, IV Push, q4hr(interval), PRN: Pain Moderate (4-6) morphine 2 mg/mL 1mL Inj: 2 mg, IV Push, q4hr(interval), PRN: Pain Severe (7-10) ondansetron 2 mg/mL Inj 2mL: 4 mg, IV Push, q4hr, PRN: Nausea / Vomiting 1st Choice oxyCODONE 5 mg Tab Immediate R 10 mg, PO, q4hr, PRN: Pain oxyCODONE 5 mg Tab Immediate R 5 mg, PO, q4hr, PRN: Pain Pharmacy Communication: 1 Each, N/A, oncall, PRN: Other (see Comments) Pharmacy Communication: 1 Each, N/A, oncall, PRN: Other (see Comments) Pharmacy Communication: 1 Each, N/A, oncall, PRN: Other (see Comments) polyethylene glycol 3350 17gm 17 gm, PO, Daily, PRN: Constipation IV NaCl 0.9%: 125 mL/hr, IV, Stop: 05/23/22 8:51:00 [facility] Assessment/Plan #Acute calculus cholecystitis #Elevated lipase with no hyperbilirubinemia and normal pancreas on CT l ikely secondary to above #Abdominal pain secondary to above #Chest pain described as elephant sitting on the chest -this may be secondary to above but in light of typical description, ACS still has to be ruled out #Hypertension #Diabetes type 2 #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 #Obesity #Hypercholesterolemia #Asthma #BPH - Abx: Ceftriaxone, Flagyl - CV: VS per protocol *Echocardiogram *Cardiology consult *Medications: Metoprolol - Electrolytes: Monitor - Endocrinology: ISS - GI: Bowel care, Pepcid *General surgeon consult - : Finasteride - MSK: Ambulate and OOB as tolerated - Pain: Meds per APR - Renal: Maintenance IVF, Avoid nephrotoxins (NSAIDs, ACEi/ARBs, Contrast, Fleets enema), Pharmacy to renally dose medications, Strict I/O Supportive Care # VTE PPx: SCD, heparin # GI PPx: Pepcid Disposition # Outpatient status for Observation requiring <2 midnight of medical management as above # Total time with patient evaluation, counseling and coordinating care >60 mins # Discussed plan with pt and nurse in depth # Thank you for allowing me to participate in your care Sana Cameron MD Internal Medicine [facility] Problem List/Past Medical History Ongoing Anemia Asthma Diabetes mellitus Foot drop, left Hypercholesterolemia Hypertension Pulmonary embolism Spinal stenosis Historical No qualifying data Procedure/Surgical History Adenoidectomy Hydrocele 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 Tonsillectomy Home Medications albuterol HFA (90 mcg/dose) MDI, [...] PO, qPM Allergies No Known Medication Allergies Reaction: None Documented Social History Alcohol Denies, 04/23/2022 Denies, 05/22/2021 Home/Environment [employer] restrictions/concerns: None., 04/23/2022 [employer] restrictions/concerns: None., 05/22/2021 Substance Abuse Denies, 04/23/2022 Denies, 05/22/2021 Tobacco Never (less than 100 in lifetime), 04/23/2022 Never (less than 100 in lifetime), 05/22/2021 Family History Family history of diabetes Electronically Signed By: Sana Cameron MD On 04/23/22 20:51 Co Signature By: Modify Signature By: Sana Cameron MD On 04/23/22 20:51 04/23/2022 [facility] History and physical note Patient: JUAN JIANG Age: 76 years Sex: M : 1945 Active Insurance: MEDICARE A Admitting MD: Marybel Truong Location: [facility] EDIP: ED08: 01 PCP: Glenys Oakes MD Author: Sana Cameron MD [facility] Chief Complaint Elephant sitting on my chest History of Present Illness Mr Jiang is a 76-year-old gentleman with past medical history of diabetes, asthma,hypertension, PEwho came to ED due tochest pain Per patient,patient was ambulating at nightwith some chest pressureas if an elephant was sitting on his chest. Pain was mostly in the lower sternum and epigastrium area. But most pressure-like in character as if an elephant was sitting on his chest. He denied any fever or chills or any shortness of breath. He denied any radiating pain into the left side of his chest or jaw or back. He denied any nausea or vomiting. Pain is not associated to food intake. Pain persisted was prompted ED visit. Vital signs in ED showed elevated blood pressure but otherwise no fever and was breathing fine in room air. Labs showed elevated WBC at 11.2 and creatinine at 1.71. AST slightly elevated at 69 and lipase at 108. CT abdomen and pelvis was done which showed cholelithiasis with no radiologic evidence of acute cholecystitis but showed overly distended gallbladder consistent with hydrops. Ultrasound of the abdomen was done which showed cholelithiasis and positive Youngblood sign consistent with acute cholecystitis. EKG was done which showed sinus rhythm with first-degree AV block. Empiric IV antibiotics started. Cardiology consult for preop clearance. Surgery consulted for acute cholecystitis. Patient admitted for further evaluation and management. Review of Systems Constitutional: No fevers, chills, sweats Eye: No recent visual problems ENMT: No ear pain, nasal congestion, sore throat Respiratory: No shortness of breath, cough Cardiovascular:(+) Chest pain, palpitations Gastrointestinal: No nausea, vomiting, diarrhea, abdominal pain Genitourinary: No hematuria Musculoskeletal: No back pain, neck pain, joint pain Integumentary: No rash, pruritus, abrasions Neurologic: Alert and oriented X 4 Psychiatric: No anxiety, depression Objective Vitals and Measurements T:36.4 ?C (Temporal Artery) HR:77 RR:17 BP:151/70 SpO2:100% Oxygen Method:Room air WT:124.717kg WT:275lbs Physical Exam General: No acute distress. Eye: [...] defects, Cranial Nerves. Psychiatric: Cooperative, Appropriate mood and affect. Lab Results Common Labs - This Encounter, Most Recent, Lab 24 hrs Last 24 Hours Hematology-CBC 04/23/22 General Chemistry 04/23/22 Cardiac 04/23/22 WBC:11.2 (H) Sodium:136 Troponin I:<0.01 RBC:4.52 (L) Potassium:4.3 Hgb:12.8 (L) Chloride:104 Hct:38.9 (L) CO2:20 (L) MCV:86.0 Anion Gap:12 MCH:28.4 Glucose Level:177 (H) MCHC:33.0 BUN:27 (H) RDW:15.2 Creatinine:1.71 (H) Plt:267 BUN/Ripsaw Operator Ratio:15.8 MPV:8 eGFRcr:41 (L) Neuts:70.9 Calcium:9.6 Lymphs:19.8 Corrected Calcium:9.4 Monos.:6.1 Protein, Total:7.3 Eos.:2.6 Albumin:4.2 Baso.:0.6 Globulin:3 ABS Neut:7.9 A/G Ratio:1 ABS Lymph:2.2 Bili Total:0.8 ABS [place]:0.7 ALT:42 ABS Eos:0.3 AST:69 (H) ABS Baso:0.1 Alkphos:51 CBC Scan:Auto Diff Lipase:108.0 (H) nRBC Auto:0 Lactic Acid:1.2 Additional Diagnostic Results Radiology - Full Interpretation, This Encounter Name:JUAN JIANG Account:[id number] :1945 Result Date:04/23/22 04:30 Verified By:Reinaldo Zavaleta MD at 04/23/22 04:36 Report :US Abdomen Limited PROCEDURE INFORMATION: Exam: US Abdomen, Limited; Right Upper Quadrant Exam date and time: 04/23/2022 1:41 AM Age: 76 years old Clinical indication: Abdomen pain ruq TECHNIQUE: Imaging protocol: Real time ultrasound of the abdomen with image documentation. Limited exam focused on the right upper quadrant. COMPARISON: No relevant prior studies available. FINDINGS: Liver: Normal. No masses. Gallbladder: Tank Inspector notes positive Youngblood's sign. The gallbladder demonstrates layering density consistent with noncalcified stones or sludge. No gallbladder wall thickening. Biliary ducts: Normal. No stones. No dilation. Pancreas: Visualized pancreas is unremarkable. Right kidney: Normal. No mass. No hydronephrosis. Other findings: Tank Inspector notes technically difficult exam secondary to patient body habitus and overlying bowel gas. IMPRESSION: Cholelithiasis. 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 04/23/22 01:41 +++++++++++++++++++++++++++++++++ ++++++++++++++++++++++ Result Date:04/23/22 02:57 Verified By:Reinaldo Zavaleta MD at 04/23/22 03:10 Report :CT Abdomen+Pelvis wo IV Con Radiation Dose CTDIVOL = 0 (mGy): DLP [...] Cholelithiasis. No radiographic evidence of acute cholecystitis. [place] distended gallbladder consistent with hydrops. 2. Mild diverticulosis of the distal colon. No bowel perferation or obstruction. 3. No renal, ureteral, or bladder calculi. No hydroureteronephrosis. 04/23/22 02:48 +++++++++++++++++++++++++++++++++ ++++++++++++++++++++++ Medications - This Encounter, All Results, Last 6 months Scheduled cefTRIAXone 2,000 mg Inj: 2,000 mg, IV Push, q24hr famotidine 20 mg Tab: 20 mg, PO, Daily finasteride 5 mg Tab: 5 mg, PO, qDay insulin LISPRO syringe (10 Uni 0-8 units, SUBCUT, With meals and HS metoprolol 25 mg IMMediate Rel 12.5 mg, PO, BID metroNIDAZOLE: 500 mg, 100 mL, 100 mL/hr, IV, q8hr senna 8.6 mg Tab: 17.2 mg, PO, qDay PRN albuterol/iprat (2.5-0.5mg/3mL 3 mL, NEB - inhalation, q2hr, PRN: Shortness of breath or wheezing bisacodyl 10 mg Supp: 10 mg, VT, Daily, PRN: Constipation Dextrose 50% (25gm) PF 50 mL S 25 gm, IV Push, q15min, PRN: Hypoglycemia Dextrose 50% (25gm) PF 50 mL S 12.5 gm, IV Push, q15min, PRN: Hypoglycemia docusate/senna (50/8.6) mg Tab 2 Tab, PO, BID, PRN: Constipation glucagon: 1 mg, IM, Per Parameter, PRN: Hypoglycemia glucose 4gm Chew Tab: 16 gm, PO, q15min, PRN: Hypoglycemia hydrALAZINE 20 mg/mL 1mL Inj: 5 mg, IV Push, q4hr, PRN: Other (see Comments) labetalol 5 mg/mL 4mL Inj: 5 mg, IV Push, q4hr(interval), PRN: Hypertension metoclopramide 5 mg/mL 2mL Inj 5 mg, IV Push, q6hr, PRN: Nausea / Vomiting 2nd Choice morphine 2 mg/mL 1mL Inj: 2 mg, IV Push, q4hr(interval), PRN: Pain Moderate (4-6) morphine 2 mg/mL 1mL Inj: 2 mg, IV Push, q4hr(interval), PRN: Pain Severe (7-10) ondansetron 2 mg/mL Inj 2mL: 4 mg, IV Push, q4hr, PRN: Nausea / Vomiting 1st Choice oxyCODONE 5 mg Tab Immediate R 10 mg, PO, q4hr, PRN: Pain oxyCODONE 5 mg Tab Immediate R 5 mg, PO, q4hr, PRN: Pain Pharmacy Communication: 1 Each, N/A, oncall, PRN: Other (see Comments) Pharmacy Communication: 1 Each, N/A, oncall, PRN: Other (see Comments) Pharmacy Communication: 1 Each, N/A, oncall, PRN: Other (see Comments) polyethylene glycol 3350 17gm 17 gm, PO, Daily, PRN: Constipation IV NaCl 0.9%: 125 mL/hr, IV, Stop: 04/07/23 8:51:00 [facility] Assessment/Plan #Acutecalculus cholecystitis #Elevated lipasewith no hyperbilirubinemiaand normal pancreas on CT l ikely secondary to above #Abdominal pain secondary to above #Chest paindescribed as elephant sitting on the chest -this may be secondary to above but in light of typical description, ACSstill has to be ruled out #Hypertension #Diabetes type 2 #CKDwith possibleAKI #Obesity #Hypercholesterolemia #Asthma #BPH - Abx:Ceftriaxone, Flagyl - CV: VS per protocol *Echocardiogram *Cardiology consult *Medications: Metoprolol - Electrolytes: Monitor - Endocrinology: ISS - GI: Bowel care, Pepcid *General surgeon consult - : Finasteride - MSK: Ambulate and OOB as tolerated - Pain: Meds per APR - Renal:Maintenance IVF, Avoid nephrotoxins (NSAIDs, ACEi/ARBs, Contrast, Fleets enema),Pharmacy to renally dose medications, Strict I/O Supportive Care # VTE PPx: SCD, heparin # GI PPx:Pepcid Disposition #Outpatient status for Observationrequiring <2 midnight of medical management as above # Total time with patientevaluation, counseling and coordinating care >60 mins # Discussed plan with pt and nurse in depth # Thank you for allowing me to participate in your care Sana Cameron MD Internal Medicine [facility] Problem List/Past Medical History Ongoing Anemia Asthma Diabetes mellitus Foot drop, left Hypercholesterolemia Hypertension Pulmonary embolism Spinal stenosis Historical No qualifying data Procedure/Surgical History A denoidectomy H ydrocele T HR - 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 T onsillectomy Home Medications albuterol HFA (90 mcg/dose) MDI, [...] PO, qPM Allergies No Known Medication Allergies Reaction: None Documented Social History Alcohol Denies, 04/23/2022 Denies, 05/22/2021 Home/Environment [employer] restrictions/concerns: None., 04/23/2022 [employer] restrictions/concerns: None., 05/22/2021 Substance Abuse Denies, 04/23/2022 Denies, 05/22/2021 Tobacco Never (less than 100 in lifetime), 04/23/2022 Never (less than 100 in lifetime), 05/22/2021 Family History Family history of diabetes Electronically Signed By: Sana Cameron MD On 04/23/22 20:51 Co Signature By: Modify Signature By: Sana Cameron MD On 04/23/22 20:51 04/23/2022 [facility] Vital Signs Vital Sign Value Date Comments Source Glucose (POCT) 223 04/25/2022 [facility] Glucose Level (mg/dL) 190 04/25/2022 [facility] Glucose (POCT) 190 04/25/2022 [facility] Heart Rate (bpm) 84 04/25/2022 [facility] SPO2 97 04/25/2022 [facility] Respiratory Rate 18 Breaths/Min 04/25/2022 [facility] Temperature (c) 36.5 04/25/2022 [facility] Systolic (mm Hg) 127 04/25/2022 [facility] Diastolic (mm Hg) 77 04/25/2022 [facility] NIBP Mean 94 04/[facility]20[facility] Heart Rate (bpm) 100 04/25/2022 [facility] SPO2 97 04/25/2022 [facility] Respiratory Rate 20 Breaths/Min 04/25/2022 [facility] Temperature (c) 36.5 04/25/[address] [facility] [place] [place] [facility] Systolic (mm Hg) 128 04/25/2022 [facility] Diastolic (mm Hg) 81 04/25/2022 [facility] NIBP Mean 97 04/25/2022 [facility] Glucose Level (mg/dL) 199 04/25/2022 [facility] FIO2 - pt care 21 04/25/2022 [facility] SPO2 98 04/25/2022 [facility] Respiratory Rate 15 Breaths/Min 04/25/2022 [facility] Glucose (POCT) 152 04/25/2022 [facility] Heart Rate (bpm) 67 04/25/2022 [facility] SPO2 99 04/25/2022 [facility] Respiratory Rate 18 Breaths/Min 04/25/2022 [facility] Temperature (c) 36.8 04/25/[address] [facility] [place] [facility] Systolic (mm Hg) 135 04/25/2022 [facility] Diastolic (mm Hg) 81 04/25/2022 [facility] NIBP Mean 99 04/25/2022 [facility] Heart Rate (bpm) 72 04/24/2022 [facility] SPO2 98 04/24/2022 [facility] Systolic (mm Hg) 132 04/24/2022 [facility] Diastolic (mm Hg) 77 04/24/2022 [facility] NIBP Mean 95 04/24/2022 [facility] Temperature (c) 36.7 04/24/2022 [facility] Glucose (POCT) 154 04/24/2022 [facility] Respiratory Rate 18 Breaths/Min 04/24/2022 [facility] Glucose Level (mg/dL) 175 04/24/2022 [facility] Glucose (POCT) 175 04/24/2022 [facility] Glucose (POCT) 189 04/24/2022 [facility] Heart Rate (bpm) 66 04/24/2022 [facility] SPO2 98 04/24/2022 [facility] Systolic (mm Hg) 112 04/24/2022 [facility] Diastolic (mm Hg) 67 04/24/2022 [facility] NIBP Mean 82 04/24/2022 [facility] Temperature (c) 36.8 04/24/[address] [facility] [place] [facility] Respiratory Rate 18 Breaths/Min 04/24/2022 [facility] SPO2 95 04/24/2022 [facility] Respiratory Rate 18 Breaths/Min 04/24/2022 [facility] Glucose (POCT) 193 04/24/2022 [facility] Glucose Level (mg/dL) 193 04/24/2022 [facility] Glucose Level (mg/dL) 211 04/24/2022 [facility] Heart Rate (bpm) 74 04/24/2022 [facility] SPO2 97 04/24/2022 [facility] Systolic (mm Hg) 96 04/24/2022 [facility] Diastolic (mm Hg) 57 04/24/2022 [facility] NIBP Mean 70 04/24/2022 [facility] Respiratory Rate 18 Breaths/Min 04/24/2022 [facility] Temperature (c) 36.5 04/24/[address] [facility] [place] [place] [facility] Glucose (POCT) 224 04/24/2022 [facility] Heart Rate (bpm) 133 04/24/2022 [facility] Systolic (mm Hg) 115 04/24/2022 [facility] Diastolic (mm Hg) 67 04/24/2022 [facility] Heart Rate (bpm) 74 04/24/2022 [facility] Temperature (c) 36.4 04/24/[address] [facility] [place] [facility] Systolic (mm Hg) 115 04/24/2022 [facility] Diastolic (mm Hg) 67 04/24/2022 [facility] Glucose Level (mg/dL) 161 04/24/2022 [facility] Height (cm) 177.8 04/24/2022 [facility] Drug Calc Weight (kg) 130.8 04/24/2022 [facility] BMI 41.38 04/24/2022 [facility] Glucose (POCT) 161 04/24/2022 [facility] Temperature (c) 36.7 04/24/[address] [facility] [place] [facility] Glucose (POCT) 194 04/24/2022 [facility] Temperature (c) 36.7 04/24/[address] [facility] [place] [facility] NIBP Mean 82 04/23/2022 [facility] Temperature (c) 37.1 04/23/[address] [facility] [place] [facility] Glucose Level (mg/dL) 177 04/23/2022 [facility] Height (cm) 177.8 04/23/2022 [facility] Weight (kg) 124.717 04/23/2022 [facility] BMI 39.45 04/23/2022 [facility] Temperature (c) 36.4 04/23/2022 [facility] Sensory Deficits None (05/22/21 12:34 PM) 05/22/2021 [facility] Temperature (c) 36.8 05/22/2021 [facility] Systolic (mm Hg) 120 05/22/2021 [facility] Diastolic (mm Hg) 80 05/22/2021 [facility] Heart Rate (bpm) 69 05/22/2021 [facility] Respiratory Rate 20 Breaths/Min 05/22/2021 [facility] SPO2 97 05/22/2021 [facility] Height (cm) 177.8 05/22/2021 [facility] Drug Calc Weight (kg) 120.181 05/22/2021 [facility] Weight Method Stated (05/22/21 12:34 PM) 05/22/2021 [facility] BMI 38.02 05/22/2021 [facility] Encounters Location Location Details Encounter Type Encounter Number Reason For Visit Attending Provider ADM Date DC Date Status Source [facility] Emergency [id number] Aurbinderde ep Vanessa 05/22 [facility] Observation [id number] Marybel Truong 04/23 [facility] Prereg [id number] Tyler Post 04/[address] [facility] Procedures Procedure Code Date Perfomer Comments Source COMPREHEN METABOLIC PANE 63434 04/25/2022 [facility] ASSAY OF AMYLASE 80505 04/25/2022 [facility] GLUCOSE BLOOD TEST 58510 04/25/2022 [facility] ASSAY OF LIPASE 33603 04/25/2022 [facility] ASSAY OF MAGNESIUM 25453 04/25/2022 [facility] COMPLETE CBC AUTOMATED 95832 04/25/2022 [facility] NON-COVERED ITEM OR SERV A9270 04/25/2022 [facility] HOSPITAL OBSERVATION PER G0378 04/25/2022 [facility] CEFTRIAXONE SODIUM INJEC J0696 04/25/2022 [facility] INJ HEPARIN SODIUM PER 1 J1644 04/25/2022 [facility] INSULIN INJECTION J1815 04/25/[address] [facility] MAGNESIUM SULFATE J3475 04/25/2022 [facility] DRUGS UNCLASSIFIED INJEC J3490 04/25/2022 [facility] NORMAL SALINE SOLUTION I J7030 04/25/2022 [facility] MRI ABDOMEN W/O DYE 85032 04/24/2022 [facility] COMPREHEN METABOLIC PANE 73862 04/24/2022 [facility] ASS[facility] OF AMYLASE 81560 04/24/2022 [facility] GLUCOSE BLOOD TEST 12500 04/24/2022 [facility] HEMOGLOBIN GLYCOSYLATED 85618 04/24/2022 [facility] ASSAY OF LIPASE 27299 04/24/2022 [facility] ASSAY OF MAGNESIUM 71703 04/24/2022 [facility] COMPLETE CBC AUTOMATED 42941 04/24/2022 [facility] MEASURE BLOOD OXYGEN LEV [id number] 04/24/2022 [facility] NON-COVERED ITEM OR SERV A9270 04/24/2022 [facility] HOSPITAL OBSERVATION PER G0378 04/24/2022 [facility] CEFTRIAXONE SODIUM INJEC J0696 04/24/2022 [facility] INJ HEPARIN SODIUM PER 1 J1644 04/24/2022 [facility] INSULIN INJECTION J1815 04/24/2022 [facility] LORAZEPAM INJECTION J2060 04/24/2022 [facility] DRUGS UNCLASSIFIED INJEC J3490 04/24/2022 [facility] NORMAL SALINE SOLUTION I J7030 04/24/2022 [facility] ECHO EXAM OF ABDOMEN 23736 04/23/2022 [facility] COMPREHEN METABOLIC PANE 60951 04/23/2022 [facility] LIPID PANEL 70933 04/23/2022 [facility] GLUCOSE BLOOD TEST 74107 04/23/2022 [facility] ASSAY OF LACTIC ACID [id number] 04/23/2022 [facility] ASSAY OF LIPASE 63602 04/23/2022 [facility] ASSAY OF NATRIURETIC PEP 83421 04/23/2022 [facility] ASSAY THYROID STIM HORMO 92602 04/23/2022 [facility] ASSAY OF TROPONIN QUANT 55643 04/23/2022 [facility] COMPLETE CBC W/AUTO DIFF 48944 04/23/2022 [facility] ELECTROCARDIOGRAM TRACIN 07259 04/23/2022 [facility] TTE W/DOPPLER COMPLETE 39744 04/23/2022 [facility] POS AIRWAY PRESSURE CPAP 97247 04/23/2022 [facility] NON-COVERED ITEM OR SERV A9270 04/23/2022 [facility] HOSPITAL OBSERVATION PER G0378 04/23/2022 [facility] DRUG TEST DEF 1-7 CLASSE G0480 04/23/2022 [facility] AMPICILLIN SULBACTAM 1.5 J0295 04/23/2022 [facility] CEFTRIAXONE SODIUM INJEC J0696 04/23/2022 [facility] INJ HEPARIN SODIUM PER 1 J1644 04/23/2022 [facility] INSULIN INJECTION J1815 04/23/2022 A [facility] DRUGS UNCLASSIFIED INJEC J3490 04/23/2022 [facility] NORMAL SALINE SOLUTION I J7030 04/23/2022 [facility] Cataract surgery (procedure) [id number] 02/16/[address] 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 Adenoid excision (procedure) [id number] [facility] Tonsillectomy (procedure) [id number] [facility] Social History Social History Date Source Social History TypeResponse Smoking Status Never (less than 100 in lifetime) entered on: 04/23/[address] [facility] Social History TypeResponse Smoking Status Never (less than 100 in lifetime) entered on: 04/23/22 Sex Male [facility] Social History TypeResponse Smoking Status Never (less than 100 in lifetime) entered on: 05/22/21 Sex 05/22/2021 [facility] Assessment and Plan Result Assessment and Plan Date Source Assessment and Plan No data available for this section 07/25/[address] [facility] Assessment and Plan Extracted from:Title : Discharge Summary Note Author: Sana Cameron MD Date: 04/25/22 1. metoprolol(metoprolol tartrate 25 mg oral tablet) 12.5 mg= 0.5 Tab By mouth Tab twice daily New Prescriptions 2. metroNIDAZOLE(Flagyl 500 mg oral tablet) 500 mg= 1 Tab By mouth Tab every 8 hours 10 Day 3. ciprofloxacin(ciprofloxacin 500 mg oral tablet) 500 mg= 1 Tab By mouth Tab every 12 hours 10 Day Target Dose: ciprofloxacin 500 mg oral tablet 20 mg/kg 06/25/18 10:03:19 4. lisinopril(lisinopril 2.5 mg oral tablet) 2.5 mg= 1 Tab By mouth Tab once daily Medications to Continue 5. rivaroxaban(Xarelto 10 mg oral tablet) 10 mg= 1 Tab By mouth every bedtime 6. glipiZIDE(glipiZIDE 5 mg oral tablet, extended release) 5 mg= 1 Tab By mouth twice daily 7. SITagliptin(Januvia 100 mg oral tablet) 100 mg= 1 Tab By mouth once daily 8. cholecalciferol(Vitamin D3 25 mcg (1,000 unit) oral tablet, chewable) 25 mcg= 1 Tab Chew Tab, Chew twice daily 9. finasteride(finasteride 5 mg oral tablet) 5 mg= 1 Tab By mouth Tab every bedtime 10. dapagliflozin(Farxiga 10 mg oral tablet) 10 mg= 1 Tab By mouth Tab once daily 11. rosuvastatin(rosuvastatin 20 mg oral tablet) 20 mg= 1 Tab By mouth Tab every bedtime 12. chlorthalidone(chlorthalidone 25 mg oral tablet) 25 mg= 1 Tab By mouth Tab every Thursday, Thursday, and Thursday 13. omega-3 polyunsaturated fatty acids(Fish Oil 1000 mg oral capsule) 2,000 mg= 2 Cap By mouth Cap twice daily 14. cyanocobalamin(Vitamin B12 1000 mcg oral tablet) 1,000 mcg= 1 Tab By mouth Tab twice daily 15. albuterol(albuterol HFA (90 mcg/dose) MDI) 1 Puff Inhaled Aerosol four times daily as needed for wheezing 16. ferrous gluconate(iron gluconate) 27 mg By mouth every Thursday, Thursday, and Thursday Special Instructions: takes 3 x per week Discontinued Meds metoprolol (metoprolol succinate 25 mg oral capsule, extended release) 0.5 Tab By mouth twice daily insulin aspart (NovoLOG) subcutaneously three times daily before meals insulin detemir (Levemir 100 units/mL subcutaneous solution) subcutaneously once daily potassium chloride (potassium chloride 8 mEq oral tablet, extended release) 1 Tab By mouth Tab, ER once daily loratadine (Claritin) By mouth once daily Discharge Order Details: 04/25/22 12:25:00 MST, Today, Home or self care Discharge Activity Order Details: 04/25/22 12:25:00 MST, As tolerated Discharge Diet Order Details: 04/25/22 12:25:00 MST, Consistent Carbohydrate Discharge Diet Order Details: 04/25/22 12:25:00 MST, Heart Healthy Diet (Cardiac) PSO Place in Observation Order Details: Observation, Medicine, Truong, Marybel ACNP, Yes, ACUTE CHOLCYSTITIS WITH CHOLELITHIASIS, PATTERN FILER:DR PACHECO LAMAS, 04/23/22 5:15:00 MST, 04/23/22 5:15:00 MST, 04/23/22 5:15:00 MST, pm_pso_link_preprocessing Discharge Diet Order Details: 04/25/22 12:25:00 MST, Consistent Carbohydrate Discharge Diet Order Details: 04/25/22 12:25:00 MST, Heart Healthy Diet (Cardiac) Discharge Activity Order Details: 04/25/22 12:25:00 MST, As tolerated Follow-Up Details: Provider/Org Name: Tyler Post MD Within: 2 to 3 weeks Address: ;[phone]; Provider/Org Name: Glenys Oakes MD Within: 1 week Address: [address] [place] [id number]; ; Comments: Call for follow up appointment Extracted from:Title: Consult Note Author: Carole Azevedo MD Date: 04/23/22 Preop evaluation History of pulmonary embolism currently on Xarelto Obesity Diabetes mellitus Hypertension Renal sufficiency Plan Preop evaluation Patient has beenseen in the emergency room for abdominal pain and it was felt that patient may havecontribution fromgallbladder therefore patient was felt to becandidate forcholecystectomy. Patient wasasked to be evaluated. Patient has no chest pain or shortness of breathejection fraction within normal limits. His EKG is unremarkable therefore patient is at moderate risk for surgery. Patient is on Xarelto therefore patient will beadvised to hold Xarelto for 72 hoursbecause of hisGFRbeing between 30 and 59. Obesity Patient has obesity and needs to lose weight Diabetes mellitus Patient followed by internal medicine Hypertension Patient is on antihypertensive medication Renal sufficiencypatient is followed by internal medicine history of pulmonary hypertension patient has mild pulmonary hypertension by echo Patient is advised to stop taking Xarelto for at least3 days till decision toproceed surgery is confirmed. We will see the patient 1.Acute gsykrjiefngcmL74.0 2.GhfsplemdatyyzH33.20 Extracted from:Title: Gen Surg Consult Note Author: Tyler Post MD Date: 04/23/22 1.Acute [id number] possible early vs other diagnosis Ordered: 2.EhypnaaipbfplgN44.20 Ordered: Plan- Long discussion but not clearly gall bladder related though possible. Would be first episode. Pt. reluctant to have surgery. Will get HIDA. If negative can d/c home. Pt. can f/u for OPT surgery for repeat pain episodes. Pt. only wants surgery if cannot be avoided. Extracted from:Title: Admission H and P Author: Sana Cameron MD Date: 04/23/22 #Acutecalculus cholecystitis #Elevated lipasewith no hyperbilirubinemiaand normal pancreas on CT l ikely secondary to above #Abdominal pain secondary to above #Chest paindescribed as elephant sitting on the chest -this may be secondary to above but in light of typical description, ACSstill has to be ruled out #Hypertension #Diabetes type 2 #CKDwith possibleAKI #Obesity #Hypercholesterolemia #Asthma #BPH - Abx:Ceftriaxone, Flagyl - CV: VS per protocol *Echocardiogram *Cardiology consult *Medications: Metoprolol - Electrolytes: Monitor - Endocrinology: ISS - GI: Bowel care, Pepcid *General surgeon consult - : Finasteride - MSK: Ambulate and OOB as tolerated - Pain: Meds per APR - Renal:Maintenance IVF, Avoid nephrotoxins (NSAIDs, ACEi/ARBs, Contrast, Fleets enema),Pharmacy to renally dose medications, Strict I/O Supportive Care # VTE PPx: SCD, heparin # GI PPx:Pepcid Disposition #Outpatient status for Observationrequiring <2 midnight of medical management as above # Total time with patientevaluation, counseling and coordinating care >60 mins # Discussed plan with pt and nurse in depth # Thank you for allowing me to participate in your care Sana Cameron MD Internal Medicine [facility] 04/25/2022 [facility] [place] Assessment and Plan No data available for this section 05/22/2021 [facility] Family History Results Value Date Source Family History No data available for this section 10/2022 [facility] [place]
--- OUTSIDE RECORDS SUMMARY | 2022-08-30 16:42 | XMS_ITS | Continuity of Care Document ---
Author Name Unknown Organization [facility] Address [address] [place] [address]- Care Team Providers Care Booking Officer Name Role Phone Glenys Oakes MD Primary Care Physician [phone] Encounter [facility] [id number] Date(s): 04/23/22 - 04/25/22 [facility] [address] [place] [address]- Encounter Diagnosis Diabetes mellitus(Discharge Diagnosis) - 04/25/22 Hypertension(Discharge Diagnosis) - 04/25/22 Sleep apnea(Discharge Diagnosis) - 04/25/22 Hypercholesterolemia(Discharge Diagnosis) - 04/25/22 Cholelithiasis(Discharge Diagnosis) - 04/23/22 Acute cholecystitis(Discharge Diagnosis) - 04/23/22 Discharge Disposition: Home or Self Care Attending [...] Marybel ACNP, Yes, ACUTE CHOLCYSTITIS WITH CHOLELITHIASIS, INSPECTOR BRAKE LINING:DR PACHECO LAMAS, 04/23/22 5:15:00 MST, 04/23/22 5:15:00 MST, 04/23/22 5:15:00 MST, pm_pso_link_preprocessing?? Discharge Diet ? Order Details: ?04/25/22 12:25:00 MST, Consistent Carbohydrate ?? Discharge Diet ? Order Details: ?04/25/22 12:25:00 MST, Heart Healthy Diet (Cardiac) ?? Discharge Activity ? Order Details: ?04/25/22 12:25:00 MST, As tolerated ?? Follow-Up Details: ?? Provider/Org Name: ??Tyler Post MD ?? Within: ??2 to 3 weeks?? Address: ?;[id number]; ? Provider/Org Name: ??Glenys Oakes MD ?? Within: ??1 week?? Address: ?[address] [facility] [address]; ; ?? Comments: ??Call for follow up [...] care ? Sana Cameron MD Internal Medicine [facility] ? Medications albuterol HFA (90 [...] 12:27:00 MST, Acute, Route to Pharmacy Electronically, [facility] #[id number], Tab Start Date: 04/25/22 Stop Date: 05/05/22 [...] Qty: 30 Tab, Refills: 0, 05/05/22 12:27:00 MST, Acute, Route to Pharmacy Electronically, [facility] #[id number] Start Date: 04/25/22 Stop Date: 05/05/22 Status: Ordered glipiZIDE 5 mg oral tablet, extended release 1 Tab, PO, BID, Refills: 0, Maintenance Start Date: 04/23/22 Status: Ordered HumaLOG correctional 0-8 units, SUBCUT, INJ, SENSITIVE, Start: 04/25/22 7:30:00 MST Start Date: 04/25/22 Stop Date: 04/25/22 Status: Completed HumaLOG correctional 0 - 8 Unit, SUBCUT, INJ, SENSITIVE, Start: 04/23/22 22:00:00 MST Start Date: 04/23/22 Stop Date: 04/23/22 Status: Completed HumaLOG correctional 0 - 8 Unit, SUBCUT, INJ, SENSITIVE, Start: 04/24/22 14:00:00 MST Start Date: 04/24/22 Stop Date: 04/24/22 Status: [...] Refills: 0, Maintenance, Route to Pharmacy Electronically, [facility] #[id number] Start Date: 04/25/22 Status: Ordered metoprolol 12.5 mg, PO, Tab, hold for HR <50 or SBP <110, Start: 04/23/22 21:00:00 [facility] Start Date: 04/23/22 Stop Date: 04/23/22 Status: Completed metoprolol tartrate 25 mg oral tablet 0.5 Tab Tab, PO, BID, Qty: 30 Tab, Refills: 0, Maintenance, Route to Pharmacy Electronically, [facility] #[id number] Start Date: 04/25/22 Status: Ordered OxyIR 5 mg, PO, Tab, IR, q4hr Priority: Routine PRN Pain Moderate (4-6), for 30 Day, Start: 04/23/22 8:52:00 [facility], Stop: 05/23/22 8:51:00 [facility] Notes: C: Narcotic Pain Medication; I: [...] thousand/uL] 2.2 thousand/uL (04/23/22 2:19 AM) ABS Limestone [0.0-2.0 thousand/uL] 0.7 thousand/uL (04/23/22 2:19 AM) [...] AM) 27 mg/dL *H* (04/23/22 2:19 AM) BUN/Folder Operator Ratio [8.0-24.0] 13.1 (04/25/22 3:45 AM) 17.5 [...] months prior to the current study. COMPARISON: [place] XR CHEST 1 VIEW 04/28/2021 5:33 AM [...] Cholelithiasis. No radiographic evidence of acute cholecystitis. [place] distended gallbladder consistent with hydrops. 2. Mild [...] available. FINDINGS: Liver: Normal. No masses. Gallbladder: Flanger notes positive Youngblood's sign. The gallbladder demonstrates layering density consistent with noncalcified stones or sludge. No gallbladder wall thickening. Biliary ducts: Normal. No stones. No dilation. Pancreas: Visualized pancreas is unremarkable. Right kidney: Normal. No mass. No hydronephrosis. Other findings: Flanger notes technically difficult exam secondary to patient body habitus and overlying bowel gas. IMPRESSION: Cholelithiasis. Positive whitesmith's Youngblood's sign consistent with acute cholecystitis. * [...] ( 3:46 AM) 36.7 deg C ( 4:59 PM) 36.8 deg C (04/24/22 7:59 AM) 36.4 deg C (04/23/22 11:14 PM) 36.7 deg C (04/23/22 8:55 PM) 37.1 deg C ( 9:03 AM) Temperature Axillary [36.2-38.1 deg C] [...] % ( 3:46 AM) 98 % ( 3 11:15 PM) 99 % (04/24/22 8:05 PM) [...] (04/24/22 5:00 AM) 161 mg/dL *H* ( 10:33 PM) Glucose Level [83-110 mg/dL] 199 mg/dL *H* (04/25/22 3:45 AM) 211 mg/dL *H* (04/24/22 4:33 AM) 177 mg/dL *H* (04/23/22 2:19 AM) Glucose (POCT) Automated [70-99 mg/dL] 223 mg/dL *H* (04/25/22 11:04 AM) 190 mg/dL *H* (04/25/22 7:10 AM) 152 mg/dL *H* (04/24/22 8:07 PM) 154 mg/dL *H* ( 3 4:58 PM) 175 mg/dL *H* ( 3 2:01 PM) 189 mg/dL *H* (04/24/22 11:08 AM) 193 mg/dL *H* (04/24/22 5:52 AM) 224 mg/dL *H* (04/24/22 2:10 AM) 161 mg/dL *H* ( 3 9:05 PM) 194 mg/dL *H* ( 3 7:04 PM) Height 177.8 cm (04/23/22 9:10 [...] that you work with a diet and strategic communications specialist (dietitian) to help you reduce the [...] food, fatty cuts of meat, ice cream, kazakh toast, sweet rolls, pizza, cheese bread, foods covered with butter, creamy sauces, or cheese. ??? Fried foods. These include kazakh fries, tempura, battered fish, breaded chicken, fried [...] provider. Document Revised: 09/14/2020 Document Reviewed: 09/20/2020 [employer] Patient Education ?? 2021 [employer]. 04/24/2022 01:27:21 Cholecystitis, Bxci-oj-Rnnb Cholecystitis Cholecystitis is irritation and swelling (inflammation) [...] these instructions at home: Medicines ??? Take cfys-pjz-xdvisem and prescription medicines only as told by [...] provider. Document Revised: 08/06/2021 Document Reviewed: 08/06/2021 Elsevier Patient Education ?? 2021 [employer] Follow Up Care 04/23/2022 01:18:04 With:Glenys Oakes MD Address: [address] [facility] [address] [place] [address]- When:1 week Comments:Call for follow up appointment With:Tyler Post MD Address: [phone] When:2 to 3 weeks only if needed Consult note * Carole Azevedo MD: PERFORM Event Display: Consultation Authored Date: Patient: ??JUAN JIANG ? Age: ??76 years ?Sex: ??M ?: ??1945 ?Active Insurance: ??MEDICARE A Admitting MD: ??Marybel Truong ?Location: ??[facility] 3A: 311: 01 ?PCP: ??Glenys Oakes MD Author: ??Carole Azevedo MD Reason for Consultation Preop evaluation?? Chief Complaint c/o pressure in the abdomen since last night. History of Present Illness ? Patient denies any chest pain PND orthopnea or ankle edema.This is a??76-year-old gentleman who??lives in [place]. ??Patient??has been wintering in??[place]. ??Patient??was seen in the emergency roomfor abdominal??pressure. [...] ??Patient stated that he has seen a grain oilseed or pasture farm manager and has undergone a stress test??to 3 [...] ?MCHC:??33.0 BUN:27 (H) ?RDW:??15.2 Creatinine:1.71 (H) ?Plt:??267 BUN/Folder Operator Ratio:??15.8 ?MPV:??8 eGFRcr:41 (L) ?Neuts:??70.9 Calcium:??9.6 ?Lymphs:??19.8 Corrected Calcium:??9.4 ?Monos.:??6.1 Protein, Total:??7.3 ?Eos.:??2.6 Albumin:??4.2 ?Baso.:??0.6 Globulin:??3 ?ABS Neut:??7.9 A/G Ratio:??1 ?ABS Lymph:??2.2 Bili Total:??0.8 ?ABS Limestone:??0.7 ALT:??42 ?ABS Eos:??0.3 AST:69 (H) ?ABS Baso:??0.1 [...] PO, BID Dulcolax, 10 mg= 1 Supp, FL, Daily, PRN DuoNeb, 3 mL, NEB - [...] Tab, PO, BID,?Not taking: discontinued by his Crystal Growing Technician in [facility] last Jun, 2021. NovoLOG, 10 Unit, SUBCUT, [...] History Alcohol Denies, 04/23/2022 Denies, 04/23/2022 Home/Environment Pentecostalism restrictions/concerns: None. Lives with Alone. Living situation: [...] Financial concerns: No. TV/Computer concerns: No., 04/23/2022 Pentecostalism restrictions/concerns: None., 04/23/2022 Nutrition/Health Diet: Diabetic., 04/23/2022 [...] ??MEDICARE A Admitting MD: ??Marybel Truong ?Location: ??[facility] EDIP: ED08: 01 ?PCP: ??Glenys Oakes MD [...] ?MCHC:??33.0 BUN:27 (H) ?RDW:??15.2 Creatinine:1.71 (H) ?Plt:??267 BUN/Folder Operator Ratio:??15.8 ??MPV:??8 eGFRcr:41 (L) ?Neuts:??70.9 Calcium:??9.6 ??Lymphs:??19.8 Corrected Calcium:??9.4 ??Monos.:??6.1 Protein, Total:??7.3 ??Eos.:??2.6 Albumin:??4.2 ??Baso.:??0.6 Globulin:??3 ??ABS Neut:??7.9 A/G Ratio:??1 ??ABS Lymph:??2.2 Bili Total:??0.8 ??ABS Limestone:??0.7 ALT:??42 ??ABS Eos:??0.3 AST:69 (H) ?ABS Baso:??0.1 [...] ?? FINDINGS: Liver: Normal. No masses. Gallbladder: Flanger notes positive Youngblood???s sign. The gallbladder demonstrates layering density consistent with noncalcified stones or sludge. No gallbladder wall thickening. Biliary ducts: Normal. No stones. No dilation. Pancreas: Visualized pancreas is unremarkable. Right kidney: Normal. No mass. No hydronephrosis. ?? Other findings: Flanger notes technically difficult exam secondary to patient body habitus and overlying bowel gas. ?? IMPRESSION: Cholelithiasis. Positive whitesmith???s Youngblood???s sign consistent with acute cholecystitis. ?? Signed By: Reinaldo Zavaleta MD Assessment/Plan 1.??Acute cholecystitis??K81.0 possible early vs [...] q15min, PRN Dulcolax, 10 mg= 1 Supp, FL, Daily, PRN DuoNeb, 3 mL, NEB - [...] History Alcohol Denies, 04/23/2022 Denies, 05/22/2021 Home/Environment Pentecostalism restrictions/concerns: None., 04/23/2022 Pentecostalism restrictions/concerns: None., 05/22/2021 Substance Abuse Denies, 04/23/2022 [...] Level:211 (H) ?MCHC:??33.4 BUN:??20 ?RDW:??14.9 Creatinine:??1.14 ?Plt:??230 BUN/Folder Operator Ratio:??17.5 ?MPV:??8 eGFRcr:67 (L) ? Calcium:??8.6 ? [...] ??MEDICARE A Admitting MD: ??Marybel Truong ?Location: ??[facility] 3A: 311: 01 ?PCP: ??Glenys Oakes MD [...] Level:211 (H) ?MCHC:??33.4 BUN:??20 ??RDW:??14.9 Creatinine:??1.14 ??Plt:??230 BUN/Folder Operator Ratio:??17.5 ??MPV:??8 eGFRcr:67 (L) ?? Calcium:??8.6 Corrected [...] MODIFY Event Display: Physician Note Authored Date: [id number] Patient: ??JUAN JIANG ? Age: ??76 years ?Sex: ??M ?: ??1945 ?Active Insurance: ??MEDICARE A Admitting MD: ??Marybel Truong ?Location: ??[facility] 3A: 311: 01 ?PCP: ??Glenys Oakes MD Author: ??Sana Cameron MD ?? [facility] ?? Assessment/Plan #Acute??calculus cholecystitis #Elevated [...] care ? Sana Cameron MD Internal Medicine [facility] ?? Subjective On 04/24/2022.?? Patient [...] Level:211 (H) ?MCHC:??33.4 BUN:??20 ??RDW:??14.9 Creatinine:??1.14 ??Plt:??230 BUN/Folder Operator Ratio:??17.5 ??MPV:??8 eGFRcr:67 (L) ?? Calcium:??8.6 Corrected [...] Cholelithiasis. No radiographic evidence of acute cholecystitis. [place] distended gallbladder consistent with hydrops. 2. Mild [...] ?? FINDINGS: Liver: Normal. No masses. Gallbladder: Flanger notes positive Youngblood???s sign. The gallbladder demonstrates layering density consistent with noncalcified stones or sludge. No gallbladder wall thickening. Biliary ducts: Normal. No stones. No dilation. Pancreas: Visualized pancreas is unremarkable. Right kidney: Normal. No mass. No hydronephrosis. ?? Other findings: Flanger notes technically difficult exam secondary to patient body habitus and overlying bowel gas. ?? IMPRESSION: Cholelithiasis. Positive whitesmith???s Youngblood???s sign consistent with acute cholecystitis. ?? [...] ??MEDICARE A Admitting MD: ??Marybel Truong ?Location: ??M EDIP: ED08: 01 ?PCP: ??Glenys Oakes MD [...] : ??US Abdomen Limited?? IMPRESSION: Cholelithiasis. Positive whitesmith's Youngblood's sign consistent with acute cholecystitis. 04/23/22 01:41 ?? +++++++++++++++++++++++++++++++++++++++++++++++++++++++? Result Date: ??04/23/22 02:57 ?? Verified By: ??Reinaldo Zavaleta MD at 04/23/22 03:10 ? Report : ??CT Abdomen+Pelvis wo IV Con?? IMPRESSION: 1. ?? Cholelithiasis. No radiographic evidence of acute cholecystitis. [place] distendedgallbladder consistent with hydrops. 2. ?? Mild [...] Condition Impacting Present Evaluation/Treatment: [N/A] ?? ECG/Rhythm Strip/Senior Economist Rhythm Interpretation by Provider (rhythm, rate, axis, [...] [N/A] ?? Consideration for Hospitalization: [YES] ?? Leather Stamper Discussion(s): [] ?? Need to Initiate or Forego Further Testing: [N/A] ?? Need to Monitor for Drug Toxicities: [N/A] ?? Out-Patient Prescriptions Affecting Other Chronic Conditions: [] Final Diagnosis Diagnosis this visit:?? Acute cholecystitis (K81.0) 04/23/2022 04:49 ?Discharge ? Cholelithiasis (K80.20) 04/23/2022 04:49 ?Discharge ? Disposition PSO Place in Observation ? Order Details: ?Observation, Medicine, Marybel Truong ACNP, Yes, ACUTE CHOLCYSTITIS WITH CHOLELITHIASIS, INSPECTOR BRAKE LINING:DR PACHECO LAMAS, 04/23/22 5:15:00 [facility], 04/23/22 5:15:00 [facility], 04/23/22 5:15:00 [facility], pm_pso_link_preprocessing?? 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 [facility] Chief Complaint Elephant sitting on [...] ?MCHC:??33.0 BUN:27 (H) ?RDW:??15.2 Creatinine:1.71 (H) ?Plt:??267 BUN/Folder Operator Ratio:??15.8 ??MPV:??8 eGFRcr:41 (L) ?Neuts:??70.9 Calcium:??9.6 ??Lymphs:??19.8 Corrected Calcium:??9.4 ??Monos.:??6.1 Protein, Total:??7.3 ??Eos.:??2.6 Albumin:??4.2 ??Baso.:??0.6 Globulin:??3 ??ABS Neut:??7.9 A/G Ratio:??1 ??ABS Lymph:??2.2 Bili Total:??0.8 ??ABS Limestone:??0.7 ALT:??42 ??ABS Eos:??0.3 AST:69 (H) ?ABS Baso:??0.1 Alkphos:??51 ??CBC Scan:??Auto Diff Lipase:108.0 (H) ?nRBC Auto:??0 Lactic Acid:??1.2 Additional? Diagnostic Results Radiology - Full Interpretation, This Encounter Name:??JUAN JIANG?? Account:??[id number]?? :??1945 ? Result Date:??04/23/22 04:30?? Verified By:??Reinaldo [...] ?? Liver: Normal. No masses. ?? Gallbladder: Flanger notes positive Youngblood's sign. The gallbladder ?? demonstrates layering density consistent with noncalcified stones or sludge. No ?? gallbladder wall thickening. ?? Biliary ducts: Normal. No stones. No dilation. ?? Pancreas: Visualized pancreas is unremarkable. ?? Right kidney: Normal. No mass. No hydronephrosis. ? Other findings: Flanger notes technically difficult exam secondary to ?? patient body habitus and overlying bowel gas. ? IMPRESSION: ?? Cholelithiasis. Positive whitesmith's Youngblood's sign consistent with acute ?? cholecystitis. [...] Cholelithiasis. No radiographic evidence of acute cholecystitis. [place] ?? distended gallbladder consistent with hydrops. ?? [...] ?? bisacodyl 10 mg Supp: 10 mg, FL, Daily, PRN: Constipation ?? Dextrose 50% (25gm) [...] care ?? Sana Cameron MD [facility] Problem List/Past Medical History Ongoing Anemia [...] History Alcohol Denies, 04/23/2022 Denies, 05/22/2021 Home/Environment Pentecostalism restrictions/concerns: None., 04/23/2022 Pentecostalism restrictions/concerns: None., 05/22/2021 Substance Abuse Denies, 04/23/2022 [...] ??MEDICARE A Admitting MD: ??Marybel Truong ?Location: ??[facility] 3A: 311: 01 ?PCP: ??Glenys Oakes MD Author: ??Sana Cameron MD ?? [facility] Admission Information ??Admit Date: ?? [...] BUN:??13 mg/dL ?MPV:??8 fL Creatinine:??0.99 mg/dL ?04/23/22 BUN/Folder Operator Ratio:??13.1 ?Neuts:??70.9 % eGFRcr:79 mL/min/1.73m2 (L) ?Lymphs:??19.8 % Calcium:??9.0 mg/dL ?Monos.:??6.1 % Corrected Calcium:??9.4 mg/dL ?Eos.:??2.6 % M.5 mg/dL (L) ?Baso.:??0.6 % Protein, Total:??6.2 gm/dL ?ABS Neut:??7.9 thousand/uL Albumin:??3.5 gm/dL ?ABS Lymph:??2.2 thousand/uL Globulin:??3 gm/dL ?ABS Limestone:??0.7 thousand/uL A/G Ratio:??1 ?ABS Eos:??0.3 thousand/uL Bili [...] - Full Interpretation, This Encounter Name:??JUAN JIANG?? Account:??[id number]?? :??1945 ? Result Date:??04/24/22 13:15?? Verified By:??Avel [...] ?? Liver: Normal. No masses. ?? Gallbladder: Flanger notes positive Youngblood's sign. The gallbladder ?? demonstrates layering density consistent with noncalcified stones or sludge. No ?? gallbladder wall thickening. ?? Biliary ducts: Normal. No stones. No dilation. ?? Pancreas: Visualized pancreas is unremarkable. ?? Right kidney: Normal. No mass. No hydronephrosis. ? Other findings: Flanger notes technically difficult exam secondary to ?? patient body habitus and overlying bowel gas. ? IMPRESSION: ?? Cholelithiasis. Positive whitesmith's Youngblood's sign consistent with acute ?? cholecystitis. [...] Cholelithiasis. No radiographic evidence of acute cholecystitis. [place] ?? distended gallbladder consistent with hydrops. ?? [...] specified reference range. ?? Carole Azevedo MD [id number] Condition on Discharge Stable Discharge Plan Discharge [...] Marybel ACNP, Yes, ACUTE CHOLCYSTITIS WITH CHOLELITHIASIS, INSPECTOR BRAKE LINING:DR PACHECO LAMAS, 04/23/22 5:15:00 MST, 04/23/22 5:15:00 [...] ?? Within: ??2 to 3 weeks?? Address: ?;[id number]; ? Provider/Org Name: ??Glenys Oakes MD ?? Within: ??1 week?? Address: ?[address] [place] [address]; ; ?? Comments: ??Call for follow up [...] [place]: TRANSCRIBE Event Display: Report Authored Date: [id number] PROCEDURE INFORMATION: Exam: MR Abdomen Without Contrast [...] AZG: TRANSCRIBE Event Display: Report Authored Date: Radiation Dose CTDIVOL = 0 (mGy): DLP [...] Cholelithiasis. No radiographic evidence of acute cholecystitis. [place] distended gallbladder consistent with hydrops. 2. Mild [...] AZG: TRANSCRIBE Event Display: Report Authored Date: [id number] PROCEDURE INFORMATION: Exam: US Abdomen, Limited; Right Upper Quadrant Exam date and time: 04/23/2022 1:41 AM Age: 76 years old Clinical indication: Abdomen pain ruq TECHNIQUE: Imaging protocol: Real time ultrasound of the abdomen with image documentation. Limited exam focused on the right upper quadrant. COMPARISON: No relevant prior studies available. FINDINGS: Liver: Normal. No masses. Gallbladder: Flanger notes positive Youngblood's sign. The gallbladder demonstrates layering density consistent with noncalcified stones or sludge. No gallbladder wall thickening. Biliary ducts: Normal. No stones. No dilation. Pancreas: Visualized pancreas is unremarkable. Right kidney: Normal. No mass. No hydronephrosis. Other findings: Flanger notes technically difficult exam secondary to patient body habitus and overlying bowel gas. IMPRESSION: Cholelithiasis. Positive whitesmith's Youngblood's sign consistent with acute cholecystitis. * [...] Member Role: Lifetime Physician(PCP) Address: Address: [address] [place] [address]- Name: Eliza Dasilva MD Position: Physician - Emergency Medicine Member Role: ER Physician Address: Address: [address] [facility] [address] [address] [place] [address]- Name: Nida Richards RN Position: NURSE: ED Member Role: ED Nurse Care Team Related Persons Name: KRIIT ARNOLD Address: [place] [address]
--- OUTSIDE RECORDS SUMMARY | 2022-08-30 16:44 | XMS_ITS | Continuity of Care Document ---
Author Name [facility] [employer] Care Team Providers Care Rehabilitation Physician Name Role Phone [employer] Unavailable Unavailable Problems Problem Status Onset Date Classification Date Reported Comments Source Anemia (disorder) Active 08/01/2022 [facility] Asthma (disorder) Active 08/01/2022 [facility] Diabetes mellitus (disorder) Active 08/01/2022 [facility] Foot-drop (finding) Active 08/01/2022 A [facility] [facility] Hypercholesterolemia (disorder) Active 08/01/2022 [facility] Hypertensive disorder, systemic arterial (disorder) Active 08/01/2022 [facility] Pulmonary embolism (disorder) Active 08/01/2022 [facility] Sleep apnea (finding) Active 08/01/2022 [facility] Spinal stenosis (disorder) Active 08/01/2022 [facility] Disorder of ear (disorder) 05/23/2021 [facility] Eustachian tube disorder (disorder) 05/23/2021 [facility] Acute upper respiratory infection (disorder) 05/23/2021 [facility] Type II diabetes mellitus without complication (disorder) 05/03/2022 A [facility] Essential hypertension (disorder) 05/03/2022 [facility] Pure hypercholesterolemia (disorder) 05/03/2022 [facility] Cholelithiasis without obstruction (disorder) 05/03/2022 Ar [facility] Long-term current use of insulin (situation) 05/03/2022 [facility] Acute cholecystitis (disorder) 05/03/2022 [facility] Gallbladder calculus with acute cholecystitis and no obstruction (disorder) 05/03/2022 [facility] Disease of gallbladder (disorder) 05/03/2022 [facility] Chronic kidney disease due to hypertension (disorder) 05/03/2022 [facility] Chronic kidney disease (disorder) 05/03/2022 [facility] Chronic renal impairment associated with type II diabetes mellitus (disorder) 05/03/2022 [facility] Benign prostatic hypertroph without outflow obstruction (disorder) 05/03/2022 [facility] Chest pain (finding) 05/03/2022 [facility] First degree atrioventricular block (disorder) 05/03/2022 [facility] History of prosthetic arthroplasty of bilateral hips (situation) 05/03/2022 [facility] Diverticula of intestine (disorder) 05/03/2022 [facility] Problems related to living alone 05/03/2022 [facility] Obesity (disorder) 05/03/2022 [facility] Long-term current use of anticoagulant (situation) 05/03/2022 [facility] Obese class II (finding) 05/03/2022 [facility] History of - pulmonary embolus (context-dependent category) 05/03/2022 [facility] Medications Medication Details Route Status Patient Instructions Ordering Provider Order Date Source Flagyl 500 mg oral tablet 1 Tab Tab, PO, every 8 hours, 10 Day, Qty: 30 Tab, Refills: 0, 05/05/22 12:27:00 [facility], Acute, Route to Pharmacy [id number] #[id number] Inactive 023 [facility] ciprofloxacin 500 mg oral tablet 1 Tab, PO, every 12 hours, 10 Day, Qty: 20 Tab, Refills: 0, 05/05/22 12:27:00 [facility], Acute, Route to Pharmacy [id number] #[id number], Tab Inactive 023 [facility] metoprolol tartrate 25 mg oral tablet 0.5 Tab Tab, PO, BID, Qty: 30 Tab, Refills: 0, Maintenance, Route to Pharmacy [facility] #[id number] Active 023 [facility] lisinopril 2.5 mg oral tablet 1 Tab Tab, PO, qDay, Qty: 30 Tab, Refills: 0, Maintenance, Route to Pharmacy [facility] [employer] [facility] #[id number] Active 023 [facility] HumaLOG correctional 0-8 units, SUBCUT, INJ, SENSITIVE , Start: 04/25/22 7:30:00 MST Inactive 023 [facility] HumaLOG correctional 0 - 8 Unit, SUBCUT, INJ, SENSITIVE , Start: 04/24/22 14:00:00 MST Inactive 023 [facility] Xarelto 10 mg oral tablet 1 Tab, PO, qHS - at bedtime, Refills: 0, Maintenance Active 023 [facility] Januvia 100 mg oral tablet 1 Tab, PO, Daily, Refills: 0, Maintenance Active 023 [facility] glipiZIDE 5 mg oral tablet, extended release 1 Tab, PO, BID, Refills: 0, Maintenance Active 023 [facility] [employer] correctional 0 - 8 Unit, SUBCUT, INJ, SENSITIVE , Start: 04/23/22 22:00:00 MST Inactive 023 [facility] metoprolol 12.5 mg, PO, Tab, hold for HR <50 or SBP <110, Start: 04/23/22 21:00:00 MST Inactive 023 [facility] OxyIR 5 mg, PO, Tab, IR, q4hr Priority: Routine PRN Pain Moderate (4-6), for 30 Day, Start: 04/23/22 8:52:00 MST, Stop: 05/23/22 8:51:00 MSTNotes: C: Narcotic Pain Medication; I: Pain; SE: constipation; dizziness, drowsiness, nausea Inactive [facility] iron gluconate 27 mg, PO, qMWF, Refills: 0, takes 3 x per week, Maintenance Active [facility] [place] albuterol HFA (90 mcg/dose) MDI 1 Puff Aerosol, INH, QID, PRN, as needed for wheezing, Qty: 18 gm, Refills: 0, Maintenance Active [facility] Albuterol 1 Puff Aerosol, INH, QID, PRN, as needed for wheezing, Qty: 18 gm, Refills: 0, Maintenance Active [facility] Vitamin D3 25 mcg (1,000 unit) oral tablet, chewable 1 Tab Tab, Chew, Chew, BID, Qty: 50 Tab, Refills: 0, Maintenance Active [facility] [place] 24 HR Metformin hydrochloride 500 MG / sitagliptin 50 MG Extended Release Tablet [Janumet 50/500] 2 Tab Tab, ER, PO, qPM, Qty: 60 Tab, Refills: 0, Maintenance Active [facility] Fish Oil 1000 mg oral capsule 2 Cap Cap, PO, BID, Qty: 60 Cap, Refills: 0, Maintenance Active [facility] [place] Vitamin B12 1000 mcg oral tablet 1 Tab Tab, PO, BID, Qty: 30 Tab, Refills: 0, Maintenance Active [facility] Vitamin B12 1000 mcg oral tablet 1 Tab Tab, PO, qDay, Qty: 30 Tab, Refills: 0, Maintenance Active [facility] rivaroxaban 20 MG Oral Tablet [Xarelto] 1 Tab Tab, PO, qPM, Qty: 30 Tab, Refills: 0, Maintenance Active [facility] chlorthalidone 25 mg oral tablet 1 Tab Tab, PO, qMWF, Qty: 30 Tab, Refills: 0, Maintenance Active [facility] potassium chloride 8 mEq oral tablet, extended release 1 Tab Tab, ER, PO, qDay, Qty: 270 Tab, Refills: 0, Maintenance Active [facility] insulin detemir 100 UNT/ML Injectable Solution [Levemir] 57 units, SUBCUT, Daily, Refills: 0, Maintenance Active [facility] Loratadine 10 MG Oral Tablet [Claritin] 1 Tab Tab, PO, qDay, Qty: 10 Tab, Refills: 0, Maintenance Inactive [facility] NovoLog 10 Unit, SUBCUT, TID before meals, Refills: 0, Maintenance Active [facility] finasteride 5 mg oral tablet 1 Tab Tab, PO, qHS - at bedtime, Refills: 0, Maintenance Active [facility] 24 HR metoprolol succinate 25 MG Extended Release Oral Capsule 0.5 Tab, PO, BID, Refills: 0, Maintenance Active [facility] lisinopril 20 mg oral tablet 1 Tab Tab, PO, qDay, Qty: 30 Tab, Refills: 0, Maintenance Active [facility] Farxiga 10 mg oral tablet 1 Tab Tab, PO, qDay, Refills: 0, Maintenance Active [facility] rosuvastatin 20 mg oral tablet 1 Tab Tab, PO, qHS - at bedtime, Refills: 0, Maintenance Active [facility] dapagliflozin propanediol 10 MG Oral Tablet [Farxiga] 1 Tab Tab, PO, qDay, Qty: 30 Tab, Refills: 0, Maintenance Active [facility] Allergies, Adverse Reactions, Alerts Substance Category Reaction Severity Reaction type Status Date Reported Comments Source No Known Drug Allergies MA Moderate Active 04/28/2021 [facility] No Known Medication Allergies Drug Allergy Active 04/25/2022 [facility] Results Order Name Results Value Reference Range Date Interpretation Comments Source Gluc (POCT) Glucose (POCT) Automated 223 70 - 99 04/25 H [facility] Gluc (POCT) Glucose (POCT) Automated 190 70 - 99 04/25 H [facility] General Chemistry Blood Glucose, Point of Care 190 70 - 130 04/25 [facility] Lipase Lipase 53.0 8.0 - 78.0 04/25 [facility] Lipase Icteric Index Negative 04/25 [facility] Lab Add On* Add on Test serum lipase 04/25 [facility] Lab Add On* Lab Add On* Yes 04/25 [facility] Amylase Amylase 40 20 - 160 04/25 [facility] Amylase Heme Index Negative 04/25 [facility] Amylase Icteric Index Negative 04/25 [facility] CMP Sodium 137 136 - 145 04/25 [facility] CMP Potassium 4.2 3.5 - 5.1 04/25 [facility] CMP Chloride 111 98 - 107 04/25 H [facility] CMP CO2 18 23 - 31 04/25 L [facility] CMP Glucose Level 199 83 - 110 04/25 H [facility] CMP BUN 13 8 - 26 04/25 [facility] CMP Creatinine 0.99 0.57 - 1.25 04/25 [facility] BUN/Ladle Filler Ratio 13.1 8.0 - 24.0 04/25 [facility] CMP Anion Gap 8 6 - 17 04/25 [facility] CMP Calcium 9.0 8.4 - 10.2 04/25 [facility] CMP Corrected Calcium 9.4 8.4 - 10.5 04/25 [facility] CMP Protein, Total 6.2 6.0 - 8.3 04/25 [facility] CMP Albumin 3.5 3.5 - 5.0 04/25 [facility] CMP Alkphos 82 40 - 150 04/25 [facility] CMP ALT 217 6 - 55 04/25 H [facility] CMP AST 78 5 - 34 04/25 H [facility] CMP Bili Total 0.5 0.2 - 1.2 04/25 [facility] eGFRcr 79 >=90 04/25 L As [...] <18 years and will not be performed. [facility] CMP Globulin 3 04/25 [facility] CMP A/G Ratio 1 04/25 [facility] CMP Heme Index Negative 04/25 [facility] CMP Icteric Index Negative 04/25 [facility] CMP Lipemia Index Negative 04/25 [facility] Mg Mg 1.5 1.6 - 2.6 04/25 L [facility] Mg Heme Index Negative 04/25 [facility] Hemogram WBC 8.4 4.8 - 10.8 04/25 [facility] Hemogram RBC 4.24 4.70 - 6.10 04/25 L [facility] Hemogram Hgb 12.1 13.5 - 18.0 04/25 L [facility] Hemogram Hct 36.5 40.0 - 52.0 04/25 L [facility] Hemogram MCV 86.1 80.0 - 100.0 04/25 [facility] Hem[facility] MCH 28.6 27.0 - 34.0 04/25 [facility] Hemogram MCHC 33.3 32.0 - 37.0 04/25 [facility] Hemogram RDW 15.0 11.5 - 16.0 04/25 [facility] Hemogram Plt 243 130 - 400 04/25 [facility] Hemogram MPV 8 04/25 [facility] CBC WBC 8.4 4.8 - 10.8 04/25 [facility] CBC RBC 4.24 4.70 - 6.10 04/25 [facility] CBC Hgb 12.1 13.5 - 18.0 04/25 [facility] CBC Hct 36.5 40.0 - 52.0 04/25 [facility] CBC MCV 86.1 80.0 - 100.0 04/25 [facility] CBC MCH 28.6 27.0 - 34.0 04/25 [facility] CBC MCHC 33.3 32.0 - 37.0 04/25 [facility] CBC RDW 15.0 11.5 - 16.0 04/25 [facility] CBC Plt 243 130 - 400 04/25 [facility] CBC MPV 8 04/25 [facility] General Chemistry Lipase Level 53.0 8.0 - 78.0 04/25 [facility] General Chemistry Amylase Level 40 20 - 160 04/25 [facility] General Chemistry Sodium 137 136 - 145 04/25 [facility] General Chemistry Potassium 4.2 3.5 - 5.1 04/25 [facility] General Chemistry Chloride 111 98 - 107 04/25 [facility] General Chemistry CO2 18 23 - 31 04/25 [facility] General Chemistry Anion Gap 8 6 - 17 04/25 [facility] General Chemistry Glucose Level 199 83 - 110 04/25 [facility] General Chemistry BUN 13 8 - 26 04/25 [facility] General Chemistry Creatinine 0.99 0.57 - 1.25 04/25 [facility] General Chemistry Protein, Total 6.2 6.0 - 8.3 04/25 [facility] General Chemistry Albumin 3.5 3.5 - 5.0 04/25 [facility] General Chemistry Calcium 9.0 8.4 - 10.2 04/25 [facility] General Chemistry Bili Total 0.5 0.2 - 1.2 04/25 [facility] General Chemistry Alkphos 82 40 - 150 04/25 [facility] General Chemistry AST 78 5 - 34 04/25 [facility] General Chemistry ALT 217 6 - 55 04/25 [facility] General Chemistry BUN/Ladle Filler Ratio 13.1 8.0 - 24.0 04/25 [facility] General Chemistry Corrected Calcium 9.4 8.4 - 10.5 04/25 [facility] General Chemistry Globulin 3 04/25 [facility] General Chemistry A/G Ratio 1 04/25 [facility] General Chemistry eGFRcr 79 04/25 [facility] General Chemistry Mg 1.5 1.6 - 2.6 04/25 [facility] Gluc (POCT) Glucose (POCT) Automated 152 70 - 99 04/25 H [facility] Gluc (POCT) Glucose (POCT) Automated 154 70 - 99 04/25 H [facility] Gluc (POCT) Glucose (POCT) Automated 175 70 - 99 04/25 H [facility] Amylase Amylase 133 20 - 160 04/24 [facility] Amylase Heme Index Negative 04/24 [facility] Amylase Icteric Index Negative 04/24 [facility] General Chemistry Blood Glucose, Point of Care 175 70 - 130 04/24 [facility] Gluc (POCT) Glucose (POCT) Automated 189 70 - 99 04/24 H [facility] HgbA1C HgbA1C 7.4 - <=5.6 04/24 H [employer] [place] [employer] (ADA) recommendatio ns are summarized [...] may aid in the diagnosis of diabetes. [facility] HgbA1C Estimated Average Glucose 166 04/24 [facility] Gluc (POCT) Glucose (POCT) Automated 193 70 - 99 04/24 H [facility] Lipase Lipase 473.0 8.0 - 78.0 04/24 H [facility] Lipase Icteric Index Negative 04/24 [facility] Mg Mg 1.6 1.6 - 2.6 04/24 [facility] Mg Heme Index Negative 04/24 [facility] CMP Sodium 135 136 - 145 04/24 L [facility] CMP Potassium 4.2 3.5 - 5.1 04/24 [facility] CMP Chloride 109 98 - 107 04/24 H [facility] CMP CO2 18 23 - 31 04/24 L [facility] CMP Glucose Level 211 83 - 110 04/24 H [facility] CMP BUN 20 8 - 26 04/24 [facility] CMP Creatinine 1.14 0.57 - 1.25 04/24 [facility] CMP BUN/Ladle Filler Ratio 17.5 8.0 - 24.0 04/24 [facility] CMP Anion Gap 8 6 - 17 04/24 [facility] CMP Calcium 8.6 8.4 - 10.2 04/24 [facility] CMP Corrected Calcium 9.0 8.4 - 10.5 04/24 [facility] CMP Protein, Total 6.0 6.0 - 8.3 04/24 [facility] CMP Albumin 3.5 3.5 - 5.0 04/24 [facility] CMP Alkphos 89 40 - 150 04/24 [facility] CMP ALT 337 6 - 55 04/24 H [facility] CMP AST 291 5 - 34 04/24 H [facility] CMP Bili Total 0.6 0.2 - 1.2 04/24 [facility] CMP eGFRcr 67 >=90 04/24 L As [...] <18 years and will not be performed. [facility] Globulin 2 04/24 [facility] CMP A/G Ratio 2 04/24 [facility] CMP Heme Index Negative 04/24 [facility] CMP Icteric Index Negative 04/24 [facility] CMP Lipemia Index Negative 04/24 [facility] Hemogram WBC 6.9 4.8 - 10.8 04/24 [facility] Hemogram RBC 4.20 4.70 - 6.10 04/24 L [facility] Hemogram Hgb 12.2 13.5 - 18.0 04/24 L [facility] Hemogram Hct 36.4 40.0 - 52.0 04/24 L [facility] Hemogram MCV 86.7 80.0 - 100.0 04/24 [facility] Hemogram MCH 28.9 27.0 - 34.0 04/24 [facility] Hemogram MCHC 33.4 32.0 - 37.0 04/24 [facility] Hemogram RDW 14.9 11.5 - 16.0 04/24 [facility] Hemogram Plt 230 130 - 400 04/24 [facility] Hemogram MPV 8 04/24 [facility] General Chemistry Blood Glucose, Point of Care 193 70 - 130 04/24 [facility] CBC WBC 6.9 4.8 - 10.8 04/24 [facility] CBC RBC 4.20 4.70 - 6.10 04/24 [facility] CBC Hgb 12.2 13.5 - 18.0 04/24 [facility] CBC Hct 36.4 40.0 - 52.0 04/24 [facility] CBC MCV 86.7 80.0 - 100.0 04/24 [facility] CBC MCH 28.9 27.0 - 34.0 04/24 [facility] CBC MCHC 33.4 32.0 - 37.0 04/24 [facility] CBC RDW 14.9 11.5 - 16.0 04/24 [facility] CBC Plt 230 130 - 400 04/24 [facility] CBC MPV 8 04/24 [facility] General Chemistry Amylase Level 133 20 - 160 04/24 [facility] General Chemistry Lipase Level 473.0 8.0 - 78.0 04/24 [facility] General Chemistry eGFRcr 67 04/24 [facility] General Chemistry Sodium 135 136 - 145 04/24 [facility] General Chemistry Potassium 4.2 3.5 - 5.1 04/24 [facility] General Chemistry Chloride 109 98 - 107 04/24 [facility] General Chemistry CO2 18 23 - 31 04/24 [facility] General Chemistry Anion Gap 8 6 - 17 04/24 [facility] General Chemistry Glucose Level 211 83 - 110 04/24 [facility] General Chemistry BUN 20 8 - 26 04/24 [facility] General Chemistry Creatinine 1.14 0.57 - 1.25 04/24 [facility] General Chemistry Protein, Total 6.0 6.0 - 8.3 04/24 [facility] General Chemistry Albumin 3.5 3.5 - 5.0 04/24 [facility] General Chemistry Calcium 8.6 8.4 - 10.2 04/24 [facility] General Chemistry Bili Total 0.6 0.2 - 1.2 04/24 [facility] General Chemistry Alkphos 89 40 - 150 04/24 [facility] General Chemistry AST 291 5 - 34 04/24 [facility] General Chemistry ALT 337 6 - 55 04/24 [facility] General Chemistry BUN/Ladle Filler Ratio 17.5 8.0 - 24.0 04/24 [facility] General Chemistry Corrected Calcium 9.0 8.4 - 10.5 04/24 [facility] General Chemistry Globulin 2 04/24 [facility] General Chemistry A/G Ratio 2 04/24 [facility] General Chemistry Mg 1.6 1.6 - 2.6 04/24 [facility] Special Chemistry HgbA1C 7.4 04/24 [facility] Special Chemistry Estimated Average Glucose 166 04/24 [facility] Gluc (POCT) Glucose (POCT) Automated 224 70 - 99 04/24 H [facility] General Chemistry Blood Glucose, Point of Care 161 70 - 130 04/24 [facility] Gluc (POCT) Glucose (POCT) Automated 161 70 - 99 04/24 H [facility] Gluc (POCT) Glucose (POCT) Automated 194 70 - 99 04/24 H [facility] Troponin-I Troponin I 0.01 - <=0.30 04/23 [facility] Gluc (POCT) Glucose (POCT) Automated 144 70 - 99 04/23 H [facility] Cardiac Troponin I 0.01 04/23 [facility] BNP B-Natriureti c Peptide 20.6 - <=100.0 04/23 [facility] Ethanol Ethanol <10 - <=5 04/23 H [facility] Lipid Panel wDirect LDL Cholesterol 137 100 - 200 04/23 [facility] Lipid Panel [facility] LDL Triglyceride s 362 0 - 150 04/23 H [facility] Lipid Panel [employer] LDL HDL 18 >=40 04/23 L HDL levels are inversely related to the incidence of Coronary Heart Disease (CHD). HDL <35 mg/dL Major risk factor for CHD HDL > 60 mg/dL Negative risk for CHD. [facility] Lipid Panel [facility] LDL LDL Direct 68 04/23 [facility] Lipid Panel [facility] LDL VLDL 72 04/23 [facility] Lipid Panel [facility] LDL LDL/HDL 3 04/23 [facility] Lipid Panel [facility] LDL Chol/Trig 0 04/23 [facility] Lipid Panel [facility] LDL Cholesterol/ HDL 8 >=40 04/23 L [facility] Lipid Panel [facility] LDL %HDL 13 04/23 [facility] Panel [facility] LDL Heme Index Negative 04/23 [facility] Panel [facility] LDL Icteric Index Negative 04/23 [facility] Lipid Panel [facility] LDL Lipemia Index Negative 04/23 [facility] Troponin-I Troponin I <0.01 - <=0.30 04/23 [facility] TSH TSH 1.00 0.35 - 4.94 04/23 [facility] Gluc (POCT) Glucose (POCT) Automated 161 70 - 99 04/23 H [facility] Cardiac B-Natriureti c Peptide 20.6 04/23 [facility] Cardiac Troponin I <0.01 04/23 [facility] Special Chemistry TSH 1.00 0.35 - 4.94 04/23 [facility] Toxicology Ethanol Level <10 04/23 [facility] Lactic Acid Lactic Acid 1.2 0.5 - 1.9 04/23 [facility] Lactic Acid Heme Index Negative 04/23 [facility] Lactic Acid Icteric Index Negative 04/23 [facility] Lactic Acid Lipemia Index Negative 04/23 [facility] Troponin-I Troponin I <0.01 - <=0.30 04/23 [facility] Sodium 136 136 - 145 04/23 [facility] Potassium 4.3 3.5 - 5.1 04/23 [facility] Chloride 104 98 - 107 04/23 [facility] CO2 20 23 - 31 04/23 L [facility] Glucose Level 177 83 - 110 04/23 H [facility] BUN 27 8 - 26 04/23 H [facility] Creatinine 1.71 0.57 - 1.25 04/23 H [facility] BUN/Ladle Filler Ratio 15.8 8.0 - 24.0 04/23 [facility] Anion Gap 12 6 - 17 04/23 [facility] Calcium 9.6 8.4 - 10.2 04/23 [facility] Corrected Calcium 9.4 8.4 - 10.5 04/23 [facility] Protein, Total 7.3 6.0 - 8.3 04/23 [facility] Albumin 4.2 3.5 - 5.0 04/23 [facility] Alkphos 51 40 - 150 04/23 [facility] ALT 42 6 - 55 04/23 [facility] AST 69 5 - 34 04/23 H [facility] Bili Total 0.8 0.2 - 1.2 04/23 [facility] eGFRcr 41 >=90 04/23 L As [...] <18 years and will not be performed. [facility] CMP Globulin 3 04/23 [facility] CMP A/G Ratio 1 04/23 [facility] CMP Heme Index Negative 04/23 [facility] CMP Icteric Index Negative 04/23 [facility] CMP Lipemia Index Negative 04/23 [facility] Lipase Lipase 108.0 8.0 - 78.0 04/23 H [facility] Lipase Icteric Index Negative 04/23 [facility] CBC w/Diff WBC 11.2 4.8 - 10.8 04/23 H [facility] CBC w/Diff RBC 4.52 4.70 - 6.10 04/23 L [facility] CBC w/Diff Hgb 12.8 13.5 - 18.0 04/23 L [facility] CBC w/Diff Hct 38.9 40.0 - 52.0 04/23 L [facility] CBC w/Diff MCV 86.0 80.0 - 100.0 04/23 [facility] CBC w/Diff MCH 28.4 27.0 - 34.0 04/23 [facility] CBC w/Diff MCHC 33.0 32.0 - 37.0 04/23 [facility] CBC w/Diff RDW 15.2 11.5 - 16.0 04/23 [facility] CBC w/Diff Plt 267 130 - 400 04/23 [facility] CBC w/Diff Neuts 70.9 35.0 - 80.0 04/23 [facility] CBC w/Diff Lymphs 19.8 10.0 - 55.0 04/23 [facility] CBC w/Diff Monos. 6.1 0.0 - 15.0 04/23 [facility] CBC w/Diff Eos. 2.6 0.0 - 9.0 04/23 [facility] Baso. 0.6 0.0 - 3.0 04/23 [facility] ABS Neut 7.9 1.7 - 8.6 04/23 [facility] CBC w/Diff ABS Lymph 2.2 0.5 - 5.9 04/23 [facility] w/Diff ABS [place] 0.7 0.0 - 2.0 04/23 [facility] CBC w/Diff ABS Eos 0.3 0.0 - 1.2 04/23 [facility] CBC w/Diff ABS Baso 0.1 0.0 - 0.3 04/23 [facility] CBC w/Diff CBC Scan Auto Diff 04/23 [facility] CBC w/Diff nRBC Auto 0 04/23 [facility] CBC w/Diff MPV 8 04/23 [facility] Cardiac Troponin I <0.01 04/23 [facility] CBC CBC Scan Auto Diff (04/23/22 2:19 AM) 04/23 [facility] CBC WBC 11.2 4.8 - 10.8 04/23 [facility] CBC RBC 4.52 4.70 - 6.10 04/23 [facility] CBC Hgb 12.8 13.5 - 18.0 04/23 [facility] CBC Hct 38.9 40.0 - 52.0 04/23 [facility] CBC MCV 86.0 80.0 - 100.0 04/23 [facility] CBC MCH 28.4 27.0 - 34.0 04/23 [facility] CBC MCHC 33.0 32.0 - 37.0 04/23 [facility] CBC RDW 15.2 11.5 - 16.0 04/23 [facility] CBC Plt 267 130 - 400 04/23 [facility] CBC MPV 8 04/23 [facility] CBC Neuts 70.9 35.0 - 80.0 04/23 [facility] CBC Lymphs 19.8 10.0 - 55.0 04/23 [facility] CBC Monos. 6.1 0.0 - 15.0 04/23 [facility] CBC Eos. 2.6 0.0 - 9.0 04/23 [facility] CBC Baso. 0.6 0.0 - 3.0 04/23 [facility] CBC ABS Neut 7.9 1.7 - 8.6 04/23 [facility] CBC ABS Lymph 2.2 0.5 - 5.9 04/23 [facility] CBC ABS [place] 0.7 0.0 - 2.0 04/23 [facility] CBC ABS Eos 0.3 0.0 - 1.2 04/23 [facility] CBC ABS Baso 0.1 0.0 - 0.3 04/23 [facility] CBC nRBC Auto 0 04/23 [facility] General Chemistry eGFRcr 41 04/23 [facility] General Chemistry Sodium 136 136 - 145 04/23 [facility] General Chemistry Potassium 4.3 3.5 - 5.1 04/23 [facility] General Chemistry Chloride 104 98 - 107 04/23 [facility] General Chemistry CO2 20 23 - 31 04/23 [facility] General Chemistry Anion Gap 12 6 - 17 04/23 [facility] General Chemistry Glucose Level 177 83 - 110 04/23 [facility] General Chemistry BUN 27 8 - 26 04/23 [facility] General Chemistry Creatinine 1.71 0.57 - 1.25 04/23 [facility] General Chemistry Protein, Total 7.3 6.0 - 8.3 04/23 [facility] General Chemistry Albumin 4.2 3.5 - 5.0 04/23 [facility] General Chemistry Calcium 9.6 8.4 - 10.2 04/23 [facility] General Chemistry Bili Total 0.8 0.2 - 1.2 04/23 [facility] General Chemistry Alkphos 51 40 - 150 04/23 [facility] General Chemistry AST 69 5 - 34 04/23 [facility] General Chemistry ALT 42 6 - 55 04/23 [facility] General Chemistry BUN/Ladle Filler Ratio 15.8 8.0 - 24.0 04/23 [facility] General Chemistry Corrected Calcium 9.4 8.4 - 10.5 04/23 [facility] General Chemistry Globulin 3 04/23 [facility] General Chemistry A/G Ratio 1 04/23 [facility] General Chemistry Lipase Level 108.0 8.0 - 78.0 04/23 [facility] General Chemistry Lactic Acid 1.2 0.5 - 1.9 04/23 [facility] NATRIURETIC PEPTIDE BNP BNP 20 0 - 100 04/28 B-TYPE NATRIURETIC PEPTIDE INTERPRETATIO N The BNP test is used as an aid in the diagnosis and assessment of severity of congestive heart failure. The test is also used for the risk stratificatio n of patients with acute coronary syndromes. [facility] D-DIMER D-DIMER QUANT 0.91 0.00 - 0.59 04/28 H \BLDo\D-DIMER INTERPRETATIO N\BLDx\\ Negative Cutoff Value: <0.59 mg/L FEU Reference Interval: </=0.59 mg/L FEU [facility] COMPREHENSI VE METABOLIC PANEL COMPREHENSIV E METABOLIC PANEL LAB 04/28 COMPREHENSIVE METABOLIC PANEL [facility] COMPREHENSI VE METABOLIC PANEL SODIUM 139 134 - 144 04/28 [facility] COMPREHENSI VE METABOLIC PANEL POTASSIUM 4.1 3.5 - 5.1 04/28 [facility] COMPREHENSI VE METABOLIC PANEL CHLORIDE 105 98 - 107 04/28 [facility] COMPREHENSI VE METABOLIC PANEL CO2 19 23 - 31 04/28 L [facility] COMPREHENSI VE METABOLIC PANEL ANION GAP 19 10 - 20 04/28 [facility] COMPREHENSI VE METABOLIC PANEL GLUCOSE 190 70 - 99 04/28 H [facility] COMPREHENSI VE METABOLIC PANEL BUN 38 8 - 26 04/28 H [facility] COMPREHENSI VE METABOLIC PANEL CREATININE 1.86 0.72 - 1.25 04/28 H [facility] COMPREHENSI VE METABOLIC PANEL TOTAL PROTEIN 7.2 6.4 - 8.3 04/28 [facility] COMPREHENSI VE METABOLIC PANEL ALBUMIN 4.2 3.2 - 4.6 04/28 [facility] COMPREHENSI VE METABOLIC PANEL CALCIUM 9.5 8.4 - 10.2 04/28 [facility] COMPREHENSI VE METABOLIC PANEL TOTAL BILI 0.5 0.2 - 1.2 04/28 [facility] COMPREHENSI VE METABOLIC PANEL ALKALINE PHOS 35 40 - 150 04/28 L [facility] COMPREHENSI VE METABOLIC PANEL SGOT/AST 20 5 - 34 04/28 [facility] COMPREHENSI VE METABOLIC PANEL SGPT/ALT 25 0 - 55 04/28 [facility] COMPREHENSI VE METABOLIC PANEL AGE 75 04/28 [facility] COMPREHENSI VE METABOLIC PANEL NON-AA GFR 38 04/28 [facility] COMPREHENSI VE METABOLIC PANEL AFR AMER GFR 46 04/28 [facility] TROPONIN QT TROPONIN I 0.01 0.00 - 0.30 04/28 [facility] CBC W/DIFF CBC W/DIFF LAB 04/28 CBC W/DIFF [facility] CBC W/DIFF WBC 12.1 4.8 - 10.8 04/28 H [facility] CBC W/DIFF RBC 4.09 4.70 - 6.10 04/28 L [facility] CBC W/DIFF HEMOGLOBIN 12.1 13.5 - 18.0 04/28 L [facility] CBC W/DIFF HEMATOCRIT 36.2 40.0 - 52.0 04/28 L [facility] CBC W/DIFF MCV 88 80 - 100 04/28 [facility] CBC W/DIFF MCH 29.5 27.0 - 34.0 04/28 [facility] CBC W/DIFF MCHC 33 32 - 37 04/28 [facility] CBC W/DIFF RDW 14.6 11.5 - 16.0 04/28 [facility] CBC W/DIFF PLATELETS 252 130 - 400 04/28 [facility] CBC W/DIFF MPV 7.5 6.8 - 10.2 04/28 [facility] CBC W/DIFF %NEUT 72 04/28 [facility] CBC W/DIFF %LYMPH 20 04/28 [facility] CBC W/DIFF %MONO 6 04/28 [facility] CBC W/DIFF %EOS 2 04/28 [facility] CBC W/DIFF %BASO 0 04/28 [facility] CBC W/DIFF #NEUT 8.7 1.7 - 8.6 04/28 H [facility] CBC W/DIFF #LYMPH 2.5 0.5 - 5.9 04/28 [facility] CBC W/DIFF #MONO 0.7 0.0 - 1.6 04/28 [facility] CBC W/DIFF #EOS 0.2 0.0 - 1.0 04/28 [facility] CBC W/DIFF #BASO 0.0 0.0 - 0.3 04/28 [facility] CBC W/DIFF MANUAL DIFF NOT INDICATED 04/28 [facility] CBC W/DIFF RBC MORPH NOT INDICATED 04/28 [facility] FINGERSTICK GLUCOSE GLUCOMETER 153 70 - 100 01/25 H [facility] LEGIONELLA PNEUMOPHILI A AG, URINE LEGIONELLA PNEUMOPHILIA AG, URINE LAB 01/24 _MLT LEGION AG URINE QL/SQ_ SEE SEPARATE REFERENCE LAB REPORT [facility] STREP PNEUMO ANTIGEN- URINE STREP PNEUMO ANTIGEN- URINE LAB 01/24 _STREP PNEUMO ANTIGEN- URINE_ SEE SEPARATE REFERENCE LAB REPORT [facility] COCCI ANTIBODY SCREEN (IGG/IGM) COCCI ANTIBODY SCREEN (IGG/IGM) LAB 01/24 _COCCIDIOIDES ANTIBODY SCREEN_ SEE SEPARATE REFERENCE LAB REPORT [facility] Cocci IgM/IgG w/rflx Cocci IgG Neg Negative 01/23 [facility] Cocci IgM/IgG w/rflx Cocci IgM Neg Negative 01/23 [facility] HEMOGLOBIN GLYCOSYLATE D (A1C) HGB A1C 10.2 4.5 - 6.2 01/23 H [employer] [place] [employer] (ADA) recommendatio ns are summarized [...] may aid in the diagnosis of diabetes. [facility] C-REACTIVE PROTEIN CRP 4.13 0.10 - 0.90 [...] interpreted in the context of serial measurements. [facility] COMPREHENSI VE METABOLIC PANEL COMPREHENSIV E METABOLIC PANEL LAB 01/23 COMPREHENSIVE METABOLIC PANEL [facility] COMPREHENSI VE METABOLIC PANEL SODIUM 136 134 - 144 01/23 [facility] COMPREHENSI VE METABOLIC PANEL POTASSIUM 3.5 3.5 - 5.1 01/23 [facility] COMPREHENSI VE METABOLIC PANEL CHLORIDE 103 98 - 107 01/23 [facility] COMPREHENSI VE METABOLIC PANEL CO2 19 23 - 31 01/23 L [facility] COMPREHENSI VE METABOLIC PANEL ANION GAP 18 10 - 20 01/23 [facility] COMPREHENSI VE METABOLIC PANEL GLUCOSE 99 70 - 99 01/23 [facility] COMPREHENSI VE METABOLIC PANEL BUN 32 8 - 26 01/23 H [facility] COMPREHENSI VE METABOLIC PANEL CREATININE 1.18 0.72 - 1.25 01/23 [facility] COMPREHENSI VE METABOLIC PANEL TOTAL PROTEIN 5.7 6.4 - 8.3 01/23 L [facility] COMPREHENSI VE METABOLIC PANEL ALBUMIN 3.2 3.2 - 4.6 01/23 [facility] COMPREHENSI VE METABOLIC PANEL CALCIUM 8.0 8.4 - 10.2 01/23 L [facility] COMPREHENSI VE METABOLIC PANEL TOTAL BILI 0.6 0.2 - 1.2 01/23 [facility] COMPREHENSI VE METABOLIC PANEL ALKALINE PHOS 36 40 - 150 01/23 L [facility] COMPREHENSI VE METABOLIC PANEL SGOT/AST 22 5 - 34 01/23 [facility] COMPREHENSI VE METABOLIC PANEL SGPT/ALT 21 0 - 55 01/23 [facility] COMPREHENSI VE METABOLIC PANEL AGE 75 01/23 [facility] COMPREHENSI VE METABOLIC PANEL NON-AA GFR 64 01/23 [facility] COMPREHENSI VE METABOLIC PANEL AFR AMER GFR 78 01/23 [facility] FERRITIN FERRITIN 491.06 10.00 - 204 01/23 H [facility] CBC W/DIFF CBC W/DIFF LAB 01/23 CBC W/DIFF [facility] CBC W/DIFF WBC 9.5 4.8 - 10.8 01/23 [facility] CBC W/DIFF RBC 3.84 4.70 - 6.10 01/23 L [facility] CBC W/DIFF HEMOGLOBIN 11.0 13.5 - 18.0 01/23 L [facility] CBC W/DIFF HEMATOCRIT 33.3 40.0 - 52.0 01/23 L [facility] CBC W/DIFF MCV 87 80 - 100 01/23 [facility] CBC W/DIFF MCH 28.6 27.0 - 34.0 01/23 [facility] CBC W/DIFF MCHC 33 32 - 37 01/23 [facility] CBC W/DIFF RDW 14.8 11.5 - 16.0 01/23 [facility] CBC W/DIFF PLATELETS 298 130 - 400 01/23 [facility] CBC W/DIFF MPV 7.5 6.8 - 10.2 01/23 [facility] CBC W/DIFF %NEUT 79 01/23 [facility] CBC W/DIFF %LYMPH 12 01/23 [facility] CBC W/DIFF %MONO 8 01/23 [facility] CBC W/DIFF %EOS 0 01/23 [facility] CBC W/DIFF %BASO 0 01/23 [facility] CBC W/DIFF #NEUT 7.6 1.7 - 8.6 01/23 [facility] CBC W/DIFF #LYMPH 1.1 0.5 - 5.9 01/23 [facility] CBC W/DIFF #MONO 0.8 0.0 - 1.6 01/23 [facility] CBC W/DIFF #EOS 0.0 0.0 - 1.0 01/23 [facility] CBC W/DIFF #BASO 0.0 0.0 - 0.3 01/23 {CD] [facility] CBC W/DIFF MANUAL DIFF NOT INDICATED 01/23 [facility] CBC W/DIFF RBC MORPH NOT INDICATED 01/23 [facility] U Strep/Legio n Ag Strep pnemoniae Ag Ur Negative Negative 01/22 A negative result does not exclude the possibility of a Legionella or S. pneumoniae infection. Results should be interpreted in conjunction with the patient's clinical evaluation. [facility] U Strep/Legio n Ag Legionella pneumophila Ag Ur Negative Negative 01/22 [facility] FINGERSTICK GLUCOSE GLUCOMETER 394 70 - 100 01/22 H [facility] COMPREHENSI VE METABOLIC PANEL COMPREHENSIV E METABOLIC PANEL LAB 01/22 COMPREHENSIVE METABOLIC PANEL [facility] COMPREHENSI VE METABOLIC PANEL SODIUM 134 134 - 144 01/22 [facility] COMPREHENSI VE METABOLIC PANEL POTASSIUM 4.4 3.5 - 5.1 01/22 [facility] COMPREHENSI VE METABOLIC PANEL CHLORIDE 104 98 - 107 01/22 [facility] COMPREHENSI VE METABOLIC PANEL CO2 13 23 - 31 01/22 L [facility] COMPREHENSI VE METABOLIC PANEL ANION GAP 21 10 - 20 01/22 H [facility] COMPREHENSI VE METABOLIC PANEL GLUCOSE 443 70 - 99 01/22 H [facility] COMPREHENSI VE METABOLIC PANEL BUN 24 8 - 26 01/22 [facility] COMPREHENSI VE METABOLIC PANEL CREATININE 1.32 0.72 - 1.25 01/22 H [facility] COMPREHENSI VE METABOLIC PANEL TOTAL PROTEIN 6.5 6.4 - 8.3 01/22 [facility] COMPREHENSI VE METABOLIC PANEL ALBUMIN 3.7 3.2 - 4.6 01/22 [facility] COMPREHENSI VE METABOLIC PANEL CALCIUM 8.3 8.4 - 10.2 01/22 L [facility] COMPREHENSI VE METABOLIC PANEL TOTAL BILI 0.6 0.2 - 1.2 01/22 [facility] COMPREHENSI VE METABOLIC PANEL ALKALINE PHOS 44 40 - 150 01/22 [facility] COMPREHENSI VE METABOLIC PANEL SGOT/AST 20 5 - 34 01/22 [facility] COMPREHENSI VE METABOLIC PANEL SGPT/ALT 23 0 - 55 01/22 [facility] COMPREHENSI VE METABOLIC PANEL AGE 75 01/22 [facility] COMPREHENSI VE METABOLIC PANEL NON-AA GFR 56 01/22 [facility] COMPREHENSI VE METABOLIC PANEL AFR AMER GFR 68 01/22 [facility] FERRITIN FERRITIN 636.27 10.00 - 204 01/22 H [facility] CBC W/DIFF CBC W/DIFF LAB 01/22 CBC W/DIFF [facility] CBC W/DIFF WBC 4.5 4.8 - 10.8 01/22 L [facility] CBC W/DIFF RBC 4.15 4.70 - 6.10 01/22 L [facility] CBC W/DIFF HEMOGLOBIN 12.0 13.5 - 18.0 01/22 L [facility] CBC W/DIFF HEMATOCRIT 36.7 40.0 - 52.0 01/22 L [facility] CBC W/DIFF MCV 88 80 - 100 01/22 [facility] CBC W/DIFF MCH 29.0 27.0 - 34.0 01/22 [facility] CBC W/DIFF MCHC 33 32 - 37 01/22 [facility] CBC W/DIFF RDW 14.7 11.5 - 16.0 01/22 [facility] CBC W/DIFF PLATELETS 240 130 - 400 01/22 [facility] CBC W/DIFF MPV 8.2 6.8 - 10.2 01/22 [facility] CBC W/DIFF %NEUT 75 01/22 [facility] CBC W/DIFF %LYMPH 17 01/22 [facility] CBC W/DIFF %MONO 9 01/22 [facility] CBC W/DIFF %EOS 0 01/22 [facility] CBC W/DIFF %BASO 0 01/22 [facility] CBC W/DIFF #NEUT 3.4 1.7 - 8.6 01/22 [facility] CBC W/DIFF #LYMPH 0.7 0.5 - 5.9 01/22 [facility] CBC W/DIFF #MONO 0.4 0.0 - 1.6 01/22 [facility] CBC W/DIFF #EOS 0.0 0.0 - 1.0 01/22 [facility] CBC W/DIFF #BASO 0.0 0.0 - 0.3 01/22 {CD] [facility] CBC W/DIFF MANUAL DIFF NOT INDICATED 01/22 [facility] CBC W/DIFF RBC MORPH NOT INDICATED 01/22 [facility] COVID19 PUI, FLU A/B, RSV RAPID PANEL COVID POSITIVE NORMAL: NEGATIVE 01/21 [facility] COVID19 PUI, FLU A/B, RSV RAPID PANEL CALLED TO: JD Nguyen RN 006 01/21 { DATE: 01.21.21 { TIME: 1152 [facility] COVID19 PUI, FLU A/B, RSV RAPID PANEL READ BACK: YES 01/21 [facility] COVID19 PUI, FLU A/B, RSV RAPID PANEL INFLUENZA A NEGATIVE NORMAL: NEGATIVE 01/21 [facility] COVID19 PUI, FLU A/B, RSV RAPID PANEL INFLUENZA B NEGATIVE NORMAL: NEGATIVE 01/21 [facility] COVID19 PUI, FLU A/B, RSV RAPID PANEL [...] observations, patient history, and/or epidemiologic al information. [facility] NATRIURETIC PEPTIDE BNP BNP 61 0 - 100 01/21 B-TYPE NATRIURETIC PEPTIDE INTERPRETATIO N The BNP test is used as an aid in the diagnosis and assessment of severity of congestive heart failure. The test is also used for the risk stratificatio n of patients with acute coronary syndromes. [facility] COMPREHENS VE METABOLIC PANEL COMPREHENSIV E METABOLIC PANEL LAB 01/21 COMPREHENSIVE METABOLIC PANEL [facility] COMPREHENSI VE METABOLIC PANEL SODIUM 132 134 - 144 01/21 L [facility] COMPREHENSI VE METABOLIC PANEL POTASSIUM 4.7 3.5 - 5.1 01/21 [facility] COMPREHENS VE METABOLIC PANEL CHLORIDE 99 98 - 107 01/21 [facility] COMPREHENSI VE METABOLIC PANEL CO2 15 23 - 31 01/21 L [facility] COMPREHENSI VE METABOLIC PANEL ANION GAP 23 10 - 20 01/21 H [facility] COMPREHENSI VE METABOLIC PANEL GLUCOSE 434 70 - 99 01/21 H [facility] COMPREHENSI VE METABOLIC PANEL BUN 23 8 - 26 01/21 [facility] COMPREHENSI VE METABOLIC PANEL CREATININE 1.52 0.72 - 1.25 01/21 H [facility] COMPREHENSI VE METABOLIC PANEL TOTAL PROTEIN 7.1 6.4 - 8.3 01/21 [facility] COMPREHENSI VE METABOLIC PANEL ALBUMIN 4.1 3.2 - 4.6 01/21 [facility] COMPREHENSI VE METABOLIC PANEL CALCIUM 8.7 8.4 - 10.2 01/21 [facility] COMPREHENSI VE METABOLIC PANEL TOTAL BILI 0.8 0.2 - 1.2 01/21 [facility] COMPREHENSI VE METABOLIC PANEL ALKALINE PHOS 48 40 - 150 01/21 [facility] COMPREHENSI VE METABOLIC PANEL SGOT/AST 24 5 - 34 01/21 [facility] COMPREHENSI VE METABOLIC PANEL SGPT/ALT 25 0 - 55 01/21 [facility] COMPREHENSI VE METABOLIC PANEL AGE 75 01/21 [facility] COMPREHENSI VE METABOLIC PANEL NON-AA GFR 48 01/21 [facility] COMPREHENSI VE METABOLIC PANEL AFR AMER GFR 58 01/21 [facility] TROPONIN QT TROPONIN I 0.01 0.00 - 0.30 01/21 [facility] D-DIMER D-DIMER QUANT <0.19 0.00 - 0.59 01/21 \BLDo\D-DIMER INTERPRETATIO N\BLDx\\ Negative Cutoff Value: <0.59 mg/L FEU Reference Interval: </=0.59 mg/L FEU [facility] CBC W/DIFF CBC W/DIFF LAB 01/21 CBC W/DIFF [facility] CBC W/DIFF WBC 6.0 4.8 - 10.8 01/21 [facility] CBC W/DIFF RBC 4.42 4.70 - 6.10 01/21 L [facility] CBC W/DIFF HEMOGLOBIN 12.8 13.5 - 18.0 01/21 L [facility] CBC W/DIFF HEMATOCRIT 39.0 40.0 - 52.0 01/21 L [facility] CBC W/DIFF MCV 88 80 - 100 01/21 [facility] CBC W/DIFF MCH 29.0 27.0 - 34.0 01/21 [facility] CBC W/DIFF MCHC 33 32 - 37 01/21 [facility] CBC W/DIFF RDW 14.8 11.5 - 16.0 01/21 [facility] CBC W/DIFF PLATELETS 223 130 - 400 01/21 [facility] CBC W/DIFF MPV 7.9 6.8 - 10.2 01/21 [facility] CBC W/DIFF %NEUT 83 01/21 [facility] CBC W/DIFF %LYMPH 10 01/21 [facility] CBC W/DIFF %MONO 7 01/21 [facility] CBC W/DIFF %EOS 0 01/21 [facility] CBC W/DIFF %BASO 0 01/21 [facility] CBC W/DIFF #NEUT 4.9 1.7 - 8.6 01/21 [facility] CBC W/DIFF #LYMPH 0.6 0.5 - 5.9 01/21 [facility] CBC W/DIFF #MONO 0.4 0.0 - 1.6 01/21 [facility] CBC W/DIFF #EOS 0.0 0.0 - 1.0 01/21 [facility] CBC W/DIFF #BASO 0.0 0.0 - 0.3 01/21 {CD] [facility] CBC W/DIFF MANUAL DIFF NOT INDICATED 01/21 [facility] CBC W/DIFF RBC MORPH NOT INDICATED 01/21 [facility] Blood Cult Blood Cult Final: No growth at 5 days. 01/21 When performed, RACHNA values are reported in mcg/ml. [facility] Diagnostic Reports Report Value Date Source MR [...] N A L * * * 04/24/2022 [facility] RADRPT
PROCEDURE INFORM ATION: Exam: MR [...] N A L * * *
04/24/2022 [facility] RADRPT
PROCEDURE INFORM ATION: Exam: MR [...] N A L * * *
04/24/2022 [facility] US Abdomen Limited Reason For Exam Abdomen [...] available. FINDINGS: Liver: Normal. No masses. Gallbladder: Risk Management Intern notes positive Youngblood's sign. The gallbladder demonstrates layering density consistent with noncalcified stones or sludge. No gallbladder wall thickening. Biliary ducts: Normal. No stones. No dilation. Pancreas: Visualized pancreas is unremarkable. Right kidney: Normal. No mass. No hydronephrosis. Other findings: Risk Management Intern notes technically difficult exam secondary to patient body habitus and overlying bowel gas. IMPRESSION: Cholelithiasis. Positive crystallographer's Youngblood's sign consistent with acute cholecystitis. * * * F I N A L * * * Dictated by: Reinaldo Zavaleta MD Electronically signed by: Reinaldo Zavaleta MD Transcribed by:LEO , , , S: 04/23/2022 04:36 * * * F I N A L * * * 04/23/2022 [facility] US Abdomen limited PROCEDURE INFORMATIO N: Exam: US Abdomen, Limited; Right Upper Quadrant Exam date and time: 04/23/2022 1:41 AM Age: 76 years old Clinical indication: Abdomen pain ruq TECHNIQUE: Imaging protocol: Real time ultrasound of the abdomen with image documentation. Limited exam focused on the right upper quadrant. COMPARISON: No relevant prior studies available. FINDINGS: Liver: Normal. No masses. Gallbladder: Risk Management Intern notes positive Youngblood's sign. The gallbladder demonstrates layering density consistent with noncalcified stones or sludge. No gallbladder wall thickening. Biliary ducts: Normal. No stones. No dilation. Pancreas: Visualized pancreas is unremarkable. Right kidney: Normal. No mass. No hydronephrosis. Other findings: Risk Management Intern notes technically difficult exam secondary to patient body habitus and overlying bowel gas. IMPRESSION: Cholelithiasis. Positive crystallographer's Youngblood's sign consistent with acute cholecystitis. * * * F I N A L * * * Dictated by: Reinaldo Zavaleta MD Electronically signed by: Reinaldo Zavaleta MD Transcribed by:LEO , , , S: 04/23/2022 04:36 * * * F I N A L * * * 04/23/2022 [facility] [address] Abdomen+Pelvis wo IV Con Reason [...] Cholelithiasis. No radiographic evidence of acute cholecystitis. [place] distended gallbladder consistent with hydrops. 2. Mild [...] N A L * * * 04/23/2022 [facility] Electrocardiogram Stationary ECG Study [facility] [address] 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 : 1945 Requested By: Eliza Gomez MD Order Number: [id number] Reading MD: Carole Azevedo MD Measurements Intervals Cook Rate: 76 P: 23 MT: 221 QRS: 91 QRSD: 157 T: -3 QT: 399 QTc: 450 Severity: Abnormal ECG Interpretive Statements SINUS RHYTHM WITH FIRST DEGREE AV BLOCK BORDERLINE RIGHT AXIS DEVIATION [QRS AXIS > 90] INTRAVENTRICULAR CONDUCTION DELAY [130+ ms QRS DURATION] Abnormal ECG No previous ECG available for comparison Electronically Signed On 04-23-2022 12:52:03 MST by Carole Azevedo MD 04/23/2022 [facility] [address] Abdomen and Pelvis WO contrast Radiation [...] Cholelithiasis. No radiographic evidence of acute cholecystitis. [place] distended gallbladder consistent with hydrops. 2. Mild [...] N A L * * * 04/23/2022 [facility] RADRPT
Radiation Dose C TDIVOL = 0 [...] Cholelithiasis. No radiographic evidence of acute cholecystitis. [place] distended gallbladder consistent with hydrops. 2. Mild [...] Cholelithiasis. No radiographic evidence of acute cholecystitis. [place] distended gallbladder consistent with hydrops. 2. Mild [...] N A L * * *
04/23/2022 [facility] RADRPT
Radiation Dose C TDIVOL = [...] Cholelithiasis. No radiographic evidence of acute cholecystitis. [place] distended gallbladder consistent with hydrops. 2. Mild [...] Cholelithiasis. No radiographic evidence of acute cholecystitis. [place] distended gallbladder consistent with hydrops. 2. Mild [...] N A L * * *
[facility]
PROCEDURE INFORM ATION: Exam: US Abdomen, Limited; Right Upper Quadrant Exam date and time: 04/23/2022 1:41 AM Age: 76 years old Clinical indication: Abdomen pain ruq TECHNIQUE: Imaging protocol: Real time ultrasound of the abdomen with image documentation. Limited exam focused on the right upper quadrant. COMPARISON: No relevant prior studies available. FINDINGS: Liver: Normal. No masses. Gallbladder: Risk Management Intern notes positive Youngblood's sign. The gallbladder demonstrates layering density consistent with noncalcified stones or sludge. No gallbladder wall thickening. Biliary ducts: Normal. No stones. No dilation. Pancreas: Visualized pancreas is unremarkable. Right kidney: Normal. No mass. No hydronephrosis. Other findings: Risk Management Intern notes technically difficult exam secondary to patient body habitus and overlying bowel gas. IMPRESSION: Cholelithiasis. Positive crystallographer's Youngblood's sign consistent with acute cholecystitis.
Exam [...] available. FINDINGS: Liver: Normal. No masses. Gallbladder: Risk Management Intern notes positive Youngblood's sign. The gallbladder demonstrates layering density consistent with noncalcified stones or sludge. No gallbladder wall thickening. Biliary ducts: Normal. No stones. No dilation. Pancreas: Visualized pancreas is unremarkable. Right kidney: Normal. No mass. No hydronephrosis. Other findings: Risk Management Intern notes technically difficult exam secondary to patient body habitus and overlying bowel gas. IMPRESSION: Cholelithiasis. Positive crystallographer's Youngblood's sign consistent with acute cholecystitis. * * * F I N A L * * * Dictated by: Reinaldo Zavaleta MD Electronically signed by: Reinaldo Zavaleta MD Transcribed by:AV , , , S: 04/23/2022 04:36 * * * F I N A L * * *
04/23/2022 [facility] RAD[facility]
PROCEDURE INFORM ATION: Exam: US Abdomen, Limited; Right Upper Quadrant Exam date and time: 04/23/2022 1:41 AM Age: 76 years old Clinical indication: Abdomen pain ruq TECHNIQUE: Imaging protocol: Real time ultrasound of the abdomen with image documentation. Limited exam focused on the right upper quadrant. COMPARISON: No relevant prior studies available. FINDINGS: Liver: Normal. No masses. Gallbladder: Risk Management Intern notes positive Youngblood's sign. The gallbladder demonstrates layering density consistent with noncalcified stones or sludge. No gallbladder wall thickening. Biliary ducts: Normal. No stones. No dilation. Pancreas: Visualized pancreas is unremarkable. Right kidney: Normal. No mass. No hydronephrosis. Other findings: Risk Management Intern notes technically difficult exam secondary to patient body habitus and overlying bowel gas. IMPRESSION: Cholelithiasis. Positive crystallographer's Youngblood's sign consistent with acute cholecystitis.
Exam [...] available. FINDINGS: Liver: Normal. No masses. Gallbladder: Risk Management Intern notes positive Youngblood's sign. The gallbladder demonstrates layering density consistent with noncalcified stones or sludge. No gallbladder wall thickening. Biliary ducts: Normal. No stones. No dilation. Pancreas: Visualized pancreas is unremarkable. Right kidney: Normal. No mass. No hydronephrosis. Other findings: Risk Management Intern notes technically difficult exam secondary to patient body habitus and overlying bowel gas. IMPRESSION: Cholelithiasis. Positive crystallographer's Youngblood's sign consistent with acute cholecystitis. * * * F I N A L * * * Dictated by: Reinaldo Zavaleta MD Electronically signed by: Reinaldo Zavaleta MD Transcribed by:AV , , , S: 04/23/2022 04:36 * * * F I N A L * * *
04/23/2022 [facility] XR CHEST 1V [facility] [address] [place] [address] ---------NAME--------- NUMBER SEX AGE ADMIT DISC. XRAY# F/C TYPE APOLINAR Retana [id number] M 75 04/28/21 [id number] E/R DATE OF : 1945 M/R# [id number] #: [id number] LOCATION: TRANSCRIBED: 04/28/21 5:57 XR CHEST 1V [place] [address] COMPLETED:04/28/21 5:56 [place] [address] Shortness of Breath PHYSICIAN: YANDY VALADEZ RADIOLOGY [...] BY DANNI IBANEZ MD on 04/28/2021 05:57:18; [id number] Electronically Signed By: NASRA GARCIA Date/Time: SIGNDATE 04/28/2021 [facility] XR CHEST 1V [facility] [address] [place] [address] ---------NAME--------- NUMBER SEX AGE ADMIT DISC. XRAY# F/C TYPE APOLINAR MARTINEZ Lainey [id number] M 75 01/21/21 [id number] E/R DATE OF : 1945 M/R# [id number] PH#: RM LOCATION: TRANSCRIBED: 01/21/21 9:58 XR CHEST 1V [place] [address] COMPLETED: [id number] Cough PHYSICIAN: KELLY MOREJON RADIOLOGY REPORT ORDER [...] BY NARA SUNG DO on 01/21/2021 09:57:43; [id number] Electronically Signed By: DCTNAME, RADCRED Date/Time: SIGNDATE 01/21/2021 [facility] Consultation Notes Results Value Date Source Discharge [...] Proxy: Alyson Lorenz MA to: 03/29 Physician Group Worker Shreya Prince Nurse Practitioner Tyler Parker Disposition : Home/Self care Equipment : None DPC Date/Time Pt Called 1 : 04/28/2022 12:53 MST DPC Phone Call Result 1 : No answer, Patient unavailable DPC Date/Time Pt Called 2 : 04/29/2022 10:33 MST DPC Phone Call Result 2 : No answer, Patient unavailable Karina Bill RN - 04/29/2022 10:33 MST 04/29/2022 [facility] Discharge Phone Call - Text Discharge Phone [...] Proxy: Alyson Lorenz MA to: 03/29 Physician Group Worker Shreya Prince Nurse Practitioner Tyler Parker Disposition : Home/Self care Equipment : None DPC Date/Time Pt Called 1 : 04/28/2022 12:53 MST DPC Phone Call Result 1 : No answer, Patient unavailable Shannan Fox RN - 04/28/2022 12:53 MST 04/28/2022 [facility] Consultation Note Carole Azevedo MD : PERFORMEvent Display: ConsultationAuthored Date: Patient: ?JUAN JIANG ? ? ?MRN: ?[id number] ? ? ?FIN: ?[id number] Age: ?76 years ? ? ?Sex: ?M [...] ankle edema.This is a?76-year-old gentleman who?lives in [place]. ?Patient?has been wintering in?[place]. ?Patient?was seen in the emergency room for [...] ?Patient stated that he has seen a chief juvenile probation officer and has undergone a stress test?to 3 [...] ??MCHC:?33.0BUN:27 (H) ? ??RDW:?15.2Creatinine:1.71 (H) ? ??Plt:?267 BUN/Ladle Filler Ratio:?15.8 ??MPV:?8eGFRcr:41 (L) ? ??Neuts:?70.9 Calcium:?9.6 ??Lymphs:?19.8 Corrected Calcium:?9.4 ??Monos.:?6.1 Protein, Total:?7.3 ??Eos.:?2.6 Albumin:?4.2 ??Baso.: 0.6 Globulin:?3 ??ABS Neut:?7.9 A/G Ratio:?1 ??ABS Lymph:?2.2 Bili Total:?0.8 ??ABS Marinette:?0.7 ALT:?42 ??ABS Eos:?0.3AST:69 (H) ? ??ABS Baso:?0.1 [...] PO, BID Dulcolax, 10 mg= 1 Supp, MT, Daily, PRN DuoNeb, 3 mL, NEB - [...] PO, BID,? ?Not taking: discontinued by his Quality Control Inspector Heading in [facility] last Jun, 2021. NovoLOG, 10 Unit, [...] 00:02Co Signature By: Modify Signature By: 04/25/2022 [facility] Consultation Note Tyler Post MD: PERFORM, MODIFY, MODIFYEvent Display: ConsultationAuthored Date: Patient: ?JUAN JIANG ? ? ?MRN: ?[id number] ? ? ?FIN: ?[id number] Age: ?76 years ? ? ?Sex: ?M ? ? ?: 1945 ? ? ?Active Insurance: ?MEDICARE A Admitting MD: ?Marybel Truong ? ? ?Location: ?[facility] EDIP: ED08: 01 ? ? ?PCP: [...] ?MCHC:?33.0BUN:27 (H) ? ?RDW:?15.2Creatinine:1.71 (H) ? ?Plt:?267 BUN/Ladle Filler Ratio:?15.8 ?MPV:?8eGFRcr:41 (L) ? ?Neuts:?70.9 Calcium:?9.6 ?Lymphs:?19.8 Corrected Calcium:?9.4 ?Monos.:?6.1 Protein, Total:?7.3 ?Eos.:?2.6 Albumin:?4.2 ?Baso.:?0.6 Globulin:?3 ?ABS Neut:?7.9 A/G Ratio:?1 ?ABS Lymph: 2.2 Bili Total:?0.8 ?ABS [place]ette:?0.7 ALT:?42 ?ABS Eos:?0.3AST:69 (H) ? ?ABS Baso:?0.1 [...] ? FINDINGS: Liver: Normal. No masses. Gallbladder: Risk Management Intern notes positive Youngblood s sign. The gallbladder demonstrates layering density consistent with noncalcified stones or sludge. No gallbladder wall thickening. Biliary ducts: Normal. No stones. No dilation. Pancreas: Visualized pancreas is unremarkable. Right kidney: Normal. No mass. No hydronephrosis. ? Other findings: Risk Management Intern notes technically difficult exam secondary to patient body habitus and overlying bowel gas. ? IMPRESSION: Cholelithiasis. Positive crystallographer s Youngblood s sign consistent with acute [...] q15min, PRN Dulcolax, 10 mg= 1 Supp, MT, Daily, PRN DuoNeb, 3 mL, NEB - [...] Modify Signature By:Tyler Post 04/23/22 16:51 04/25/2022 [facility] Discharge Instructions Document [facility] [address] [place] [address] APOLINAR JUAN :1945 (AG) Visit Date:04/23/2022 Inpatient [...] up appointment Where: [address] [facility] [address] [place] [address]- Follow Up with Tyler Post MD When Within 2 to 3 weeks, only if needed Where: [phone] We encourage you to sign up for My Portal, where you can easily access your medical records and test results from all [facility]. Please sign up in one [...] 12 hours Duration: 10 Days Pickup at [id number] New metroNIDAZOLE (Flagyl 500 mg oral tablet) 1 tab(s) By mouth Every 8 hours Duration: 10 Days Pickup at [facility] #[id number] Changed chlorthalidone (chlorthalidone 25 mg oral tablet) [...] tab(s) By mouth Once daily Pickup at [facility] #35012 Changed metoprolol (metoprolol tartrate 25 mg oral tablet) 0.5 tab(s) By mouth Twice daily Pickup at [facility] #59215 Changed omega-3 polyunsaturated fatty acids (Fish Oil [...] tab(s) By mouth Once daily Pharmacy Information [id number]: [address] [facility] [place] [phone] What How Much When Comments Stop Taking [...] that you work with a diet and research nutritionist (dietitian) to help you reduce the amount [...] food, fatty cuts of meat, ice cream, nigerian toast, sweet rolls, pizza, cheese bread, foods covered with butter, creamy sauces, or cheese. Fried foods. These include nigerian fries, tempura, battered fish, breaded chicken, fried [...] provider. Document Revised: 09/14/2020 Document Reviewed: 09/20/2020 [employer] Patient Education ? 2021 [employer]. Cholecystitis Cholecystitis is irritation and swelling (inflammation) [...] Follow these instructions at home: Medicines Take bowo-oly-pmkjnht and prescription medicines only as told by [...] provider. Document Revised: 08/06/2021 Document Reviewed: 08/06/2021 [employer] Patient Education ? 2021 [employer] Clothes at Bedside: Pants, Shirt, Shoes Clothes Sent Home: Pants, Shirt, Shoes Electronics at Bedside: Cell phone Jewelry at Bedside: Watch Miscellaneous Items at Bedside: Other: Cane Miscellaneous Items Sent Home: Other: Cane Personal Devices at Bedside: Glasses I understand that [facility] is not responsible for any personal belongings/effects or valuables that have not been identified on the valuables and belongings list. Any personal effects brought into the facility and not recorded on the valuables and belongings form are the responsibility of the patient/family/significant other.I have received the indicated patient education materials/instructions and medication list and have verbalized understanding. Patient Name: JUAN JIANG Patient/Ink Technician Signature: Relationship to Patient: Witness Signature: Date/Time: 04/25/2022 [facility] Nursing Discharge Summary - Text Nursing Discharge [...] Audelia Schmidt - 04/25/2022 13:05 MST 04/25/2022 [facility] Discharge summary Patient: JUAN JIANG Age: 76 years Sex: M : 1945 Active Insurance: MEDICARE A Admitting MD: Marybel Truong Location: [facility] 3A: 311: 01 PCP: Glenys Oakes MD Author: Sana Cameron MD [facility] Admission Information Admit Date: 04/23/22 [...] BUN:13 mg/dL MPV:8 fL Creatinine:0.99 mg/dL 04/23/22 BUN/Ladle Filler Ratio:13.1 Neuts:70.9 % eGFRcr:79 mL/min/1.73m2 (L) Lymphs:19.8 % Calcium:9.0 mg/dL Monos.:6.1 % Corrected Calcium:9.4 mg/dL Eos.:2.6 % M.5 mg/dL (L) Baso.:0.6 % Protein, Total:6.2 gm/dL ABS Neut:7.9 thousand/uL Albumin:3.5 gm/dL ABS Lymph:2.2 thousand/uL Globulin:3 gm/dL ABS Marin[place]:0.7 thousand/uL A/G Ratio:1 ABS Eos:0.3 thousand/uL Bili [...] - Full Interpretation, This Encounter Name:JUAN JIANG Account:[id number] :1945 Result Date:04/24/22 13:15 Verified By:Avel Muir [...] available. FINDINGS: Liver: Normal. No masses. Gallbladder: Risk Management Intern notes positive Youngblood's sign. The gallbladder demonstrates layering density consistent with noncalcified stones or sludge. No gallbladder wall thickening. Biliary ducts: Normal. No stones. No dilation. Pancreas: Visualized pancreas is unremarkable. Right kidney: Normal. No mass. No hydronephrosis. Other findings: Risk Management Intern notes technically difficult exam secondary to patient body habitus and overlying bowel gas. IMPRESSION: Cholelithiasis. Positive crystallographer's Youngblood's sign consistent with acute cholecystitis. 04/23/22 [...] Cholelithiasis. No radiographic evidence of acute cholecystitis. [place] distended gallbladder consistent with hydrops. 2. Mild [...] outside specified reference range. 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:DR PACHECO LAMAS, 04/23/22 5:15:00 MST, 04/23/22 5:15:00 MST, 04/23/22 5:15:00 MST, pm_pso_link_preprocessing Discharge Diet Discharge Diet Order Details: 04/25/22 12:25:00 MST, Consistent Carbohydrate Discharge Diet Order Details: 04/25/22 12:25:00 MST, Heart Healthy Diet (Cardiac) Discharge Activity Discharge Activity Order Details: 04/25/22 12:25:00 MST, As tolerated Discharge Follow-up Instructions Follow-Up Details: Provider/Org Name: Tyler Post MD Within: 2 to 3 weeks Address: ;[id number]; Provider/Org Name: Glenys Oakes MD Within: 1 week Address: [address] [place] [address]; ; Comments: Call for follow up appointment [...] Sana Cameron MD On 04/25/22 20:50 04/25/2022 [facility] Shift Screening - Text Shift Screening Entered On: 04/25/2022 10:04 MST Performed On: 04/25/2022 10:02 [facility] by Audelia Schmidt Adult Sepsis Screening Tool - Inpatient SIRS Infection : Antibiotic therapy Audelia Schmidt - 04/25/2022 10:02 [facility] Pablo Skin Risk Sensory Perception : (4) No impairment Moisture : (3) Occasionally moist Activity Pablo : (3) Walks occasionally Mobility : (3) Slightly limited Nutrition : (3) Adequate Friction and Shear : (3) No apparent problem Pablo Tissue Perfusion and Oxygenation : N/A Pablo Score : 19 Audelia Schmidt - 04/25/2022 10:02 [facility] Fall Risk Assessment Known Fall Risk : Assess Fall Risk Fall Risk Temp : Yes Fall Risk Calc Administrative : 2 Fall Risk Score : 7 Audelia Schmidt 04/25/2022 10:02 [facility] Fall Risk Score Calculation Fall Risk Factors-Age [...] : 7 Audelia Schmidt - 04/25/2022 10:02 [facility] Fall Risk Interventions Fall Safety Interventions Implemented : Yes Fall Safety Interventions : [place] patient to surroundings, Maintain safe environment, Provide fall prevention education to patient and family, Assess patients understanding of fall precautions and reinforce, Provide non-skid footwear especially when ambulating, Hourly rounding, Use ambulatory aids if appropriate Audelia Schmidt - 04/25/2022 10:02 [facility] Fall Injury Screen Injury Risk Criteria : None Audelia Schmidt 04/25/2022 10:02 [facility] Bedside Mobility Assessment Tool v2 [...] Calc : 3 Audelia Schmidt 04/25/2022 10:02 [facility] Interdisciplinary Education (v2) Preferences to Learning : Any/all Preferred Language for Healthcare Discussions : Venezuelan Assistive Device for Communication : No Infection Control/Safety Education Topics : Hand hygiene POC Reviewed w Pt and or Rep : Yes Individuals Taught : Patient Readiness to Learn : Accepting Barriers to Learning : None evident Teaching Method : Explanation Response to Teaching : Needs reinforcement Teach Back : No Audelia Schmidt - 04/25/2022 10:02 [facility] 04/25/2022 [facility] Shift Screening - Text Shift Screening Entered On: 04/25/2022 3:30 MST Performed On: 04/25/2022 3:28 MST by Marlee Valencia Adult Sepsis Screening Tool - Inpatient SIRS Infection : Antibiotic therapy General Variable Criteria : None SIRS Adult Organ Dysfunction S/S : None Marlee Valencia 04/25/2022 3:28 [facility] Pablo Skin Risk Sensory Perception : (3) Slightly limited Moisture : (4) Rarely moist Activity Pablo : (3) Walks occasionally Mobility : (3) Slightly limited Nutrition : (3) Adequate Friction and Shear : (3) No apparent problem Pablo Tissue Perfusion and Oxygenation : N/A Pablo Score : 19 Marlee Valencia 04/25/2022 3:28 [facility] Fall Risk Assessment Known Fall Risk : Assess Fall Risk Fall Risk Temp : Yes Fall Risk Calc Administrative : 2 Fall Risk Score : 5 Marlee Valencia 04/25/2022 3:28 [facility] Fall Risk Score Calculation Fall Risk Factors-Age [...] Calc : 5 Marlee Valencia 04/25/2022 3:28 [facility] Fall Risk Interventions Fall Safety Interventions Implemented : Yes Fall Safety Interventions : [place] patient to surroundings, Maintain safe environment, Provide fall prevention education to patient and family, Assess patients understanding of fall precautions and reinforce, Provide non-skid footwear especially when ambulating, Hourly rounding, Use ambulatory aids if appropriate Marlee Valencia 04/25/2022 3:28 [facility] Fall Injury Screen Injury Risk Criteria : None Marlee Valencia 04/25/2022 3:28 [facility] Bedside Mobility Assessment Tool v2 [...] : 3 Marlee Valencia - 04/25/2022 3:28 [facility] Interdisciplinary Education (v2) Preferred Language for Healthcare Discussions : Venezuelan Assistive Device for Communication : No POC Reviewed w Pt and or Rep : N/A Teaching Method : Explanation Teach Back : Yes Marlee Valencia - 04/25/2022 3:28 [facility] 04/25/2022 [facility] Physician Note Patient: JUAN JIANG Age: 76 years Sex: M : 1945 Active Insurance: MEDICARE A Admitting MD: Marybel Truong Location: [facility] 3A: 311: 01 PCP: Glenys Oakes [...] Level:211 (H) MCHC:33.4 BUN:20 RDW:14.9 Creatinine:1.14 Plt:230 BUN/Ladle Filler Ratio:17.5 MPV:8 eGFRcr:67 (L) Calcium:8.6 Corrected Calcium:9.0 [...] Co Signature By: Modify Signature By: 04/25/2022 [facility] Note PROCEDURE INFORMATIO N: Exam: MR Abdomen [...] N A L * * * 04/24/2022 [facility] Physician Note Patient: JUAN JIANG Age: 76 years Sex: M : 1945 Active Insurance: MEDICARE A Admitting MD: Marybel Truong Location: [facility] 3A: 311: 01 PCP: Glenys Oakes [...] Level:211 (H) MCHC:33.4 BUN:20 RDW:14.9 Creatinine:1.14 Plt:230 BUN/Ladle Filler Ratio:17.5 MPV:8 eGFRcr:67 (L) Calcium:8.6 Corrected Calcium:9.0 [...] Signed By: Avel Muir MD Assessment/Plan 1.Acute bhoijniyhiwtbG07.0 unlikely as per MRCP. no inflammation noted, nontender Ordered: NM Hepatobiliary System - XFR 2.AdvmmodzrtgcduW24.20 Ordered: NM Hepatobiliary System - XFR Long [...] Tyler Post MD On 04/24/22 15:31 04/24/2022 [facility] Physician Note Patient: JUAN JIANG Age: 76 years Sex: M : 1945 Active Insurance: MEDICARE A Admitting MD: Marybel Truong [facility] Location: [facility] 3A: 311: 01 PCP: Glenys Oakes MD Author: Sana Cameron MD [facility] Assessment/Plan #Acutecalculus cholecystitis #Elevated lipasewith [...] and discussed moderate risk for surgery *Medications: Bdyiaywetj39.5 mg twice daily - Electrolytes: Monitor - [...] your care Sana Cameron MD Internal Medicine [facility] Subjective On 04/24/2022. Patient overall [...] Level:211 (H) MCHC:33.4 BUN:20 RDW:14.9 Creatinine:1.14 Plt:230 BUN/Ladle Filler Ratio:17.5 MPV:8 eGFRcr:67 (L) Calcium:8.6 Corrected Calcium:9.0 [...] Cholelithiasis. No radiographic evidence of acute cholecystitis. [place] distended gallbladder consistent with hydrops. 2. Mild [...] available. FINDINGS: Liver: Normal. No masses. Gallbladder: Risk Management Intern notes positive Youngblood s sign. The gallbladder demonstrates layering density consistent with noncalcified stones or sludge. No gallbladder wall thickening. Biliary ducts: Normal. No stones. No dilation. Pancreas: Visualized pancreas is unremarkable. Right kidney: Normal. No mass. No hydronephrosis. Other findings: Risk Management Intern notes technically difficult exam secondary to patient body habitus and overlying bowel gas. IMPRESSION: Cholelithiasis. Positive crystallographer s Youngblood s sign consistent with acute [...] 0.9%: 125 mL/hr, IV, Stop: 05/23/22 8:51:00 [facility] DVT prophylaxis Pharmacological Prophylaxis heparin [...] Sana Cameron MD On 04/24/22 15:18 04/24/2022 [facility] Consultation Patient: SHOBHA JIANG Age: 76 years Sex: M : 1945 Active Insurance: MEDICARE A Admitting MD: Marybel Truong Location: [facility] 3A: 311: 01 PCP: Glenys Oakes MD Author: Carole Azevedo MD Reason for Consultation Preop evaluation Chief Complaint c/o pressure in the abdomen since last night. History of Present Illness Patient denies any chest pain PND orthopnea or ankle edema.This is a 76-year-old gentleman who lives in [place]. Patient has been wintering in [place]. Patient was seen in the emergency room [...] Patient stated that he has seen a chief juvenile probation officer and has undergone a stress test to [...] (H) RDW: 15.2 Creatinine:1.71 (H) Plt: 267 BUN/Ladle Filler Ratio: 15.8 MPV: 8 eGFRcr:41 (L) Neuts: 70.9 Calcium: 9.6 Lymphs: 19.8 Corrected Calcium: 9.4 Monos.: 6.1 Protein, Total: 7.3 Eos.: 2.6 Albumin: 4.2 Baso.: 0.6 Globulin: 3 ABS Neut: 7.9 A/G Ratio: 1 ABS Lymph: 2.2 Bili Total: 0.8 ABS [place]: 0.7 ALT: 42 ABS Eos: 0.3 AST:69 [...] PO, BID Dulcolax, 10 mg= 1 Supp, MT, Daily, PRN DuoNeb, 3 mL, NEB - [...] PO, BID, Not taking: discontinued by his Quality Control Inspector Heading in [facility] last Jun, 2021. NovoLOG, 10 Unit, [...] Co Signature By: Modify Signature By: 04/24/2022 [facility] Shift Screening - Text Shift Screening [...] 20 Yenifer Amezcua RN - 04/23/2022 22:52 [facility] Fall Risk Assessment Known Fall Risk : Assess Fall Risk Fall Risk Temp : Yes Fall Risk Calc Administrative : 2 Fall Risk Score : 8 Yenifer Amezcua RN - 04/23/2022 22:52 [facility] Fall Risk Score Calculation Fall Risk Factors-Age [...] 8 Yenifer Amezcua RN - 04/23/2022 22:52 [facility] Fall Risk Interventions Fall Safety Interventions Implemented : Yes Fall Safety Interventions : [place] patient to surroundings, Maintain safe environment, Provide fall prevention education to patient and family, Assess patients understanding of fall precautions and reinforce, Provide non-skid footwear especially when ambulating, Hourly rounding, Use ambulatory aids if appropriate Yenifer Amezcua RN - 04/23/2022 22:52 [facility] Fall Injury Screen Injury Risk Criteria : Coagulopathies/risk for bleed Fall Injury Prevention : Other: call light within reach, bed in low position, bed brakes locked and siderails upx2. Yenifer Amezcua RN - 04/23/2022 22:52 [facility] Bedside Mobility Assessment Tool v2 [...] 3 Yenifer Amezcua RN - 04/23/2022 22:52 [facility] Interdisciplinary Education (v2) Preferences to Learning : Any/all Preferred Language for Healthcare Discussions : Venezuelan Assistive Device for Communication : No Infection [...] Amezcua RN - 04/23/2022 22:52 MST 04/24/2022 [facility] Secondary Review Correspondence Please review account for [...] Meet Obs Criteria External Reviewer: Yes 04/24/2022 [facility] Orders-Status Verification Form - Text Orders-Status Verification Form Entered On: 04/23/2022 21:39 MST Performed On: 04/23/2022 21:39 MST by Sammi Britton RN Orders-Status Verification Medicare / Non-Medicare : Medicare Is the Payer Medicare : Medicare Sammi Britton RN - 04/23/2022 21:39 MST Medicare Orders What is the Current Status Order on the Chart : Observation Did Admitting [place] the Patient in the Ordered Status : Yes 3a) Is an observation status order written : Yes 3b) Does the patient meet observation criteria : No 3c) If Pt Does Not Meet Obs Does Pt Meet Inpatient : No Order/Status Verification Comments : referred to Sammi Henry RN - 04/23/2022 21:39 MST 04/24/2022 [facility] Adult Admission History (v2) - Text [...] Self Preferred Language for Healthcare Discussions : Venezuelan Contact Information : Yes Health Literacy Deficit : No Sensory Deficits : None Assistive Aids for Communication Offered : No Status : N/A Status : N/A Todays Date : 04/23/2022 Yenifer Connor RN - 04/23/2022 21:10 MST Drug/Clinical Calc Ht/Wt [place] Height Measurement Used : centimeters Height cm (metric) : 177.8 cm Height (cm) : 177.8 cm Weight Method : Actual Weight Measurement Used : kilograms Weight kg (metric) : 130.8 kg Drug Calc Weight (kg) : 130.8 kg Scale Type : Standing scale BSA-pt care : 2.54 BMI : 41.38 kg/m2 BMI High Verify : Confirmed [place] Body Weight : 73 kg Adjusted Body [...] 04/23/2022 21:26:53 MST) Problems(Active) Anemia (SNOMED CT :775164706 ) Name of Problem: Anemia ; Recorder: Lashell Muniz RN; Confirmation: Confirmed ; Classification: Medical ; Code: [id number] ; Contributor System: PowerChart ; Last Updated: 05/22/2021 12:50 MST ; Life Cycle Date: 05/22/2021 ; Life Cycle Status: Active ; Vocabulary: SNOMED CT Asthma (SNOMED CT :147956801 ) Name of Problem: Asthma ; Recorder: Lashell Muniz RN; Confirmation: Confirmed ; Classification: Medical ; Code: 929926281 ; Contributor System: PowerChart ; Last Updated: 05/22/2021 12:49 MST ; Life Cycle Date: 05/22/2021 ; Life Cycle Status: Active ; Vocabulary: SNOMED CT Diabetes mellitus (SNOMED CT :145234401 ) Name of Problem: Diabetes mellitus ; Recorder: Lashell Muniz RN; Confirmation: Confirmed ; Classification: Medical ; Code: 384811091 ; Contributor System: PowerChart ; Last Updated: 05/22/2021 12:50 MST ; Life Cycle Date: 05/22/2021 ; Life Cycle Status: Active ; Vocabulary: SNOMED CT Foot drop, left (SNOMED CT :80542965 ) Name of Problem: Foot drop, left ; Recorder: Lashell Muniz RN; Confirmation: Confirmed ; Classification: Medical ; Code: 17296033 ; Contributor System: PowerChart ; Last Updated: 05/22/2021 12:51 MST ; Life Cycle Date: 05/22/2021 ; Life Cycle Status: Active ; Vocabulary: SNOMED CT Hypercholesterolemia (SNOMED CT :70325733 ) Name of Problem: Hypercholesterolemia ; Recorder: Lashell Muniz RN; Confirmation: Confirmed ; Classification: Medical ; Code: 40275472 ; Contributor System: PowerChart ; Last Updated: 05/22/2021 12:50 MST ; Life Cycle Date: 05/22/2021 ; Life Cycle Status: Active ; Vocabulary: SNOMED CT Hypertension (SNOMED CT :6620035705 ) Name of Problem: Hypertension ; Recorder: Lashell Muniz RN; Confirmation: Confirmed ; Classification: Medical ; Code: 0636650712 ; Contributor System: PowerChart ; Last Updated: 05/22/2021 12:50 MST ; Life Cycle Date: 05/22/2021 ; Life Cycle Status: Active ; Vocabulary: SNOMED CT Pulmonary embolism (SNOMED CT :38622977 ) Name of Problem: Pulmonary embolism ; Recorder: Lashell Muniz RN; Confirmation: Confirmed ; Classification: Medical ; Code: 38455180 ; Contributor System: All4Staff ; Last Updated: 05/22/2021 12:50 MST ; Life Cycle Date: 05/22/2021 ; Life Cycle Status: Active ; Vocabulary: SNOMED CT Spinal stenosis (SNOMED CT :614892884 ) Name of Problem: Spinal stenosis ; Recorder: Lashell Muniz RN; Confirmation: Confirmed ; Classification: Medical ; Code: 681411782 ; Contributor System: PowerChart ; Last Updated: 05/22/2021 12:51 MST ; Life Cycle Date: 05/22/2021 ; Life Cycle Status: Active ; Vocabulary: SNOMED CT Diagnoses(Active) Abdominal pain Date: 04/23/2022 ; Diagnosis Type: Reason For Visit ; Confirmation: Complaint of ; Clinical Dx: Abdominal pain ; Classification: Nursing ; Clinical Service: Non-Specified ; Code: PNED ; Probability: 0 ; Diagnosis Code: [id number] Acute cholecystitis Date: 04/23/2022 ; Diagnosis Type: [...] Allow Yenifer Amezcua RN - 04/23/2022 21:10 [facility] Infectious Disease Risk Screening Does [...] No Yenifer Amezcua RN - 04/23/2022 21:10 [facility] Infectious Disease Risk Screening Grid [...] NO Yenifer Amezcua RN - 04/23/2022 21:10 [facility] INF Disease Living Situation ST : Living Situation Living Situation: Lives alone (04/23/22 01:40:00) Travel to foreign country last 30 days : No INF Disease TB Screening Calc : 0 Yenifer Amezcua RN - 04/23/2022 21:10 [facility] Allergies and Current Meds (v2) New 04/04 Polypharmacy (greater than 7 meds) : Yes Currently Enrolled in a Clinical Trial : Yenifer Alexander RN - 04/23/2022 21:10 [facility] (As Of: 04/23/2022 21:26:53 [facility]) Allergies (Active) No Known Medication Allergies Estimated Onset Date: Unspecified ; Created By: Lashell Muniz RN; Reaction Status: Active ; Category: Drug ; Substance: No Known Medication Allergies ; Type: Allergy ; Updated By: Lasehll Muniz RN; Reviewed Date: 04/23/2022 2:05 [facility] Medication List (As Of: 04/23/2022 21:26:53 [facility]) Normal Order NaCl 0.9% 1,000 mL : NaCl 0.9% 1,000 mL ; Status: Canceled ; Ordered As Mnemonic: Sodium Chloride 0.9% 1,000 mL ; Simple Display Line: 100 mL/hr, IV, Stop: 05/23/22 21:09:00 [facility] ; Ordering Provider: Sana Cameron [...] Dulcolax ; Simple Display Line: 10 mg, MT, Daily, PRN: Constipation 3rd Choice ; Ordering [...] rosuvastatin ; Order Dt/Tm: 05/22/2021 12:36:43 MST [place] Suicide Severity Rating Scale (C-SSRS) 1. In [...] Denies (Last Updated: 04/23/2022 02:08:28 MST by Yvonne Felxi RN) Substance Abuse: Denies (Last Updated: 04/23/2022 21:18:05 MST by Yenifer Amezcua RN) Denies (Last Updated: 04/23/2022 02:08:32 MST by Yvonne Felix RN) Nutrition/Health: Diet: Diabetic. (Last Updated: 04/23/2022 21:18:43 MST by Yenifer Amezcua RN) Home/Environment: Pentecostalism restrictions/concerns: None. Lives with Alone. Living [...] 04/23/2022 21:20:21 MST by Yenifer Amezcua RN) Pentecostalism restrictions/concerns: None. (Last Updated: 04/23/2022 02:08:35 MST by Yvonne Felix RN) Initial Nutritional (v2) New 04/04 Recent weight loss without trying : No Eating poorly due to decreased appetite : No Total malnutrition screening points : 0 Home Diet Initial Assess : Diabetic Feeding ability : Complete independence Eating difficulties : Other: missing teeth Cultural or Pentecostalism Restrictions : Other: none Yenifer Amezcua RN [...] No Yenifer Amezcua RN - 04/23/2022 21:10 [facility] Advance Directive and POLST Tracking Contact Information : Contact Type: Emergency Contact Name: KIRIT ARNOLD Relation: Sibling Sesamea Phone: Address: City: [place] State: [place] PCP: Glenys Oakes MD Patient's Language: Venezuelan Last Scanned Advance Directive or POLST Documents : Advance Directive/POLST Last Scanned: No scanned documents found. Advance Directive : No Recent Documentation : Advance Directive/POLST Tracking Form No historic results found. Legacy Documentation : Advance Directive Tracking No results found. Yenifer Amezcua RN - 04/23/2022 21:10 [facility] Discharge Planning New 04/04 DC [...] Amezcua RN - 04/23/2022 21:10 MST 04/24/2022 [facility] Respiratory Therapy Assmt & Treatment RT Treatment [...] Dailey RT - 04/23/2022 17:41 MST 04/24/2022 [facility] Consultation Patient: SHOBHA IJANG Age: 76 years Sex: M : 1945 Active Insurance: MEDICARE A Admitting MD: Marybel Truong Location: [facility] EDIP: ED08: 01 PCP: Glenys Oakes [...] (H) RDW: 15.2 Creatinine:1.71 (H) Plt: 267 BUN/Ladle Filler Ratio: 15.8 MPV: 8 eGFRcr:41 (L) Neuts: 70.9 Calcium: 9.6 Lymphs: 19.8 Corrected Calcium: 9.4 Monos.: 6.1 Protein, Total: 7.3 Eos.: 2.6 Albumin: 4.2 Baso.: 0.6 Globulin: 3 ABS Neut: 7.9 A/G Ratio: 1 ABS Lymph: 2.2 Bili Total: 0.8 ABS [place]: 0.7 ALT: 42 ABS Eos: 0.3 AST:69 [...] available. FINDINGS: Liver: Normal. No masses. Gallbladder: Risk Management Intern notes positive Youngblood's sign. The gallbladder demonstrates layering density consistent with noncalcified stones or sludge. No gallbladder wall thickening. Biliary ducts: Normal. No stones. No dilation. Pancreas: Visualized pancreas is unremarkable. Right kidney: Normal. No mass. No hydronephrosis. Other findings: Risk Management Intern notes technically difficult exam secondary to patient body habitus and overlying bowel gas. IMPRESSION: Cholelithiasis. Positive crystallographer's Youngblood's sign consistent with acute cholecystitis. Signed [...] q15min, PRN Dulcolax, 10 mg= 1 Supp, MT, Daily, PRN DuoNeb, 3 mL, NEB - [...] Tyler Post MD On 04/23/22 16:51 04/23/2022 [facility] Echocardiogram Complete, Transthoracic *[facility]* [address] [place] [address] Transthoracic Echocardiogram Patient: Juan Jiang MR #: [id number] Study Date: 04/23/2022 Age: 76 : 1945 Gender: M Height: 178cm Weight: 125kg BP: 120 / 80 Risk Management Intern: Emilie Carbone Study Conclusions 1. Left ventricle: [...] outside specified reference range. Carole Azevedo MD [id number] 04/23/2022 [facility] ED Procedure and Supply Charges - Text ED Procedure and Supply Charges Entered On: 04/30/2022 8:39 MST Performed On: 04/23/2022 8:39 MST by Xiomy Ac ED Infusions, Vascular and Lab - Charges INJ TX/DX/PRO IV PUSH SEQ v2 : 1 Xiomy Ac - 04/30/2022 8:39 MST 04/23/2022 [facility] ED Physician Notes Patient: SHOBHA JIANG Age: 76 years Sex: M : 1945 Active Insurance: MEDICARE A Admitting MD: Marybel Truong Location: [facility] EDIP: ED08: 01 PCP: Glenys Oakes [...] : US Abdomen Limited IMPRESSION: Cholelithiasis. Positive crystallographer's Youngblood's sign consistent with acute cholecystitis. 04/23/22 01:41 ++++++++++++++++++++++++++++++++++++++ +++++++++++++++++ Result Date: 04/23/22 02:57 Verified By: Reinaldo Zavaleta MD at 04/23/22 03:10 Report : CT Abdomen+Pelvis wo IV Con IMPRESSION: 1. Cholelithiasis. No radiographic evidence of acute cholecystitis. [place] distended gallbladder consistent with hydrops. 2. 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 Discussion(s): [] Need to Initiate or Forego Further Testing: [N/A] Need to Monitor for Drug Toxicities: [N/A] Out-Patient Prescriptions Affecting Other Chronic Conditions: [] Final Diagnosis Diagnosis this visit: Acute cholecystitis (K81.0) 04/23/2022 04:49 Discharge Cholelithiasis (K80.20) 04/23/2022 04:[address] in Observation Order Details: Observation, Medicine, Truong, Marybel ACNP, Yes, ACUTE CHOLCYSTITIS WITH CHOLELITHIASIS, DREDGE PIPE INSTALLER:DR PACHECO LAMAS, 04/23/22 5:15:00 MST, 04/23/22 5:15:00 [...] Co Signature By: Modify Signature By: 04/23/2022 [facility] Physician Emergency department Note Patient: JUAN JIANG Age: 76 years Sex: M : 1945 Active Insurance: MEDICARE A Admitting MD: Marybel Truong Location: [facility] EDIP: ED08: 01 PCP: Glenys Oakes [...] : US Abdomen Limited IMPRESSION: Cholelithiasis. Positive crystallographer's Youngblood's sign consistent with acute cholecystitis. 04/23/22 01:41 ++++++++++++++++++++++++++++++++++++++ +++++++++++++++++ Result Date: 04/23/22 02:57 Verified By: Reinaldo Zavaleta MD at 04/23/22 03:10 Report : CT Abdomen+Pelvis wo IV Con IMPRESSION: 1. Cholelithiasis. No radiographic evidence of acute cholecystitis. [place] distended gallbladder consistent with hydrops. 2. 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 Discussion(s): [] Need to Initiate or Forego Further Testing: [N/A] Need to Monitor for Drug Toxicities: [N/A] Out-Patient Prescriptions Affecting Other Chronic Conditions: [] Final Diagnosis Diagnosis this visit: Acute cholecystitis (K81.0) 04/23/2022 04:49 Discharge Cholelithiasis (K80.20) 04/23/2022 04:[address] in Observation Order Details: Observation, Medicine, Marybel Truong ACNP, Yes, ACUTE CHOLCYSTITIS WITH CHOLELITHIASIS, DREDGE PIPE INSTALLER:DR PACHECO LAMAS, 04/23/22 5:15:00 MST, 04/23/22 5:15:00 [...] Co Signature By: Modify Signature By: 04/23/2022 [facility] Discharge Instructions Document [facility] [address] [place] [address] JUAN JIANG :1945 (EV) Visit Date:05/22/2021 SAFE [...] receive a prescription for pain medicines. In [place], we use the [place] Prescription Drug Monitoring Program called CURES. In [place] and [place], we use the Prescription Monitoring Program that has oversight by the [place] and [place] state boards of pharmacy. These statewide computer systems track opioid pain medications and other controlled substance prescriptions. If you need help with substance abuse or addiction, please call [phone] ([phone]) for confidential referral and treatment. Sponsored by: [employer] [facility] [employer] [facility] Safe Practice, Safe Care [facility] Emergency Department Patient Discharge Instructions If your symptoms continue or worsen, return to the emergency department or contact your physician. If you have questions about your discharge instructions, call the phone number above. Providers Attending Physician - Natalia Vanessa MD [facility] Physician(PCP) - Glenys Oakes MD Provider Role [...] nighttime as directed. 2. You can use frjz-nta-vffgmjc expectorant such as guaifenesin (Mucinex) as directed. [...] 3 days. 5. Please call us at [phone] with any questions. We encourage you to sign up for My Portal, where you can easily access your medical records and test results from all [facility]. Please sign up in one [...] your ears completely after. General instructions Take xmjm-umj-yrwkjrt and prescription medicines only as told by [...] provider. Document Revised: 05/25/2018 Document Reviewed: 05/25/2018 [employer] Patient Education ? 2020 [employer] How to Perform a Sinus Rinse [...] provider. Document Revised: 11/30/2017 Document Reviewed: 11/30/2017 [employer] Patient Education ? 2020 [employer] Allergic Rhinitis, Adult Allergic rhinitis is [...] breathe. Atopic dermatitis or eczema. This is intermediate accountant (chronic) inflammation of the skin. Food allergies. [...] check for related conditions, such as: Asthma. [place] eye. This is eye inflammation caused by [...] sweep, and dust regularly. General instructions Take dnub-mzl-zppmidh and prescription medicines only as told by your health care provider. Drink enough fluid to keep your urine pale yellow. Keep all follow-up visits as told by your health care provider. This is important. Where to find more information [employer]: www.aaaai.org [...] provider. Document Revised: 03/23/2020 Document Reviewed: 01/31/2020 [employer] Patient Education ? 2020 [employer] Upper Respiratory Infection, Adult An upper [...] medicines to help relieve symptoms, such as: Imjw-snh-pyisept cold medicines. Cough suppressants. Coughing is a [...] and other clear broths. General instructions Take egob-afz-qtkiroh and prescription medicines only as told by [...] and water are not available, use hand fitting room operator. Avoid touching your mouth, face, eyes, or [...] provider. Document Revised: 10/11/2020 Document Reviewed: 10/11/2020 [employer] Patient Education ? 2020 [employer] I understand that [facility] is not responsible for any personal belongings/effects [...] Adult Signature: Date/Time: Provider Signature: Date/Time: 05/22/2021 [facility] - [facility] ED Physician Notes Patient: JUAN [...] Medical history: All Problems Spinal stenosis / 460635635 / Confirmed Pulmonary embolism / 66082195 / Confirmed Asthma / 344214336 / Confirmed Hypercholesterolemia / 56670605 / Confirmed Hypertension / 4256298403 / Confirmed Foot drop, left / 23785483 / Confirmed Diabetes mellitus / 818705790 / Confirmed Anemia / 291033920 / Confirmed. Surgical history: Tonsillectomy (327290050). Adenoidectomy (090380170). Hydrocele (0833912116). 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 Comments: 05/22/2021 12:49 [facility] - Lashell Muniz RN bilateral. Social history: Social and Psychosocial Habits Alcohol 05/22/2021 Use: Denies Home/Environment 05/22/2021 Pentecostalism restrictions/concerns: None Substance Abuse 05/22/2021 Use: Denies Tobacco 05/22/2021 Tobacco Use: Never (less than 100 in l . Physical Examination Vital Signs Vital-Signs 05/22/2021 12:34 [facility] SPO2 97 % Normal Heart Rate 69 bpm Normal NIBP Systolic 120 mm Hg Normal NIBP Diastolic 80 mm Hg Normal Resp Rate (Monitor) 20 Breaths/Min Normal Temperature Temporal Artery 36.8 deg C Normal Pain Intensity 1 Pain Scale Used Numeric Rating Scale . Measurements 05/22/2021 12:34 [facility] [place] Body Weight 73 kg Weight Method Stated [...] and Plan Impression Acute upper respiratory infection (CYD62-XY J06.9, Discharge, Medical) Eustachian tube dysfunction (KZU15-WG H69.80, Discharge, Medical) Sensation of plugged ear on left side (NRA56-ZP H93.8X2, Discharge, Medical) Plan Condition: Stable. Disposition: [...] nighttime as directed. 2. You can use nhml-pde-gyqcpcn expectorant such as guaifenesin (Mucinex) as directed. [...] 3 days. 5. Please call us at [phone] with any questions.. Counseled: Patient, Regarding diagnosis, Regarding diagnostic results, Regarding treatment plan, Regarding prescription, Patient indicated understanding of instructions. Orders: Launch Orders Admit/Transfer/Discharge: Discharge (Order Processing): 05/22/2021 13:17 MST, Now, Home or self care. Electronically Signed By: Natalia Vanessa MD On 05/22/21 14:44 Co Signature By: Modify Signature By: 05/22/2021 [facility] Urgent Care Triage - Text [...] No Preferred Language for Healthcare Discussions : Venezuelan Temperature Temporal Artery : 36.8 deg C(Converted [...] : 5 - Minor Tracking Group : [facility] ED Tracking Lashell Muniz RN - 05/22/2021 12:34 [facility] Pediatric Patient : N/A Height (cm) : 177.8 cm Height Method : Stated Height Measurement Used : inches Height in : 70 Inch Drug Calc Weight (kg) : 120.181 kg Weight Method : Stated Weight Measurement Used : pounds Weight lb : 265 lbs BMI : 38.02 kg/m2 [place] Body Weight : 73 kg Adjusted Body Weight : 91.87 kg Additional Info - ED : poc, mask, dec tylenol or motrin ABW Calc : 91.87 kg ABW Calc2 : 120.18 kg Lashell Muniz RN - 05/22/2021 12:34 MST (As Of: 05/22/2021 12:48:53 MST) [place] Suicide Severity Rating Scale (C-SSRS) 1. In [...] time Lashell Muniz RN - 05/22/2021 12:34 [facility] Allergies and Current Meds (v2) New 04/04 Polypharmacy (greater than 7 meds) : No Lashell Muniz RN - 05/22/2021 12:34 [facility] (As Of: 05/22/2021 12:48:53 [facility]) Allergies (Active) No Known Medication Allergies Estimated Onset Date: Unspecified ; Created By: Lashell Muniz RN; Reaction Status: Active ; Category: Drug ; Substance: No Known Medication Allergies ; Type: Allergy ; Updated By: Lashell Muniz RN; Reviewed Date: 05/22/2021 12:36 [facility] Medication List (As Of: 05/22/2021 12:48:53 [facility]) Home Meds metoprolol : metoprolol [...] 12:35:30 MST by Lashell Muniz RN) Home/Environment: Pentecostalism restrictions/concerns: None. (Last Updated: 05/22/2021 12:35:33 MST [...] No Lashell Muniz RN - 05/22/2021 12:34 [facility] Infectious Disease Risk Screening Grid [...] Yasmany Lashell Gregory RN - 05/22/2021 12:34 [facility] INF Disease Living Situation ST : Living Situation No qualifying data available. Travel to foreign country last 30 days : No INF Disease TB Screening Calc : 0 Yasmany Lashell Gregory RN - 05/22/2021 12:34 [facility] Urgent Care Fall Risk Mental Status ED : Alert and oriented Physical/Clinical Status : Mobility defects Current Treatments ED : None High Fall Risk Interventions : All high risk interventions implemented Yasmany Lashell Gregory RN - 05/22/2021 12:34 [facility] 05/22/2021 [facility] Urgent Care Discharge Summaries Results Value Date Source Discharge Summary Patient: SHOBHA JIANG Age: 76 years Sex: M : 1945 Active Insurance: MEDICARE A Admitting MD: Marybel Truong [facility] Location: [facility] 3A: 311: 01 PCP: Glenys Oakes MD Author: Sana Cameron MD [facility] Admission Information Admit Date: 04/23/22 [...] MPV: 8 fL Creatinine: 0.99 mg/dL 04/23/22 BUN/Ladle Filler Ratio: 13.1 Neuts: 70.9 % eGFRcr:79 mL/min/1.73m2 (L) Lymphs: 19.8 % Calcium: 9.0 mg/dL Monos.: 6.1 % Corrected Calcium: 9.4 mg/dL Eos.: 2.6 % M.5 mg/dL (L) Baso.: 0.6 % Protein, Total: 6.2 gm/dL ABS Neut: 7.9 thousand/uL Albumin: 3.5 gm/dL ABS Lymph: 2.2 thousand/uL Globulin: 3 gm/dL ABS [place]: 0.7 thousand/uL A/G Ratio: 1 ABS Eos: [...] Interpretation, This Encounter Name: JUAN JIANG Account: [id number] : 1945 Result Date: 04/24/22 13:15 Verified [...] available. FINDINGS: Liver: Normal. No masses. Gallbladder: Risk Management Intern notes positive Youngblood's sign. The gallbladder demonstrates layering density consistent with noncalcified stones or sludge. No gallbladder wall thickening. Biliary ducts: Normal. No stones. No dilation. Pancreas: Visualized pancreas is unremarkable. Right kidney: Normal. No mass. No hydronephrosis. Other findings: Risk Management Intern notes technically difficult exam secondary to patient body habitus and overlying bowel gas. IMPRESSION: Cholelithiasis. Positive crystallographer's Youngblood's sign consistent with acute cholecystitis. 04/23/22 [...] months prior to the current study. COMPARISON: MT XR CHEST 1 VIEW 04/28/2021 5:33 AM [...] Cholelithiasis. No radiographic evidence of acute cholecystitis. [place] distended gallbladder consistent with hydrops. 2. Mild [...] outside specified reference range. Carole Azevedo MD [id number] Condition on Discharge Stable Discharge Plan Discharge [...] Carbohydrate Discharge Diet Order Details: 04/25/22 12:25:00 [facility], Heart Healthy Diet (Cardiac) PSO Place in Observation Order Details: Observation, Medicine, Truong, Marybel ACNP, Yes, ACUTE CHOLCYSTITIS WITH CHOLELITHIASIS, DREDGE PIPE INSTALLER:DR PACHECO LAMAS, 04/23/22 5:15:00 MST, 04/23/22 5:15:00 MST, 04/23/22 5:15:00 MST, pm_pso_link_preprocessing Discharge Diet Discharge Diet Order Details: 04/25/22 12:25:00 MST, Consistent Carbohydrate Discharge Diet Order Details: 04/25/22 12:25:00 MST, Heart Healthy Diet (Cardiac) Discharge Activity Discharge Activity Order Details: 04/25/22 12:25:00 MST, As tolerated Discharge Follow-up Instructions Follow-Up Details: Provider/Org Name: Tyler Post MD Within: 2 to 3 weeks Address: ;[id number]; Provider/Org Name: Glenys Oakes MD Within: 1 week Address: [address] [place] [id number]; ; Comments: Call for follow up appointment [...] Sana Cameron MD On 04/25/22 20:50 04/25/2022 [facility] History and Physicals Results Value Date Source History and Physical Patient: Karina JIANG Age: 76 years Sex: M : 1945 Active Insurance: MEDICARE A Admitting MD: Marybel Truong [facility] Location: [facility] 3A: 311: 01 PCP: Glenys Oakes [...] 20 RDW: 14.9 Creatinine: 1.14 Plt: 230 BUN/Ladle Filler Ratio: 17.5 MPV: 8 eGFRcr:67 (L) Calcium: [...] Co Signature By: Modify Signature By: 04/25/2022 [facility] History and Physical Patient: Karina JIANG Age: 76 years Sex: M : 1945 Active Insurance: MEDICARE A Admitting MD: Marybel Truong [facility] Location: [facility] 3A: 311: 01 PCP: Glenys Oakes [...] 20 RDW: 14.9 Creatinine: 1.14 Plt: 230 BUN/Ladle Filler Ratio: 17.5 MPV: 8 eGFRcr:67 (L) Calcium: [...] Tyler Post MD On 04/24/22 15:31 04/24/2022 [facility] History and Physical Patient: Karina JIANG Age: 76 years Sex: M : 1945 Active Insurance: MEDICARE A Admitting MD: Marybel Truong ACNP Location: [facility] 3A: 311: 01 PCP: Glenys Oakes MD Author: Sana Cameron MD [facility] Assessment/Plan #Acute calculus cholecystitis #Elevated lipase [...] your care Sana Cameron MD Internal Medicine [facility] Subjective On 04/24/2022. Patient overall [...] 20 RDW: 14.9 Creatinine: 1.14 Plt: 230 BUN/Ladle Filler Ratio: 17.5 MPV: 8 eGFRcr:67 (L) Calcium: [...] Cholelithiasis. No radiographic evidence of acute cholecystitis. [place] distended gallbladder consistent with hydrops. 2. Mild [...] available. FINDINGS: Liver: Normal. No masses. Gallbladder: Risk Management Intern notes positive Youngblood's sign. The gallbladder demonstrates layering density consistent with noncalcified stones or sludge. No gallbladder wall thickening. Biliary ducts: Normal. No stones. No dilation. Pancreas: Visualized pancreas is unremarkable. Right kidney: Normal. No mass. No hydronephrosis. Other findings: Risk Management Intern notes technically difficult exam secondary to patient body habitus and overlying bowel gas. IMPRESSION: Cholelithiasis. Positive crystallographer's Youngblood's sign consistent with acute cholecystitis. Medications [...] Sana Cameron MD On 04/24/22 15:18 04/24/2022 [facility] History and Physical Patient: Karina JIANG Age: 76 years Sex: M : 1945 Active Insurance: MEDICARE A Admitting MD: Marybel Truong [facility] Location: [facility] EDIP: ED08: 01 PCP: Glenys Oakes MD Author: Sana Cameron MD [facility] Chief Complaint Elephant sitting on [...] (H) RDW: 15.2 Creatinine:1.71 (H) Plt: 267 BUN/Ladle Filler Ratio: 15.8 MPV: 8 eGFRcr:41 (L) Neuts: 70.9 Calcium: 9.6 Lymphs: 19.8 Corrected Calcium: 9.4 Monos.: 6.1 Protein, Total: 7.3 Eos.: 2.6 Albumin: 4.2 Baso.: 0.6 Globulin: 3 ABS Neut: 7.9 A/G Ratio: 1 ABS Lymph: 2.2 Bili Total: 0.8 ABS [place]: 0.7 ALT: 42 ABS Eos: 0.3 AST:69 (H) ABS Baso: 0.1 Alkphos: 51 CBC Scan: Auto Diff Lipase:108.0 (H) nRBC Auto: 0 Lactic Acid: 1.2 Additional Diagnostic Results Radiology - Full Interpretation, This Encounter Name: JUAN JIANG Account: [id number] : 1945 Result Date: 04/23/22 04:30 Verified [...] available. FINDINGS: Liver: Normal. No masses. Gallbladder: Risk Management Intern notes positive Youngblood's sign. The gallbladder demonstrates layering density consistent with noncalcified stones or sludge. No gallbladder wall thickening. Biliary ducts: Normal. No stones. No dilation. Pancreas: Visualized pancreas is unremarkable. Right kidney: Normal. No mass. No hydronephrosis. Other findings: Risk Management Intern notes technically difficult exam secondary to patient body habitus and overlying bowel gas. IMPRESSION: Cholelithiasis. Positive crystallographer's Youngblood's sign consistent with acute cholecystitis. 04/23/22 [...] Cholelithiasis. No radiographic evidence of acute cholecystitis. [place] distended gallbladder consistent with hydrops. 2. Mild [...] wheezing bisacodyl 10 mg Supp: 10 mg, MT, Daily, PRN: Constipation Dextrose 50% (25gm) PF [...] 0.9%: 125 mL/hr, IV, Stop: 05/23/22 8:51:00 [facility] Assessment/Plan #Acute calculus cholecystitis #Elevated [...] your care Sana Cameron MD Internal Medicine [facility] Problem List/Past Medical History Ongoing [...] Sana Cameron MD On 04/23/22 20:51 04/23/2022 [facility] History and physical note Patient: JUAN JIANG Age: 76 years Sex: M : 1945 Active Insurance: MEDICARE A Admitting MD: Marybel Truong Location: [facility] EDIP: ED08: 01 PCP: Glenys Oakes MD Author: Sana Cameron MD [facility] Chief Complaint Elephant sitting on [...] MCHC:33.0 BUN:27 (H) RDW:15.2 Creatinine:1.71 (H) Plt:267 BUN/Ladle Filler Ratio:15.8 MPV:8 eGFRcr:41 (L) Neuts:70.9 Calcium:9.6 Lymphs:19.8 Corrected Calcium:9.4 Monos.:6.1 Protein, Total:7.3 Eos.:2.6 Albumin:4.2 Baso.:0.6 Globulin:3 ABS Neut:7.9 A/G Ratio:1 ABS Lymph:2.2 Bili Total:0.8 ABS [place]:0.7 ALT:42 ABS Eos:0.3 AST:69 (H) ABS Baso:0.1 Alkphos:51 CBC Scan:Auto Diff Lipase:108.0 (H) nRBC Auto:0 Lactic Acid:1.2 Additional Diagnostic Results Radiology - Full Interpretation, This Encounter Name:JUAN JIANG Account:[id number] :1945 Result Date:04/23/22 04:30 Verified By:Reinaldo Zavaleta [...] available. FINDINGS: Liver: Normal. No masses. Gallbladder: Risk Management Intern notes positive Youngblood's sign. The gallbladder demonstrates layering density consistent with noncalcified stones or sludge. No gallbladder wall thickening. Biliary ducts: Normal. No stones. No dilation. Pancreas: Visualized pancreas is unremarkable. Right kidney: Normal. No mass. No hydronephrosis. Other findings: Risk Management Intern notes technically difficult exam secondary to patient body habitus and overlying bowel gas. IMPRESSION: Cholelithiasis. Positive crystallographer's Youngblood's sign consistent with acute cholecystitis. 04/23/22 [...] Cholelithiasis. No radiographic evidence of acute cholecystitis. [place] distended gallbladder consistent with hydrops. 2. Mild [...] wheezing bisacodyl 10 mg Supp: 10 mg, MT, Daily, PRN: Constipation Dextrose 50% (25gm) PF [...] 0.9%: 125 mL/hr, IV, Stop: 04/07/23 8:51:00 [facility] Assessment/Plan #Acutecalculus cholecystitis #Elevated lipasewith [...] your care Sana Cameron MD Internal Medicine [facility] Problem List/Past Medical History Ongoing [...] Sana Cameron MD On 04/23/22 20:51 04/23/2022 [facility] Vital Signs Vital Sign Value Date Comments Source Glucose (POCT) 223 04/25/2022 [facility] Glucose Level (mg/dL) 190 04/25/2022 [facility] Glucose (POCT) 190 04/25/2022 [facility] Heart Rate (bpm) 84 04/25/2022 [facility] SPO2 97 04/25/2022 [facility] Respiratory Rate 18 Breaths/Min 04/25/2022 [facility] Temperature (c) 36.5 04/25/2022 [facility] Systolic (mm Hg) 127 04/25/2022 [facility] Diastolic (mm Hg) 77 04/25/2022 [facility] NIBP Mean 94 04/25/20[facility] Heart Rate (bpm) 100 04/25/2022 [facility] SPO2 97 04/25/2022 [facility] Respiratory Rate 20 Breaths/Min 04/25/2022 [facility] Temperature (c) 36.5 04/25/2022 [facility] Systolic (mm Hg) 128 04/25/2022 [facility] Diastolic (mm Hg) 81 04/25/2022 [facility] NIBP Mean 97 04/25/2022 [facility] Glucose Level (mg/dL) 199 04/25/2022 [facility] FIO2 - pt care 21 04/25/2022 [facility] SPO2 98 04/25/2022 [facility] Respiratory Rate 15 Breaths/Min 04/25/2022 [facility] Glucose (POCT) 152 04/25/2022 [facility] Heart Rate (bpm) 67 04/25/2022 [facility] SPO2 99 04/25/2022 [facility] Respiratory Rate 18 Breaths/Min 04/25/2022 [facility] Temperature (c) 36.8 04/25/2022 [facility] Systolic (mm Hg) 135 04/25/2022 [facility] Diastolic (mm Hg) 81 04/25/2022 [facility] NIBP Mean 99 04/25/2022 [facility] Heart Rate (bpm) 72 04/24/2022 [facility] SPO2 98 04/24/2022 [facility] Systolic (mm Hg) 132 04/24/2022 [facility] Diastolic (mm Hg) 77 04/24/2022 [facility] NIBP Mean 95 04/24/2022 [facility] Temperature (c) 36.7 04/24/2022 [facility] Glucose (POCT) 154 04/24/2022 [facility] Respiratory Rate 18 Breaths/Min 04/24/2022 [facility] Glucose Level (mg/dL) 175 04/24/2022 [facility] Glucose (POCT) 175 04/24/2022 [facility] Glucose (POCT) 189 04/24/2022 [facility] Heart Rate (bpm) 66 04/24/2022 [facility] SPO2 98 04/24/2022 [facility] Systolic (mm Hg) 112 04/24/2022 [facility] Diastolic (mm Hg) 67 04/24/2022 [facility] NIBP Mean 82 04/24/2022 [facility] Temperature (c) 36.8 04/24/2022 [facility] Respiratory Rate 18 Breaths/Min 04/24/2022 [facility] SPO2 95 04/24/2022 [facility] Respiratory Rate 18 Breaths/Min 04/24/2022 [facility] Glucose (POCT) 193 04/24/2022 [facility] Glucose Level (mg/dL) 193 04/24/2022 [facility] Glucose Level (mg/dL) 211 04/24/2022 [facility] Heart Rate (bpm) 74 04/24/2022 [facility] SPO2 97 04/24/2022 [facility] Systolic (mm Hg) 96 04/24/2022 [facility] Diastolic (mm Hg) 57 04/24/2022 [facility] NIBP Mean 70 04/24/2022 [facility] Respiratory Rate 18 Breaths/Min 04/24/2022 [facility] Temperature (c) 36.5 04/24/2022 [facility] Glucose (POCT) 224 04/24/2022 [facility] Heart Rate (bpm) 133 04/24/2022 [facility] Systolic (mm Hg) 115 04/24/2022 [facility] Diastolic (mm Hg) 67 04/24/2022 [facility] Heart Rate (bpm) 74 04/24/2022 [facility] Temperature (c) 36.4 04/24/2022 [facility] Systolic (mm Hg) 115 04/24/2022 [facility] Diastolic (mm Hg) 67 04/24/2022 [facility] Glucose Level (mg/dL) 161 04/24/2022 [facility] Height (cm) 177.8 04/24/2022 [facility] Drug Calc Weight (kg) 130.8 04/24/2022 [facility] BMI 41.38 04/24/2022 [facility] Glucose (POCT) 161 04/24/2022 [facility] Temperature (c) 36.7 04/24/2022 [facility] Glucose (POCT) 194 04/24/2022 [facility] Temperature (c) 36.7 04/24/2022 [facility] NIBP Mean 82 04/23/2022 [facility] Temperature (c) 37.1 04/23/2022 [facility] Glucose Level (mg/dL) 177 04/23/2022 [facility] Height (cm) 177.8 04/23/2022 [facility] Weight (kg) 124.717 04/23/2022 [facility] BMI 39.45 04/23/2022 [facility] Temperature (c) 36.4 04/23/2022 [facility] Sensory Deficits None (05/22/21 12:34 PM) 05/22/2021 [facility] Temperature (c) 36.8 05/22/2021 [facility] Systolic (mm Hg) 120 05/22/2021 [facility] Diastolic (mm Hg) 80 05/22/2021 [facility] Heart Rate (bpm) 69 05/22/2021 [facility] Respiratory Rate 20 Breaths/Min 05/22/2021 [facility] SPO2 97 05/22/2021 [facility] Height (cm) 177.8 05/22/2021 [facility] Drug Calc Weight (kg) 120.181 05/22/2021 [facility] Weight Method Stated (05/22/21 12:34 PM) 05/22/2021 [facility] BMI 38.02 05/22/2021 [facility] Encounters Location Location Details Encounter Type Encounter Number Reason For Visit Attending Provider ADM Date DC Date Status Source [facility] Emergency [id number] Aurbinderde ep Vanessa 05/22 [facility] Observation [id number] Marybel Truong 04/23 [facility] Prereg [id number] Tyler Post 04/25 [facility] Procedures Procedure Code Date Perfomer Comments Source COMPREHEN METABOLIC PANE 18174 04/25/2022 [facility] ASSAY OF AMYLASE 57004 04/25/2022 [facility] GLUCOSE BLOOD TEST 13174 04/25/2022 [facility] ASSAY OF LIPASE 63017 04/25/2022 [facility] ASSAY OF MAGNESIUM 86013 04/25/2022 [facility] COMPLETE CBC AUTOMATED 29334 04/25/2022 [facility] NON-COVERED ITEM OR SERV A9270 04/25/2022 [facility] HOSPITAL OBSERVATION PER G0378 04/25/2022 [facility] CEFTRIAXONE SODIUM INJEC J0696 04/25/2022 [facility] INJ HEPARIN SODIUM PER 1 J1644 04/25/2022 [facility] INS[facility] INJE[facility] J1815 [facility] MAGNESI[facility] SULFATE J3475 04/25/2022 [facility] DRUGS UNCLASSIFIED INJEC J3490 04/25/2022 [facility] NORMAL SALINE SOLUTION I J7030 04/25/2022 [facility] MRI ABDOMEN W/O DYE 62983 04/24/2022 [facility] COMPREHEN METABOLIC PANE 88273 04/24/2022 [facility] ASSAY OF AMYLASE 17536 04/24/2022 [facility] GLUCOSE BLOOD TEST 26978 04/24/2022 [facility] HEMOGLOBIN GLYCOSYLATED 30064 04/24/2022 [facility] ASSAY OF LIPASE 56441 04/24/2022 [facility] ASSAY OF MAGNESIUM 85232 04/24/2022 [facility] COMPLETE CBC AUTOMATED 90102 04/24/2022 [facility] MEASURE BLOOD OXYGEN LEV 56456 04/24/2022 [facility] NON-COVERED ITEM OR SERV A9270 04/24/2022 [facility] HOSPITAL OBSERVATION PER G0378 04/24/2022 [facility] CEFTRIAXONE SODIUM INJEC J0696 04/24/2022 [facility] INJ HEPARIN SODIUM PER 1 J1644 04/24/2022 [facility] INSULIN INJECTION J1815 04/24/2022 [facility] LORAZEPAM INJECTION J2060 04/24/2022 [facility] DRUGS UNCLASSIFIED INJEC J3490 04/24/2022 [facility] NORMAL SALINE SOLUTION I J7030 04/24/2022 [facility] ECHO EXAM OF ABDOMEN 82198 04/23/2022 [facility] COMPREHEN METABOLIC PANE 94518 04/23/2022 [facility] LIPID PANEL 44917 04/23/2022 [facility] GLUCOSE BLOOD TEST 67948 04/23/2022 [facility] ASSAY OF LACTIC ACID 52385 04/23/2022 [facility] ASSAY OF LIPASE 32760 04/23/2022 [facility] ASSAY OF NATRIURETIC PEP 72949 04/23/2022 [facility] ASSAY THYROID STIM HORMO 53485 04/23/2022 [facility] ASSAY OF TROPONIN QUANT 75834 04/23/2022 [facility] COMPLETE CBC W/AUTO DIFF 86413 04/23/2022 [facility] ELECTROCARDIOGRAM TRACIN 97718 04/23/2022 [facility] TTE W/DOPPLER COMPLETE 29367 04/23/2022 [facility] POS AIRWAY PRESSURE CPAP 05837 04/23/2022 [facility] NON-COVERED ITEM OR SERV A9270 04/23/2022 [facility] HOSPITAL OBSERVATION PER G0378 04/23/2022 [facility] DRUG TEST DEF 1-7 CLASSE G0480 04/23/2022 [facility] AMPICILLIN SULBACTAM 1.5 J0295 04/23/2022 [facility] CEFTRIAXONE SODIUM INJEC J0696 04/23/2022 [facility] INJ HEPARIN SODIUM PER 1 J1644 04/23/2022 [facility] INSULIN INJECTION J1815 04/23/2022 [facility] DRUGS UNCLASSIFIED INJEC J3490 04/23/2022 [facility] NORMAL SALINE SOLUTION I J7030 04/23/2022 [facility] Cataract surgery (procedure) [id number] 02/16/2021 with lenses [facility] 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) [id number] bilateral [facility] Hydrocele (morphologic abnormality) [id number] [facility] Adenoid excision (procedure) [id number] [facility] Tonsillectomy (procedure) [id number] [facility] Social History Social History Date Source Social History TypeResponse Smoking Status Never (less than 100 in lifetime) entered on: 04/23/22 Sex Male [facility] Social History TypeResponse Smoking Status Never (less than 100 in lifetime) entered on: 04/23/22 Sex Male [facility] Social History TypeResponse Smoking Status Never (less than 100 in lifetime) entered on: 05/22/21 Sex 05/22/2021 [facility] Assessment and Plan Result Assessment and Plan Date Source Assessment and Plan No data available for this section 07/25/2022 [facility] Assessment and Plan Extracted from:Title : Discharge [...] Marybel ACNP, Yes, ACUTE CHOLCYSTITIS WITH CHOLELITHIASIS, 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 We will see the patient 1.Acute [id number] 2.MeuhiaxlnuafmvP21.20 Extracted from:Title: Gen Surg Consult Note Author: Tyler Post MD Date: 04/23/22 1.Acute [id number] possible early vs other diagnosis Ordered: 2.FjsqajjpvuwjegR68.20 Ordered: Plan- Long discussion but not clearly [...] your care Sana Cameron MD Internal Medicine [facility] 04/25/2022 [facility] Assessment and Plan No data available for this section 05/22/2021 [facility] Family History Results Value Date Source Family History No data available for this section 10/2022 [facility]
[2022-08-30] MEDS: DOCUSATE SODIUM/BENZOCAINE 5 ML ENEMA PR (16:50)
--- NOTE | 2022-08-30 16:50 | ED.NURSE ---
up to the bathroom and given enemeez. sitting on the toilet in hopes to eliminate the stool.
[2022-08-30] MEDS: MAGNESIUM HYDROXIDE 30 ML ORAL.SUSP PO (17:30)
--- NOTE | 2022-08-30 17:36 | ED.NURSE ---
patient feels better and had a large amount of results. stated feels ready to go home.
[2022-08-30 18:06] VITALS: BP 113/95; PULSE 81; RESP 18; TEMP 36.2
== END 2022-08-30 18:06 | disposition home or self-care (01) ==
PROVIDERS: Emergency Provider Emergency Medicine
DX: K59.00 Constipation, unspecified (principal)
CPT/HCPCS: 99282; 99283; 99284; A9270

== ENCOUNTER 2023-08-26 10:58 | Outpatient (CLI) | payer MEDICARE, BC, SELFPAY ==
--- OUTSIDE RECORDS SUMMARY | 2023-08-26 11:03 | XMS_ITS | Clinical Summary ---
Author Organization [facility] Address [place], [place] [address] Care Team Providers Care Demolition Specialist Name Role Phone Elisabet Norris MD Primary Care Provider [phone] Allergies No known active allergies Medications Medication Sig Dispensed Refills Start Date End Date Status Fish Oil-[place]-3 Fatty Acids (ONE-PER-DAY OMEGA-3) 684-1,200 mg capsule Take 2 capsules by mouth 2 times daily. 0 06/25/2011 Active aspirin enteric coated 81 mg tablet Take 1 tablet by mouth once daily with a meal. 0 08/26/2011 Active glipiZIDE (GLUCOTROL XL) 2.5 mg Extended-Release tablet Take 1 tablet by mouth once daily before a meal. (breakfast). 90 tablet 1 08/25/2012 Active Cholecalciferol, Vitamin D3, (VITAMIN D-3) 2,000 unit tablet Take 1 tablet by mouth once daily. 0 09/02/2012 Active blood sugar diagnostic (ASCENSIA CONTOUR) stripIndications:Ty pe 2 diabetes, HbA1c goal < 7% (HC) Dispense test strips covered by the patient insurance. Test on average ONE time per day. 100 Each 2 09/30/2012 Active lisinopril (PRINIVIL; ZESTRIL) 10 mg tablet Take 1 tablet by mouth once daily. For high blood pressure 90 tablet 0 10/04/2012 Active simvastatin (ZOCOR) 20 mg tabletIndications:H yperlipidemia LDL goal < 100,Type 2 diabetes, HbA1c goal < 7% (HC) TAKE 1 TABLET BY MOUTH ONCE DAILY WITH EVENING MEAL 90 tablet 0 07/03/2013 Active metoprolol succinate SR (TOPROL XL) 50 mg Sustained-Release tabletIndications:H TN (hypertension) TAKE 1 TABLET BY MOUTH EVERY DAY FOR HIGH BLOOD PRESSURE 90 tablet 0 07/03/2013 Active metFORMIN (GLUCOPHAGE) 1,000 mg tabletIndications:T ype 2 diabetes, HbA1c goal < 7% (HC) Take 1 tablet by mouth twice daily 135 tablet 1 07/25/2014 Active finasteride (PROSCAR) 5 mg tablet Take 1 tablet by mouth every morning. 0 07/25/2014 Active loratadine (CLARITIN) 10 mg tablet Take 1 tablet by mouth once daily. 0 07/25/2014 Active ibuprofen (ADVIL; MOTRIN) 200 mg tablet Take 1 tablet by mouth 4 times daily if needed. 0 07/25/2014 Active hydrocortisone 1 % ointmentIndications :Leg skin lesion, right Apply topically to affected area(s) 2 times daily. 1 Tube 08/31/2018 Active diphenhydrAMINE (BENADRYL) 25 mg tabletIndications:L eg skin lesion, right Take 1 tablet by mouth every 4 hours if needed. 30 tablet 08/31/2018 Active Active Problems Problem Noted Date Diagnosed Date Hip osteoarthritis 07/21/2011 HTN (hypertension) 07/06/2011 Type 2 diabetes, HbA1c goal < 7% Overview: Hyperlipidemia LDL goal < 100 Obesity Elevated PSA Overview: PSA 7.9, Urology consult 10/20 CALEB (obstructive sleep apnea) Overview: using CPAP Immunizations Name Administration Dates Next Due Pneumococcal Poly,23-Valent (Pneumovax) 07/22/19 12 Tdap 03/24/2008 Family History Medical History Relation Name Comments Cancer Brother 1 Enrique skin [place] Cancer Brother 2 Christian skin [place] Heart Disease Father CABG, pacer in late 80s, 98yo Cancer Maternal Aunt Beatriz Ovarian [place] Other Maternal Grandfather 87 yo, Parkinsons Cancer Maternal Grandmother 70 s, Ovarian [place] Stroke Mother in 40s, 86 yo, Altzheimers Cancer Other Cousin Lisa Ovarian [place], [facility] A-1 pos; 40s Heart Disease Paternal Grandfather 6 0s, [place] Other Paternal Grandmother 96 yo Good Health Sister Malissa Relation Name Status Comments Brother 1 Enrique Brother 2 Christian Father Maternal Aunt Beatriz Maternal Grandfather Maternal Grandmother Mother Other Cousin Lisa Paternal Grandfather Paternal Grandmother Sister Malissa Social History Tobacco Use Types Packs/Day Years Used Date Smoking Tobacco: Never Smokeless Tobacco: Never Tobacco Cessation:Counseling Given: No Comments:n/a Alcohol Use Standard Drinks/Week Comments No 0 (1 standard drink = 0.6 oz pur e alcohol) Sex and Gender Information Value Date Recorded Sex Assigned at Not on file Gender Identity Not on file Sexual Orientation Not on file Obstetrics History Last Filed Vital Signs Vital Sign Reading Time Taken Comments Blood Pressure 140/70 09/12/2020 9:19 AM CDT Pulse 88 09/12/2020 9:19 AM CDT Temperature 36.7 ??C (98 ??F) 09/12/2020 8:23 AM CDT Respiratory Rate 18 09/12/2020 9:19 AM CDT Oxygen Saturation 98% 09/12/2020 9:19 AM CDT Inhaled Oxygen Concentration - - Weight 120.2 kg (265 lb) 09/12/2020 8:23 AM CDT Height 179.1 cm (5' 10.5) 09/12/2020 8:23 AM CD T Body Mass Index 37.49 09/12/2020 8:23 AM CDT Plan of Treatment Health Maintenance Due Date Last Done Comments Depression screening for age 12+ 1958 BMI (ht and wt on same day) for age 18+ 1964 Hepatitis C screening for age 18-79 1964 Zoster (shingles) series for age 50+ (1 of 2) 07/05/18 97 Pneumococcal series for age 65+ (2 of 2 - PCV) 013 07/22/2011 Tetanus booster 03/24/2018 03/24/2008 COVID-19 vaccine series (2022-24 season) 3 Influenza for age 65+ 10/18/2023 Tdap Completed 03/24/2008 Medical Devices Implanted Type Area Holter Technician Device Identifier Shelf Expiration Date Model / Serial / Lot Screw Bone [id number] Self Tapping Gabbie - [id number] Implanted:Qty: 1 on 07/21/2011 by Rickey Lloyd MD at [facility] Ortho Imp.,Screws & Plates Left: Hip [employer] 12/16/2020 # / / [id number] Liner Poly 60x36 0 Deg Xlpe - [id number] Implanted:Qty: 1 on 07/21/2011 by Rickey Lloyd MD at [facility] Left: Hip [employer] 06/15/2013 # / / [id number] Shell Trilogy 60mm Cluster/Holed 6200-060-22 Gabbie - [id number] Implanted:Qty: 1 on 07/21/2011 by Rickey Lloyd MD at [facility] Left: Hip [employer] 09/15/2020 # / / [id number] Taper M/L Sz 13.5 Std Offset - [id number] Implanted:Qty: 1 on 07/21/2011 by Rickey Lloyd MD at [facility] Left: Hip [employer] 03/18/2021 7711-13# / / [id number] Fem Head 36mm +3.5 Biolox Delta - [id number] Implanted:Qty: 1 on 07/21/2011 by Rickey Lloyd MD at [facility] [employer] 11/15/2020 00-8775 -03 6-03# / / [id number] Advance Directives * Full Code (Latest Code Status on File) Date Activated Date Inactivated Comments 07/21/2011 11:19 AM 07/24/2011 3:23 PM * Full Code Date Activated Date Inactivated Comments 07/21/2011 6:38 AM 07/21/2011 11:19 AM Care Teams Demolition Specialist Relationship Specialty Start Date End Date Elisabet Norris MD [address] [place] [address] PCP - General Family Practice 08/03/18
--- OUTSIDE RECORDS SUMMARY | 2023-08-26 11:03 | XMS_ITS | Clinical Summary ---
Author Organization [facility] Address [address] [place] [address] Care Team Providers Care Director Of Accounts Payable Name Role Phone Clinician, Not Found MD Primary Care Provider Un available Source Comments You are receiving this document as you are listed as the primary care provider,follow-up provider, or the patient has been referred to you for consultation.This is in compliance with the Medicare and[facility] Incentive [facility],which states Providers who transition their patient to another setting of careor provider of care or refers their patient to another provider of care shouldprovide summary care record for each transition of care or referral. Holvi Allergies No known active allergies Medications Medication Sig Dispensed Refills Start Date End Date Status metFORMIN (AKA GLUCOPHAGE) 500 MG tablet Take 500 mg by mouth 2 times daily (with meals). 10/27/2011 Active blood glucose disk by [facility].(Non-Drug; Combo Route) route. 10/27/2011 Active metoPROLOL succinate (AKA TOPROL XL) 50 MG 24 hour release tablet Take 50 mg by mouth daily (every 24 hours). 10/27/2011 Active simvastatin (AKA ZOCOR) 20 MG tablet Take 20 mg by mouth nightly. 10/27/2011 Active Fluticasone Propionate, Inhal, 50 MCG/BLIST inhalation Inhale 1 puff 2 times daily. Rinse mouth/Gargle after use 10/27/2011 Active [place]-3 Fatty Acids (SUPER OMEGA 3 EPA/DHA OR) Take by mouth. 10/27/2011 Active XARELTO 20 MG tablet TK 1 T PO D 1 05/05/2018 Act enrique potassium chloride 8 MEQ controlled release capsule TK ONE C PO QD 6 06/04/2018 Active INVOKANA 100 MG TABS TK 1 T PO QAM B FIRST MEAL OF THE DAY 1 05/07/2018 Active cephalexin (KEFLEX) 500 MG capsule TK 1 C PO TID FOR 7 DAYS 0 07/26/2018 Active chlorthalidone (HYGROTON) 25 MG tablet TK 1 T PO D 6 05/03/2018 Active cholecalciferol (VITAMIN D-3 SUPER STRENGTH) 2000 units tablet Take 2,000 Units by mouth. 09/02/2012 Active FARXIGA 5 MG TABS TK 1 T PO D 3 06/04/2018 Active finasteride (PROSCAR) 5 MG tablet TK 1 T PO QD 2 06/20/2018 Active glipiZIDE XL (GLUCOTROL XL) 2.5 MG 24 hour release tablet 1 06/04/2018 Ac tive lisinopril (ZESTRIL) 10 MG tablet TK 1 T PO D 2 06/22/2018 Active loratadine (CLARITIN) 10 MG tablet Take 10 mg by mouth. 07/25/2014 Active LORazepam (ATIVAN) 1 MG tablet TK 1 T PO BID FOR 5 DAYS 0 05/29/2018 Active JANUMET XR 50-500 MG TB24 Take 1 Tablet by mouth two times a day. 09/11/2020 Active Active Problems Problem Noted Date Diagnosed Date CALEB (obstructive sleep apnea) 10/27/2011 Overview: Setting: Auto 06/30 Supplied by: [facility] PSG done: 09-29-11 AHI 26 RDI 35 Lowest O2 Sat: 85% Medicare change 11-29-12 ; Moderate CALEB (obstructive sleep apnea) HTN (hypertension) 10/27/2011 DM (diabetes mellitus) 10/27/2011 Immunizations Name Administration Dates Next Due PPSV23 (Pneumovax) 07/22/2011 Tdap 03/24/2008 Social History Tobacco Use Types Packs/Day Years Used Date Smoking Tobacco: Never Smokeless Tobacco: Never Alcohol Use Standard Drinks/Week Comments Never 0 (1 standard drink = 0.6 oz pur e alcohol) AUDIT-C Answer Date Recorded Frequency of Alcohol Consumption Never 07/28/2018 Average Number of Drinks Not on file Frequency of Binge Drinking Not on file 07/17 PHQ-2 Answer Date Recorded PHQ-2 Score 0 09/14/2020 Sex and Gender Information Value Date Recorded Sex Assigned at Not on file Gender Identity Not on file Sexual Orientation Not on file Last Filed Vital Signs Vital Sign Reading Time Taken Comments Blood Pressure 118/80 09/14/2020 3:01 PM CDT Pulse 82 09/14/2020 3:01 PM CDT Temperature - - Respiratory Rate - - Oxygen Saturation 98% 12/01/2011 9:58 AM CDT Inhaled Oxygen Concentration - - Weight 121.1 kg (267 lb) 07/28/2018 2:14 PM CDT Height 180.3 cm (5' 11) 10/27/2011 2:51 PM CDT Body Mass Index 37.24 10/27/2011 2:51 PM CDT Plan of Treatment Health Maintenance Due Date Last Done Comments Diabetes: Creatinine 1946 Diabetes: Eye Exam 1946 Diabetes: Foot Exam 1946 Diabetes: HGBA1C 1946 Diabetes: Lipid Panel 1946 Diabetes: Urine Microalbumin 1946 Hep C Screening (Preventive Services) 1945 Medicare Annual Wellness Visit 1946 Zoster/Shingles (1 of 2) 1996 Pneumococcal 65+ Yrs (2 - PCV) 07/21/2012 07/22/2011 DTaP/Tdap/Td (2 - Tdap) 03/24/2018 03/24/2008 COVID-19 Vaccine (1 - 2022-2 4 season) 2022 Influenza (#1) 2023 HepA Aged Out No longer eligi ble based on patient's age to complete this topic HepB Aged Out No longer eligi ble based on patient's age to complete this topic Hib Aged Out No longer eligi ble based on patient's age to complete this topic IPV (Polio) Aged Out No longer eligi ble based on patient's age to complete this topic MCV4 Aged Out No longer eligi ble based on patient's age to complete this topic Care Teams Director Of Accounts Payable Relationship Specialty Start Date End Date Clinician, Not Found, [place] [address] PCP - General 07/29/18
== END 2023-08-26 10:59 | disposition home or self-care (01) ==
PROVIDERS: Visit Provider Internal Medicine
DX: E11.42 Type 2 diabetes mellitus with diabetic polyneuropathy (principal); E78.5 Hyperlipidemia, unspecified; I10 Essential (primary) hypertension
CPT/HCPCS: 80053; 80061; 82043; 82570

== ENCOUNTER 2023-11-15 14:50 | Emergency (ER) | payer MEDICARE, BC, SELFPAY ==
--- OUTSIDE RECORDS SUMMARY | 2023-11-15 14:53 | XMS_ITS | Clinical Summary ---
Author Organization [facility] Address [place], [place] [address] Care Team Providers Care Chemic Mangler Name Role Phone Elisabet Norris MD Primary Care Provider [phone] Allergies No known active allergies Medications Medication Sig Dispensed Refills Start Date End Date Status Fish Oil-[place]-3 Fatty Acids (ONE-PER-DAY OMEGA-3) 684-1,200 mg capsule [...] Type 2 diabetes, HbA1c goal < 7% Overview (03/19/2009): Hyperlipidemia LDL goal < 100 Obesity Elevated PSA Overview (03/30/2008): PSA 7.9, Urology consult 10/20 CALEB (obstructive sleep apnea) Overview (10/08/2012): using CPAP Immunizations Name Administration Dates Next [...] Altzheimers Cancer Other Cousin Lisa Ovarian [place], [facility] A-1 pos; 40s Heart Disease Paternal Grandfather 6 0s, [place] Other Paternal Grandmother 96 yo Good Health [...] PCV) 013 07/22/2011 Tetanus booster 03/24/2018 03/24/2008 RSV vaccine for adults or pr egnancy (1 - 1-dose 75+ series) 2021 COVID-19 vaccine series ( - 2023- season) 4 Influenza for age 65+ 10/18/2023 Tdap Completed 03/24/2008 Medical Devices Implanted Type Area Fender Repairer Device Identifier Shelf Expiration Date Model / Serial / Lot Screw Bone [id number] Self Tapping Gabbie - [id number] Implanted:Qty: 1 on 07/21/2011 by Rickey Lloyd MD at [facility] Ortho Imp.,Screws & Plates Left: Hip [employer] 12/16/2020 # / / [id number] Liner Poly 60x36 0 Deg Xlpe - [id number] Implanted:Qty: 1 on 07/21/2011 by Rickey Lloyd MD at [facility] Left: Hip [employer] 06/15/2013 # / / [id number] Shell Trilogy 60mm Cluster/Holed 6200-060-22 Gabbie - [id number] Implanted:Qty: 1 on 07/21/2011 by Rickey Lloyd MD at [facility] Left: Hip [employer] 09/15/2020 # / / [id number] Taper M/L Sz 13.5 Std Offset - [id number] Implanted:Qty: 1 on 07/21/2011 by Rickey Lloyd MD at [facility] Left: Hip [employer] 03/18/2021 7711-13# / / [id number] Fem Head 36mm +3.5 Biolox Delta - [id number] Implanted:Qty: 1 on 07/21/2011 by Rickey Lloyd MD at [facility] [employer] 11/15/2020 00-8775 -03 6-03# / / [id number] Advance Directives * Full Code (Latest Code Status on File) Date Activated Date Inactivated Comments 07/21/2011 11:19 AM 07/24/2011 3:23 PM * Full Code Date Activated Date Inactivated Comments 07/21/2011 6:38 AM 07/21/2011 11:19 AM Care Teams Chemic Mangler Relationship Specialty Start Date End Date Elisabet Norris MD [address] [place], [place] [address]y [address] [place] [address] PCP - General Family Practice 08/03/18
--- OUTSIDE RECORDS SUMMARY | 2023-11-15 14:53 | XMS_ITS | Patient Health Record ---
Author Organization [facility], Address [address] [place] [address] Care Team Providers Care Belt Measurer Name Role Phone Lorenza Daughertyn Unavailable [phone] Brayden Taveras MD Unavailable Unavailable Reason For Referral No Information Medications Medication SIG (Take, Route, Frequency, Duration) Notes [...] Simvastatin 40 MG Oral 03/21/2019 A ctive Problems Problem Type SNOMED Code ICD Code Onset Dates Problem Status W/U Status Risk Notes Problem H90.J71-Ybpxjmtq e ural hearing loss, unilateral, right ear, with restricted hearing on the contralateral side (H90.A21) 0 Active confirmed Problem Dysfunction of left eustachian tube (disorder) (21266509567824 06) H69.82-Eustachian tube dysfunction, left ear (H69.82) 0 Active confirmed Problem Acute suppurative otitis media without spontaneous rupture of ear drum (03708922) H66.002-Acute suppurative otitis media without spontaneous rupture of ear drum, left ear (H66.002) 0 Active confirmed Problem H90.S16-Ujmbb conductive and sensorineural hearing loss, unilateral, 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 side (H90.A32) 0 Active confirmed Plan Of Treatment No Information Insurance Providers Payer Name Payer Address Payer Phone Subscriber Number Group Number Insured Name Patient Relationship to Insured Coverage Start Date Coverage End Date Medicare Part B [employer] [address] [place] [phone] [id number] Parvin Hoff Self - patient is the insured [facility]ly [facility], [facility] [address] [place] [address] [id number] Parvin Hoff Self - patient is the insured Medical (General) History Surgical History Surgery Date(Month/Year) BMT Tonsillectomy and adenoidectomy
--- OUTSIDE RECORDS SUMMARY | 2023-11-15 14:53 | XMS_ITS | Clinical Summary ---
Author Organization [facility] Address [address] [place] [address] Care Team Providers Care Distillery Worker Name Role Phone Clinician, Not Found MD Primary Care Provider Un available Source Comments You are receiving this document as you are listed as the primary care provider,follow-up provider, or the patient has been referred to you for consultation.This is in compliance with the Medicare and[facility] E[facility] Incentive Program,which states Providers who transition their patient to another setting of careor provider of care or refers their patient to another provider of care shouldprovide summary care record for each transition of care or referral. [place] Allergies No known active allergies Medications Medication Sig Dispensed Refills Start Date End Date Status metFORMIN (AKA GLUCOPHAGE) 500 MG tablet Take 500 mg by mouth 2 times daily (with meals). 10/27/2011 Active blood glucose disk by [facility].(Non-Drug; Combo Route) route. 10/27/2011 Active metoPROLOL succinate (AKA TOPROL XL) 50 MG 24 hour release tablet Take 50 mg by mouth daily (every 24 hours). 10/27/2011 Active simvastatin (AKA ZOCOR) 20 MG tablet Take 20 mg by mouth nightly. 10/27/2011 Active Fluticasone Propionate, Inhal, 50 MCG/BLIST inhalation Inhale 1 puff 2 times daily. Rinse mouth/Gargle after use 10/27/2011 Active [place]-3 Fatty Acids (SUPER OMEGA 3 EPA/DHA OR) [...] Diagnosed Date CALEB (obstructive sleep apnea) 10/27/2011 Overview (10/08/2016): Setting: Auto 06/30 Supplied by: [facility] PSG done: 09-29-11 AHI 26 RDI 35 [...] 07/22/2011 DTaP/Tdap/Td (2 - Tdap) 03/24/2018 03/24/2008 RSV (1 - 1-dose 75+ series) 2021 COVID-19 Vaccine ( - 2023-2 5 season) 2023 Influenza (#1) 2023 HepA Aged Out No [...] age to complete this topic Care Teams Distillery Worker Relationship Specialty Start Date End Date Clinician, Not Found, [place] [address] PCP - General 07/29/18
[2023-11-15 15:28] VITALS: BP 102/59; PULSE 75; RESP 22; TEMP 36.7; O2SAT 97; BMI 40.3
--- NOTE | 2023-11-15 16:05 | ED.GENADULT ---
HPI - General Adult General Chief complaint: Diabetic Related Problem Stated complaint: DKA? 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 He is on insulin long-acting in the morning and then he takes regular insulin as well. He noted at 1 time was up to 400. No it has been in the 221 range last time he checked it. He has not changed his insulin dosages res been eating normal food he has. He is completely asymptomatic he has no chest pain, shortness of breath, fever chills illness cough flank pain or dysuria frequency. Related Data Home Medications ?Medication ?Instructions ?Recorded ?Confirmed dapagliflozin propanediol 10 mg 10 mg PO DAILY 09/25/21 10/14/23 tablet (Farxiga) finasteride 5 mg tablet 5 mg PO DAILY 09/25/21 10/14/23 insulin aspart U-100 100 unit/mL 15 unit subcut 09/25/21 10/14/23 (3 mL) subcutaneous pen (Novolog FlexPen U-100 Insulin aspart) insulin detemir U-100 100 unit/mL 54 unit subcut DAILY 09/25/21 10/14/23 (3 mL) subcutaneous pen (Levemir FlexTouch U-100 Insulin) lisinopril 10 mg tablet 10 mg PO DAILY 09/25/21 10/14/23 potassium chloride 8 mEq 8 meq PO DAILY 09/25/21 10/14/23 capsule,extended release sitagliptin phos 50 mg-metformin 2 tab PO DAILY 09/25/21 10/14/23 ER 500 mg tablet,extended rel 24h mp (Janumet XR) metoprolol tartrate 25 mg tablet 12.5 mg PO BID 08/30/22 10/14/23 Previous Rx's ?Medication ?Instructions ?Recorded lorazepam 0.5 mg tablet (Ativan) 0.5 mg PO BID PRN #14 tabs 10/02/21 furosemide 20 mg tablet (Lasix) 20 mg PO DAILY Edema #30 tabs 10/03/21 lorazepam 1 mg tablet 1 mg PO QDAY PRN anxiety #30 tabs 10/03/21 rivaroxaban 10 mg tablet (Xarelto) 10 mg PO Q24H #60 tabs 09/10/23 rosuvastatin 20 mg tablet 20 mg PO DAILY #90 tabs 09/10/23 ciprofloxacin 0.3 %-dexamethasone 4 drp otic (ear) TID 5 days #7.5 mL 10/14/23 0.1 % ear drops,suspension (Ciprodex) chlorthalidone 25 mg tablet 25 mg PO DAILY #30 tabs 10/29/23 Allergies Allergy/AdvReac Type Severity Reaction Status Date / Time No Known Drug Allergies Allergy Verified 10/14/23 13:45 Review of Systems Status of ROS: Reports: 6 or more systems reviewed and unremarkable except as noted in History and below [facility] Medical History Ear fullness ?H93.8X9 - Other specified disorders of ear, unspecified ear (ICD-10) History of CHF (congestive heart failure) ?Z86.79 - Personal history of other diseases of the circulatory system (ICD-10) Dyspnea on exertion ?R06.09 - Other forms of dyspnea (ICD-10) Type 2 diabetes mellitus with diabetic polyneuropathy ?E11.42 - Type 2 diabetes mellitus with diabetic polyneuropathy (ICD-10) Osteoarthritis of multiple joints ?M15.9 - Polyosteoarthritis, unspecified (ICD-10) Chronic kidney disease, stage 3 ?N18.30 - Chronic kidney disease, stage 3 unspecified (ICD-10) Asthma ?J45.909 - Unspecified asthma, uncomplicated (ICD-10) Benign prostatic hyperplasia ?N40.0 - Benign prostatic hyperplasia without lower urinary tract symptoms (ICD-10) Cerebrovascular disease ?I67.9 - Cerebrovascular disease, unspecified (ICD-10) Hyperlipidemia ?E78.5 - Hyperlipidemia, unspecified (ICD-10) residential current use of anticoagulant therapy ?Z79.01 - residential (current) use of anticoagulants (ICD-10) Hypertension ?I10 - Essential (primary) hypertension (ICD-10) Obstructive sleep apnea syndrome ?G47.33 - Obstructive sleep apnea (adult) (pediatric) (ICD-10) Unsteady gait ?R26.81 - Unsteadiness on feet (ICD-10) Acquired left foot drop ?M21.372 - Foot drop, left foot (ICD-10) Hearing loss of both ears ?H91.93 - Unspecified hearing loss, bilateral (ICD-10) Edema ?R60.9 - Edema, unspecified (ICD-10) History of pulmonary embolism (09/26/16) ?Z86.711 - Personal history of pulmonary embolism (ICD-10) History of cerebrovascular accident ?Z86.73 - Personal history of transient ischemic attack (TIA), and cerebral infarction without residual deficits (ICD-10) Spinal stenosis ?M48.00 - Spinal stenosis, site unspecified (ICD-10) Anxiety ?F41.9 - Anxiety disorder, unspecified (ICD-10) Surgical History History of cataract surgery ?Z98.49 - Cataract extraction status, unspecified eye (ICD-10) History of tonsillectomy and adenoidectomy (1952) ?Z90.89 - Acquired absence of other organs (ICD-10) History of excision of pilonidal cyst (1971) ?Z98.890 - Other specified postprocedural states (ICD-10) History of hydrocelectomy (1977) ?Z98.890 - Other specified postprocedural states (ICD-10) History of total replacement of both hip joints ?Z96.643 - Presence of artificial hip joint, bilateral (ICD-10) History of vasectomy (1977) ?Z98.52 - Vasectomy status (ICD-10) Family History Father CHF (congestive heart failure) Heart disease Mother Alzheimers disease Heart disease Myocardial infarction, Onset Age: 44 Maternal Grandfather Coronary artery disease Parkinson disease Paternal Grandfather Heart disease Myocardial infarction, Onset Age: 60 Maternal Grandmother Ovarian cancer Aunt Ovarian cancer Sister Ovarian cancer BRCA1 positive Social History What is your current living situation?: I presently have a place to live Problems where you live: no known problems In the past 12 months, utilities in danger of being shut off: no In past 12 months, lack of transportation kept you from medical appts, meetings, work, or getting things needed for daily living: no In the past 12 mos, have been you worried that your food would run out before you had money to buy more?: never true In the past 12 mos, the food you bought just didn't last and you didn't have money to buy more?: never true Smoking Status: Never smoker Do you use any of these nicotine containing products: None Second hand tobacco smoke exposure: No How often do you have a drink containing alcohol: never How many standard drinks containing alcohol do you have on a typical day: 1 or 2 How often do you have six or more drinks on one occasion: Never AUDIT-C Alcohol total score: 0 Non-prescribed substance use: denies use How often does anyone, including family, friends and others, physically hurt you: never How often does anyone, including family, friends and others, insult or talk down to you: never How often does anyone, including family, friends and others, threaten you with harm: never How often does anyone, including family, friends and others, scream or curse at you: never Little interest or pleasure in doing things: not at all Feeling down, depressed, or hopeless: not at all service: No Exam Narrative: Exam Narrative: The patient's vital signs look within normal limits He is alert orient x3 no distress No scleral icterus Neck is supple Chest clear Heart rhythm regular without murmur Abdomen benign soft nontender Extremities are no edema neurologic nonfocal Const: Vital Signs, click to edit/add: Vital Signs - 24 hr 11/15/23 15:28 Temperature 98.1 F Pulse Rate [Pulse Oximeter] 75 Respiratory Rate 22 Blood Pressure [Ri ght Upper Arm] 102/59 L Pulse Oximetry 97 Oxygen Delivery Me thod Room Air Course Vital Signs Vital signs: Initial Vital Signs Temperature 98.1 F 11/15/23 15:28 Temperature Source Temporal Artery Scan 11/15/23 15:28 Pulse Rate 75 11/15/23 15:28 Respiratory Rate 22 11/15/23 15:28 Blood Pressure 102/59 L 11/15/23 15:28 Blood Pressure Mean 73 11/15/23 15:28 Blood Pressure Position Sitting 11/15/23 15:28 Pulse Oximetry 97 11/15/23 15:28 Oxygen Delivery Method Room Air 11/15/23 15:28 Vital Signs Temperature 98.1 F 11/15/23 15:28 Pulse Rate 75 11/15/23 15:28 Respiratory Rate 22 11/15/23 15:28 Blood Pressure 102/59 L 11/15/23 15:28 Pulse Oximetry 97 11/15/23 15:28 Oxygen Delivery Method Room Air 11/15/23 15:28 Temperature 98.1 F 11/15/23 15:28 Pulse Rate 75 11/15/23 15:28 Respiratory Rate 22 11/15/23 15:28 Blood Pressure 102/59 L 11/15/23 15:28 Pulse Oximetry 97 11/15/23 15:28 Oxygen Delivery Method Room Air 11/15/23 15:28 Medical Decision Making MDM Narrative Medical decision making narrative: 78-year-old white male with insulin and diabetes who has had some irregular blood sugars between 90 in 400 last couple of days. He has not changes diet. I think will check his laboratory studies check an EKG and check a urinalysis make sure he does not have a precipitating cause for elevated blood sugar. Then he needs to just manage this and observe he plans on are being back [facility]. Will discuss when we get his lab test back. Addendum 5:16 p.m. the patient's EKG shows sinus rhythm with first-degree AV block right bundle-branch block as well no acute ST T wave changes. This is by my read. He has a urinalysis looks unremarkable a CBC and a Chem profile of look unremarkable. His blood sugar is 86 on his panel. He may wish to get a another blood glucose monitor as this may be not working well. Would recommend continue to monitor and use his regular long-acting insulin the morning and then is regular as needed. He was comfortable this will be I recommended that he eat small frequent meals as well and probably monitor his blood sugar at least 4 times a day for the next few days. He will recheck with regular doctor [place]. Lab Data Labs: Lab Results 11/15/23 11/15/23 Range/Units 16:25 16:35 WBC 11.19 H (4.50-11.00) K/uL RBC 4.72 (4.30-5.90) m/uL Hgb 13.7 (13.5-17.5) gm/dL Hct 42.9 (37.0-53.0) % MCV 91 (80-100) fL MCH 29 (26-34) pg MCHC 32 (32-36) gm/dL RDW Coeff of Christie 14.5 (11.5-15.5) % Plt Count 234 (140-440) K/uL Neut % (Auto) 72.5 H (42.0-72.0) % Lymph % (Auto) 17.6 L (20-44) % [place]iance % (Auto) 7.2 (0.0-11.0) % Eos % (Auto) 2.1 (0.0-7.0) % Baso % (Auto) 0.4 (0.0-3.0) % Neut # (Auto) 8.10 H (1.7-7.0) K/uL Lymph # (Auto) 2.00 (0.90-2.90) K/uL Def[place] # (Auto) 0.80 (0.00-0.90) K/UL Eos # (Auto) 0.20 (0.00-0.50) K/uL Baso # (Auto) 0.00 (0.00-0.30) K/uL Abs Immat Gran (auto) 0.00 (0.00-0.30) K/uL Imm/Tot Granulo (auto) 0.2 % Diff Slide Review Acceptable Review (Acceptable) Sodium 136 (135-149) mmol/L Potassium 4.0 (3.6-5.1) mmol/L Chloride 104 (96-114) mmol/L Carbon Dioxide 20 (20-32) mmol/L Anion Gap 12 (7-15) mEq/L BUN 32 H (7-30) mg/dL Creatinine 1.4 (0.5-1.5) mg/dL Estimated Creat Clear 45.63 Estimated GFR 52 ml/min Glucose 86 (60-115) mg/dL Calcium 9.6 (8.4-10.6) mg/dL C-Reactive Protein < 0.5 L (0.5-1.0) mg/dL Urine Color Yellow (Yellow) Urine Appearance Clear (Clear) Urine pH 6.0 (5.0-8.5) Ur Specific Padroni 1.010 (1.000-1.030) Urine Protein Negative (Negative) Urine Glucose (UA) 2+ A (Negative) Urine Ketones Negative (Negative) Urine Blood Negative (Negative) Urine Nitrite Negative (Negative) Urine Bilirubin Negative (Negative) Urine Urobilinogen 0.2 (0.2-1.0) Ur Leukocyte Esterase Negative (Negative) Urine RBC 0-2 (0-2) Urine WBC 0-2 (0-5) Ur Squamous Epith Cells None (None-Few) Urine Bacteria None (None) Discharge Plan Discharge Clinical Impression: Diabetes, Hyperglycemia Patient Disposition: Home, Self-Care Condition: Stable Instructions: Diabetic Hyperglycemia (ED) Additional Instructions: Recommend check your blood sugar 4 times a day for the next few days, usually regular long-acting insulin and then supplement with regular insulin as she had been doing. Small frequent meals recommended. I would recommend you consider a different blood glucose monitor. Follow-up with regular doctor when you are able. Activity Level: No Restrictions Discharge Diet: Diabetic Prescriptions: No Action furosemide [Lasix] 20 mg tablet 20 mg PO DAILY Qty: 30 2RF lorazepam 1 mg tablet 1 mg PO QDAY PRN (Reason: anxiety) Qty: 30 0RF ciprofloxacin-dexamethasone [Ciprodex] 0.3-0.1 % drops,suspension 4 drp otic (ear) TID 5 Days Qty: 7.5 2RF metoprolol tartrate 25 mg tablet 12.5 mg PO BID potassium chloride 8 mEq capsule, extended release 8 meq PO DAILY Patient Comments: TAKE 1 CAPSULE BY MOUTH DAILY lisinopril 10 mg tablet 10 mg PO DAILY Patient Comments: TAKE 1 TABLET BY MOUTH DAILY finasteride 5 mg tablet 5 mg PO DAILY Patient Comments: TAKE 1 TABLET BY MOUTH EVERY DAY insulin aspart U-100 [Novolog FlexPen U-100 Insulin] 100 unit/mL (3 mL) insulin pen 15 unit SUBCUT Patient Comments: INJECT 15 UNITS UNDER THE SKIN BEFORE BREAKFAST AND DINNER Levemir FlexTouch U100 Insulin 100 unit/mL (3 mL) insulin pen 54 unit SUBCUT DAILY Patient Comments: INJECT 57 UNITS UNDER THE SKIN EVERY DAY Janumet XR 50-500 mg tablet, ER multiphase 24 hr 2 tab PO DAILY Farxiga 10 mg tablet 10 mg PO DAILY Patient Comments: TAKE 1 TABLET BY MOUTH EVERY DAY lorazepam [Ativan] 0.5 mg tablet 0.5 mg PO BID PRNQty: 14 0RF rosuvastatin 20 mg tablet 20 mg PO DAILY Qty: 90 3RF Xarelto 10 mg tablet 10 mg PO Q24H Qty: 60 3RF chlorthalidone 25 mg tablet 25 mg PO DAILY Qty: 30 0RF Follow Up/Referrals: [place] MD [Primary Care Provider] - Stand Alone Forms: [employer] Info Instructions
--- OUTSIDE RECORDS SUMMARY | 2023-11-15 16:15 | XMS_ITS | Clinical Summary ---
Author Organization [facility] Address [place], [place] [address] Care Team Providers Care Machine Operator Assistant Name Role Phone Elisabet Norris MD Primary Care Provider [phone] Allergies No known active allergies Medications Medication Sig Dispensed Refills Start Date End Date Status Fish Oil-Loring-3 Fatty Acids (ONE-PER-DAY OMEGA-3) 684-1,200 mg capsule [...] Altzheimers Cancer Other Cousin Lisa Ovarian [place], [facility] A-1 pos; 40s Heart Disease Paternal Grandfather 6 0s, [place] Other Paternal Grandmother 96 yo Good Health [...] Completed 03/24/2008 Medical Devices Implanted Type Area Base Wad Operator Adjuster Device Identifier Shelf Expiration Date Model / Serial / Lot Screw Bone [id number] Self Tapping Gabbie - [id number] Implanted:Qty: 1 on 07/21/2011 by Rickey Lloyd MD at [facility] Imp.,Screws & Plates Left: Hip [employer] 12/16/2020 # / / [id number] Liner Poly 60x36 0 Deg Xlpe - [id number] Implanted:Qty: 1 on 07/21/2011 by Rickey Lloyd MD at [facility] Left: Hip [employer] 06/15/2013 # / / [id number] Shell Trilogy 60mm Cluster/Holed 6200-060-22 Gabbie - [id number] Implanted:Qty: 1 on 07/21/2011 by Rickey Lloyd MD at [facility] Left: Hip [employer] 09/15/2020 # / / [id number] Taper M/L Sz 13.5 Std Offset - [id number] Implanted:Qty: 1 on 07/21/2011 by Rickey Lloyd MD at [facility] Left: Hip [employer] 03/18/2021 7711-13# / / [id number] Fem Head 36mm +3.5 Biolox Delta - [id number] Implanted:Qty: 1 on 07/21/2011 by Rickey Lloyd MD at [facility] [employer] 11/15/2020 00-8775 -03 6-03# / / [id number] Advance Directives * Full Code (Latest Code Status on File) Date Activated Date Inactivated Comments 07/21/2011 11:19 AM 07/24/2011 3:23 PM * Full Code Date Activated Date Inactivated Comments 07/21/2011 6:38 AM 07/21/2011 11:19 AM Care Teams Machine Operator Assistant Relationship Specialty Start Date End Date Elisabet Norris MD [address] [place], [place] [address]y [address] [place] [id number] PCP - General Family Practice 08/03/18
--- OUTSIDE RECORDS SUMMARY | 2023-11-15 16:15 | XMS_ITS | Clinical Summary ---
Author Organization [facility] Address [address] [place] [address] Care Team Providers Care Carbider Name Role Phone Clinician, Not Found MD Primary Care Provider Un available Source Comments You are receiving this document as you are listed as the primary care provider,follow-up provider, or the patient has been referred to you for consultation.This is in compliance with the Medicare and[facility] EHR Incentive Program,which states Providers who transition their patient to another setting of careor provider of care or refers their patient to another provider of care shouldprovide summary care record for each transition of care or referral. Mozio Allergies No known active allergies Medications Medication Sig Dispensed Refills Start Date End Date Status metFORMIN (AKA GLUCOPHAGE) 500 MG tablet Take 500 mg by mouth 2 times daily (with meals). 10/27/2011 Active blood glucose disk by [facility].(Non-Drug; Combo Route) route. 10/27/2011 Active metoPROLOL succinate (AKA TOPROL XL) 50 MG 24 hour release tablet Take 50 mg by mouth daily (every 24 hours). 10/27/2011 Active simvastatin (AKA ZOCOR) 20 MG tablet Take 20 mg by mouth nightly. 10/27/2011 Active Fluticasone Propionate, Inhal, 50 MCG/BLIST inhalation Inhale 1 puff 2 times daily. Rinse mouth/Gargle after use 10/27/2011 Active Lawai-3 Fatty Acids (SUPER OMEGA 3 EPA/DHA OR) [...] Overview (10/08/2016): Setting: Auto 06/30 Supplied by: [facility] PSG done: 09-29-11 AHI 26 RDI 35 [...] age to complete this topic Care Teams Carbider Relationship Specialty Start Date End Date Clinician, Not Found, [place] [address] PCP - General 07/29/18
[2023-11-15 16:42] LABS: Basophils Percent Auto 0.4 % (0.0-3.0); Eosinophils Percent Auto 2.1 % (0.0-7.0); Hematocrit 42.9 % (37.0-53.0); Hemoglobin* 13.7 gm/dL (13.5-17.5); Immature Granulocytes Pct Auto 0.2 %; Lymphocytes Percent Auto 17.6 % (20-44); Mean Corpuscular HGB Conc 32 gm/dL (32-36); Mean Corpuscular Hemoglobin 29 pg (26-34); Mean Corpuscular Volume 91 fL (80-100); Monocytes Percent Auto 7.2 % (0.0-11.0); Neutrophils Percent Auto 72.5 % (42.0-72.0); Platelet Count* 234 K/uL (140-440); RDW Coefficient of Variation % 14.5 % (11.5-15.5); Red Blood Count 4.72 m/uL (4.30-5.90); White Blood Count* 11.19 K/uL (4.50-11.00)
[2023-11-15 16:44] LABS: Appearance Urine Clear (Clear); Bilirubin Urine Negative (Negative); Blood Urine Negative (Negative); Color Urine Yellow (Yellow); Glucose Urine 2+ (Negative); Ketones Urine Negative (Negative); Leukocyte Esterase Urine Negative (Negative); Nitrite Urine Negative (Negative); Protein Urine Negative (Negative); Urobilinogen Urine 0.2 (0.2-1.0)
[2023-11-15 16:55] LABS: Chloride* 104 mmol/L (96-114); Sodium* 136 mmol/L (135-149)
[2023-11-15 16:56] LABS: RBC Urine 0-2 (0-2); WBC Urine 0-2 (0-5)
[2023-11-15 16:58] LABS: Anion Gap 12 mEq/L (7-15); Carbon Dioxide* 20 mmol/L (20-32); Creatinine* 1.4 mg/dL (0.5-1.5); Est. Creatinine Clearance* 45.63; Estimated Glomerular Filt Rate 52 ml/min
[2023-11-15 16:59] LABS: Blood Urea Nitrogen* 32 mg/dL (7-30); Calcium* 9.6 mg/dL (8.4-10.6); Glucose* 86 mg/dL (60-115)
[2023-11-15 17:04] LABS: C Reactive Protein* < 0.5 mg/dL (0.5-1.0); Slide Review Reflex Yes
[2023-11-15 17:05] LABS: Slide Review Acceptable Review (Acceptable)
--- NOTE | 2023-11-15 17:35 | ED.NURSE ---
When discharging patient was still concerned about his fluctuating glucose levels. Fingerstick glucose was taken to check accuracy and his meter was over 75 points higher than ED hospital glucose monitor. Juice and sandwich were provided and patient counseled to change his arm meter as soon as possible.
== END 2023-11-15 18:06 | disposition home or self-care (01) ==
PROVIDERS: Emergency Provider Family Medicine; PCP Internal Medicine
DX: E11.65 Type 2 diabetes mellitus with hyperglycemia (principal); I45.10 Unspecified right bundle-branch block
CPT/HCPCS: 36415; 80048; 81001; 82962; 85025; 86140; 87086; 93005; 99284

== ENCOUNTER 2023-11-24 11:44 | Outpatient (CLI) | payer MEDICARE, BC, SELFPAY | END 2023-11-24 11:45 | disposition home or self-care (01) | LOC: NFLDREF 11:46 | PROVIDERS: PCP Internal Medicine; Visit Provider Internal Medicine | DX: E11.9 Type 2 diabetes mellitus without complications (principal); N18.30 Chronic kidney disease, stage 3 unspecified; I10 Essential (primary) hypertension; E78.5 Hyperlipidemia, unspecified; Z12.5 Encounter for screening for malignant neoplasm of prostate | CPT/HCPCS: G0103 ==

== ENCOUNTER 2024-10-14 19:00 | Emergency (ER) | payer MEDICARE, BC, SELFPAY ==
--- OUTSIDE RECORDS SUMMARY | 2014-10-17 09:41 | XMS_ITS | Continuity of Care Document ---
Author Organization [facility] Address [address] [address] [place] [address] Phone Care Team Providers Care Jackspooler Name Role Phone Nate La MD Unavailable Allergies, Adverse Reactions, Alerts Substance Reaction Status Criticality No Known allergies Medications Medication Instructions Dosage Effective Dates (start - stop) Status Comments finasteride 5 mg tablet take 1 tablet by oral route every day 5 MG - Active aspirin 81 mg tablet,delayed release take 1 tablet by oral route every day 81 MG - Active glipizide ER 2.5 mg tablet, extended release 24 hr take 1 Tablet by ORAL route 2 times every day 2.5 MG - Active Claritin 10 mg tablet take 1 tablet by ORAL route every day as needed 10 MG - Active lisinopril 10 mg tablet take 1 Tablet by ORAL route every day 10 MG - Active simvastatin 20 mg tablet take 1 tablet b y oral route every day in the evening 20 MG - Active metoprolol succinate ER 50 mg tablet,extended release 24 hr take 1 tablet by oral route every day 50 MG - Active metformin 1,000 mg tablet take 1 tablet by ORAL route 2 times every day with morning and evening meals 1000 MG - Active Fish Oil 1,000 mg capsule take 4 by Oral route every day - Active ibuprofen 200 mg tablet take 4 - 6 Tablet by ORAL route every day as needed with food 800 MG - Active latanoprost 0.005 % eye drops instill 1 drop by ophthalmic route every day into affected eye(s) in the evening 1.00 drop - Active MiralaxBisacodylMagCit Colon Prep Use as directed - No Longer Active Procedures Procedure Date Colorectal Ca Scrn Not Hi Risk 15 Advance Directives Directive Yes / No Effective Date File Name No Information Encounters Encounter Description Practice Location Reason(s) For Visit Diagnoses Date Provider Providers Copied on Encounter [facility], [address] [address], [place], [place], [address], [place] tel:[phone] [facility] No Information 5 Bessie Sullivan. [address], [place], [place], [address] , [place]. tel: [phone] [facility], [address] [address], [place], [place], [address], [place] tel:[phone] [facility] DiverticulosisHemor rhoidsColon Cancer ScreeningHemorrhoid sDiverticulosis Of Colon 5 Bessie Sullivan. [address], [place], [place], [address] , [place]. tel: [phone] Referring Provider: Bola Arredondo MD, [address] [facility] [address], [place], [address]. tel:[phone] [facility], [address] [address], [place], [place], [address], [place] tel:[phone] [facility] No Information 5 Kanchan Stauffer. [address], [place], [place], [address] , [place]. tel: [phone] Referring Provider: Bola Arredondo MD, [address] [facility] [address], [place], [address]. tel:[phone] Family History Family Member Type Diagnosis Age At Onset Brother Problem (finding) Alive and well Father Problem (finding) Mother Problem (finding) Sister Problem (finding) Alive and well Payers Payer name Insurance type Covered constitution party ID Authoriza tion(s) Medicare NGS MB [id number] Social History Type Description Quantity Date Captured Comments Sex Male Smoking Status No Information Chief Complaint And Reason For Visit No Information Reason For Referral Reason For Referral No Information History Of Present Illness Encounter Date Complaint History Of Prese nt Illness No Information Functional Status Date Functional Assessmen t No Information Instructions Date Instruction Additional Infor mation Hemorrhoids Related to Diver ticulosis High Fiber Diet Related to Diver ticulosis Diverticulosis/Diverticulitis Re lated to Diverticulosis Colon Cancer Prevention Related to Diverticulosis Assessments Type Assessment Date No Information Patient Care Teams Name Effective Dates (start - stop) Status Members No Information
--- OUTSIDE RECORDS SUMMARY | 2014-10-17 09:41 | XMS_ITS | Continuity of Care Document ---
Author Organization [facility] Address [address] [address] [place] [address] Phone Care Team Providers Care Hris Specialist Name Role Phone Nate La MD Unavailable [...] Diagnoses Date Provider Providers Copied on Encounter [facility], [address] [address], [place], [place], [address], [place] tel:[phone] [facility] No Information 5 Bessie Sullivan. [address] [facility], [place], [place], [address] , [place]. tel: [phone] [facility], [address] [address], [place], [place], [address], [place] tel:[phone] [facility] DiverticulosisHemor rhoidsColon Cancer ScreeningHemorrhoid sDiverticulosis Of Colon 5 Bessie Sullivan. [address] [facility], [place], [place], [address] , [place]. tel: [phone] Referring Provider: Bola Arredondo MD, [address] [facility] [address], [place], [address]. tel:[phone] [facility], [address] [address], [place], [address], [place] tel:[phone] [facility] No Information 5 Kanchan Stauffer. [address] [facility], [place], [place], [address] , [place]. tel: [phone] Referring Provider: Bola Arredondo MD, [address] [facility] [address], [place], [address]. tel:[phone] Family History Family Member Type Diagnosis Age At Onset Brother Problem (finding) Alive and well Father Problem (finding) Mother Problem (finding) Sister Problem (finding) Alive and well Payers Payer name Insurance type Covered constitution party ID Authoriza tion(s) Medicare NGS MB [id number] Social History Type Description Quantity Date Captured [...]
[2024-10-14] VITALS (36 sets, daily range): BP systolic 116–154; BP diastolic 73–104; PULSE 73–89; RESP 5–43; TEMP 37.2; O2SAT 18–100; BMI 40.9
--- OUTSIDE RECORDS SUMMARY | 2024-10-14 19:02 | XMS_ITS | Clinical Summary ---
Author Organization [facility] Address [address] [place] [address] Care Team Providers Care Special Loan Officer Name Role Phone Elisabet Norris MD Primary Care Provider [phone] Allergies No known active allergies Medications Fish Oil-Oxbow-3 Fatty Acids (ONE-PER-DAY OMEGA-3) 684-1,200 mg capsule Take 2 capsules by mouth 2 times daily. 0 2 Active aspirin enteric coated 81 mg tablet Take 1 tablet by mouth once daily with a meal. 0 2 Active glipiZIDE (GLUCOTROL XL) 2.5 mg Extended-Releas e tablet Take 1 tablet by mouth once daily before a meal. (breakfast). 90 tablet 1 3 Active Cholecalciferol , Vitamin D3, (VITAMIN D-3) 2,000 unit tablet Take 1 tablet by mouth once daily. 0 3 Active blood sugar diagnostic (ASCENSIA CONTOUR) stripIndication s:Type 2 diabetes, HbA1c goal < 7% (HC) Dispense test strips covered by the patient insurance. Test on average ONE time per day. 100 Each 2 3 Active lisinopril (PRINIVIL; ZESTRIL) 10 mg tablet Take 1 tablet by mouth once daily. For high blood pressure 90 tablet 0 3 Active simvastatin (ZOCOR) 20 mg tabletIndicatio ns:Hyperlipidem ia LDL goal < 100,Type 2 diabetes, HbA1c goal < 7% (HC) TAKE 1 TABLET BY MOUTH ONCE DAILY WITH EVENING MEAL 90 tablet 0 4 Active metoprolol succinate SR (TOPROL XL) 50 mg Sustained-Relea se tabletIndicatio ns:HTN (hypertension) TAKE 1 TABLET BY MOUTH EVERY DAY FOR HIGH BLOOD PRESSURE 90 tablet 0 4 Active metFORMIN (GLUCOPHAGE) 1,000 mg tabletIndicatio ns:Type 2 diabetes, HbA1c goal < 7% (HC) Take 1 tablet by mouth twice daily 135 tablet 1 5 Active finasteride (PROSCAR) 5 mg tablet Take 1 tablet by mouth every morning. 0 5 Active loratadine (CLARITIN) 10 mg tablet Take 1 tablet by mouth once daily. 0 5 Active ibuprofen (ADVIL; MOTRIN) 200 mg tablet Take 1 tablet by mouth 4 times daily if needed. 0 5 Active hydrocortisone 1 % ointmentIndicat ions:Leg skin lesion, right Apply topically to affected area(s) 2 times daily. 1 Tube 9 Active diphenhydrAMINE (BENADRYL) 25 mg tabletIndicatio ns:Leg skin lesion, right Take 1 tablet by mouth every 4 hours if needed. 30 tablet 9 Active Active Problems Problem Noted Date Diagnosed Date Hip osteoarthritis 07/21/2011 HTN (hypertension) 07/06/2011 Type 2 diabetes, HbA1c goal < 7% Overview (03/19/2009): Hyperlipidemia LDL goal < 100 Obesity Elevated PSA Overview (03/30/2008): PSA 7.9, Urology consult 10/20 CALEB (obstructive sleep apnea) Overview (10/08/2012): using CPAP Immunizations Immunization Administration Dates Next Due Pneumococcal Poly,23-Valent (Pneumovax) [...] Altzheimers Cancer Other Cousin Lisa Ovarian CA, [facility] A-1 pos; 40s Heart Disease Paternal Grandfather 6 0s, [place] Other Paternal Grandmother 96 yo Good Health [...] Recorded Sex Assigned at Not on file 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 Gender Identity Not on file Sexual Orientation Not on file Obstetrics History Last Filed Vital Signs Vital Sign Reading Time Taken Comments Blood Pressure 140/70 09/12/2020 9:19 AM CDT Pulse 88 09/12/2020 9:19 AM CDT Temperature 36.7 C (98 F) 09/12/2020 8:23 AM CDT Respiratory Rate 18 [...] age 18+ 1964 Hepatitis C screening for ag e 18-79 1964 Zoster (shingles) series for age 50+ (1 of 2) 1996 Pneumococcal series for age 50+ (2 of 2 - PCV) 07/21/2012 07/22/2011 Tetanus booster 03/24/2018 03/24/2008 RSV vaccine for adults or (1 - 1-dose 75+ series) 2021 COVID-19 vaccine series ( - 2023-25 season) 2023 Influenza Vaccine (#1) 2024 Hepatitis B series for 19+ Aged Out N o longer eligible based on patient's age to complete this topic Medical Devices Implanted Type Area Provider Education Specialist Device Identifier Shelf Expiration Date Model / Serial / Lot Screw Bone [id number] Self Tapping Gabbie - [id number] Implanted:Qty: 1 on 07/21/2011 by Rickey Lloyd MD at [facility] Imp.,Screws & Plates Left: Hip [employer] 12/16/2020 # / / [id number] Liner Poly 60x36 0 Deg Xlpe - [id number] Implanted:Qty: 1 on 07/21/2011 by Rickey Lloyd MD at [facility] Left: Hip [employer] 06/15/2013 # / / [id number] Shell Trilogy 60mm Cluster/Holed [id number] Gabbie - [id number] Implanted:Qty: 1 on 07/21/2011 by Rickey Lloyd MD at [facility] Left: Hip [employer] 09/15/2020 # / / [id number] Taper M/L Sz 13.5 Std Offset - [id number] Implanted:Qty: 1 on 07/21/2011 by Rickey Lloyd MD at [facility] Left: Hip [employer] 03/18/2021 7711-13# / / [id number] Fem Head 36mm +3.5 Biolox Delta - [id number] Implanted:Qty: 1 on 07/21/2011 by Rickey Lloyd MD at [facility] [employer] 11/15/2020 00-8775 -03 6-03# / / [id number] Insurance MEDICARE PB ONLY MEDICARE PART B HB ONLY MEDICARE PART A HB ONLY [facility] Advance Directives * Full Code (Latest Code Status on File) Date Activated Date Inactivated Comments 07/21/2011 11:19 AM 07/24/2011 3:23 PM * Full Code Date Activated Date Inactivated Comments 07/21/2011 6:38 AM 07/21/2011 11:19 AM Care Teams Special Loan Officer Relationship Specialty Start Date End Date Elisabet Norris MD [address] [place] [address] [address] [place] [id number] PCP - General Family Practice 08/03/18
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
--- OUTSIDE RECORDS SUMMARY | 2024-10-14 19:23 | XMS_ITS | Clinical Summary ---
Author Organization [facility] Address [address] [place] [address] Care Team Providers Care Carburetor Repairer Name Role Phone Clinician, Not Found MD Primary Care Provider Un available Source Comments You are receiving this document as you are listed as the primary care provider,follow-up provider, or the patient has been referred to you for consultation.This is in compliance with the Medicare and[facility] [employer] EHR Incentive Program,which states Providers who transition their patient to another setting of careor provider of care or refers their patient to another provider of care shouldprovide summary care record for each transition of care or referral. [employer] Allergies No known active allergies Medications metFORMIN (AKA GLUCOPHAGE) 500 MG tablet Take 500 mg by mouth 2 times daily (with meals). 10/27/2011 Active blood glucose [place] [facility]Non-D rug; Combo Route) route. 10/27/2011 Active metoPROLOL succinate (AKA TOPROL XL) 50 MG 24 hour release tablet Take 50 mg by mouth daily (every 24 hours). 10/27/2011 Active simvastatin (AKA ZOCOR) 20 MG tablet Take 20 mg by mouth nightly. 10/27/2011 Active Fluticasone Propionate, Inhal, 50 MCG/BLIST inhalation Inhale 1 puff 2 times daily. Rinse mouth/Gargl e after use 10/27/2011 Active Moran-3 Fatty Acids (SUPER OMEGA 3 EPA/DHA OR) Take by mouth. 10/27/2011 Active XARELTO 20 MG tablet TK 1 T PO D 1 05/05/2018 Active potassium chloride 8 MEQ controlled release capsule [...] MG 24 hour release tablet 1 06/04/2018 Acti ve lisinopril (ZESTRIL) 10 MG tablet TK 1 [...] (hypertension) 10/27/2011 DM (diabetes mellitus) 10/27/2011 Immunizations Immunization Administration Dates Next Due PPSV23 (Pneumovax) 07/22/2011 [...] at Not on file Legal Sex Male 2:23 PM CDT Gender Identity Not on file Sexual Orientation [...] Maintenance Due Date Last Done Comments Diabetes: Albumin/Creatinine Ratio, Urine 1946 Diabetes: Creatinine 1946 Diabetes: Eye Exam 1946 Diabetes: Foot Exam 1946 Diabetes: HGBA1C 1946 Diabetes: Lipid Panel 1946 Hep B Immunization Discussion 1946 Hep C Screening (Preventive Services) 1945 Medicare Annual Wellness Visit 1946 Zoster/Shingles Vaccine (1 of 2) 1996 Pneumococcal Vaccine 50+ Yrs (2 of 2 - PCV) 07/21/2012 07/22/2011 DTaP/Tdap/Td Vaccine (2 - Tdap) 03/24/2018 9 RSV Vaccine (1 - 1-dose 75+ series) 2021 COVID-19 Vaccine ( - 2023-2 5 season) 2023 Influenza Vaccine (#1) 2024 HepA Vaccine Aged Out No longer eligi ble based on patient's age to complete this topic HepB Vaccine Aged Out No longer eligi ble based on patient's age to complete this topic Hib Vaccine Aged Out No longer eligi ble based on patient's age to complete this topic IPV (Polio) Vaccine Aged Out No longe r eligible based on patient's age to complete this topic MCV4 Vaccine Aged Out No longer eligi ble based on patient's age to complete this topic Meningococcal B Vaccine Aged Out No l onger eligible based on patient's age to complete this topic Insurance MEDICARE [facility] [place] [address] Care Teams Carburetor Repairer Relationship Specialty Start Date End Date Clinician, Not Found, [place] [address] PCP - General 07/29/18
[2024-10-14 19:42] LABS: Hematocrit 42.8 % (37.0-53.0); Hemoglobin* 14.0 gm/dL (13.5-17.5); Immature Granulocytes Pct Auto 0.2 %; Mean Corpuscular HGB Conc 33 gm/dL (32-36); Mean Corpuscular Hemoglobin 29 pg (26-34); Mean Corpuscular Volume 90 fL (80-100); RDW Coefficient of Variation % 14.2 % (11.5-15.5); Red Blood Count 4.78 m/uL (4.30-5.90); White Blood Count* 14.09 K/uL (4.50-11.00)
[2024-10-14 19:45] LABS: Immature Granulocytes Abs Auto 0.00 K/uL (0.00-0.30); Lymphocytes Absolute Auto 2.10 K/uL (0.90-2.90)
[2024-10-14 19:46] LABS: Slide Review Reflex No
[2024-10-14 20:17] LABS: Chloride* 101 mmol/L (96-114); Potassium* 4.7 mmol/L (3.6-5.1); Sodium* 138 mmol/L (135-149)
[2024-10-14 20:20] LABS: Anion Gap 11 mEq/L (7-15); Blood Urea Nitrogen* 37 mg/dL (7-30); Calcium* 9.7 mg/dL (8.4-10.6); Carbon Dioxide* 26 mmol/L (20-32); Creatinine* 1.5 mg/dL (0.5-1.5); Est. Creatinine Clearance* 41.91; Estimated Glomerular Filt Rate 47 ml/min; Glucose* 145 mg/dL (60-115)
[2024-10-14 20:26] LABS: D Dimer Quantitative* 0.57 ug/ml (0.00-0.50)
--- NOTE | 2024-10-14 20:44 | CRLHL7_ITS ---
For Patients: As a result of the Cures Act, medical imaging exams and procedure reports are released immediately into your electronic medical record. You may view this report before your referring provider. If you have questions, please contact your health care provider. INDICATION: Chest pain, history of pulmonary embolism in 2017 TECHNIQUE: Chest radiograph 2 views COMPARISON: 09/25/2021, CT 09/30/2021 FINDINGS: Mediastinum: The mediastinum is normal in appearance. Lung: On the lateral view, there is an 8 mm nodule overlying the cardiac silhouette. No corresponding pulmonary nodule seen on recent chest CT and this may represent a pulmonary vessel seen en face. No sign of pleural effusion seen. No pneumothorax is identified. Bone and Soft tissue: Unremarkable for age. IMPRESSION: 1. No acute cardiopulmonary disease is seen. Dictated by Frantz Rodgers MD @ 10/14/2024 9:40:59 PM Dictated by: Frantz Rodgers MD @ 10/14/2024 21:41:03 (Electronically Signed)
[2024-10-14 21:51] LABS: Troponin, Point-of-Care* 0.10 ng/ml (0.01-0.04)
[2024-10-14 21:52] LABS: Troponin, Point-of-Care* 0.05 ng/ml (0.01-0.04)
[2024-10-15] VITALS: PULSE 72; RESP 6; O2SAT 97
[2024-10-15 00:02] VITALS: BP 112/68; PULSE 73; RESP 10; O2SAT 96
[2024-10-15] MEDS: ACETAMINOPHEN 500 MG TABLET 1000 MG PO (00:17)
[2024-10-15] MEDS: RIVAROXABAN 10 MG TABLET PO (00:18)
[2024-10-15 00:20] VITALS: PULSE 73; RESP 11; O2SAT 97
[2024-10-15 00:30] VITALS: PULSE 74; RESP 16; O2SAT 96
[2024-10-15 00:32] VITALS: BP 113/67; PULSE 72; RESP 16; O2SAT 96
== END 2024-10-15 01:07 | disposition short-term general hospital (02) ==
PROVIDERS: Emergency Provider Emergency Medicine; PCP Internal Medicine
DX: I21.4 Non-ST elevation (NSTEMI) myocardial infarction (principal)
CPT/HCPCS: 36415; 71046; 80048; 84484; 85025; 85379; 93005; 99284; 99285; A9270

== ENCOUNTER 2024-10-15 00:59 | Outpatient (CLI) | payer MEDICARE, BC, SELFPAY | END 2024-10-15 01:00 | disposition home or self-care (01) | LOC: AMB 10-19 10:35 | PROVIDERS: PCP Internal Medicine; Visit Provider Family Medicine | DX: I21.4 Non-ST elevation (NSTEMI) myocardial infarction (principal) | CPT/HCPCS: A0425; A0427 ==

== ENCOUNTER 2024-11-08 14:35 | Outpatient (CLI) | payer MEDICARE, BC, SELFPAY ==
--- NOTE | 2024-11-08 15:00 | CRLHL7_ITS ---
For Patients: As a result of the Century Cures Act, medical imaging exams and procedure reports are released immediately into your electronic medical record. You may view this report before your referring provider. If you have questions, please contact your health care provider. INDICATION: Pulsatile tinnitus. TECHNIQUE: CTA head with contrast bolus tracking, 3D angiographic rendering using maximum intensity projection (MIP) and images permanently archived. FINDINGS: There is normal opacification of the intracranial vasculature. There is no large vessel occlusion. No aneurysm is identified. IMPRESSION: Unremarkable head CTA. If there is persistent unilateral pulsatile tinnitus, consideration could be given to a catheter angiogram for further evaluation. If desired, this can be arranged by calling our coordinator at [phone]. Donnie Medrano MD Neurointerventional Radiology [facility]: [phone] Please note that all CT scans at this facility use dose modulation, iterative reconstruction, and/or weight-based dosing when appropriate to reduce radiation dose to as low as reasonably achievable. Dictated by Donnie Medrano MD @ 11/09/2024 7:26:29 AM (Electronically Signed)
== END 2024-11-08 14:36 | disposition home or self-care (01) ==
LOC: CT 14:37
PROVIDERS: PCP Internal Medicine; Visit Provider Otolaryngology
DX: H93.A9 Pulsatile tinnitus, unspecified ear (principal)
CPT/HCPCS: 70496; Q9967

== ENCOUNTER 2024-11-14 14:27 | Outpatient (CLI) | payer MEDICARE, BC, SELFPAY ==
--- NOTE | 2024-11-14 14:45 | CRLHL7_ITS ---
For Patients: As a result of the Century Cures Act, medical imaging exams and procedure reports are released immediately into your electronic medical record. You may view this report before your referring provider. If you have questions, please contact your health care provider. CLINICAL HISTORY: pulsatile tinnitus TECHNIQUE: The carotid circulations and the vertebral arteries in the neck were examined with degroot-scale ultrasound, color-flow and Doppler spectral analysis. Degrees of stenosis were determined using SRU 2002 Consensus Panel Criteria. FINDINGS: Sonographic images demonstrate minimal atherosclerotic plaque formation without suspicious soft tissue mass. There was antegrade blood flow demonstrated within the vertebral arteries and the subclavian arteries demonstrated a normal triphasic waveform. The spectral Doppler tracings of the common carotid, internal and external carotid arteries demonstrate no abnormal turbulence or spectral broadening. There was no significant elevation of peak systolic blood flow which would indicate a hemodynamically-significant stenosis by SRU criteria. The ICA/CCA peak systolic velocity ratio measures 0.8 on the right and 0.8 on the left. IMPRESSION: Less than 50 percent stenosis of the internal carotid arteries bilaterally. Dictated by John Ocasio MD @ 11/15/2024 10:54:36 AM (Electronically Signed)
== END 2024-11-14 14:28 | disposition home or self-care (01) ==
LOC: US 14:28
PROVIDERS: PCP Internal Medicine; Visit Provider Otolaryngology
DX: H93.A9 Pulsatile tinnitus, unspecified ear (principal); I65.23 Occlusion and stenosis of bilateral carotid arteries; R09.89 Other specified symptoms and signs involving the circulatory and respiratory systems
CPT/HCPCS: 93880